=== PATIENT | male | born 1965 | race Hispanic/Latino ===

== ENCOUNTER 2017-09-22 03:47 | Inpatient (IN) | payer MEDICARE ==
--- NOTE | 2017-09-22 04:40 | ED PDOC ---
Arrival/HPI - General Chief Complaint: Lower Extremity Problem/Injury Time Seen by Provider: 09/22/17 03:52 Historian: Patient - History of Present Illness Narrative History of Present Illness (Text): 09/22/17 04:40 Patient is a 52 year old male who presents to the Emergency department complaining of redness and pain to his lower extremities and feet. 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 Patient states he has difficulty walking on his legs because of pain. Patient notes subjective fever. He denies any dyspnea , chest pain or other complaints at this time. Time/Duration: < week Context: Home Past Medical History - Provider Review Nursing Documentation Reviewed: Yes - Tetanus Immunization Tetanus Immunization: Unknown - Cardiac Hx Hypertension: Yes - Pulmonary Hx Chronic Obstructive Pulmonary Disease (COPD): Yes - Neurological Hx Neurological Disorder: No - HEENT Hx Deafness: Yes - Renal Hx Renal Disorder: No - Endocrine/Metabolic Hx Endocrine Disorders: No - Hematological/Oncological Hx Blood Disorders: No - Integumentary Hx Dermatological Disorder: No - Musculoskeletal/Rheumatological Hx Back Pain: Yes - Gastrointestinal Hx Gastrointestinal Disorders: No - Genitourinary/Gynecological Hx Genitourinary Disorders: No - Psychiatric Hx Psychophysiologic Disorder: No Hx Depression: No Hx Emotional Abuse: No Hx Physical Abuse: No Hx Substance Use: No - Surgical History Hx Appendectomy: Yes Hx Cholecystectomy: Yes Hx Tonsillectomy: Yes - Suicidal Assessment Feels Threatened In Home Enviroment: No Family/Social History - Physician Review Nursing Documentation Reviewed: Yes Family/Social History: No Known Family HX Smoking Status: Former Smoker Hx Alcohol Use: No Hx Substance Use: No Hx Substance Use Treatment: No Allergies/Home Meds Allergies/Adverse Reactions: Allergies No Known Allergies Allergy (Verified 09/22/17 11:34) Home Medications: Home Meds Medication Instructions Recorded Confirmed Albuterol Sulfate [Proair Hfa] 0.09 mg IH BID 04/24/13 09/22/17 Famotidine 20 mg PO DAILY 04/24/13 09/22/17 Fluticasone/Salmeterol [Advair 1 puff IH BID 04/24/13 09/22/17 Diskus 250/50] MetFORMIN ER [Glucophage XR] 500 mg PO BID 04/24/13 09/22/17 Montelukast Sodium 10 mg PO DAILY 04/24/13 09/22/17 Albuterol Sulfate [Proair Hfa] 0.09 mg IH DAILY 09/22/17 09/22/17 Furosemide [Lasix] 40 mg PO BID 09/22/17 09/22/17 Glimepiride [Amaryl] 4 mg PO BID 09/22/17 09/22/17 Ipratropium [Atrovent] 1 puff IH DAILY 09/22/17 09/22/17 Oxycodone HCl [Roxicodone] 30 mg PO 5XD 09/22/17 09/22/17 Theophylline Anhydrous 600 mg PO DAILY 09/22/17 09/22/17 [Theophylline] Valsartan/Hydrochlorothiazide 1 tab PO DAILY 09/22/17 09/22/17 [Valsartan-Hctz 320-12.5 mg Tab] Review of Systems - Physician Review All systems were reviewed & negative as marked: Yes - Review of Systems Constitutional: Fevers Respiratory: absent: SOB Cardiovascular: absent: Chest Pain Musculoskeletal: Other (Pain in bilateral lower extremities) Physical Exam Vital Signs Reviewed: Yes Vital Signs Temp Pulse Pulse Resp BP Pulse Ox 09/22/17 09:44 110 H 129/74 09/22/17 08:40 98.4 F 87 20 118/64 2 L 09/22/17 07:26 98.9 F 102 H 19 120/73 93 L 09/22/17 06:53 96 H 18 108/73 95 09/22/17 06:45 132 H 133/69 09/22/17 06:30 132 H 18 133/69 92 L 09/22/17 04:40 98.1 F 103 H 110 H 20 140/84 09/22/17 04:22 99.1 F 133 H 20 126/74 92 L Temperature: Afebrile Blood Pressure: Normal Pulse: Tachycardic Respiratory Rate: Normal Appearance: Positive for: Well-Appearing Pain Distress: None Mental Status: Positive for: Alert and Oriented X 3 - Systems Exam Head: Present: Atraumatic, Normocephalic Pupils: Present: PERRL Extroacular Muscles: Present: EOMI Conjunctiva: Present: Normal Mouth: Present: Moist Mucous Membranes Neck: Present: Normal Range of Motion Respiratory/Chest: Present: Clear to Auscultation, Good Air Exchange. No: Respiratory Distress, Accessory Muscle Use Cardiovascular: Present: Normal S1, S2, Irregular Rhythm. No: Murmurs Abdomen: Present: Other (Soft globus abdomen). No: Tenderness, Distention, Peritoneal Signs Back: Present: Normal Inspection Upper Extremity: Present: Normal Inspection. No: Cyanosis, Edema Lower Extremity: Present: Normal Inspection, Tenderness (some palpable tenderness of bilateral lower extremities), Erythema (confluent erythema of bilateral lower extremities with warmth left greater than right). No: Edema Neurological: Present: GCS=15, CN II-XII Intact, Speech Normal Skin: Present: Warm, Dry, Normal Color. No: Rashes Psychiatric: Present: Alert, Oriented x 3, Normal Insight, Normal Concentration Medical Decision Making ED Course and Treatment: 09/22/17 04:40 Impression: Patient is a 52 year old male with bilateral lower extremity pain. Differential Diagnosis included but are not limited to: cellulitis vs DVT Plan: --Labs --EKG --chest X-ray --lower extremity US --Urinalysis --IV fluids -- Reassess and disposition Prior Visits: Notes and results from previous visits were reviewed. Patient was last seen in the emergency department on 06/16/13 for shortness of breath and was evaluated and discharged. Progress Notes: 09/22/17 05:10 Chest X-ray shows chronic interstitial changes. Interpreted by me. 09/22/17 05:36 EKG shows ?sinus tachycardia? atrial flutter 2:1 conduction at [address]/T wave changes. Interpreted by me. 09/22/17 06:17 Lower extremity US result reviewed and was negative 09/22/17 06:40 EKG-Atrial flutter @96 Non specific T wave changes 09/22/17 07:05 Case was d/w PMD .Accepts to his service.Request on consult. - Lab Interpretations Lab Results: 09/22/17 04:55 09/22/17 04:55 Lab Results 09/22/17 05:10: Lactate Dehydrogenase 762 H, Total Creatine Kinase 92, Troponin I 0.02 09/22/17 04:55: Sodium 138, Chloride 101, Potassium 4.9, Carbon Dioxide 26, Anion Gap 16, BUN 28 H, Creatinine 1.1, Est GFR ( Amer) > 60, Est GFR ( Non-Af Amer) > 60, Random Glucose 149 H, Calcium 8.9, Phosphorus 3.4, Magnesium 1.8, Total Bilirubin 0.7, AST 39, ALT 34, Alkaline Phosphatase 203 H, Total Protein 7.4, Albumin 3.9, Globulin 3.5, Albumin/Globulin Ratio 1.1 09/22/17 04:55: PT 13.7 H, INR 1.19 H, APTT 33.1 09/22/17 04:55: WBC 7.6, RBC 5.47, Hgb 15.7, Hct 48.9, MCV 89.4, MCH 28.7, MCHC 32.1, RDW 14.6 H, Plt Count 207, MPV 11.2 H, Gran % 71.1 H, Lymph % (Auto) 19.6 L, Boundary % (Auto) 7.9 H, Eos % (Auto) 1.1 L, Baso % (Auto) 0.3, Gran # 5.39, Lymph # (Auto) 1.5, Boundary # (Auto) 0.6, Eos # (Auto) 0.1, Baso # (Auto) 0.02 09/22/17 04:54: pO2 42, VBG pH 7.31 L, VBG pCO2 63.0 H, VBG HCO3 31.7 H, VBG Total CO2 33.6 H, VBG O2 Sat (Calc) 81.3 H, VBG Base Excess 3.6 H, VBG Potassium 4.4, Sodium 133.0, Chloride 97.0 L, Glucose 153 H, Lactate 1.6, FiO2 21.0, Venous Blood Potassium 4.4 I have reviewed the lab results: Yes - RAD Interpretation Radiology Orders: 09/22/17 04:40 CHEST PORTABLE [RAD] Stat 09/22/17 04:44 DUPLEX LOWER EXTRM VEIN BILAT [US] Stat - EKG Interpretation Interpreted by ED Physician: Yes Type: 12 lead EKG - Medication Orders Current Medication Orders: Albuterol/Ipratropium (Duoneb 3 Mg/0.5 Mg (3 Ml) Ud) 3 ml IH Q2H PRN PRN Reason: Shortness of Breath Last Admin: 09/22/17 23:20 Dose: 3 ml Amiodarone HCl (Cordarone) 200 mg PO DAILY SHA Amiodarone HCl (Cordarone) 400 mg PO TID SHA Stop: 09/23/17 23:59 Last Admin: 09/22/17 19:03 Dose: 400 mg MAR Pulse and Blood Pressure Document 09/22/17 19:03 LM (Rec: 09/22/17 19:04 LM [id number]) Pulse Pulse Rate (60-90) 106 Apixaban (Eliquis) 5 mg PO BID [facility] PRN Reason: Protocol Last Admin: 09/22/17 19:04 Dose: 5 mg Vancomycin HCl (Vancomycin 1gm) 1 gm in 250 mls @ 167 mls/hr IVPB Q12H SHA PRN Reason: Protocol Last Admin: 09/22/17 17:23 Dose: 167 mls/hr eMAR Start Stop Document 09/22/17 17:23 LM (Rec: 09/22/17 17:23 LM [id number]) Intravenous Solution Start Date 09/22/17 Start Time 17:23 Oxycodone HCl (Oxycodone Immediate Release Tab) 30 mg PO Q6H PRN PRN Reason: Pain, severe (8-10) Last Admin: 09/22/17 19:04 Dose: 30 mg MAR Pain Assessment Document 09/22/17 19:04 LM (Rec: 09/22/17 19:04 LM [id number]) Pain Reassessment Is this a pain reassessment? No Presence of Pain Presence of Pain Yes Location Pain Location Body Site Leg Foot Description Description Chronic Verapamil HCl (Calan Tab) 40 mg PO TID [facility] Last Admin: 09/22/17 19:06 Dose: 40 mg MAR Pulse and Blood Pressure Document 09/22/17 19:06 LM (Rec: 09/22/17 19:06 LM [id number]) Pulse Pulse Rate (60-90) 106 Discontinued Medications Digoxin (Lanoxin) 0.25 mg IVP STAT STA Stop: 09/22/17 09:30 Last Admin: 09/22/17 09:35 Dose: 0.25 mg MAR Apical Pulse Rate Document 09/22/17 09:35 SRE (Rec: 09/22/17 09:35 SRE [id number]) Apical Pulse Rate Apical Pulse Rate (60-90 beats/min) 117 IVP Administration Document 09/22/17 09:35 SRE (Rec: 09/22/17 09:35 SRE [id number]) Charges for Administration # of IVP Administrations 1 Digoxin (Lanoxin) 0.25 mg IVP ONCE ONE Stop: 09/22/17 14:01 Last Admin: 09/22/17 15:39 Dose: 0.25 mg MAR Apical Pulse Rate Document 09/22/17 15:39 LM (Rec: 09/22/17 15:40 LM [id number]) Apical Pulse Rate Apical Pulse Rate (60-90 beats/min) 107 IVP Administration Document 09/22/17 15:39 LM (Rec: 09/22/17 15:40 LM [id number]) Charges for Administration # of IVP Administrations 1 Diltiazem HCl (Cardizem) 25 mg IVP STAT STA Stop: 09/22/17 06:20 Last Admin: 09/22/17 06:45 Dose: 20 mg Comments: as per Dr. Villalba IVP Administration Document 09/22/17 06:45 IT (Rec: 09/22/17 06:45 IT [id number]) Charges for Administration # of IVP Administrations 1 MAR Pulse and Blood Pressure Document 09/22/17 06:45 IT (Rec: 09/22/17 06:45 IT [id number]) Pulse Pulse Rate (60-90) 132 Blood Pressure Blood Pressure (100/60-150/90) 133/69 Enoxaparin Sodium (Lovenox) 100 mg SC STAT STA PRN Reason: Protocol Stop: 09/22/17 06:48 Last Admin: 09/22/17 06:57 Dose: 100 mg Subcutaneous Administrations Document 09/22/17 06:57 IT (Rec: 09/22/17 06:57 IT [id number]) Injection Site MAR Injection Site Right Abdomen Charges for Administration # of Subcutaneous Administrations 1 Sodium Chloride (Sodium Chloride 0.9%) 1,000 mls @ 150 mls/hr IV .Q6H40M SHA Last Admin: 09/22/17 12:24 Dose: Vancomycin HCl (Vancomycin 1gm) 1 gm in 250 mls @ 167 mls/hr IVPB STAT STA PRN Reason: Protocol Stop: 09/22/17 07:02 Last Admin: 09/22/17 08:38 Dose: 167 mls/hr eMAR Start Stop Document 09/22/17 08:38 SRE (Rec: 09/22/17 08:48 SRE [id number]) Intravenous Solution Start Date 09/22/17 Start Time 08:48 End Date 09/22/17 End time 10:25 Total Infusion Time 97 Piperacillin Sod/Tazobactam Sod (Zosyn 3.375 In Ns 100ml) 100 mls @ 200 mls/hr IV STAT STA PRN Reason: Protocol Stop: 09/22/17 05:59 Last Admin: 09/22/17 06:48 Dose: 200 mls/hr eMAR Start Stop Document 09/22/17 06:48 IT (Rec: 09/22/17 06:50 IT [id number]) Intravenous Solution Start Date 09/22/17 Start Time 06:50 End Date 09/22/17 Sodium Chloride (Sodium Chloride 0.9%) 1,000 mls @ 50 mls/hr IV .Q20H SHA Stop: 09/22/17 23:59 Last Admin: 09/22/17 13:03 Dose: Morphine Sulfate (Morphine) 4 mg IVP STAT STA Stop: 09/22/17 06:38 Last Admin: 09/22/17 06:44 Dose: 4 mg MAR Pain Assessment Document 09/22/17 06:44 IT (Rec: 09/22/17 06:44 IT [id number]) Pain Reassessment Is this a pain reassessment? No Presence of Pain Presence of Pain Yes Pain Scale Used Pain Scale Used Numeric Location Left, Right or Bilateral Bilateral Pain Location Body Site Leg IVP Administration Document 09/22/17 06:44 IT (Rec: 09/22/17 06:44 IT [id number]) Charges for Administration # of IVP Administrations 1 Oxycodone HCl (Oxycodone Immediate Release Tab) 30 mg PO Q8H PRN PRN Reason: Pain, severe (8-10) Last Admin: 09/22/17 12:56 Dose: 30 mg MAR Pain Assessment Document 09/22/17 12:56 LM (Rec: 09/22/17 12:56 LM [id number]) Pain Reassessment Is this a pain reassessment? No Presence of Pain Presence of Pain Yes Location Pain Location Body Site Leg Foot Description Pain Behavior Facial Grimacing Pneumococcal Polyvalent Vaccine (Pneumovax 23 Vaccine) 0.5 ml IM .ONCE ONE Stop: 09/22/17 14:22 Verapamil HCl (Verapamil Inj) 2.5 mg IVP STAT STA Stop: 09/22/17 09:30 Last Admin: 09/22/17 09:44 Dose: 2.5 mg IVP Administration Document 09/22/17 09:44 SRE (Rec: 09/22/17 09:44 SRE [id number]) Charges for Administration # of IVP Administrations 1 MAR Pulse and Blood Pressure Document 09/22/17 09:44 SRE (Rec: 09/22/17 09:44 SRE [id number]) Pulse Pulse Rate (60-90) 110 Blood Pressure Blood Pressure (100/60-150/90) 129/74 - Scribe Statement The provider has reviewed the documentation as recorded by the Scribe Bobby Vaughn Provider Scribe Attestation: All medical record entries made by the Scribe were at my direction and personally dictated by me. I have reviewed the chart and agree that the record accurately reflects my personal performance of the history, physical exam, medical decision making, and the department course for this patient. I have also personally directed, reviewed, and agree with the discharge instructions and disposition Disposition/Present on Arrival - Present on Arrival Any Indicators Present on Arrival: No History of DVT/PE: No History of Uncontrolled Diabetes: No Urinary Catheter: No History of Decub. Ulcer: No History Surgical Site Infection Following: None - Disposition Have Diagnosis and Disposition been Completed?: Yes Diagnosis: Atrial flutter with rapid ventricular response, Cellulitis Disposition: HOSPITALIZED Disposition Time: 07:06 Patient Plan: Admission Patient Problems: Current Active Problems Problem Status Onset Atrial flutter with rapid ventricular response Acute Cellulitis Acute Condition: STABLE
[2017-09-22 05:06] LABS: VENOUS BLOOD GAS BASE EXCESS 3.6 mmol/L (0.0-2.0); VENOUS BLOOD GAS PO2 42 mm/Hg (30-55); VENOUS BLOOD PH 7.31 (7.32-7.43)
[2017-09-22 05:22] LABS: BASO # 0.02 K/mm3 (0.0-2.0); BASO % 0.3 % (0.0-3.0); EOS # 0.1 (0.0-0.7); EOS % 1.1 % (1.5-5.0); GRAN # 5.39 (1.4-6.5); GRAN % 71.1 % (50.0-68.0); HEMOGLOBIN 15.7 g/dL (14.0-18.0); LYMPH # 1.5 (1.2-3.4); LYMPH % 19.6 % (22.0-35.0); MEAN CELL VOLUME 89.4 fl (80.0-105.0); MEAN CORPUSCULAR HEMOGLOBIN 28.7 pg (25.0-35.0); MEAN CORPUSCULAR HGB CONC 32.1 g/dl (31.0-37.0); MEAN PLATELET VOLUME 11.2 fl (7.0-11.0); MONO # 0.6 (0.1-0.6); MONO % 7.9 % (1.0-6.0); RBC 5.47 10^6/uL (3.5-6.1); RED CELL DISTRIBUTION WIDTH 14.6 % (11.5-14.5); WHITE BLOOD COUNT 7.6 10^3/ul (4.5-11.0)
[2017-09-22 05:27] LABS: ALB/GLOB RATIO 1.1 (1.1-1.8); ALBUMIN 3.9 g/dL (3.0-4.8); ALT/SGPT 34 U/L (7-56); AST/SGOT 39 U/L (17-59); BLOOD UREA NITROGEN 28 mg/dL (7-21); CALCIUM 8.9 mg/dL (8.4-10.5); GFR AFRICAN-AMERICAN > 60; GFR NON-AFRICAN AMERICAN > 60; INR 1.19 (0.93-1.08); PARTIAL THROMBOPLASTIN TIME 33.1 Seconds (25.1-36.5); PROTHROMBIN TIME 13.7 SECONDS (9.4-12.5)
[2017-09-22] MEDS ORDERED: Piperacillin/Tazobact 3.375 gm 100 ML IV STA (05:30)
[2017-09-22] MEDS ORDERED: Vancomycin 1gm in NS 250ml 1 GM/250 ML BAG IVPB STA (05:33)
[2017-09-22] MEDS: Sodium Chloride 0.9% 1,000 ML IV SCH ×2 (06:36→12:24)
[2017-09-22] MEDS ORDERED: Morphine 4 mg/ml ISec IVP STA (06:37)
[2017-09-22] MEDS ORDERED: diltiaZEM IVPB 100mg in NS 100 ML IV PRN (06:46)
[2017-09-22] MEDS ORDERED: Enoxaparin 100 mg Syringe SC STA (06:47)
[2017-09-22 07:34] LABS: TROPONIN I 0.02 ng/mL
--- NOTE | 2017-09-22 09:07 | US ---
HISTORY: Leg pain and swelling. Evaluate for DVT PHYSICIAN(S): Gilberto Gutierrez MD. TECHNIQUE: Duplex sonography and color-flow Doppler with graded compression were used to evaluate the deep venous systems of both lower extremities. The exam is very limited by body habitus and edema. The tibial veins are not adequately seen. FINDINGS: The visualized deep venous systems of both lower extremities are sonographically normal and compressible. Normal wave forms and augmentation are seen. There is no sonographic evidence for deep venous thrombosis in the visualized segments of both lower extremities. IMPRESSION: No sonographic evidence for deep venous thrombosis in the visualized segments of both lower extremities. Very limited study
--- NOTE | 2017-09-22 09:09 | RAD ---
HISTORY: Sepsis Patient COMPARISON: 06/16/2013 FINDINGS: LUNGS: No active pulmonary disease. PLEURA: No significant pleural effusion identified, no pneumothorax apparent. CARDIOVASCULAR: Mild cardiomegaly. Mild vascular congestion OSSEOUS STRUCTURES: No significant abnormalities. VISUALIZED UPPER ABDOMEN: Normal. OTHER FINDINGS: None. IMPRESSION: Mild cardiomegaly and mild vascular congestion
[2017-09-22] MEDS ORDERED: Digoxin 500 mcg/2ml (0.5 mg/2ml) Inj IVP STA (09:29)
[2017-09-22] MEDS ORDERED: Digoxin 500 mcg/2ml (0.5 mg/2ml) Inj ONE (09:31)
[2017-09-22 09:49] LABS: URINE BILIRUBIN NEGATIVE (NEGATIVE); URINE BLOOD NEGATIVE (NEGATIVE); URINE GLUCOSE (UA) NEGATIVE (NEGATIVE); URINE LEUKOCYTE ESTERASE NEGATIVE Leu/uL (NEGATIVE); URINE PROTEIN TRACE mg/dL (<30 mg/dL); URINE UROBILINOGEN 0.2 E.U./dL (<1 E.U./dL)
[2017-09-22 09:52] LABS: URINE APPEARANCE CLEAR (CLEAR); URINE COLOR LIGHT YELLOW (YELLOW)
[2017-09-22 10:14] LABS: URINE BACTERIA FEW (NEG); URINE RBC 0 - 2 /hpf (0-2); URINE WBC 0 - 2 /hpf (0-6)
--- NOTE | 2017-09-22 10:32 | CARD ---
APPROVED REPORT EKG Measurement Heart [id number] <Conclusion> Atrial flutter with variable AV block Nonspecific T wave abnormality No change except the rate is slower
[2017-09-22] MEDS ORDERED: oxyCODONE 30 mg Immediate Release Tab PO PRN (12:22)
[2017-09-22] MEDS ORDERED: Sodium Chloride 0.9% 1,000 ML IV SCH (12:58)
[2017-09-22] MEDS ORDERED: Digoxin 500 mcg/2ml (0.5 mg/2ml) Inj IVP ONE (14:00)
[2017-09-22 14:21] VITALS: BMI 49.3
[2017-09-22] MEDS ORDERED: Pneumococcal 23-Valent Vaccine IM ONE (14:21)
--- NOTE | 2017-09-22 14:34 | RAD ---
PROCEDURE: Left Foot Radiographs. HISTORY: R/O FB COMPARISON: None. FINDINGS: BONES: Normal. No fracture. JOINTS: Mild hallux valgus angulation SOFT TISSUES: Normal. OTHER FINDINGS: None. IMPRESSION: No acute findings. No evidence of foreign body
[2017-09-22 15:47] VITALS: PULSE 107
--- NOTE | 2017-09-22 16:19 | CP.PCM.CON ---
History of Present Illness - History of Present Illness History of Present Illness: 52 y/o deaf male seen at bedside this afternoon after consultation for evaluation of lower extremity ulcerations with foot pain. Pt states he has pain to the outside of his left foot by the 5th toe as well as the front of the right leg. Pt says he has had wounds there for months but denies seeking any treatment. 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 Admits to significant pain that limits his ability to walk on the left foot. States he is not sure if any pus has come from the foot. Says it is very tender to touch. Denies F/C/N/V/CP/SOB. Admits to occasional tingling and numbness in the lower extremities Review of Systems - Review of Systems All systems: reviewed and no additional remarkable complaints except (per HPI) Past Patient History - Tetanus Immunizations Tetanus Immunization: Unknown - Past Social History Smoking Status: Former Smoker - CARDIAC Hx Hypertension: Yes - PULMONARY Hx Chronic Obstructive Pulmonary Disease (COPD): Yes - NEUROLOGICAL Hx Neurological Disorder: No - HEENT Hx Deafness: Yes - RENAL Hx Chronic Kidney Disease: No - ENDOCRINE/METABOLIC Hx Endocrine Disorders: No - HEMATOLOGICAL/ONCOLOGICAL Hx Blood Disorders: No - INTEGUMENTARY Hx Dermatological Problems: No - MUSCULOSKELETAL/RHEUMATOLOGICAL Hx Back Pain: Yes - GASTROINTESTINAL Hx Gastrointestinal Disorders: No - GENITOURINARY/GYNECOLOGICAL Hx Genitourinary Disorders: No - PSYCHIATRIC Hx Psychophysiologic Disorder: No Hx Depression: No Hx Emotional Abuse: No Hx Physical Abuse: No Hx Substance Use: No - SURGICAL HISTORY Hx Appendectomy: Yes Hx Cholecystectomy: Yes Hx Tonsillectomy: Yes Meds Allergies/Adverse Reactions: Allergies Allergy/AdvReac Type Severity Reaction Status Date / Time No Known Allergies Allergy Verified 09/22/17 11:34 - Medications Medications: Current Medications Amiodarone HCl (Cordarone) 200 mg PO DAILY SHA Amiodarone HCl (Cordarone) 400 mg PO TID [facility] Stop: 09/23/17 23:59 Last Admin: 09/22/17 15:39 Dose: 400 mg Apixaban (Eliquis) 5 mg PO BID SHA PRN Reason: Protocol Sodium Chloride (Sodium Chloride 0.9%) 1,000 mls @ 50 mls/hr IV .Q20H [facility] Stop: 09/22/17 23:59 Last Admin: 09/22/17 13:03 Dose: Not Given Vancomycin HCl (Vancomycin 1gm) 1 gm in 250 mls @ 167 mls/hr IVPB Q12H SHA PRN Reason: Protocol Oxycodone HCl (Oxycodone Immediate Release Tab) 30 mg PO Q8H PRN PRN Reason: Pain, severe (8-10) Last Admin: 09/22/17 12:56 Dose: 30 mg Verapamil HCl (Calan Tab) 40 mg PO TID SHA Last Admin: 09/22/17 15:39 Dose: 40 mg Physical Exam - Constitutional Appears: Well, Non-toxic, No Acute Distress - Extremities Exam Additional comments: Lower extremity focused exam: Vasc: DP/PT pulses palpable 2/4. Temperature gradient warm to warm from proximal to distal. CFT < 3 sec to all digits. +2 pitting edema noted to B/L lower extremities Derm: Diffuse cellulitic skin changes noted to B/L lower extremities. Fluctuance noted to lateral aspect of left foot at level of 5th metatarsal head with skin maceration and blistering noted. No active drainage or purulence noted on exam. No evidence of opening or break in skin or soft tissue, however plantar aspect exhibits hyperkeratotic skin roof which may be covering underlying ulcerative lesion. Superficial ulceration noted to right anterior mid leg approx 1.5cm x 1cm x 0.1cm with beefy red granular wound base and hyperkeratotic wound borders. No drainage, no purulence, no malodor, no fluctuance. Nails thickened and elongated x 10 Neuro: Protective sensation slightly diminished Ortho: Mild-moderate tenderness to palpation of left lateral 5th met head; mild tenderness to palpation of right anterior leg wound - Neurological Exam Neurological exam: Alert, Oriented x3 - Psychiatric Exam Psychiatric exam: Normal Affect, Normal Mood Results - Vital Signs Recent Vital Signs: Last Vital Signs Temp 98.1 F 09/22/17 12:00 Pulse 107 H 09/22/17 15:39 Resp 14 09/22/17 12:00 BP 140/84 09/22/17 12:00 Pulse Ox 2 L 09/22/17 08:40 - Labs Result Diagrams: 09/23/17 06:00 09/24/17 06:30 Labs: Laboratory Results - last 24 hr 09/22/17 09:30 Urine Color Light yellow Urine Appearance Clear Urine pH 6.0 Ur Specific [place] 1.010 Urine Protein Trace H Urine Glucose (UA) Negative Urine Ketones Negative Urine Blood Negative Urine Nitrate Negative Urine Bilirubin Negative Urine Urobilinogen 0.2 Ur Leukocyte Esterase Negative Urine RBC 0 - 2 Urine WBC 0 - 2 Ur Epithelial Cells None Urine Bacteria Few Assessment & Plan - Assessment and Plan (Free Text) Assessment: 52 y/o obese deaf male with 1) left foot blister with possible underlying abscess formation and 2) right anterior leg ulceration Plan: Pt seen and evaluated at bedside Discussed with attending Dr. Hill Labs and vitals reviewed- afebrile, WBC 7.6 Wounds cleansed with saline and dressed with betadine and optifoam L foot x-ray reviewed - no signs of osseous erosive changes Will consider MRI to r/o abscess of left foot Continue IV Vancomycin Will continue to follow pt while in house
--- NOTE | 2017-09-22 16:30 | CARD ---
APPROVED REPORT EKG Measurement Heart [id number] <Conclusion> Atrial flutter with 2:1 AV conduction PRWP STTW changes Prolonged QTc
[2017-09-22] MEDS: Vancomycin 1gm in NS 250ml 1 GM/250 ML BAG IVPB SCH (17:23)
[2017-09-22] MEDS: oxyCODONE 30 mg Immediate Release Tab PO PRN (19:04)
[2017-09-22] MEDS: Albuterol-Ipratrop 3 mg / 0.5 (3 ml) UD IH PRN ×2 (20:55→23:20)
--- NOTE | 2017-09-23 00:25 | CON ---
DATE: 09/22/2017 REASON FOR CONSULTATION: Followup cardiac evaluation, admitted with AFib, flutter and cellulitis of lower extremity. BRIEF CLINICAL HISTORY: A 52-year-old male with past medical history of morbid obesity, deaf and dumb, communicate by writing, came in with complaint of lower extremity problem, found to be just cellulitis, but EKG hookup with monitor shows AFib with rapid ventricular response. Consult was called. Patient denies any chest pain, shortness of breath, any palpitation. PAST MEDICAL HISTORY: Significant for diabetes, hypertension, hyperlipidemia, morbid obesity, body mass index 50 kg/m2. Denies any history of definite coronary artery disease. ALLERGIES: NO KNOWN DRUG ALLERGY. CURRENT MEDICATIONS: Patient is taking oxycodone, glimepiride, Lasix 40 mg twice a day, albuterol inhaler, valsartan 320 mg adding by 12.5 mg of hydrochlorothiazide, theophylline, Atrovent, Singulair, metformin and albuterol inhaler. PHYSICAL EXAMINATION: VITAL SIGNS: Height of the patient 5 feet 7 inches, weight of the patient 315 pounds, body mass index 50 kg/m2. Rest of the vitals, temperature afebrile, heart rate 87, blood pressure 118/64. HEENT: PERRLA. Extraocular muscle intact. NECK: Supple. No carotid bruit or thyromegaly. CHEST: Clear to auscultation. HEART: S1, S2 regular. ABDOMEN: Soft. EXTREMITIES: Clubbing negative, but diffuse cellulitis and different area of encrustation noted. IMPRESSION: Atrial fibrillation, flutter with rapid ventricular rate, morbid obesity, diabetes, hypertension, hyperlipidemia, cellulitis of lower extremity. RECOMMENDATION: Patient is on Cardizem the blood pressure. We will change to verapamil p.o. Give the . Broad-spectrum antibiotics as per ID. Dr. Norman also start amiodarone. Lipid profile, TSH, hemoglobin A1c. We will get echo to assess LV function. Further recommendation as per hospital course. We will follow with you. Thank you, Dr. Norman for providing us the opportunity in taking care of the patient, Jonathan Rosas. Chantel Faulkner MD [facility] # [id number]
--- NOTE | 2017-09-23 01:07 | CP.PCM.PN ---
Subjective - Date & Time of Evaluation Date of Evaluation: 09/23/17 Time of Evaluation: 12:20 - Subjective Subjective: Pt seen at the request of his RN for his c/o SOB. He denies chest pain,nausea,vomiting,cough or abd pain but admits to c/o pain in his legs. He has history of COPD, is on nebulizer treatment. VS are stable. PMH :COPD Objective - Vital Signs/Intake and Output Vital Signs (last 24 hours): Temp Pulse Resp BP Pulse Ox 98.2 F 66 19 111/62 98 09/22/17 23:59 09/22/17 23:59 09/22/17 23:59 09/22/17 23:59 09/22/17 23:59 - Medications Medications: Current Medications Albuterol/Ipratropium (Duoneb 3 Mg/0.5 Mg (3 Ml) Ud) 3 ml IH Q2H PRN PRN Reason: Shortness of Breath Last Admin: 09/22/17 23:20 Dose: 3 ml Amiodarone HCl (Cordarone) 200 mg PO DAILY [facility] Amiodarone HCl (Cordarone) 400 mg PO TID [facility] Stop: 09/23/17 23:59 Last Admin: 09/22/17 19:03 Dose: 400 mg Apixaban (Eliquis) 5 mg PO BID [facility] PRN Reason: Protocol Last Admin: 09/22/17 19:04 Dose: 5 mg Vancomycin HCl (Vancomycin 1gm) 1 gm in 250 mls @ 167 mls/hr IVPB Q12H [facility] PRN Reason: Protocol Last Admin: 09/22/17 17:23 Dose: 167 mls/hr Oxycodone HCl (Oxycodone Immediate Release Tab) 30 mg PO Q6H PRN PRN Reason: Pain, severe (8-10) Last Admin: 09/22/17 19:04 Dose: 30 mg Verapamil HCl (Calan Tab) 40 mg PO TID [facility] Last Admin: 09/22/17 19:06 Dose: 40 mg - Labs Labs: PT 13.7 SECONDS (9.4-12.5) H 09/22/17 04:55 INR 1.19 (0.93-1.08) H 09/22/17 04:55 APTT 33.1 Seconds (25.1-36.5) 09/22/17 04:55 - Constitutional Appears: No Acute Distress, Other - Head Exam Head Exam: ATRAUMATIC, NORMAL INSPECTION, NORMOCEPHALIC - Eye Exam Eye Exam: PERRL - ENT Exam ENT Exam: Mucous Membranes Moist - Neck Exam Neck Exam: Normal Inspection (Patient is obese) - Respiratory Exam Respiratory Exam: Decreased Breath Sounds Additional comments: Bibasilar creptitations noted. - Cardiovascular Exam Cardiovascular Exam: Tachycardia, Irregular Rhythm - GI/Abdominal Exam GI & Abdominal Exam: Distended, Firm, Diminished Bowel Sounds. absent: Tenderness - Back Exam Additional comments: Cellulitis of both lower extremities. - Neurological Exam Neurological Exam: Alert, Awake Additional comments: pt is deaf,communicates by writing. - Psychiatric Exam Psychiatric exam: Normal Affect - Skin Skin Exam: Erythema (and edema noted on both lower legs.) Assessment and Plan - Assessment and Plan (Free Text) Assessment: CHF Plan: Cxray portable stat shows increase in congestion. Will order Lasix 40 mg po now.
[2017-09-23] MEDS: oxyCODONE 30 mg Immediate Release Tab PO PRN ×4 (01:16→22:34)
--- NOTE | 2017-09-23 01:24 | RAD ---
EXAM: XR Chest, 1 View CLINICAL HISTORY: 52 years old, male; Signs and symptoms; Shortness of breath; Additional info: Pt is short of breath TECHNIQUE: Frontal view of the chest. COMPARISON: DX - CHEST PORTABLE 2017-09-22 04:54 FINDINGS: Limitations: Radiographic technique - mild. Lungs: Mild patchy opacities lung bases. Pleural space: Probable small RIGHT pleural effusion. No pneumothorax. Heart: Mild cardiomegaly. Mediastinum: Prominence of central pulmonary vasculature. Bones/joints: No acute fracture. Tubes, lines and devices: Leads overlying chest. IMPRESSION: 1. Probable mild pulmonary vascular congestion. Clinical correlation is needed. 2. Bibasilar opacities. DDX: Atelectasis, pneumonia, dependent edema.
[2017-09-23 06:49] LABS: BASO # 0.02 K/mm3 (0.0-2.0); BASO % 0.3 % (0.0-3.0); EOS # 0.1 (0.0-0.7); EOS % 1.5 % (1.5-5.0); GRAN # 4.72 (1.4-6.5); HEMOGLOBIN 15.3 g/dL (14.0-18.0); LYMPH # 1.8 (1.2-3.4); LYMPH % 24.9 % (22.0-35.0); MEAN CELL VOLUME 90.5 fl (80.0-105.0); MEAN CORPUSCULAR HEMOGLOBIN 27.9 pg (25.0-35.0); MEAN CORPUSCULAR HGB CONC 30.8 g/dl (31.0-37.0); MEAN PLATELET VOLUME 11.1 fl (7.0-11.0); MONO # 0.6 (0.1-0.6); MONO % 8.3 % (1.0-6.0); RBC 5.49 10^6/uL (3.5-6.1); RED CELL DISTRIBUTION WIDTH 14.8 % (11.5-14.5); WHITE BLOOD COUNT 7.3 10^3/ul (4.5-11.0)
[2017-09-23 07:11] LABS: LDL CHOLESTEROL 74 mg/dL (0-129)
[2017-09-23 07:18] LABS: ALBUMIN 3.7 g/dL (3.0-4.8); ALT/SGPT 24 U/L (7-56); AST/SGOT 36 U/L (17-59); BLOOD UREA NITROGEN 26 mg/dL (7-21); CALCIUM 8.6 mg/dL (8.4-10.5); GFR AFRICAN-AMERICAN > 60; GFR NON-AFRICAN AMERICAN > 60; HDL CHOLESTEROL 27 mg/dL (29-60)
--- NOTE | 2017-09-23 10:05 | CT ---
PROCEDURE: CT Chest, Abdomen and Pelvis without intravenous contrast HISTORY: tense abd., r/o mass COMPARISON: 03/01/2013 TECHNIQUE: Radiation dose: Total exam DLP = 1822 mGy-cm. This CT exam was performed using one or more of the following dose reduction techniques: Automated exposure control, adjustment of the mA and/or kV according to patient size, and/or use of iterative reconstruction technique. FINDINGS: CT CHEST WITHOUT CONTRAST: LUNGS: There is consolidation at the right lung base adjacent to a moderate-sized pleural effusion MEDIASTINUM: Unremarkable. Normal caliber aorta and pulmonary arterial trunk. Normal size heart. LYMPH NODES: Unremarkable. PLEURA: Moderate size right pleural effusion BONES: Unremarkable. OTHER FINDINGS: None. CT ABDOMEN AND PELVIS: LIVER: Unremarkable. No gross lesion or ductal dilatation. GALLBLADDER AND BILE DUCTS: Gallbladder removed PANCREAS: Unremarkable. No gross lesion or ductal dilatation. SPLEEN: Unremarkable. ADRENALS: Unremarkable. No mass. KIDNEYS AND URETERS: Unremarkable. No hydronephrosis. No solid mass. VASCULATURE: Unremarkable. No aortic aneurysm. BOWEL: Unremarkable. No obstruction. No gross mural thickening. APPENDIX: Normal appendix. PERITONEUM: There is a moderate amount of ascites. There is also a mild amount of subcutaneous edema. No evidence of obstruction LYMPH NODES: Unremarkable. No enlarged lymph nodes. BLADDER: Unremarkable. REPRODUCTIVE: Unremarkable. BONES: No acute fracture. OTHER FINDINGS: None. IMPRESSION: Moderate ascites. Moderate size right pleural effusion
[2017-09-23] MEDS: Albuterol-Ipratrop 3 mg / 0.5 (3 ml) UD IH PRN ×4 (10:36→21:40)
[2017-09-23] MEDS: Vancomycin 1gm in NS 250ml 1 GM/250 ML BAG IVPB SCH ×3 (11:33→17:00)
--- NOTE | 2017-09-23 13:54 | CP.PCM.CON ---
History of Present Illness - History of Present Illness History of Present Illness: 52 year old male with PMH of deafness, HTN, morbid obesity with BMI 51, COPD, S/ P appendectomy, S/P cholecystectomy, S/P tonsillectomy came in to [facility] because of erythema and pain on the left foot and leg. He used to see his Audio/Visual Manager regularly but the patient stopped going 2 years ago. The patient does not recall how he developed the ulcer on the lateral part of his left foot, but states that there has been oozing from the foot. He denies animal contacts, no soaking of his feet and legs in water, no walking barefoot on soil. He also denies fever or chills, no nausea or vomiting, no chest pain, no abdominal pain , no cough or rhinorrhea, no chest pain, no SOB, no sore throat, no diarrhea, no dysuria. HPI and ROS were taken through the patient's family member who is able to communicate with the patient even though he is deaf. Infectious diseases consult is requested to further evaluate and manage. Review of Systems - Review of Systems All systems: reviewed and no additional remarkable complaints except (as per HPI ) Past Patient History - Tetanus Immunizations Tetanus Immunization: Unknown - Past Social History Smoking Status: Former Smoker - CARDIAC Hx Hypertension: Yes - PULMONARY Hx Chronic Obstructive Pulmonary Disease (COPD): Yes - NEUROLOGICAL Hx Neurological Disorder: No - HEENT Hx Deafness: Yes - RENAL Hx Chronic Kidney Disease: No - ENDOCRINE/METABOLIC Hx Endocrine Disorders: No - HEMATOLOGICAL/ONCOLOGICAL Hx Blood Disorders: No - INTEGUMENTARY Hx Dermatological Problems: No - MUSCULOSKELETAL/RHEUMATOLOGICAL Hx Back Pain: Yes - GASTROINTESTINAL Hx Gastrointestinal Disorders: No - GENITOURINARY/GYNECOLOGICAL Hx Genitourinary Disorders: No - PSYCHIATRIC Hx Psychophysiologic Disorder: No Hx Depression: No Hx Emotional Abuse: No Hx Physical Abuse: No Hx Substance Use: No - SURGICAL HISTORY Hx Appendectomy: Yes Hx Cholecystectomy: Yes Hx Tonsillectomy: Yes Meds Allergies/Adverse Reactions: Allergies Allergy/AdvReac Type Severity Reaction Status Date / Time No Known Allergies Allergy Verified 09/22/17 11:34 - Medications Medications: Current Medications Amiodarone HCl (Cordarone) 200 mg PO DAILY [facility] Amiodarone HCl (Cordarone) 400 mg PO TID [facility] Stop: 09/23/17 23:59 Apixaban (Eliquis) 5 mg PO BID [facility] PRN Reason: Protocol Digoxin (Lanoxin) 0.25 mg IVP ONCE ONE Stop: 09/22/17 14:01 Sodium Chloride (Sodium Chloride 0.9%) 1,000 mls @ 50 mls/hr IV .Q20H [facility] Stop: 09/22/17 23:59 Last Admin: 09/22/17 13:03 Dose: Not Given Oxycodone HCl (Oxycodone Immediate Release Tab) 30 mg PO Q8H PRN PRN Reason: Pain, severe (8-10) Last Admin: 09/22/17 12:56 Dose: 30 mg Verapamil HCl (Calan Tab) 40 mg PO TID [facility] Physical Exam - Constitutional Appears: Non-toxic, Chronically Ill - Head Exam Head Exam: NORMAL INSPECTION - Neck Exam Neck exam: Negative for: Meningismus - Respiratory Exam Respiratory Exam: Decreased Breath Sounds - Cardiovascular Exam Cardiovascular Exam: +S1, +S2 - GI/Abdominal Exam GI & Abdominal Exam: Soft. absent: Tenderness - Extremities Exam Additional comments: left lateral foot area with ulcer with purulent and malodorous discharge Results - Vital Signs Recent Vital Signs: Last Vital Signs Temp 98.1 F 09/22/17 12:00 Pulse 103 H 09/22/17 12:00 Resp 14 09/22/17 12:00 BP 140/84 09/22/17 12:00 Pulse Ox 2 L 09/22/17 08:40 - Labs Result Diagrams: 09/23/17 06:00 09/23/17 06:00 Labs: Laboratory Results - last 24 hr 09/22/17 09:30 Urine Color Light yellow Urine Appearance Clear Urine pH 6.0 Ur Specific [place] 1.010 Urine Protein Trace H Urine Glucose (UA) Negative Urine Ketones Negative Urine Blood Negative Urine Nitrate Negative Urine Bilirubin Negative Urine Urobilinogen 0.2 Ur Leukocyte Esterase Negative Urine RBC 0 - 2 Urine WBC 0 - 2 Ur Epithelial Cells None Urine Bacteria Few Assessment & Plan - Assessment and Plan (Free Text) Plan: Assessment Consider left lateral foot purulent skin and skin structure infection, may need to rule out osteomyelitis deafness HTN morbid obesity with BMI 51 COPD S/P appendectomy S/P cholecystectomy S/P tonsillectomy Plan Started the patient on Vancomycin and will add Cefepime pending blood and wound cx; left foot xray is negative for bony abnormalities but the patient may need further imaging - awaiting Podiatry evaluation and recommendations CXR shows pulmonary congestion will monitor clinically
[2017-09-23] MEDS: Insulin Reg-LOW-Coverage SC SCH ×3 (14:04→22:35)
--- NOTE | 2017-09-23 14:46 | CARD ---
APPROVED REPORT EKG Measurement Heart [id number] <Conclusion> Atrial flutter with variable AV block Nonspecific ST and T wave abnormality PRWP
--- NOTE | 2017-09-23 14:53 | PN ---
DATE: 09/23/2017 REASON FOR CONSULTATION AND FOLLOWUP: Cardiac evaluation, admitted with AFib, flutter and cellulitis of lower extremities, morbid obesity, deaf and possibly dumb. SUBJECTIVE: Patient denies any chest pain, shortness of breath or any palpitations. Though patient is deaf, understand the sign language and communicate with reading the lips and by writing. PHYSICAL EXAMINATION: GENERAL: Not in apparent distress, waiting to go for echo. VITAL SIGNS: Temperature afebrile, heart rate 80, blood pressure 115/77. HEENT: PERRLA, intact. NECK: Supple. No carotid bruits or thyromegaly. CHEST: Clear to auscultation. HEART: S1 and S2 regular. ABDOMEN: Soft. EXTREMITIES: Clubbing and cyanosis negative. LABORATORY DATA: Blood workup as follows: WBC 7.3, hemoglobin 15.7, hematocrit 49.7, platelet count 184. Chemistry shows sodium 138, potassium 4.8, chloride 101, carbon dioxide of 27, anion gap of 16, BUN 26, creatinine 1.1. TSH 5.1. Total cholesterol 119, LDL 74, HDL 27, triglycerides 104. IMPRESSION: Morbid obesity, deaf and dumb, new-onset atrial flutter/fibrillation, cellulitis of lower extremities, hypothyroidism, diabetes, history of chronic obstructive pulmonary disease. RECOMMENDATIONS: Started amiodarone. Continue verapamil to control the heart rate better. Though patient has still AFib/flutter with control, continue Eliquis. Broad-spectrum antibiotics as per ID recommendation for cellulitis of lower extremities. Two doses of digoxin was given. Patient remains in atrial flutter, but well controlled. We will start low-dose Synthroid for hypothyroidism. Awaiting for the echo to assess further plan for treat cardioversion versus medical treatment versus rate control. We will follow with you. ID followup with Dr. Pedroza. We will repeat the lab in the morning. We will start 25 mcg of Levoxyl for hypothyroidism. Thank you, Dr. Norman, for providing us the opportunity in taking care of the patient, Jonathan Rosas. Chantel Faulkner MD [facility] # [phone]
[2017-09-23] MEDS ORDERED: Insulin Reg-LOW-Coverage SC SCH (16:30)
[2017-09-23] MEDS ORDERED: Morphine 4 mg/ml ISec IVP STA (18:26)
--- NOTE | 2017-09-23 18:42 | CARD ---
APPROVED REPORT EXAM: Two-dimensional and M-mode echocardiogram with Doppler and color Doppler. INDICATION Atrial Fibrillation A-FLUTTER 2D DIMENSIONS IVSd1.3 (0.7-1.1cm)LVDd4.3 (3.9-5.9cm) PWd1.4 (0.7-1.1cm)LVDs3.0 (2.5-4.0cm) FS (%) 30.4 %LVEF (%)58.1 (>50%) M-Mode DIMENSIONS Aortic Root3.90 (2.2-3.7cm)Aortic Cusp Exc.1.80 (1.5-2.0cm) Aortic Valve AoV Peak Jfzojkuq140.0cm/Americo Peak GR.4mmHg Mitral Valve E/A ratio0.0 TDI E/Lateral E'0.0E/Medial E'0.0 Pulmonary Valve PV Peak Glrvzhnz84.3cm/sPV Peak Grad.1mmHg Tricuspid Valve TR Peak Jmmplubz071ow/sRAP [id number] Peak Gr.41mmHg [id number] LEFT VENTRICLE The left ventricle is normal size. There is mild concentric left ventricular hypertrophy. The left ventricular function is normal.EF-55-60% ( A fib) There is normal LV segmental wall motion. A fib could not be assessed No left ventricle thrombus noted on this study. There is no ventricular septal defect visualized. There is no left ventricular aneurysm. There is no mass noted in the left ventricle. RIGHT VENTRICLE The right ventricle is severely dilated. The right ventricle is mildly hypertrophied. Systolic function of RV is moderately to severely reduced. ATRIA The left atrium is mildly dilated. The right atrium is moderate to severely dilated. The interatrial septum is intact with no evidence for an atrial septal defect. AORTIC VALVE The aortic valve is thickened but opens well. The aortic valve is moderately sclerotic. There is trace aortic regurgitation. There is no aortic valvular stenosis. There is no aortic valvular vegetation. MITRAL VALVE The mitral valve is thickened but opens well. Mitral regurgitation is trace. There is no mitral valve stenosis. There is no evidence of mitral valve prolapse. TRICUSPID VALVE The tricuspid valve leaflets are thickened , but open well. There is moderate tricuspid regurgitation.RVSP-51 mmof hg. There is no tricuspid valve stenosis. There is no tricuspid valve prolapse or vegetation. PULMONIC VALVE The pulmonic valve is mildly thickened. There is trace to mild pulmonic valvular regurgitation. There is no pulmonic valvular stenosis. GREAT VESSELS The aortic root is normal in size. The ascending aorta is normal in size. The pulmonary artery is normal. The IVC was not visualized. PERICARDIAL EFFUSION There is no pleural effusion. There is no pericardial effusion. <Conclusion> The left ventricle is normal size. There is mild concentric left ventricular hypertrophy. The left ventricular function is normal.EF-55-60% ( A fib) The right ventricle is severely dilated. Systolic function of RV is moderately to severely reduced. There is trace aortic regurgitation. Mitral regurgitation is trace. There is moderate tricuspid regurgitation.RVSP-51 mmof hg. The IVC was not visualized. There is no pericardial effusion. TDS, poor sonic window b/c of Increase bodt habitus
--- NOTE | 2017-09-23 18:47 | HP ---
CHIEF COMPLAINT: Pain and swelling of the lower extremities with erythema and some weeping. HISTORY OF PRESENT ILLNESS: This is a 52-year-old morbidly obese diabetic male who is a deaf mute, presented to the emergency room with the above complaint. He was found to have a large cellulitis on the lower extremities and erythema of the upper legs and lower abdomen as well. He was admitted and started on IV antibiotics, Infectious Disease consultation was called. PAST MEDICAL HISTORY: Significant for diabetes as mentioned above, also chronic low back pain, hypertension, hearing loss, hypothyroidism, and COPD as noted on prior x-ray. MEDICATIONS AT HOME: Include Atrovent, Pro-Air, naproxen, metformin, Advair, clonidine, Amaryl, Diovan HCT, and OxyContin 30 mg. SOCIAL HISTORY: He is active smoker. Drinks alcohol, he drinks daily. He lives alone. The patient is on social security disability. The patient has been obviously noncompliant with diabetic diet. REVIEW OF SYSTEMS: Significant mostly for back pain and difficulty related to obesity. PHYSICAL EXAMINATION: GENERAL: The patient was seen this Thursday in room 276, bed 2 with his mother at the bedside to act as a medicine technologist. The patient used sign language, but also read lips and often he understands without a government relations analyst present. HEAD AND NECK: Full, obese, round. Conjunctivae are pink. Mucous membranes are moist. Teeth are in fair state of repair. Neck is bull thickened. No masses are palpable. LUNGS: Show good aeration of right and left. HEART: Regular, not tachycardic. There are no murmurs appreciable. ABDOMEN: Tense, markedly protuberant, distended, and massively obese. He has erythema on the lower abdomen up to above the umbilicus. EXTREMITIES: Lower extremities are large. There is +2 to +3 edema, also obesity present. Legs are erythematous with cracks and . On the foot, there is a lateral callus with a puncture wound and some drainage. LABORATORY DATA: Review of labs show white count to be elevated at 11.4, H and H of 9.9 and 30. Nonfasting glucose of 130. BUN and creatinine of 35 and 1.7. IMPRESSION: 1. Cellulitis of the lower extremities. 2. Puncture wound and callus, diabetic foot. 3. Diabetes. 4. Morbid obesity, rule out intraabdominal pathology due to the tense nature of the abdominal wall. 5. Chronic back pain. 6. Chronic opioid use. 7. Noncompliance with diet. 8. Deaf mute. 9. Atrial flutter. 10, Anasarca / volume overload PLAN: Infectious Disease and Cardiology consultation were called. The patient was placed on oral amiodarone, given IV vanco. Podiatry consult by Dr. Hill was also called. We will follow up sugars and cover with insulin, resume prior medicines. Consider pain management consultation while the patient is here in the hospital and taper off opioid use. Justyn Norman MD MTDD
[2017-09-24] MEDS: Albuterol-Ipratrop 3 mg / 0.5 (3 ml) UD IH PRN ×4 (02:12→19:50)
--- NOTE | 2017-09-24 04:26 | PN ---
DATE: 09/23/2017 SUBJECTIVE: The patient is a 52-year-old male who is deaf mute, who presented to the emergency room with pain in his lower extremities, who was found to have cellulitis with erythema of the lower legs. He was therefore admitted and started on intervenous antibiotics. He is noted to have a past medical history positive for noninsulin-dependent diabetes mellitus, COPD, chronic low back pain secondary to discopathy, hypertension, and hypothyroidism. When seen today, he is sitting up in a chair. He is feeling well. Analgesics namely Percocet seems to be working well on the pain in his legs. His mother was present at the time of my visit. PHYSICAL EXAMINATION LUNGS: Have bilateral rales and rhonchi. HEART: Regular. ABDOMEN: Round, soft. EXTREMITIES: Have +2 edema, and are erythematous. There is a dressing around the right lower pretibial area. LABORATORY DATA: To date, blood cultures x2 had been negative. This morning's laboratory shows the white blood cell count to be 7.3; hemoglobin and hematocrit are 15.3 and 49.7 respectively. Blood urea nitrogen is 26. Creatinine is 1.1. ASSESSMENT AND PLAN: The patient also was very tachycardic in the emergency room with a heart rate of 133. EKG showed atrial fibrillation flutter. He is currently being treated with verapamil for this as well as amiodarone, Eliquis. His fingerstick glucoses are being covered by regular Humulin. He is receiving vancomycin and his pain is being relieved with oxycodone. The patient needs to be reevaluated in the morning. Chester Norman MD
[2017-09-24] MEDS: oxyCODONE 30 mg Immediate Release Tab PO PRN ×4 (05:09→22:32)
[2017-09-24] MEDS: Levothyroxine 25 MCG TAB PO SCH (05:09)
[2017-09-24] MEDS: Vancomycin 1gm in NS 250ml 1 GM/250 ML BAG IVPB SCH ×2 (05:10→17:29)
[2017-09-24 07:26] LABS: BLOOD UREA NITROGEN 29 mg/dL (7-21); CALCIUM 8.7 mg/dL (8.4-10.5); GFR AFRICAN-AMERICAN > 60; GFR NON-AFRICAN AMERICAN 58
[2017-09-24] MEDS: Insulin Reg-LOW-Coverage SC SCH ×4 (08:00→22:30)
[2017-09-24] MEDS: Cefepime IV 2 gm in NS 2 GM/100 ML BAG IVPB SCH ×2 (10:11→22:27)
--- NOTE | 2017-09-24 11:30 | US ---
PROCEDURE: Left lower extremity venous US HISTORY: Leg pain and swelling. Evaluate for DVT. PHYSICIAN(S): Gilberto Gutierrez MD. TECHNIQUE: Duplex sonography and color-flow Doppler with graded compression were used to evaluate the deep venous system of the left lower extremity. The exam is very limited due to body habitus and edema. The tibial veins are not adequately seen FINDINGS: The visualized deep venous system of the left lower extremity is sonographically normal and compressible. Normal wave forms and augmentation are seen. There is no sonographic evidence for deep venous thrombosis in the visualized segments of the left lower extremity. IMPRESSION: 1. No sonographic evidence for deep venous thrombosis in the visualized segments of the left lower extremity. 2. Very limited study.
--- NOTE | 2017-09-24 12:13 | CP.PCM.PN ---
Subjective - Date & Time of Evaluation Date of Evaluation: 09/24/17 Time of Evaluation: 10:15 - Subjective Subjective: No fevers, still with pain in the left foot, no diarrhea, no nausea. Objective - Vital Signs/Intake and Output Vital Signs (last 24 hours): Temp Pulse Resp BP Pulse Ox 98.6 F 120 H 18 122/76 95 09/24/17 00:00 09/24/17 02:00 09/24/17 00:00 09/24/17 00:00 09/24/17 00:00 Intake and Output: 09/23/17 09/24/17 18:59 06:59 Intake Total 480 Balance 480 - Medications Medications: Current Medications Albuterol/Ipratropium (Duoneb 3 Mg/0.5 Mg (3 Ml) Ud) 3 ml IH Q2H PRN PRN Reason: Shortness of Breath Last Admin: 09/24/17 02:12 Dose: 3 ml Amiodarone HCl (Cordarone) 200 mg PO DAILY [facility] Apixaban (Eliquis) 5 mg PO BID [facility] PRN Reason: Protocol Last Admin: 09/23/17 17:05 Dose: 5 mg Vancomycin HCl (Vancomycin 1gm) 1 gm in 250 mls @ 167 mls/hr IVPB Q12H [facility] PRN Reason: Protocol Last Admin: 09/24/17 05:10 Dose: 167 mls/hr Insulin Human Regular (Humulin R Low) 0 units SC ACHS [facility] PRN Reason: Protocol Last Admin: 09/23/17 22:35 Dose: 1 units Levothyroxine Sodium (Synthroid) 25 mcg PO 0600 [facility] Last Admin: 09/24/17 05:09 Dose: 25 mcg Oxycodone HCl (Oxycodone Immediate Release Tab) 30 mg PO Q6H PRN PRN Reason: Pain, severe (8-10) Last Admin: 09/24/17 05:09 Dose: 30 mg Verapamil HCl (Calan Tab) 40 mg PO TID [facility] Last Admin: 09/23/17 17:07 Dose: 40 mg - Labs Labs: 09/23/17 06:00 09/23/17 06:00 PT 13.7 SECONDS (9.4-12.5) H 09/22/17 04:55 INR 1.19 (0.93-1.08) H 09/22/17 04:55 APTT 33.1 Seconds (25.1-36.5) 09/22/17 04:55 - Constitutional Appears: Non-toxic, Chronically Ill - Head Exam Head Exam: NORMAL INSPECTION - ENT Exam ENT Exam: Mucous Membranes Moist - Neck Exam Neck Exam: absent: Meningismus - Respiratory Exam Respiratory Exam: Decreased Breath Sounds - Cardiovascular Exam Cardiovascular Exam: +S1, +S2 - GI/Abdominal Exam GI & Abdominal Exam: Soft. absent: Tenderness - Extremities Exam Additional comments: left foot with dressings in place Assessment and Plan - Assessment and Plan (Free Text) Plan: Assessment Consider left lateral foot purulent skin and skin structure infection, may need to rule out osteomyelitis deafness HTN morbid obesity with BMI 51 COPD S/P appendectomy S/P cholecystectomy S/P tonsillectomy Plan Vancomycin and Cefepime day 2 pending blood and wound cx; left foot xray is negative for bony abnormalities but the patient may need further imaging - awaiting Podiatry evaluation and recommendations CXR shows pulmonary congestion will continue to monitor clinically
--- NOTE | 2017-09-24 12:31 | CP.PCM.PN ---
Subjective - Date & Time of Evaluation Date of Evaluation: 09/24/17 Time of Evaluation: 07:20 - Subjective Subjective: Lying in bed, awake, patient deaf , party plan demonstrator on line, denies any chest pain, some wheezing Reason for consultation and follow up: Cardiac evaluation, atrial fibrillation/ flutter, cellulitis Seen and examined by me and Dr. Vaca Objective - Vital Signs/Intake and Output Vital Signs (last 24 hours): Temp Pulse Resp BP Pulse Ox 98.1 F 120 H 18 131/82 96 09/24/17 11:56 09/24/17 12:03 09/24/17 11:56 09/24/17 12:03 09/24/17 06:00 Intake and Output: 09/24/17 09/24/17 06:59 18:59 Intake Total 480 Balance 480 - Medications Medications: Current Medications Albuterol/Ipratropium (Duoneb 3 Mg/0.5 Mg (3 Ml) Ud) 3 ml IH Q2H PRN PRN Reason: Shortness of Breath Last Admin: 09/24/17 08:15 Dose: 3 ml Amiodarone HCl (Cordarone) 200 mg PO DAILY [facility] Last Admin: 09/24/17 10:10 Dose: 200 mg Apixaban (Eliquis) 5 mg PO BID SHA PRN Reason: Protocol Last Admin: 09/24/17 10:11 Dose: 5 mg Atenolol (Tenormin) 12.5 mg PO DAILY [facility] Last Admin: 09/24/17 12:03 Dose: 12.5 mg Vancomycin HCl (Vancomycin 1gm) 1 gm in 250 mls @ 167 mls/hr IVPB Q12H SHA PRN Reason: Protocol Last Admin: 09/24/17 05:10 Dose: 167 mls/hr Cefepime HCl (Maxipime 2gm) 2 gm in 100 mls @ 100 mls/hr IVPB Q12 SHA PRN Reason: Protocol Stop: 09/29/17 10:01 Last Admin: 09/24/17 10:11 Dose: 100 mls/hr Insulin Human Regular (Humulin R Low) 0 units SC ACHS SHA PRN Reason: Protocol Last Admin: 09/24/17 12:12 Dose: 1 units Levothyroxine Sodium (Synthroid) 25 mcg PO 0600 [facility] Last Admin: 09/24/17 05:09 Dose: 25 mcg Oxycodone HCl (Oxycodone Immediate Release Tab) 30 mg PO Q6H PRN PRN Reason: Pain, severe (8-10) Last Admin: 09/24/17 11:21 Dose: 30 mg Verapamil HCl (Calan Tab) 40 mg PO TID SHA Last Admin: 09/24/17 10:05 Dose: 40 mg - Labs Labs: 09/23/17 06:00 09/24/17 06:30 PT 13.7 SECONDS (9.4-12.5) H 09/22/17 04:55 INR 1.19 (0.93-1.08) H 09/22/17 04:55 APTT 33.1 Seconds (25.1-36.5) 09/22/17 04:55 - Constitutional Appears: No Acute Distress - ENT Exam ENT Exam: Mucous Membranes Moist - Respiratory Exam Respiratory Exam: Wheezes Additional comments: nasal cannula 2-3 l/min - Cardiovascular Exam Cardiovascular Exam: +S1, +S2 Additional comments: Telemetry- Afib 120's - GI/Abdominal Exam GI & Abdominal Exam: Soft, Normal Bowel Sounds - Extremities Exam Additional comments: 4+ edema, cellulitis - Neurological Exam Neurological Exam: Alert, Awake, Oriented x3 - Psychiatric Exam Psychiatric exam: Normal Affect, Normal Mood - Skin Skin Exam: Normal Color, Warm Assessment and Plan - Assessment and Plan (Free Text) Assessment: A 52 year old male who came in to the Er due to leg swelling and unable to walk. He has cellulitis. History of atrial fibrillation, hypertension, COPD, obese, hypothyroidism, diabetes, deaf and mute. Plan: Wheezing, albuterol treatment to be administered Blood pressure stable Still on Afib, uncontrolled rate 120's Started on Atenolol 12.5 mg daily Will increase Verapamil to 80 mg TID On Eliquis 5 mg daily, Synthroid 25 mcg daily, Amiodarone 200 mg daily Echo done yesterday-LVEF 55-60%,right ventricle severlely dialted, moderate to severe RV function, moderate tricuspid regurgitation. Negative for DVT Podiatry in consult Continue current medications Continue current treatment Will follow up Plan and treatment discussed with Dr. Vaca
--- NOTE | 2017-09-24 12:41 | MRI ---
PROCEDURE: MRI of the left foot without contrast HISTORY: fluctuance at level of fifth met, R/o abscess/OM COMPARISON: TECHNIQUE: MRI of the left foot was performed in multiple planes using multiple pulse sequences. The fat-suppressed sagittal images were not performed. The patient could not tolerate any further scanning FINDINGS: There is a large amount of subcutaneous edema over the dorsum of the foot. This could be due to cellulitis or passive edema. There is a more discrete fluid collection between 1st and 2nd metatarsals. This measures 24 mm in length and 8 mm in diameter. This most likely represents a ganglion or synovial cyst. An abscess is less likely. There is no marrow edema to suggest osteomyelitis. IMPRESSION: No evidence of osteomyelitis. Severe subcutaneous edema over the dorsum of the foot. Discrete fluid collection between 1st and 2nd metatarsals most likely a synovial or ganglion cyst
--- NOTE | 2017-09-24 14:03 | CP.PCM.PN ---
Subjective - Date & Time of Evaluation Date of Evaluation: 09/24/17 Time of Evaluation: 14:03 - Subjective Subjective: 52 y/o deaf male seen at bedside this morning for right leg ulcer and left lateral 5th met head blister. Pt states he is still having some pain to the lower extremities, mostly the left foot. Pt says he finds it painful to walk if he puts pressure on the outside of the left foot. Denies F/C/N/V/CP/SOB. Admits to occasional continued tingling and numbness in the lower extremities Objective - Vital Signs/Intake and Output Vital Signs (last 24 hours): Temp Pulse Resp BP Pulse Ox 98.1 F 120 H 18 131/82 96 09/24/17 11:56 09/24/17 12:03 09/24/17 11:56 09/24/17 12:03 09/24/17 06:00 Intake and Output: 09/24/17 09/24/17 06:59 18:59 Intake Total 480 300 Output Total 300 Balance 480 0 - Medications Medications: Current Medications Albuterol/Ipratropium (Duoneb 3 Mg/0.5 Mg (3 Ml) Ud) 3 ml IH Q2H PRN PRN Reason: Shortness of Breath Last Admin: 09/24/17 13:15 Dose: 3 ml Amiodarone HCl (Cordarone) 200 mg PO DAILY [facility] Last Admin: 09/24/17 10:10 Dose: 200 mg Apixaban (Eliquis) 5 mg PO BID [facility] PRN Reason: Protocol Last Admin: 09/24/17 10:11 Dose: 5 mg Atenolol (Tenormin) 12.5 mg PO DAILY [facility] Last Admin: 09/24/17 12:03 Dose: 12.5 mg Vancomycin HCl (Vancomycin 1gm) 1 gm in 250 mls @ 167 mls/hr IVPB Q12H SHA PRN Reason: Protocol Last Admin: 09/24/17 05:10 Dose: 167 mls/hr Cefepime HCl (Maxipime 2gm) 2 gm in 100 mls @ 100 mls/hr IVPB Q12 SHA PRN Reason: Protocol Stop: 09/29/17 10:01 Last Admin: 09/24/17 10:11 Dose: 100 mls/hr Insulin Human Regular (Humulin R Low) 0 units SC ACHS SHA PRN Reason: Protocol Last Admin: 09/24/17 12:12 Dose: 1 units Levothyroxine Sodium (Synthroid) 25 mcg PO 0600 [facility] Last Admin: 09/24/17 05:09 Dose: 25 mcg Oxycodone HCl (Oxycodone Immediate Release Tab) 30 mg PO Q6H PRN PRN Reason: Pain, severe (8-10) Last Admin: 09/24/17 11:21 Dose: 30 mg Verapamil HCl (Calan Tab) 80 mg PO TID [facility] - Labs Labs: 09/23/17 06:00 09/24/17 06:30 PT 13.7 SECONDS (9.4-12.5) H 09/22/17 04:55 INR 1.19 (0.93-1.08) H 09/22/17 04:55 APTT 33.1 Seconds (25.1-36.5) 09/22/17 04:55 - Constitutional Appears: Well, Non-toxic, No Acute Distress - Extremities Exam Additional comments: Lower extremity focused exam: Vasc: DP/PT pulses palpable 2/4. Temperature gradient warm to warm from proximal to distal. CFT < 3 sec to all digits. +2 pitting edema noted to B/L lower extremities Derm: Diffuse cellulitic skin changes noted to B/L lower extremities. Mild fluctuance noted to lateral aspect of left foot at level of 5th metatarsal head with skin maceration and blistering noted. No active drainage or purulence noted on exam. No evidence of opening or break in skin or soft tissue, however plantar aspect exhibits hyperkeratotic skin roof which may be covering underlying ulcerative lesion. Superficial ulceration noted to right anterior mid leg approx 1.5cm x 1cm x 0.1cm with beefy red granular wound base and hyperkeratotic wound borders. No drainage, no purulence, no malodor, no fluctuance. Nails thickened and elongated x 10 Neuro: Protective sensation slightly diminished Ortho: Mild-moderate tenderness to palpation of left lateral 5th met head. Minimal tenderness to palpation of right anterior leg wound - Neurological Exam Neurological Exam: Alert, Awake, Oriented x3 - Psychiatric Exam Psychiatric exam: Normal Affect, Normal Mood Assessment and Plan - Assessment and Plan (Free Text) Assessment: 52 y/o obese deaf male with 1) left foot blister with possible underlying abscess formation and 2) right anterior leg ulceration Plan: Pt seen and evaluated at bedside Discussed with attending Dr. Hill Labs and vitals reviewed- afebrile, no leukocytosis Wounds cleansed with saline and dressed with betadine and optifoam bandages L foot x-ray reviewed - no signs of osseous erosive changes L foot MRI (-) for abscess formation at 5th met head, no signs of osteomyelitis Continue IV Vancomycin Will continue to follow pt while in house
[2017-09-25] MEDS: oxyCODONE 30 mg Immediate Release Tab PO PRN ×3 (05:12→17:08)
[2017-09-25] MEDS: Levothyroxine 25 MCG TAB PO SCH (05:48)
[2017-09-25] MEDS: Vancomycin 1gm in NS 250ml 1 GM/250 ML BAG IVPB SCH ×3 (05:56→19:43)
[2017-09-25] MEDS: Insulin Reg-LOW-Coverage SC SCH ×4 (07:30→22:45)
--- NOTE | 2017-09-25 08:25 | PN ---
DATE: 09/24/2017 SUBJECTIVE: The patient was seen this evening in room 276, bed 1. There are no visitors present, but he is able to understand me and repeat the information I had to share with him. He denied pain. PHYSICAL EXAMINATION: HEART: Regular but not tachycardiac. ABDOMEN: Little bit more soft. EXTREMITIES: Cellulitis on lower extremities were improving. DIAGNOSTIC DATA: CT scan of the abdomen is done. IMPRESSION: 1. Atrial flutter on admission. 2. Cellulitis of lower extremities. 3. Morbid obesity. 4. Diabetes. 5. Chronic bilateral cramp pain. PLAN: Continue antibiotics. We will discuss with Cardiology regarding atrial flutter. Justyn Norman MD
[2017-09-25] MEDS: Albuterol-Ipratrop 3 mg / 0.5 (3 ml) UD IH PRN ×2 (09:14→14:23)
[2017-09-25] MEDS: Cefepime IV 2 gm in NS 2 GM/100 ML BAG IVPB SCH ×2 (10:47→22:46)
--- NOTE | 2017-09-25 11:44 | CP.PCM.PN ---
Subjective - Date & Time of Evaluation Date of Evaluation: 09/25/17 Time of Evaluation: 10:15 - Subjective Subjective: Comfortable, no fevers, still with pain in the left foot but a little less. No nausea. Objective - Vital Signs/Intake and Output Vital Signs (last 24 hours): Temp Pulse Resp BP Pulse Ox 98.2 F 78 18 120/79 94 L 09/25/17 06:00 09/25/17 06:00 09/25/17 06:00 09/25/17 06:00 09/25/17 06:00 Intake and Output: 09/24/17 09/25/17 18:59 06:59 Intake Total 300 650 Output Total 300 400 Balance 0 250 - Medications Medications: Current Medications Albuterol/Ipratropium (Duoneb 3 Mg/0.5 Mg (3 Ml) Ud) 3 ml IH Q2H PRN PRN Reason: Shortness of Breath Last Admin: 09/24/17 19:50 Dose: 3 ml Amiodarone HCl (Cordarone) 200 mg PO DAILY [facility] Last Admin: 09/24/17 10:10 Dose: 200 mg Apixaban (Eliquis) 5 mg PO BID SHA PRN Reason: Protocol Last Admin: 09/24/17 17:29 Dose: 5 mg Atenolol (Tenormin) 12.5 mg PO DAILY [facility] Last Admin: 09/24/17 12:03 Dose: 12.5 mg Vancomycin HCl (Vancomycin 1gm) 1 gm in 250 mls @ 167 mls/hr IVPB Q12H SHA PRN Reason: Protocol Last Admin: 09/25/17 05:56 Dose: 167 mls/hr Cefepime HCl (Maxipime 2gm) 2 gm in 100 mls @ 100 mls/hr IVPB Q12 SHA PRN Reason: Protocol Stop: 09/29/17 10:01 Last Admin: 09/24/17 22:27 Dose: 100 mls/hr Insulin Human Regular (Humulin R Low) 0 units SC ACHS SHA PRN Reason: Protocol Last Admin: 09/24/17 22:30 Dose: Not Given Levothyroxine Sodium (Synthroid) 25 mcg PO 0600 [facility] Last Admin: 09/25/17 05:48 Dose: 25 mcg Oxycodone HCl (Oxycodone Immediate Release Tab) 30 mg PO Q6H PRN PRN Reason: Pain, severe (8-10) Last Admin: 09/25/17 05:12 Dose: 30 mg Verapamil HCl (Calan Tab) 80 mg PO TID SHA Last Admin: 09/24/17 17:28 Dose: 80 mg - Labs Labs: 09/23/17 06:00 09/24/17 06:30 PT 13.7 SECONDS (9.4-12.5) H 09/22/17 04:55 INR 1.19 (0.93-1.08) H 09/22/17 04:55 APTT 33.1 Seconds (25.1-36.5) 09/22/17 04:55 - Constitutional Appears: Non-toxic, Chronically Ill - Head Exam Head Exam: NORMAL INSPECTION - Respiratory Exam Respiratory Exam: Decreased Breath Sounds - Cardiovascular Exam Cardiovascular Exam: +S1, +S2 - GI/Abdominal Exam GI & Abdominal Exam: Soft. absent: Tenderness - Extremities Exam Additional comments: left foot with dressings in place Assessment and Plan - Assessment and Plan (Free Text) Plan: Assessment Consider left lateral foot purulent skin and skin structure infection, with no evidence of osteomyelitis on MRI deafness HTN morbid obesity with BMI 51 COPD S/P appendectomy S/P cholecystectomy S/P tonsillectomy Plan continue Vancomycin and Cefepime day 3 pending wound cx; blood cx are negative reviewed left foot xray and MRI of left foot CXR shows pulmonary congestion will continue to monitor clinically
[2017-09-25] MEDS ORDERED: Barium Sulfate Susp 2.1% w/v, 2.0% w/w 450 mL Bottle PO ONE (12:42)
--- NOTE | 2017-09-25 13:08 | PN ---
DATE: 09/25/2017 DAILY PROGRESS NOTE The patient is a 52-year-old male who was a deaf mute who presented to the Emergency Room with pain in his lower extremities secondary to cellulitis and erythema of both lower legs. During his hospital stay, he is being followed by Dr. Olsen, the ID specialist and being treated with vancomycin and cefepime. On admission, the patient was also tachycardic with atrial fibrillation/flutter. He was followed by Cardiology now, Dr. Faulkner and Dr. Vaca and he is receiving verapamil 80 mg three times a day. MRI of the lower extremities were negative for osteomyelitis. He underwent echocardiography, which showed right ventricular dysfunction with tricuspid regurgitation and an ejection fraction of 55%-60%. When seen today, the patient is awake, alert and oriented. His mother was at bedside. He voices no complaints other than some discomfort in his legs. He is afebrile. Blood pressure is 120/79, heart rate of 78. Lungs are clear. Heart is regular. At this point, I will be ordering arterial Dopplers of bilateral lower extremities to check his circulatory problems. I am also ordering CAT scan of the abdomen and pelvis with IV and p.o. contrast as the patient and mother have noticed some abdominal discomfort as well as increasing abdominal girth, possible ascites. We will continue to follow the patient closely. Chester Norman MD
--- NOTE | 2017-09-25 13:09 | CP.PCM.PN ---
Subjective - Date & Time of Evaluation Date of Evaluation: 09/25/17 Time of Evaluation: 13:06 - Subjective Subjective: 52 y/o deaf male seen at bedside this morning for right leg ulcer and left lateral 5th met head blister. Pt states he is still having some pain to the lower extremities, mostly the left foot. States the pain is decreased since admission. Pt states he has not been trying to walk much. Denies F/C/N/V/CP/ SOB. Admits to occasional continued tingling and numbness in the lower extremities. Denies any pain to the heels. Objective - Vital Signs/Intake and Output Vital Signs (last 24 hours): Temp Pulse Resp BP Pulse Ox 98.4 F 92 H 20 125/91 H 94 L 09/25/17 12:00 09/25/17 12:00 09/25/17 12:00 09/25/17 12:50 09/25/17 06:00 Intake and Output: 09/25/17 09/25/17 06:59 18:59 Intake Total 650 Output Total 400 Balance 250 - Medications Medications: Current Medications Albuterol/Ipratropium (Duoneb 3 Mg/0.5 Mg (3 Ml) Ud) 3 ml IH Q2H PRN PRN Reason: Shortness of Breath Last Admin: 09/25/17 09:14 Dose: 3 ml Amiodarone HCl (Cordarone) 200 mg PO DAILY [facility] Last Admin: 09/25/17 10:46 Dose: 200 mg Apixaban (Eliquis) 5 mg PO BID SHA PRN Reason: Protocol Last Admin: 09/25/17 10:44 Dose: 5 mg Atenolol (Tenormin) 25 mg PO DAILY [facility] Last Admin: 09/25/17 10:46 Dose: 25 mg Furosemide (Lasix) 40 mg IV DAILY [facility] Vancomycin HCl (Vancomycin 1gm) 1 gm in 250 mls @ 167 mls/hr IVPB Q12H SHA PRN Reason: Protocol Last Admin: 09/25/17 05:56 Dose: 167 mls/hr Cefepime HCl (Maxipime 2gm) 2 gm in 100 mls @ 100 mls/hr IVPB Q12 SHA PRN Reason: Protocol Stop: 09/29/17 10:01 Last Admin: 09/25/17 10:47 Dose: 100 mls/hr Insulin Human Regular (Humulin R Low) 0 units SC ACHS [facility] PRN Reason: Protocol Last Admin: 09/25/17 12:46 Dose: Not Given Levothyroxine Sodium (Synthroid) 25 mcg PO 0600 [facility] Last Admin: 09/25/17 05:48 Dose: 25 mcg Oxycodone HCl (Oxycodone Immediate Release Tab) 30 mg PO Q6H PRN PRN Reason: Pain, severe (8-10) Last Admin: 09/25/17 10:55 Dose: 30 mg Verapamil HCl (Calan Tab) 80 mg PO TID [facility] Last Admin: 09/25/17 10:45 Dose: 80 mg - Labs Labs: 09/23/17 06:00 09/24/17 06:30 PT 13.7 SECONDS (9.4-12.5) H 09/22/17 04:55 INR 1.19 (0.93-1.08) H 09/22/17 04:55 APTT 33.1 Seconds (25.1-36.5) 09/22/17 04:55 - Constitutional Appears: Well, Non-toxic, No Acute Distress - Extremities Exam Additional comments: Lower extremity focused exam: Vasc: DP/PT pulses palpable 2/4. Temperature gradient warm to warm from proximal to distal. CFT < 3 sec to all digits. +2 pitting edema noted to B/L lower extremities Derm: Diffuse cellulitic skin changes noted to B/L lower extremities. Lateral aspect of left 5th metatarsal head with skin maceration and blistering noted. Proximal aspect of blister site exhibits circular 0.6cm diameter superficial ulceration with fully granular wound base. No active drainage or purulence noted on exam. Superficial ulceration noted to right anterior mid leg approx 1.5cm x 1cm x 0.1cm with beefy red granular wound base and hyperkeratotic wound borders. No drainage, no purulence, no malodor, no fluctuance. Nails thickened and elongated x 10 Neuro: Protective sensation slightly diminished Ortho: Mild-moderate tenderness to palpation of left lateral 5th met head. Minimal tenderness to palpation of right anterior leg wound - Neurological Exam Neurological Exam: Alert, Awake, Oriented x3 - Psychiatric Exam Psychiatric exam: Normal Affect, Normal Mood Assessment and Plan - Assessment and Plan (Free Text) Assessment: 52 y/o obese deaf male with 1) left foot blister with possible underlying abscess formation and 2) right anterior leg ulceration Plan: Pt seen and evaluated at bedside Discussed with attending Dr. Hill Labs and vitals reviewed- afebrile, no leukocytosis Wounds cleansed with saline and dressed with betadine and optifoam bandages L foot x-ray reviewed - no signs of osseous erosive changes L foot MRI (-) for abscess formation at 5th met head, no signs of osteomyelitis Continue IV Vancomycin Wound cx of R leg pending, prelim shows growth of gram pos cocci Arterial duplex studies ordered Will continue to follow pt while in house
[2017-09-25] MEDS ORDERED: Sod Polystyrene Sulf 15 gm/60 ml Susp PO ONE ×2 (13:23→17:15)
--- NOTE | 2017-09-25 13:48 | PN ---
DATE: 09/25/2017 LOCATION: The patient in room 276, bed 2. REASON FOR CONSULTATION: Atrial flutter, rapid rate, COPD, obesity, cellulitis, shortness of breath due to COPD. SUBJECTIVE: The patient states the shortness of breath is getting better. The patient on monitor, still atrial flutter and during the night, heart rate was stable, but in the morning, the heart rate is again around 110 to 120. The patient denies any palpitation or dizziness. PHYSICAL EXAMINATION: VITAL SIGNS: Blood pressure 120/79, respirations 18, pulse 78, temperature 98.2. HEENT: Head is normocephalic. Eyes, pupils normal. Conjunctivae normal. Nose and throat normal. NECK: JVP low. Carotids equal. THORAX: AP diameter normal. LUNGS: No rales. A few wheezing. CARDIOVASCULAR: S1 and S2. ABDOMEN: Protuberant. No organomegaly. EXTREMITIES: No clubbing. No cyanosis. The patient has edema. LABORATORY DATA: WBC is 7.3, hemoglobin 15.3, hematocrit 49.7, platelets 184. Sodium 141, potassium 5.4, BUN 29, creatinine 1.3. These labs were done on 09/24/2017. Today's blood sugar is 131. DIAGNOSES: Exacerbation of chronic obstructive pulmonary disease, atrial flutter, rapid rate, morbid obesity, cellulitis, hypothyroidism, diabetes mellitus, deaf and mute. PLAN: Since the heart rate is rapid, we will increase atenolol to 25 mg today and daily, verapamil was also increased to 80 mg t.i.d. yesterday. Echo showed LVEF 55% to 60%, right ventricle severely dilated, [id number] reduced RV systolic function and right ventricle is severely dilated, right atrium is also [id number] dilated, RVSP 51 mmHg, left ventricle function normal, left ventricle size normal, trace mitral regurgitation, trace aortic regurgitation, moderate tricuspid regurgitation. Since heart rate is fast, we will increase atenolol to 25 mg today and daily. The patient is on amiodarone 200 daily, verapamil 80 mg t.i.d., was increased yesterday. The patient is on Eliquis 5 b.i.d., cefepime 2 g IV every 12 hours, levothyroxine 25 mcg daily, atenolol 25 daily, vancomycin 1 g IV every 12 hour. We will repeat SMA-7 today because potassium was high yesterday, so we will repeat that today to evaluate potassium level. We will follow with you. Chantel Vaca MD
--- NOTE | 2017-09-25 19:38 | CT ---
EXAM: CT Abdomen and Pelvis With Intravenous Contrast CLINICAL HISTORY: 52 years old, male; Signs and symptoms; Bloating; Additional info: Ascites, pain TECHNIQUE: Axial computed tomography images of the abdomen and pelvis with intravenous contrast. All CT scans at this facility use one or more dose reduction techniques, viz.: automated exposure control; ma/kV adjustment per patient size (including targeted exams where dose is matched to indication; i.e. head); or iterative reconstruction technique. Coronal and sagittal reformatted images were created and reviewed. CONTRAST: 100 mL of omni 350 administered intravenously. COMPARISON: CT - CHEST,ABDOMEN,PELVIS W/O CONT 2017-09-23 08:12 FINDINGS: Lung bases: Moderate right effusion. Small left effusion. Adjacent consolidation, right greater than left. ABDOMEN: Liver: Hepatomegaly. Evidence of fatty infiltration. Gallbladder and bile ducts: Status post cholecystectomy. Pancreas: No acute abnormality as visualized. Spleen: Splenomegaly. Adrenals: No acute abnormality as visualized. Kidneys and ureters: Evidence of renal atrophy. Symmetric emhancement. No hydronephrosis. Stomach and bowel: Paucity of enteric contrast limits evaluation. No obstruction. Retained fecal material in the colon. Diverticulosis. PELVIS: Appendix: No findings to suggest acute appendicitis. Bladder: No acute abnormality as visualized. Reproductive: No acute abnormality as visualized. ABDOMEN and PELVIS: Intraperitoneal space: Moderate ascites. No free air. Bones/joints: Degenerative changes. Soft tissues: Subcutaneous edema. Vasculature: Atherosclerosis. No abdominal aortic aneurysm. Lymph nodes: Enlarged inguinal nodes. IMPRESSION: Similar appearance to available prior study. Moderate right effusion. Small left effusion. Adjacent consolidation, right greater than left. Moderate ascites. Subcutaneous edema. Hepatomegaly. Splenomegaly. Correlate clinically with hepatic function. Evidence of renal atrophy. Correlate clinically with renal function. Paucity of enteric contrast limits evaluation of bowel. No obstruction. Retained fecal material in the colon. Diverticulosis. Enlarged inguinal nodes. No evidence of varicosities in the partially visualized lower extremities.
--- NOTE | 2017-09-25 22:24 | US ---
PROCEDURE: Lower extremity ROCKY exam HISTORY: Peripheral vascular disease with pain and ulceration. Smoker. Diabetes PHYSICIAN(S): Gilberto Gutierrez MD. FINDINGS: The PVR waveforms are limited by artifact The resting ROCKY's are normal: right, 1.15and left, 1.03 The brachial systolic pressures are symmetric. The low thigh pressures and waveforms are relatively normal. The calf PVR waveforms augment normally. No significant gradients are noted across the thighs. The ankle and metatarsal waveforms are relatively normal and symmetric. No significant pressure gradients are noted across the lower legs. IMPRESSION: 1. Relatively normal ROCKY and PVR examination at rest.
[2017-09-26] MEDS: oxyCODONE 30 mg Immediate Release Tab PO PRN ×3 (00:12→19:04)
[2017-09-26] MEDS: Vancomycin 1gm in NS 250ml 1 GM/250 ML BAG IVPB SCH ×2 (05:24→16:54)
[2017-09-26] MEDS: Levothyroxine 25 MCG TAB PO SCH (05:24)
[2017-09-26] MEDS: Insulin Reg-LOW-Coverage SC SCH ×4 (08:11→22:02)
[2017-09-26] MEDS: Cefepime IV 2 gm in NS 2 GM/100 ML BAG IVPB SCH ×2 (09:28→21:09)
--- NOTE | 2017-09-26 09:43 | CP.PCM.PN ---
Subjective - Date & Time of Evaluation Date of Evaluation: 09/26/17 Time of Evaluation: 09:39 - Subjective Subjective: Podiatry Progress Note- Dr. Hill 52 y/o deaf male seen at bedside this morning for right leg ulcer and left lateral 5th met head blister. Patient is seen resting comfortably in bed, in NAD. Patient reports pain to the LE has improved. Still present L>R. Denies F/C/ N/V/CP/SOB. Admits to occasional continued tingling and numbness in the lower extremities. Denies any pain to the heels. Complains of elongated bothersome nails. Objective - Vital Signs/Intake and Output Vital Signs (last 24 hours): Temp Pulse Resp BP Pulse Ox 97.5 F L 110 H 20 137/80 92 L 09/26/17 05:56 09/26/17 05:56 09/26/17 05:56 09/26/17 05:56 09/26/17 05:56 Intake and Output: 09/26/17 09/26/17 06:59 18:59 Intake Total 470 Balance 470 - Medications Medications: Current Medications Albuterol/Ipratropium (Duoneb 3 Mg/0.5 Mg (3 Ml) Ud) 3 ml IH Q2H PRN PRN Reason: Shortness of Breath Last Admin: 09/25/17 14:23 Dose: 3 ml Amiodarone HCl (Cordarone) 200 mg PO DAILY [facility] Last Admin: 09/25/17 10:46 Dose: 200 mg Apixaban (Eliquis) 5 mg PO BID SHA PRN Reason: Protocol Last Admin: 09/25/17 17:08 Dose: 5 mg Atenolol (Tenormin) 25 mg PO DAILY [facility] Last Admin: 09/25/17 10:46 Dose: 25 mg Furosemide (Lasix) 40 mg IV DAILY [facility] Vancomycin HCl (Vancomycin 1gm) 1 gm in 250 mls @ 167 mls/hr IVPB Q12H SHA PRN Reason: Protocol Last Admin: 09/26/17 05:24 Dose: 167 mls/hr Cefepime HCl (Maxipime 2gm) 2 gm in 100 mls @ 100 mls/hr IVPB Q12 SHA PRN Reason: Protocol Stop: 09/29/17 10:01 Last Admin: 09/25/17 22:46 Dose: 100 mls/hr Insulin Human Regular (Humulin R Low) 0 units SC ACHS [facility] PRN Reason: Protocol Last Admin: 09/26/17 08:11 Dose: Not Given Levothyroxine Sodium (Synthroid) 25 mcg PO 0600 [facility] Last Admin: 09/26/17 05:24 Dose: 25 mcg Oxycodone HCl (Oxycodone Immediate Release Tab) 30 mg PO Q6H PRN PRN Reason: Pain, severe (8-10) Last Admin: 09/26/17 00:12 Dose: 30 mg Verapamil HCl (Calan Tab) 80 mg PO TID [facility] Last Admin: 09/25/17 18:00 Dose: 80 mg - Labs Labs: 09/23/17 06:00 09/25/17 12:30 PT 13.7 SECONDS (9.4-12.5) H 09/22/17 04:55 INR 1.19 (0.93-1.08) H 09/22/17 04:55 APTT 33.1 Seconds (25.1-36.5) 09/22/17 04:55 - Constitutional Appears: Well, Non-toxic, No Acute Distress - Extremities Exam Extremities Exam: absent: Calf Tenderness Additional comments: Lower extremity focused exam: Vasc: DP/PT pulses palpable 2/4. Temperature gradient warm to warm from proximal to distal. CFT < 3 sec to all digits. +2 pitting edema noted to B/L lower extremities Derm: Diffuse cellulitic skin changes noted to B/L lower extremities. Lateral aspect of left 5th metatarsal head with skin maceration and blistering noted. Proximal aspect of blister site exhibits circular 0.6cm diameter superficial ulceration with fully granular wound base. No active drainage or purulence noted on exam. Superficial ulceration noted to right anterior mid leg approx 1.5cm x 1cm x 0.1cm with beefy red granular wound base and hyperkeratotic wound borders. No drainage, no purulence, no malodor, no fluctuance. Nails thickened and elongated x 10 Neuro: Protective sensation slightly diminished Ortho: Mild-moderate tenderness to palpation of left lateral 5th met head. Minimal tenderness to palpation of right anterior leg wound - Neurological Exam Neurological Exam: Alert, Awake, Oriented x3 - Psychiatric Exam Psychiatric exam: Normal Affect, Normal Mood Assessment and Plan - Assessment and Plan (Free Text) Assessment: 52 y/o obese deaf male with 1) left foot blister with possible underlying abscess formation and 2) right anterior leg ulceration Plan: Pt seen and evaluated at bedside Discussed with attending Dr. Hill Labs and vitals reviewed- afebrile, no leukocytosis Wounds cleansed with saline and dressed with betadine and optifoam bandages Elongated nails debrided to normal thickness and length x10 without incident. patient tolerated the procedure well. L foot x-ray reviewed - no signs of osseous erosive changes L foot MRI (-) for abscess formation at 5th met head, no signs of osteomyelitis Continue IV Vancomycin Wound cx of R leg- coagulase neg staphylococcus Arterial duplex studies- normal ROCKY and PVRs at rest Will continue to follow pt while in house
--- NOTE | 2017-09-26 14:27 | CP.PCM.PN ---
Subjective - Date & Time of Evaluation Date of Evaluation: 09/26/17 Time of Evaluation: 12:05 - Subjective Subjective: Less pain in the left foot, no fever, no nausea, no diarrhea. Objective - Vital Signs/Intake and Output Vital Signs (last 24 hours): Temp Pulse Resp BP Pulse Ox 97.5 F L 110 H 20 137/80 92 L 09/26/17 05:56 09/26/17 05:56 09/26/17 05:56 09/26/17 05:56 09/26/17 05:56 Intake and Output: 09/25/17 09/26/17 18:59 06:59 Intake Total 960 470 Output Total 2 Balance 958 470 - Medications Medications: Current Medications Albuterol/Ipratropium (Duoneb 3 Mg/0.5 Mg (3 Ml) Ud) 3 ml IH Q2H PRN PRN Reason: Shortness of Breath Last Admin: 09/25/17 14:23 Dose: 3 ml Amiodarone HCl (Cordarone) 200 mg PO DAILY [facility] Last Admin: 09/25/17 10:46 Dose: 200 mg Apixaban (Eliquis) 5 mg PO BID SHA PRN Reason: Protocol Last Admin: 09/25/17 17:08 Dose: 5 mg Atenolol (Tenormin) 25 mg PO DAILY [facility] Last Admin: 09/25/17 10:46 Dose: 25 mg Furosemide (Lasix) 40 mg IV DAILY [facility] Vancomycin HCl (Vancomycin 1gm) 1 gm in 250 mls @ 167 mls/hr IVPB Q12H SHA PRN Reason: Protocol Last Admin: 09/26/17 05:24 Dose: 167 mls/hr Cefepime HCl (Maxipime 2gm) 2 gm in 100 mls @ 100 mls/hr IVPB Q12 SHA PRN Reason: Protocol Stop: 09/29/17 10:01 Last Admin: 09/25/17 22:46 Dose: 100 mls/hr Insulin Human Regular (Humulin R Low) 0 units SC ACHS SHA PRN Reason: Protocol Last Admin: 09/25/17 22:45 Dose: Not Given Levothyroxine Sodium (Synthroid) 25 mcg PO 0600 [facility] Last Admin: 09/26/17 05:24 Dose: 25 mcg Oxycodone HCl (Oxycodone Immediate Release Tab) 30 mg PO Q6H PRN PRN Reason: Pain, severe (8-10) Last Admin: 09/26/17 00:12 Dose: 30 mg Verapamil HCl (Calan Tab) 80 mg PO TID SHA Last Admin: 09/25/17 18:00 Dose: 80 mg - Labs Labs: 09/23/17 06:00 09/25/17 12:30 PT 13.7 SECONDS (9.4-12.5) H 09/22/17 04:55 INR 1.19 (0.93-1.08) H 09/22/17 04:55 APTT 33.1 Seconds (25.1-36.5) 09/22/17 04:55 - Constitutional Appears: Chronically Ill - Head Exam Head Exam: NORMAL INSPECTION - ENT Exam ENT Exam: Mucous Membranes Moist - Neck Exam Neck Exam: absent: Lymphadenopathy, Meningismus - Respiratory Exam Respiratory Exam: Decreased Breath Sounds - Cardiovascular Exam Cardiovascular Exam: +S1, +S2 - GI/Abdominal Exam GI & Abdominal Exam: Soft. absent: Tenderness - Extremities Exam Additional comments: left foot with dressings in place Assessment and Plan - Assessment and Plan (Free Text) Plan: Assessment Consider left lateral foot purulent skin and skin structure infection, with no evidence of osteomyelitis on MRI deafness HTN morbid obesity with BMI 51 COPD S/P appendectomy S/P cholecystectomy S/P tonsillectomy Plan continue Vancomycin and Cefepime day 4; wound cx only showing coag negative staph which is most likely a skin contaminant; blood cx are negative - complete 7-10 days of antibiotics reviewed left foot xray and MRI of left foot CXR shows pulmonary congestion will continue to monitor clinically
[2017-09-27] MEDS: oxyCODONE 30 mg Immediate Release Tab PO PRN ×4 (01:08→22:58)
[2017-09-27] MEDS: Levothyroxine 25 MCG TAB PO SCH (05:58)
[2017-09-27] MEDS: Vancomycin 1gm in NS 250ml 1 GM/250 ML BAG IVPB SCH (05:59)
[2017-09-27 07:19] LABS: BASO # 0.02 K/mm3 (0.0-2.0); BASO % 0.3 % (0.0-3.0); EOS # 0.2 (0.0-0.7); EOS % 2.2 % (1.5-5.0); GRAN # 5.02 (1.4-6.5); GRAN % 69.9 % (50.0-68.0); HEMOGLOBIN 15.4 g/dL (14.0-18.0); LYMPH # 1.5 (1.2-3.4); LYMPH % 20.5 % (22.0-35.0); MEAN CELL VOLUME 90.9 fl (80.0-105.0); MEAN CORPUSCULAR HEMOGLOBIN 28.5 pg (25.0-35.0); MEAN CORPUSCULAR HGB CONC 31.3 g/dl (31.0-37.0); MEAN PLATELET VOLUME 10.9 fl (7.0-11.0); MONO # 0.5 (0.1-0.6); MONO % 7.1 % (1.0-6.0); RBC 5.41 10^6/uL (3.5-6.1); RED CELL DISTRIBUTION WIDTH 14.6 % (11.5-14.5); WHITE BLOOD COUNT 7.2 10^3/ul (4.5-11.0)
[2017-09-27 07:36] LABS: ALBUMIN 3.7 g/dL (3.0-4.8); ALT/SGPT 26 U/L (7-56); AST/SGOT 43 U/L (17-59); BLOOD UREA NITROGEN 36 mg/dL (7-21); CALCIUM 8.8 mg/dL (8.4-10.5); GFR AFRICAN-AMERICAN > 60; GFR NON-AFRICAN AMERICAN > 60
[2017-09-27] MEDS: Insulin Reg-LOW-Coverage SC SCH ×4 (07:51→21:40)
[2017-09-27 09:04] LABS: HEPATITIS B SURFACE AG Negative (NEGATIVE)
[2017-09-27 09:10] LABS: HEPATITIS A IGM NEGATIVE (NEGATIVE); HEPATITIS B CORE AB NEGATIVE (NEGATIVE)
[2017-09-27 09:21] LABS: HEPATITIS C ANTIBODY NEGATIVE (NEGATIVE)
[2017-09-27] MEDS: Cefepime IV 2 gm in NS 2 GM/100 ML BAG IVPB SCH ×2 (10:11→21:45)
--- NOTE | 2017-09-27 11:53 | CP.PCM.PN ---
Subjective - Date & Time of Evaluation Date of Evaluation: 09/27/17 Time of Evaluation: 11:50 - Subjective Subjective: Podiatry Progress Note- Dr. Hill 52 y/o deaf male seen at bedside this morning for right leg ulcer and left lateral 5th met head blister. Patient is seen resting comfortably in bed, in NAD. Patient reports the same pain to the lower extremity that comes and goes. Denies acute overnight events. Denies F/C/N/V/CP/SOB. No new pedal complaints. Objective - Vital Signs/Intake and Output Vital Signs (last 24 hours): Temp Pulse Resp BP Pulse Ox 98.1 F 111 H 20 145/91 H 96 09/27/17 06:00 09/27/17 10:10 09/27/17 06:00 09/27/17 10:11 09/27/17 06:00 Intake and Output: 09/27/17 09/27/17 06:59 18:59 Intake Total 350 560 Balance 350 560 - Medications Medications: Current Medications Albuterol/Ipratropium (Duoneb 3 Mg/0.5 Mg (3 Ml) Ud) 3 ml IH Q2H PRN PRN Reason: Shortness of Breath Last Admin: 09/25/17 14:23 Dose: 3 ml Amiodarone HCl (Cordarone) 200 mg PO DAILY [facility] Last Admin: 09/27/17 10:10 Dose: 200 mg Apixaban (Eliquis) 5 mg PO BID SHA PRN Reason: Protocol Last Admin: 09/27/17 10:10 Dose: 5 mg Atenolol (Tenormin) 25 mg PO DAILY [facility] Last Admin: 09/27/17 10:10 Dose: 25 mg Furosemide (Lasix) 40 mg IV DAILY [facility] Last Admin: 09/27/17 10:11 Dose: 40 mg Cefepime HCl (Maxipime 2gm) 2 gm in 100 mls @ 100 mls/hr IVPB Q12 SHA PRN Reason: Protocol Stop: 09/29/17 10:01 Last Admin: 09/27/17 10:11 Dose: 100 mls/hr Vancomycin HCl 1.5 gm/ Sodium (Chloride) 500 mls @ 167 mls/hr IVPB Q12H SHA PRN Reason: Protocol Insulin Human Regular (Humulin R Low) 0 units SC ACHS SHA PRN Reason: Protocol Last Admin: 09/27/17 07:51 Dose: Not Given Levothyroxine Sodium (Synthroid) 25 mcg PO 0600 [facility] Last Admin: 09/27/17 05:58 Dose: 25 mcg Oxycodone HCl (Oxycodone Immediate Release Tab) 30 mg PO Q6H PRN PRN Reason: Pain, severe (8-10) Last Admin: 09/27/17 10:21 Dose: 30 mg Verapamil HCl (Calan Tab) 80 mg PO TID [facility] Last Admin: 09/27/17 10:08 Dose: 80 mg - Labs Labs: 09/27/17 06:00 09/27/17 06:00 PT 13.7 SECONDS (9.4-12.5) H 09/22/17 04:55 INR 1.19 (0.93-1.08) H 09/22/17 04:55 APTT 33.1 Seconds (25.1-36.5) 09/22/17 04:55 - Constitutional Appears: Well, Non-toxic, No Acute Distress - Extremities Exam Extremities Exam: absent: Calf Tenderness Additional comments: Lower extremity focused exam: Vasc: DP/PT pulses palpable 2/4. Temperature gradient warm to warm from proximal to distal. CFT < 3 sec to all digits. +2 pitting edema noted to B/L lower extremities Derm: Diffuse cellulitic skin changes noted to B/L lower extremities. Lateral aspect of left 5th metatarsal head with skin maceration and blistering noted. Proximal aspect of blister site exhibits circular 0.6cm diameter superficial ulceration with fully granular wound base. No active drainage or purulence noted on exam. Superficial ulceration noted to right anterior mid leg approx 1.5cm x 1cm x 0.1cm with beefy red granular wound base and hyperkeratotic wound borders. No drainage, no purulence, no malodor, no fluctuance. Nails thickened and elongated x 10 Neuro: Protective sensation slightly diminished Ortho: Mild-moderate tenderness to palpation of left lateral 5th met head. Minimal tenderness to palpation of right anterior leg wound - Neurological Exam Neurological Exam: Alert, Awake, Oriented x3 - Psychiatric Exam Psychiatric exam: Normal Affect, Normal Mood Assessment and Plan - Assessment and Plan (Free Text) Assessment: 52 y/o obese deaf male with 1) left foot blister with possible underlying abscess formation and 2) right anterior leg ulceration Plan: Pt seen and evaluated at bedside Discussed with attending Dr. Hill Labs and vitals reviewed- afebrile, no leukocytosis Wounds cleansed with saline and dressed with betadine and optifoam bandages L foot x-ray reviewed - no signs of osseous erosive changes L foot MRI (-) for abscess formation at 5th met head, no signs of osteomyelitis Continue IV Vancomycin and Cefepime per ID Wound cx of R leg- coagulase neg staphylococcus Arterial duplex studies- normal ROCKY and PVRs at rest Will continue to follow pt while in house
--- NOTE | 2017-09-27 13:49 | CP.PCM.PN ---
Subjective - Date & Time of Evaluation Date of Evaluation: 09/27/17 Time of Evaluation: 09:55 - Subjective Subjective: A little less pain in the left foot, no fevers, no diarrhea. Objective - Vital Signs/Intake and Output Vital Signs (last 24 hours): Temp Pulse Resp BP Pulse Ox 98.1 F 70 20 156/68 H 96 09/27/17 06:00 09/27/17 06:00 09/27/17 06:00 09/27/17 06:00 09/27/17 06:00 Intake and Output: 09/26/17 09/27/17 18:59 06:59 Intake Total 350 Balance 350 - Medications Medications: Current Medications Albuterol/Ipratropium (Duoneb 3 Mg/0.5 Mg (3 Ml) Ud) 3 ml IH Q2H PRN PRN Reason: Shortness of Breath Last Admin: 09/25/17 14:23 Dose: 3 ml Amiodarone HCl (Cordarone) 200 mg PO DAILY [facility] Last Admin: 09/26/17 09:28 Dose: 200 mg Apixaban (Eliquis) 5 mg PO BID [facility] PRN Reason: Protocol Last Admin: 09/26/17 17:03 Dose: 5 mg Atenolol (Tenormin) 25 mg PO DAILY [facility] Last Admin: 09/26/17 09:27 Dose: 25 mg Furosemide (Lasix) 40 mg IV DAILY [facility] Last Admin: 09/26/17 09:26 Dose: 40 mg Cefepime HCl (Maxipime 2gm) 2 gm in 100 mls @ 100 mls/hr IVPB Q12 SHA PRN Reason: Protocol Stop: 09/29/17 10:01 Last Admin: 09/26/17 21:09 Dose: 100 mls/hr Vancomycin HCl 1.5 gm/ Sodium (Chloride) 500 mls @ 167 mls/hr IVPB Q12H SHA PRN Reason: Protocol Insulin Human Regular (Humulin R Low) 0 units SC ACHS SHA PRN Reason: Protocol Last Admin: 09/26/17 22:02 Dose: Not Given Levothyroxine Sodium (Synthroid) 25 mcg PO 0600 [facility] Last Admin: 09/27/17 05:58 Dose: 25 mcg Oxycodone HCl (Oxycodone Immediate Release Tab) 30 mg PO Q6H PRN PRN Reason: Pain, severe (8-10) Last Admin: 09/27/17 01:08 Dose: 30 mg Verapamil HCl (Calan Tab) 80 mg PO TID [facility] Last Admin: 09/26/17 17:03 Dose: 80 mg - Labs Labs: 09/23/17 06:00 09/25/17 12:30 PT 13.7 SECONDS (9.4-12.5) H 09/22/17 04:55 INR 1.19 (0.93-1.08) H 09/22/17 04:55 APTT 33.1 Seconds (25.1-36.5) 09/22/17 04:55 - Constitutional Appears: Chronically Ill - Head Exam Head Exam: NORMAL INSPECTION - ENT Exam ENT Exam: Mucous Membranes Moist - Neck Exam Neck Exam: absent: Meningismus - Respiratory Exam Respiratory Exam: Decreased Breath Sounds - Cardiovascular Exam Cardiovascular Exam: +S1, +S2 - GI/Abdominal Exam GI & Abdominal Exam: Soft. absent: Tenderness - Extremities Exam Additional comments: left foot with dressings in place Assessment and Plan - Assessment and Plan (Free Text) Plan: Assessment Consider left lateral foot purulent skin and skin structure infection, with no evidence of osteomyelitis on MRI deafness HTN morbid obesity with BMI 51 COPD S/P appendectomy S/P cholecystectomy S/P tonsillectomy Plan continue Vancomycin and Cefepime day 5; wound cx only showing coag negative staph which is most likely a skin contaminant; blood cx are negative - complete 7-10 days of antibiotics reviewed left foot xray and MRI of left foot will continue to follow clinically
[2017-09-27] MEDS: Vancomycin 1.5 GM in Sodium Chloride 0.9% 500 ML IVPB SCH (16:26)
[2017-09-27] MEDS: Albuterol-Ipratrop 3 mg / 0.5 (3 ml) UD IH PRN (22:15)
--- NOTE | 2017-09-28 03:34 | PN ---
DATE: 09/26/2017 DAILY PROGRESS NOTE I would like yesterday's progress note to be read as follows, if you would be so kind. 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 The patient was started on Cardizem and amiodarone. He is being followed by Dr. Vaca, the inside sales consultant. He is also being followed by Dr. Olsen, the Infectious Disease specialist. During his hospital stay, the leg pain has subsided on opioid analgesics, he usually takes opioids for chronic low back pain. X-rays and MRI of the lower extremities were negative for osteomyelitis. Arterial Doppler's of the lower extremities were normal. Because of his abdominal girth and suspected ascites, he had a CAT scan of the abdomen, which showed hepatosplenomegaly, renal atrophy and moderate ascites. When seen today, the patient is awake, alert and oriented. He is feeling better, the pain in his legs are subsiding. He was informed and in agreement with Dr. Banks, the change lead to consult concerning his ascites and hepatosplenomegaly. Wounds cultures are growing gram positive cocci in clusters. We are continuing with his intravenous antibiotics of Maxipime 2 g IV every 12 hours, he is also receiving vancomycin 1.5 g IV every 12 hours. He is on Calan 80 mg 3 times a day, amiodarone 200 mg once a day, DuoNeb nebulizers, Eliquis 5 mg twice a day, Lasix 40 mg IV daily, and oxycodone as well as levothyroxine 25 mcg daily and Tenormin 25 mg daily. We are continuing to follow the patient closely. Case to be discussed with Dr. Olsen as well as Dr. Banks and Dr. Vaca. Chester Norman MD
[2017-09-28] MEDS: Vancomycin 1.5 GM in Sodium Chloride 0.9% 500 ML IVPB SCH ×2 (04:02→18:58)
--- NOTE | 2017-09-28 05:01 | PN ---
DATE: 09/27/2017 DAILY PROGRESS NOTE SUBJECTIVE: The patient is a 52-year-old deaf, mute, who presented to the emergency room complaining of leg pain. He was found to have not only cellulitis of both lower extremities, but also to be in atrial fibrillation, flutter with a rapid ventricular response. He was seen by Dr. Faulkner, the coordinator of genetic services. He was seen by Dr. Olsen, Infectious Disease specialist. Echocardiography showed ventricular dysfunction with tricuspid regurgitation and ejection fraction of 55% to 60%. The wounds of his legs are growing coagulase-negative Staphylococcus, which are sensitive to quinolones; however, Dr. Olsen feels this is more of a contaminant. MRI of the lower extremities were negative for osteomyelitis. Arterial Doppler showed good blood flow to the lower extremities. CAT scan of the abdomen showed moderate amount of ascites with hepatosplenomegaly and Dr. Banks, the supervisor looping was called to consult concerning this finding. When seen, he is awake, alert, and oriented, it was explained to the patient that he would be continuing on antibiotics for few more days, today is 4 out of [address] Olsen. His lungs reveal chronic rhonchi bilaterally. The patient indicated that he will be quitting smoking, and never to return to it again. Abdomen is soft and nontender. Extremities are positive for the cellulitis of both lower extremities with dry flaking skin and erythema. This morning laboratory studies show white blood cell count to be 7.2, hemoglobin and hematocrit of 15.4 and 49.2. Sodium is 139, potassium 5, BUN 36, creatinine 1. So, we are continuing with the Maxipime for his cellulitis. We are continuing with the Calan, amiodarone, Eliquis for his AFib, flutter. Continuing with Synthroid for his hypothyroidism, vancomycin for the cellulitis, Tenormin with Lasix and DuoNeb nebulizers as well. Chester Norman MD
[2017-09-28] MEDS: Levothyroxine 25 MCG TAB PO SCH (05:44)
[2017-09-28] MEDS: oxyCODONE 30 mg Immediate Release Tab PO PRN ×3 (05:57→20:03)
[2017-09-28] MEDS: Insulin Reg-LOW-Coverage SC SCH ×4 (07:30→22:27)
[2017-09-28] MEDS: Cefepime IV 2 gm in NS 2 GM/100 ML BAG IVPB SCH ×2 (10:39→22:17)
[2017-09-28] MEDS: Albuterol-Ipratrop 3 mg / 0.5 (3 ml) UD IH PRN ×3 (10:56→20:17)
--- NOTE | 2017-09-28 11:14 | CP.PCM.PN ---
Subjective - Date & Time of Evaluation Date of Evaluation: 09/28/17 Time of Evaluation: 09:45 - Subjective Subjective: Still with some pain on the left foot, decreased drainage, no fevers, no nausea , no diarrhea. Objective - Vital Signs/Intake and Output Vital Signs (last 24 hours): Temp Pulse Resp BP Pulse Ox 97.5 F L 90 19 116/54 L 93 L 09/28/17 06:00 09/28/17 06:00 09/28/17 06:00 09/28/17 06:00 09/28/17 06:00 Intake and Output: 09/27/17 09/28/17 18:59 06:59 Intake Total 560 1040 Output Total 200 Balance 560 840 - Medications Medications: Current Medications Albuterol/Ipratropium (Duoneb 3 Mg/0.5 Mg (3 Ml) Ud) 3 ml IH Q2H PRN PRN Reason: Shortness of Breath Last Admin: 09/27/17 22:15 Dose: 3 ml Amiodarone HCl (Cordarone) 200 mg PO DAILY [facility] Last Admin: 09/27/17 10:10 Dose: 200 mg Apixaban (Eliquis) 5 mg PO BID SHA PRN Reason: Protocol Last Admin: 09/27/17 17:20 Dose: 5 mg Atenolol (Tenormin) 25 mg PO DAILY [facility] Last Admin: 09/27/17 10:10 Dose: 25 mg Furosemide (Lasix) 40 mg IV DAILY [facility] Last Admin: 09/27/17 10:11 Dose: 40 mg Cefepime HCl (Maxipime 2gm) 2 gm in 100 mls @ 100 mls/hr IVPB Q12 SHA PRN Reason: Protocol Stop: 09/29/17 10:01 Last Admin: 09/27/17 21:45 Dose: 100 mls/hr Vancomycin HCl 1.5 gm/ Sodium (Chloride) 500 mls @ 167 mls/hr IVPB Q12H SHA PRN Reason: Protocol Last Admin: 09/28/17 04:02 Dose: 167 mls/hr Insulin Human Regular (Humulin R Low) 0 units SC ACHS SHA PRN Reason: Protocol Last Admin: 09/27/17 21:40 Dose: Not Given Levothyroxine Sodium (Synthroid) 25 mcg PO 0600 [facility] Last Admin: 09/28/17 05:44 Dose: 25 mcg Oxycodone HCl (Oxycodone Immediate Release Tab) 30 mg PO Q6H PRN PRN Reason: Pain, severe (8-10) Last Admin: 09/28/17 05:57 Dose: 30 mg Verapamil HCl (Calan Tab) 80 mg PO TID [facility] Last Admin: 09/27/17 17:20 Dose: 80 mg - Labs Labs: 09/27/17 06:00 09/27/17 06:00 PT 13.7 SECONDS (9.4-12.5) H 09/22/17 04:55 INR 1.19 (0.93-1.08) H 09/22/17 04:55 APTT 33.1 Seconds (25.1-36.5) 09/22/17 04:55 - Constitutional Appears: Chronically Ill - Head Exam Head Exam: NORMAL INSPECTION - ENT Exam ENT Exam: Mucous Membranes Moist - Neck Exam Neck Exam: absent: Lymphadenopathy, Meningismus - Respiratory Exam Respiratory Exam: Decreased Breath Sounds - Cardiovascular Exam Cardiovascular Exam: +S1, +S2 - GI/Abdominal Exam GI & Abdominal Exam: Soft. absent: Tenderness - Extremities Exam Additional comments: left foot with dressings in place, still with some swelling on the dorsal side with some tenderness Assessment and Plan - Assessment and Plan (Free Text) Plan: Assessment Consider left lateral foot purulent skin and skin structure infection, with no evidence of osteomyelitis on MRI deafness HTN morbid obesity with BMI 51 COPD S/P appendectomy S/P cholecystectomy S/P tonsillectomy Plan continue Vancomycin and Cefepime day 6; wound cx only showing coag negative staph which is most likely a skin contaminant; blood cx are negative - complete 7-10 days of antibiotics reviewed left foot xray and MRI of left foot will continue to follow clinically
--- NOTE | 2017-09-28 14:46 | CP.PCM.PN ---
Subjective - Date & Time of Evaluation Date of Evaluation: 09/28/17 Time of Evaluation: 14:00 - Subjective Subjective: PGY-2 GI progress note for Dr. Banks's service Patient seen and examined at bedside. 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 Patient denies any pain, he states that he was seen for possible paracentesis evaluation. He states that he feels bloated but denies abd pain, n/ v, diarrhea. Objective - Vital Signs/Intake and Output Vital Signs (last 24 hours): Temp Pulse Resp BP Pulse Ox 98.7 F 61 19 137/87 93 L 09/28/17 12:00 09/28/17 12:00 09/28/17 12:00 09/28/17 12:00 09/28/17 06:00 Intake and Output: 09/28/17 09/28/17 06:59 18:59 Intake Total 1040 Output Total 200 Balance 840 - Medications Medications: Current Medications Albuterol/Ipratropium (Duoneb 3 Mg/0.5 Mg (3 Ml) Ud) 3 ml IH Q2H PRN PRN Reason: Shortness of Breath Last Admin: 09/28/17 10:56 Dose: 3 ml Amiodarone HCl (Cordarone) 200 mg PO DAILY [facility] Last Admin: 09/28/17 10:38 Dose: 200 mg Apixaban (Eliquis) 5 mg PO BID SHA PRN Reason: Protocol Last Admin: 09/28/17 10:38 Dose: 5 mg Atenolol (Tenormin) 25 mg PO DAILY SHA Last Admin: 09/28/17 10:38 Dose: 25 mg Furosemide (Lasix) 40 mg IV DAILY SHA Last Admin: 09/28/17 10:38 Dose: 40 mg Cefepime HCl (Maxipime 2gm) 2 gm in 100 mls @ 100 mls/hr IVPB Q12 SHA PRN Reason: Protocol Stop: 09/29/17 10:01 Last Admin: 09/28/17 10:39 Dose: 100 mls/hr Vancomycin HCl 1.5 gm/ Sodium (Chloride) 500 mls @ 167 mls/hr IVPB Q12H SHA PRN Reason: Protocol Last Admin: 09/28/17 04:02 Dose: 167 mls/hr Insulin Human Regular (Humulin R Low) 0 units SC ACHS SHA PRN Reason: Protocol Last Admin: 09/28/17 12:40 Dose: Not Given Levothyroxine Sodium (Synthroid) 25 mcg PO 0600 [facility] Last Admin: 09/28/17 05:44 Dose: 25 mcg Oxycodone HCl (Oxycodone Immediate Release Tab) 30 mg PO Q6H PRN PRN Reason: Pain, severe (8-10) Last Admin: 09/28/17 13:07 Dose: 30 mg Verapamil HCl (Calan Tab) 80 mg PO TID [facility] Stop: 09/28/17 23:59 Last Admin: 09/28/17 13:08 Dose: 80 mg Verapamil HCl (Calan Sr Tab) 240 mg PO DAILY [facility] - Labs Labs: 09/27/17 06:00 09/27/17 06:00 PT 13.7 SECONDS (9.4-12.5) H 09/22/17 04:55 INR 1.19 (0.93-1.08) H 09/22/17 04:55 APTT 33.1 Seconds (25.1-36.5) 09/22/17 04:55 - Constitutional Appears: Well, No Acute Distress - Head Exam Head Exam: ATRAUMATIC, NORMOCEPHALIC - Eye Exam Eye Exam: EOMI, Normal appearance - ENT Exam ENT Exam: Mucous Membranes Moist - Respiratory Exam Respiratory Exam: Clear to Ausculation Bilateral, NORMAL BREATHING PATTERN. absent: Rhonchi, Wheezes, Respiratory Distress - Cardiovascular Exam Cardiovascular Exam: REGULAR RHYTHM. absent: Bradycardia, Tachycardia - GI/Abdominal Exam GI & Abdominal Exam: Distended, Soft, Normal Bowel Sounds. 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 flutter. Plan: - CT abd/pel showed moderate ascites, sepatomegaly, splenomegaly, retained fecal material and diverticulosis - ascites possibly due to pulmonary HTN, right sided heart failure - consulted IR for possible paracentesis - continue antibiotics - patient is high risk for endoscopy case reviewed and discussed with Dr. Banks
--- NOTE | 2017-09-28 15:50 | PN ---
DATE: 09/28/2017 TIME OF PROGRESS NOTE: 0700 hours. LOCATION: [facility] Room 276, bed 2. SUBJECTIVE: This is a 52-year-old white male known to me, who have been seen twice in our office is in 2016 for ulcerations of the left foot. He failed to return for followup at that time. He was admitted through the ED. This admission with cellulitis, ulcerations and infections of both legs and he was found to be in poor cardiac condition with AFib and currently under workup of GI for ascites with distended abdomen. PAST MEDICAL HISTORY: Positive for hearing and speech difficulties, also diabetes melitis, chronic low back syndrome, hypertension, hypothyroidism and COPD. SOCIAL HISTORY: He admits to smoking and alcohol use, lives alone on disability and is irregularly noncompliant diabetic. OBJECTIVE: GENERAL: The patient is sitting in bed, watching television, appears alert and oriented x3, responds to questioning, although there is difficulty with his hearing and understanding his speech. He reports significant swelling in the abdomen and having terrible swelling in the legs that brought him into the hospital as per the history. He appears alert and oriented x3. VITAL SIGNS: This morning is stable. EXTREMITIES: Lower extremities have nonpalpable pulses, but that may be due to the significant edema still present from the knee to the toes. There is an ulceration almost stasis dermatitis type, superficial ulceration over the area of the fifth MTP on the left margin and so without any sign of sinus or penetration. There was no lymphangitis or streaking noted; however, there is still significant cellulitis in both lower extremities. There was no Devante sign of significant calf tenderness over the calf with palpitation on other side. There is a small full thickness ulceration that measures approximately a 0.5 x 1.5 cm x 0.2 cm depth with clean bed on the anterior right mcgee, also currently under bordered gauze dressings. There is no other ulcerations noted. His toenails are mycotic, but they have been recently debrided. There is no interspace wounds and there is no other plantar wounds or ulcerations. No decubitus noted on either the heals or the ankles. LABORATORY DATA: Reviewed. His white count is currently normal. On previous wound cultures show some Staphylococcus aureus; however, ID considers these to be contaminants. We essentially do not have a depth or an abscess formation to culture. MRIs were negative for osteomyelitis and negative for deep space abscess or gas as were x-rays. Arterial Doppler studies were found to provide reasonably good blood flow to both lower extremities in spite of the nonpalpable pulses and the CT of the abdomen was positive for the ascites. ASSESSMENT AND PLAN: The plan is discussed with the patient. No significant pedal procedures are going to be employed, a pair of surgical shoes for protected gait and we will be provided, orders will be written, wound care will consist of cleansing of the left foot and the right mcgee and applying a bordered gauze with topical antibiotics. We anticipate resolution of the wound ulcers, when more of the leg cellulitis improves. We anticipate this may require some intervention on the part of GI as we consider the leg cellulitis, probably secondary to his current GI and hepatosplenomegaly of the abdomen. We will follow the patient with our residence and myself for wound care changes and we will anticipate the GI intervention upcoming. Gilberto Hill DPM
--- NOTE | 2017-09-28 18:04 | PN ---
DATE: 09/28/2017 REASON FOR CONSULTATION: Followup atrial flutter, admitted with rapid rate, COPD, obesity, shortness of breath, chronic leg cellulitis. SUBJECTIVE: The patient denies any chest pain, shortness of breath or any palpitation. OBJECTIVE: GENERAL: Not in any apparent distress, lying flat in the bed. VITAL SIGNS: Heart rate 61, temperature 98.7, blood pressure 137/87. HEENT: PERRLA. Extraocular muscles intact. NECK: Supple. No carotid bruit. No thyromegaly. CHEST: Clear to auscultation. HEART: S1 and S2 regular. ABDOMEN: Soft. EXTREMITIES: Clubbing and cyanosis negative. IMPRESSION: Morbid obesity, body mass index 51.3 kg/m2; diabetes; hypertension; hyperlipidemia; hypothyroidism; atrial flutter, chronicity unknown. Echo showed ejection fraction 55-60%. Right ventricle moderately dilated. Trace mitral regurgitation. Moderate tricuspid regurgitation. Right ventricular systolic pressure 51. Mildly dilated left atrium. Right atrium is moderately dilated. RECOMMENDATIONS: Continue Eliquis. Continue amiodarone to control the heart rate and continue verapamil 80 mg to adjust to CD dose 240 from tomorrow morning. Continue gentle diuretics. I will discontinue telemetry. We will start verapamil 240 from the morning and we will finish 80 mg tonight and discontinue telemetry. We will repeat the blood workup in the morning and repeat TSH level as well. Thank you, Dr. Norman, for providing us the opportunity in taking care of the patient, Jonathan Rosas. Chantel Faulkner MD
[2017-09-28 18:22] LABS: BODY FLUID TYPE PERITONEAL/ASCITES
--- NOTE | 2017-09-28 19:13 | US ---
PROCEDURE: Ultrasound guided paracentesis. HISTORY: New onset ascites. Morbid obesity with diabetes. Abdominal pain and distension. PHYSICIAN(S): Gilberto Gutierrez MD. TECHNIQUE: The relative risks and indications for the procedure were explained to the patient through an deaf interpreter and informed written consent obtained. Sonography of the abdomen was performed in a supine position. This revealed a small amount of non-loculated ascites, greatest in the right lower abdomen. A puncture site was selected and the area was prepped and draped in the usual sterile fashion. 1% Xylocaine was used to anesthetize the skin and soft tissues. A 7 Gambian paracentesis catheter was trocared into the right lower abdomenand 2700 cc of alexandra fluid aspirated. The appropriate labs were sent. IMPRESSION: Ultrasound-guided paracentesis in the right lower abdomen. 2700 cc of fluid were aspirated. Labs were sent
[2017-09-28 19:15] LABS: BF GROSS APPEARANCE SL CLOUDY (CLEAR); BODY FLUID TOTAL COUNT 100 (0-0)
--- NOTE | 2017-09-28 19:45 | PN ---
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 He was diagnosed as cellulitis of both lower extremities, but also found to be in atrial fibrillation/flutter with a rapid ventricular response. He is being followed by Dr. Faulkner, the specialty cook, Dr. Olsen, the Infectious Disease specialist. He also has podiatry, Dr. Hill coming to see him for the wound and foot care. During his hospital stay, he underwent echocardiography which showed ventricular dysfunction with tricuspid regurgitation and ejection fraction of 55-60%. His wounds were growing coagulase-negative Staphylococcus; however, it is felt that these are skin contaminants. MRI of the lower extremities showed to be negative for osteomyelitis, arterial Dopplers showed good blood flow to the lower extremities. CAT scan of the abdomen and pelvis showed moderate amount of ascites with hepatosplenomegaly. Dr. Banks was asked to consult. I spoke with Dr. Banks earlier today. We both agreed on asking Dr. Gilberto Gutierrez perform a paracentesis to drain some fluid and then to be followed up with endoscopy and colonoscopy. It is felt by Dr. Banks that the patient probably has pulmonary hypertension and that is resulting in his hepatosplenomegaly. When seen, the patient is awake, alert and oriented. He understands what is happening. He is in agreement with the paracentesis. His lungs are clear anteriorly. Heart is regular. Abdomen is round and tense. This is day #5 of a 7 to 10 day course of antibiotics for his cellulitis. We are continuing to follow the patient closely. Chester Norman MD
[2017-09-29] MEDS: oxyCODONE 30 mg Immediate Release Tab PO PRN ×4 (03:34→22:51)
[2017-09-29] MEDS: Vancomycin 1.5 GM in Sodium Chloride 0.9% 500 ML IVPB SCH (05:33)
[2017-09-29] MEDS: Levothyroxine 25 MCG TAB PO SCH (05:40)
[2017-09-29 06:56] LABS: BASO # 0.04 K/mm3 (0.0-2.0); BASO % 0.6 % (0.0-3.0); EOS # 0.2 (0.0-0.7); GRAN # 4.4 (1.4-6.5); GRAN % 67.1 % (50.0-68.0); HEMOGLOBIN 15.3 g/dL (14.0-18.0); LYMPH # 1.4 (1.2-3.4); LYMPH % 21.5 % (22.0-35.0); MEAN CELL VOLUME 92.4 fl (80.0-105.0); MEAN CORPUSCULAR HEMOGLOBIN 28.4 pg (25.0-35.0); MEAN CORPUSCULAR HGB CONC 30.8 g/dl (31.0-37.0); MEAN PLATELET VOLUME 11.1 fl (7.0-11.0); MONO # 0.5 (0.1-0.6); MONO % 7.8 % (1.0-6.0); RBC 5.38 10^6/uL (3.5-6.1); RED CELL DISTRIBUTION WIDTH 14.9 % (11.5-14.5); WHITE BLOOD COUNT 6.6 10^3/ul (4.5-11.0)
[2017-09-29 07:33] LABS: ALBUMIN 3.7 g/dL (3.0-4.8); ALT/SGPT 33 U/L (7-56); AST/SGOT 39 U/L (17-59); BLOOD UREA NITROGEN 44 mg/dL (7-21); CALCIUM 8.9 mg/dL (8.4-10.5); GFR AFRICAN-AMERICAN > 60; GFR NON-AFRICAN AMERICAN 53
[2017-09-29] MEDS: Insulin Reg-LOW-Coverage SC SCH ×4 (07:35→22:46)
[2017-09-29] MEDS: Cefepime IV 2 gm in NS 2 GM/100 ML BAG IVPB SCH ×4 (10:05→22:23)
[2017-09-29] MEDS: Linezolid 600 mg in D5W 300 ml 600 MG/300 ML BAG IVPB SCH ×2 (10:19→22:23)
[2017-09-29] MEDS: Verapamil 240 mg ER Tab PO SCH (10:24)
--- NOTE | 2017-09-29 10:37 | CP.PCM.PN ---
Subjective - Date & Time of Evaluation Date of Evaluation: 09/29/17 Time of Evaluation: 10:34 - Subjective Subjective: PGY-2 GI progress note for Dr. Banks's service Patient seen and examined at bedside. [employer] was used. Patient states that he had paracentesis yesterday. Per nurse there is leakage from the site. He states that he feels better after the paracentesis, less bloated. He denies abd pain, n/v, diarrhea. Objective - Vital Signs/Intake and Output Vital Signs (last 24 hours): Temp Pulse Resp BP Pulse Ox 98.5 F 60 18 126/69 93 L 09/29/17 06:00 09/29/17 10:26 09/29/17 06:00 09/29/17 10:26 09/29/17 06:00 Intake and Output: 09/29/17 09/29/17 06:59 18:59 Intake Total 1248 Balance 1248 - Medications Medications: Current Medications Albuterol/Ipratropium (Duoneb 3 Mg/0.5 Mg (3 Ml) Ud) 3 ml IH Q2H PRN PRN Reason: Shortness of Breath Last Admin: 09/28/17 20:17 Dose: 3 ml Apixaban (Eliquis) 5 mg PO BID SHA PRN Reason: Protocol Last Admin: 09/29/17 10:26 Dose: 5 mg Atenolol (Tenormin) 25 mg PO DAILY [facility] Last Admin: 09/29/17 10:26 Dose: 25 mg Furosemide (Lasix) 40 mg IV DAILY [facility] Last Admin: 09/29/17 10:25 Dose: 40 mg Linezolid (Zyvox 600mg/300ml D5w) 600 mg in 300 mls @ 200 mls/hr IVPB Q12 SHA PRN Reason: Protocol Stop: 10/06/17 10:01 Last Admin: 09/29/17 10:19 Dose: 200 mls/hr Insulin Human Regular (Humulin R Low) 0 units SC ACHS SHA PRN Reason: Protocol Last Admin: 09/29/17 07:35 Dose: Not Given Levothyroxine Sodium (Synthroid) 50 mcg PO 0600 [facility] Oxycodone HCl (Oxycodone Immediate Release Tab) 30 mg PO Q6H PRN PRN Reason: Pain, severe (8-10) Last Admin: 09/29/17 03:34 Dose: 30 mg Verapamil HCl (Calan Sr Tab) 240 mg PO DAILY [facility] Last Admin: 09/29/17 10:24 Dose: 240 mg - Labs Labs: 09/29/17 06:30 09/29/17 06:30 PT 13.7 SECONDS (9.4-12.5) H 09/22/17 04:55 INR 1.19 (0.93-1.08) H 09/22/17 04:55 APTT 33.1 Seconds (25.1-36.5) 09/22/17 04:55 - Constitutional Appears: No Acute Distress - Head Exam Head Exam: ATRAUMATIC, NORMOCEPHALIC - Eye Exam Eye Exam: EOMI, Normal appearance - ENT Exam ENT Exam: Mucous Membranes Moist - Respiratory Exam Respiratory Exam: Clear to Ausculation Bilateral, NORMAL BREATHING PATTERN. absent: Decreased Breath Sounds, Rales, Rhonchi, Wheezes, Respiratory Distress, Stridor - Cardiovascular Exam Cardiovascular Exam: REGULAR RHYTHM, +S1, +S2. absent: Bradycardia, Tachycardia , Murmur - GI/Abdominal Exam GI & Abdominal Exam: Distended, Soft, Normal Bowel Sounds. 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 flutter. Plan: - CT abd/pel showed moderate ascites, sepatomegaly, splenomegaly, retained fecal material and diverticulosis - ascites possibly due to pulmonary HTN, right sided heart failure - s/p paracentesis, removed 2700cc, pending albumin and cytology - hepatitis panel neg - continue antibiotics - echo showed normal size left ventricular, EF55-60, right ventricular severely reduced - cardiology following - patient will most likely need endoscopy case reviewed and discussed with Dr. Banks
--- NOTE | 2017-09-29 11:16 | CP.PCM.PN ---
Subjective - Date & Time of Evaluation Date of Evaluation: 09/29/17 Time of Evaluation: 09:25 - Subjective Subjective: Still with pain in the left foot but less, no fevers, no diarrhea. Had paracentesis done yesterday. Objective - Vital Signs/Intake and Output Vital Signs (last 24 hours): Temp Pulse Resp BP Pulse Ox 98.5 F 96 H 18 120/56 L 93 L 09/29/17 06:00 09/29/17 06:00 09/29/17 06:00 09/29/17 06:00 09/29/17 06:00 Intake and Output: 09/28/17 09/29/17 18:59 06:59 Intake Total 480 Balance 480 - Medications Medications: Current Medications Albuterol/Ipratropium (Duoneb 3 Mg/0.5 Mg (3 Ml) Ud) 3 ml IH Q2H PRN PRN Reason: Shortness of Breath Last Admin: 09/28/17 20:17 Dose: 3 ml Amiodarone HCl (Cordarone) 200 mg PO DAILY [facility] Last Admin: 09/28/17 10:38 Dose: 200 mg Apixaban (Eliquis) 5 mg PO BID SHA PRN Reason: Protocol Last Admin: 09/28/17 18:57 Dose: 5 mg Atenolol (Tenormin) 25 mg PO DAILY [facility] Last Admin: 09/28/17 10:38 Dose: 25 mg Furosemide (Lasix) 40 mg IV DAILY [facility] Last Admin: 09/28/17 10:38 Dose: 40 mg Cefepime HCl (Maxipime 2gm) 2 gm in 100 mls @ 100 mls/hr IVPB Q12 SHA PRN Reason: Protocol Stop: 09/29/17 10:01 Last Admin: 09/28/17 22:17 Dose: 100 mls/hr Vancomycin HCl 1.5 gm/ Sodium (Chloride) 500 mls @ 167 mls/hr IVPB Q12H SHA PRN Reason: Protocol Last Admin: 09/29/17 05:33 Dose: 167 mls/hr Insulin Human Regular (Humulin R Low) 0 units SC ACHS SHA PRN Reason: Protocol Last Admin: 09/28/17 22:27 Dose: Not Given Levothyroxine Sodium (Synthroid) 25 mcg PO 0600 [facility] Last Admin: 09/29/17 05:40 Dose: 25 mcg Oxycodone HCl (Oxycodone Immediate Release Tab) 30 mg PO Q6H PRN PRN Reason: Pain, severe (8-10) Last Admin: 09/29/17 03:34 Dose: 30 mg Verapamil HCl (Calan Sr Tab) 240 mg PO DAILY [facility] - Labs Labs: 09/27/17 06:00 09/27/17 06:00 PT 13.7 SECONDS (9.4-12.5) H 09/22/17 04:55 INR 1.19 (0.93-1.08) H 09/22/17 04:55 APTT 33.1 Seconds (25.1-36.5) 09/22/17 04:55 - Constitutional Appears: Chronically Ill - Head Exam Head Exam: NORMAL INSPECTION - ENT Exam ENT Exam: Mucous Membranes Moist - Neck Exam Neck Exam: absent: Lymphadenopathy, Meningismus - Respiratory Exam Respiratory Exam: Decreased Breath Sounds - Cardiovascular Exam Cardiovascular Exam: +S1, +S2 - GI/Abdominal Exam GI & Abdominal Exam: Distended, Soft. absent: Guarding, Rigid, Tenderness, Rebound - Extremities Exam Additional comments: left foot with dressings in place Assessment and Plan - Assessment and Plan (Free Text) Plan: Assessment Consider left lateral foot purulent skin and skin structure infection, with no evidence of osteomyelitis on MRI deafness HTN morbid obesity with BMI 51 COPD S/P appendectomy S/P cholecystectomy S/P tonsillectomy Plan continue Cefepime day 7 and will change Vancomycin to Zyvox since creatinine is slowly creeping up; wound cx only showing coag negative staph which is most likely a skin contaminant; blood cx are negative - complete 7-10 days of antibiotics reviewed left foot xray and MRI of left foot will continue to follow clinically
--- NOTE | 2017-09-29 14:30 | PN ---
DATE: 09/29/2017 REASON FOR CONSULTATION AND FOLLOWUP: Atrial fibrillation, admitted with rapid rate, COPD, obesity, shortness of breath, chronic leg cellulitis. SUBJECTIVE: The patient denies any chest pain, shortness of breath or any palpitations. PHYSICAL EXAMINATION: GENERAL: The patient not in apparent distress. VITAL SIGNS: Temperature afebrile, heart rate 96, blood pressure 120/56. HEENT: PERRLA. Extraocular muscles intact. NECK: Supple. No carotid bruit or thyromegaly. CHEST: Clear to auscultation. HEART: S1 and S2 regular. ABDOMEN: Soft. EXTREMITIES: Clubbing and cyanosis negative. LABORATORY DATA: Blood workup as follows: WBC 6.6, hemoglobin 15.3, hematocrit 49.7. platelet count 176. Chemistry shows sodium 140, potassium 4.8, chloride 90, carbon dioxide 33, anion gap of 16, BUN 44, creatinine 1.4. IMPRESSION: Morbid obesity, increased body mass index with diabetes, hypertension, hyperlipidemia, hypothyroidism, atrial fibrillation, chronicity unknown. Echo shows ejection fraction of about 60%, right ventricle moderately dilated, trace mitral regurgitation, moderate tricuspid regurgitation, right ventricular systolic pressure of 51, mildly dilated left atrium, right atrium is moderately dilated. Status post abdominal paracentesis of 2.7 liters fluid was drained ultrasound guided by Dr. Gutierrez yesterday. RECOMMENDATION: Continue Eliquis. Continue verapamil. Continue amiodarone. Continue levothyroxine for hypothyroidism. Repeat TSH 9.4, so we will increase Levoxyl from starting dose of 25 to 50 from tomorrow. We will follow with you. Needs periodic TSH in view of worsening of thyroid function and baseline is hypothyroidism. We will discontinue amiodarone and control the heart rate with verapamil and continue Eliquis and verapamil and discontinue amiodarone and monitor TSH. Consider stress test as outpatient for risk stratification. The patient's total cholesterol is low at 119, LDL 74, triglyceride 104 and HDL low. As mentioned, we will discontinue amiodarone in view of worsening thyroid dysfunction. Thank you, Dr. Norman, for providing us the opportunity in taking care of Jonathan Rosas. Chantel Faulkner MD
[2017-09-29] MEDS: Albuterol-Ipratrop 3 mg / 0.5 (3 ml) UD IH PRN (23:34)
[2017-09-30] MEDS: Levothyroxine 50 MCG TAB PO SCH (06:35)
[2017-09-30] MEDS: oxyCODONE 30 mg Immediate Release Tab PO PRN ×3 (06:50→17:04)
--- NOTE | 2017-09-30 07:36 | CP.PCM.PN ---
Subjective - Date & Time of Evaluation Date of Evaluation: 09/30/17 Time of Evaluation: 06:50 - Subjective Subjective: Awake,Lying in bed, pointing leg to be in pain, patient deaf, denies any chest pain, making sign to be okay, Reason for consultation and follow up: Cardiac evaluation, atrial fibrillation/ flutter, cellulitis Seen and examined by me and Dr. Faulkner Objective - Vital Signs/Intake and Output Vital Signs (last 24 hours): Temp Pulse Resp BP Pulse Ox 98.3 F 89 18 116/65 97 09/29/17 12:00 09/29/17 13:54 09/29/17 13:54 09/29/17 13:54 09/29/17 09:00 - Medications Medications: Current Medications Albuterol/Ipratropium (Duoneb 3 Mg/0.5 Mg (3 Ml) Ud) 3 ml IH Q2H PRN PRN Reason: Shortness of Breath Last Admin: 09/29/17 23:34 Dose: 3 ml Apixaban (Eliquis) 5 mg PO BID SHA PRN Reason: Protocol Last Admin: 09/29/17 17:13 Dose: 5 mg Atenolol (Tenormin) 25 mg PO DAILY [facility] Last Admin: 09/29/17 10:26 Dose: 25 mg Furosemide (Lasix) 40 mg IV DAILY [facility] Last Admin: 09/29/17 10:25 Dose: 40 mg Linezolid (Zyvox 600mg/300ml D5w) 600 mg in 300 mls @ 200 mls/hr IVPB Q12 SHA PRN Reason: Protocol Stop: 10/06/17 10:01 Last Admin: 09/29/17 22:23 Dose: 200 mls/hr Cefepime HCl (Maxipime 2gm) 2 gm in 100 mls @ 100 mls/hr IVPB Q12 SHA PRN Reason: Protocol Stop: 10/04/17 22:01 Last Admin: 09/29/17 22:23 Dose: 100 mls/hr Insulin Human Regular (Humulin R Low) 0 units SC ACHS SHA PRN Reason: Protocol Last Admin: 09/29/17 22:46 Dose: Not Given Levothyroxine Sodium (Synthroid) 50 mcg PO 0600 [facility] Last Admin: 09/30/17 06:35 Dose: 50 mcg Oxycodone HCl (Oxycodone Immediate Release Tab) 30 mg PO Q6H PRN PRN Reason: Pain, severe (8-10) Last Admin: 09/30/17 06:50 Dose: 30 mg Verapamil HCl (Calan Sr Tab) 240 mg PO DAILY [facility] Last Admin: 09/29/17 10:24 Dose: 240 mg - Labs Labs: 09/29/17 06:30 09/29/17 06:30 PT 13.7 SECONDS (9.4-12.5) H 09/22/17 04:55 INR 1.19 (0.93-1.08) H 09/22/17 04:55 APTT 33.1 Seconds (25.1-36.5) 09/22/17 04:55 - Constitutional Appears: No Acute Distress - ENT Exam ENT Exam: Mucous Membranes Moist - Respiratory Exam Respiratory Exam: Decreased Breath Sounds, NORMAL BREATHING PATTERN Additional comments: nasal cannula 2-3 l/min expiratory wheezing - GI/Abdominal Exam GI & Abdominal Exam: Distended, Normal Bowel Sounds - Extremities Exam Additional comments: cellulitis, 4+ edema,redness foot ulcers - Neurological Exam Neurological Exam: Alert, Awake, Oriented x3 - Psychiatric Exam Psychiatric exam: Normal Affect, Normal Mood - Skin Skin Exam: Intact, Normal Color, Warm Assessment and Plan - Assessment and Plan (Free Text) Assessment: A 52 year old male who came in to the ER due to leg swelling and unable to walk. He has cellulitis. History of atrial fibrillation, hypertension, COPD, obese, hypothyroidism, diabetes, deaf and mute.pulmonary hypertension (mildly dilated RV, right ventricular systolic function pressure 51mmhg.ascitis post paracentesis 2.5 liters of fluid. Plan: CT of abdomen with moderate amount of fluid/ascitis Post paracentesis yesterday, 2.5 liters of fluid taken out,ultrasound guided. Blood pressure stable/controlled Heart rate controlled 80's On Eliquis 5 mg daily, Atenolol 25 mg daily,Synthroid 50 mcg daily, Calan SR 240 mg daily Discontinued amiodarone due to increasing TSH level Continue current medications Continue current treatment Will follow up Plan and treatment discussed with Dr. Faulkner
[2017-09-30] MEDS: Insulin Reg-LOW-Coverage SC SCH ×3 (08:18→23:00)
--- NOTE | 2017-09-30 08:35 | PN ---
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 He was found to have cellulitis of both lower extremities, but he was also found to be in atrial fib/flutter with a rapid ventricular response. Dr. Faulkner, the research instrumentation technician, was called to consult. His heart rate is now controlled with Calan. Dr. Olsen, the infectious disease specialist, was asked to consult on the patient. His cellulitis is currently being treated with cefepime and vancomycin is to be changed to Zyvox. As per research instrumentation technician, the amiodarone is to be discontinued and the patient will be followed just on the verapamil. Increasing abdominal girth and possible ascites was noted. CAT scan was performed and that showed hepatosplenomegaly with ascites. Dr. Gilberto Gutierrez was called for consultation and today, the patient with Dr. Gilberto Gutierrez underwent paracentesis, 2700 mL of paracentesis fluid was removed. When seen today, the patient is lying in bed. He is feeling much more comfortable. His lungs are clear anteriorly. Heart is regular. Abdomen is round and tense. At this point, we are continuing with the cefepime and Zyvox. The patient's heart rate is controlled on Calan 240 mg daily. He is also receiving Eliquis 5 mg twice a day and Lasix 40 mg IV once a day. He was found to have an elevated thyroid stimulating hormone; therefore, was started on levothyroxine 50 mcg once a day, this will probably be increased to 100 mcg once a day before the patient is discharged to home. The patient will be reevaluated in the morning. Chester Norman MD
[2017-09-30] MEDS: Verapamil 240 mg ER Tab PO SCH (10:31)
[2017-09-30] MEDS: Cefepime IV 2 gm in NS 2 GM/100 ML BAG IVPB SCH ×2 (10:33→22:18)
[2017-09-30] MEDS: Linezolid 600 mg in D5W 300 ml 600 MG/300 ML BAG IVPB SCH ×2 (10:35→23:26)
--- NOTE | 2017-09-30 11:02 | CP.PCM.PN ---
Subjective - Date & Time of Evaluation Date of Evaluation: 09/30/17 Time of Evaluation: 11:01 - Subjective Subjective: 52 y/o deaf male seen at bedside this morning for right leg ulcer and left lateral 5th met head blister. Pt admits to continued mild pain to the lower extremities, mostly the left foot. Agrees that pain has decreased since he came in. Pt states he has not been trying to walk much. Denies F/C/N/V/CP/SOB. Admits to occasional continued tingling and numbness in the lower extremities. Objective - Vital Signs/Intake and Output Vital Signs (last 24 hours): Temp Pulse Resp BP Pulse Ox 96.8 F L 111 H 18 159/91 H 92 L 09/30/17 08:01 09/30/17 10:33 09/30/17 08:01 09/30/17 10:33 09/30/17 08:01 - Medications Medications: Current Medications Albuterol/Ipratropium (Duoneb 3 Mg/0.5 Mg (3 Ml) Ud) 3 ml IH Q2H PRN PRN Reason: Shortness of Breath Last Admin: 09/29/17 23:34 Dose: 3 ml Apixaban (Eliquis) 5 mg PO BID SHA PRN Reason: Protocol Last Admin: 09/30/17 10:27 Dose: 5 mg Atenolol (Tenormin) 25 mg PO DAILY [facility] Last Admin: 09/30/17 10:33 Dose: 25 mg Furosemide (Lasix) 40 mg IV DAILY [facility] Last Admin: 09/30/17 10:32 Dose: 40 mg Linezolid (Zyvox 600mg/300ml D5w) 600 mg in 300 mls @ 200 mls/hr IVPB Q12 SHA PRN Reason: Protocol Stop: 10/06/17 10:01 Last Admin: 09/30/17 10:35 Dose: 200 mls/hr Cefepime HCl (Maxipime 2gm) 2 gm in 100 mls @ 100 mls/hr IVPB Q12 SHA PRN Reason: Protocol Stop: 10/04/17 22:01 Last Admin: 09/30/17 10:33 Dose: 100 mls/hr Insulin Human Regular (Humulin R Low) 0 units SC ACHS SHA PRN Reason: Protocol Last Admin: 09/30/17 08:18 Dose: Not Given Levothyroxine Sodium (Synthroid) 50 mcg PO 0600 [facility] Last Admin: 09/30/17 06:35 Dose: 50 mcg Oxycodone HCl (Oxycodone Immediate Release Tab) 30 mg PO Q6H PRN PRN Reason: Pain, severe (8-10) Last Admin: 09/30/17 06:50 Dose: 30 mg Verapamil HCl (Calan Sr Tab) 240 mg PO DAILY [facility] Last Admin: 09/30/17 10:31 Dose: 240 mg - Labs Labs: 09/29/17 06:30 09/29/17 06:30 PT 13.7 SECONDS (9.4-12.5) H 09/22/17 04:55 INR 1.19 (0.93-1.08) H 09/22/17 04:55 APTT 33.1 Seconds (25.1-36.5) 09/22/17 04:55 - Constitutional Appears: Well, Non-toxic, No Acute Distress - Extremities Exam Additional comments: Lower extremity focused exam: Vasc: DP/PT pulses palpable 2/4. Temperature gradient warm to warm from proximal to distal. CFT < 3 sec to all digits. +2 pitting edema noted to B/L lower extremities Derm: Diffuse erythematous skin changes noted to B/L lower extremities. Lateral aspect of left 5th metatarsal head with skin maceration and blistering noted. Proximal aspect of blister site exhibits circular 0.6cm diameter superficial ulceration with fully granular wound base. No active drainage or purulence noted on exam. Superficial ulceration noted to right anterior mid leg approx 1.5cm x 1cm x 0.1cm with beefy red granular wound base and hyperkeratotic wound borders. No drainage, no purulence, no malodor, no fluctuance. Nails thickened and elongated x 10 Neuro: Protective sensation slightly diminished Ortho: Mild-moderate tenderness to palpation of left lateral 5th met head. Minimal tenderness to palpation of right anterior leg wound - Neurological Exam Neurological Exam: Alert, Awake, Oriented x3 - Psychiatric Exam Psychiatric exam: Normal Affect, Normal Mood Assessment and Plan - Assessment and Plan (Free Text) Assessment: 52 y/o obese deaf male with 1) left foot blister with possible underlying abscess formation and 2) right anterior leg ulceration Plan: Pt seen and evaluated at bedside Discussed with attending Dr. Hill Wounds cleansed with saline and dressed with betadine and optifoam bandages L foot x-ray reviewed - no signs of osseous erosive changes L foot MRI (-) for abscess formation at 5th met head, no signs of osteomyelitis Continue IV Vancomycin Wound cx of R leg - coag neg Staph No surgical intervention at this time To continue with local wound care Arterial duplex studies ordered Will continue to follow pt while in house
--- NOTE | 2017-09-30 11:21 | CP.PCM.PN ---
<Leslie Jc - Last Filed: 09/30/17 18:25> Subjective - Date & Time of Evaluation Date of Evaluation: 09/30/17 Time of Evaluation: 10:00 - Subjective Subjective: PGY-2 GI progress note for Dr. Banks's service Patient seen and examined at bedside. Patient was transferred off of telemetry. [employer] was used. Patient continues to have some drainage from paracentesis site. He denies abd pain, n/v, diarrhea, or bloating. He reports mild discomfort in his legs. He denies chest pain, sob, fever, chills. He is tolerating diet Objective - Vital Signs/Intake and Output Vital Signs (last 24 hours): Temp Pulse Resp BP Pulse Ox 96.8 F L 111 H 18 159/91 H 92 L 09/30/17 08:01 09/30/17 10:33 09/30/17 08:01 09/30/17 10:33 09/30/17 08:01 - Medications Medications: Current Medications Albuterol/Ipratropium (Duoneb 3 Mg/0.5 Mg (3 Ml) Ud) 3 ml IH Q2H PRN PRN Reason: Shortness of Breath Last Admin: 09/29/17 23:34 Dose: 3 ml Apixaban (Eliquis) 5 mg PO BID SHA PRN Reason: Protocol Last Admin: 09/30/17 10:27 Dose: 5 mg Atenolol (Tenormin) 25 mg PO DAILY [facility] Last Admin: 09/30/17 10:33 Dose: 25 mg Furosemide (Lasix) 40 mg IV DAILY [facility] Last Admin: 09/30/17 10:32 Dose: 40 mg Linezolid (Zyvox 600mg/300ml D5w) 600 mg in 300 mls @ 200 mls/hr IVPB Q12 SHA PRN Reason: Protocol Stop: 10/06/17 10:01 Last Admin: 09/30/17 10:35 Dose: 200 mls/hr Cefepime HCl (Maxipime 2gm) 2 gm in 100 mls @ 100 mls/hr IVPB Q12 SHA PRN Reason: Protocol Stop: 10/04/17 22:01 Last Admin: 09/30/17 10:33 Dose: 100 mls/hr Insulin Human Regular (Humulin R Low) 0 units SC ACHS SHA PRN Reason: Protocol Last Admin: 09/30/17 08:18 Dose: Not Given Levothyroxine Sodium (Synthroid) 50 mcg PO 0600 [facility] Last Admin: 09/30/17 06:35 Dose: 50 mcg Oxycodone HCl (Oxycodone Immediate Release Tab) 30 mg PO Q6H PRN PRN Reason: Pain, severe (8-10) Last Admin: 09/30/17 06:50 Dose: 30 mg Verapamil HCl (Calan Sr Tab) 240 mg PO DAILY [facility] Last Admin: 09/30/17 10:31 Dose: 240 mg - Labs Labs: 09/29/17 06:30 09/29/17 06:30 PT 13.7 SECONDS (9.4-12.5) H 09/22/17 04:55 INR 1.19 (0.93-1.08) H 09/22/17 04:55 APTT 33.1 Seconds (25.1-36.5) 09/22/17 04:55 - Constitutional Appears: Well, No Acute Distress - Head Exam Head Exam: ATRAUMATIC, NORMOCEPHALIC - Eye Exam Eye Exam: EOMI, Normal appearance - ENT Exam ENT Exam: Mucous Membranes Moist - Respiratory Exam Respiratory Exam: Clear to Ausculation Bilateral, NORMAL BREATHING PATTERN. absent: Rhonchi, Wheezes, Respiratory Distress - Cardiovascular Exam Cardiovascular Exam: REGULAR RHYTHM. absent: Bradycardia, Tachycardia, Murmur - GI/Abdominal Exam GI & Abdominal Exam: Distended, Soft, Normal Bowel Sounds. absent: Firm, Guarding, Rigid, Tenderness, Hernia, Mass - Extremities Exam Extremities Exam: Normal Inspection. absent: Pedal Edema, Tenderness - Neurological Exam Neurological Exam: Alert, Awake, Oriented x3 - Skin Skin Exam: Dry, Intact, Normal Color, Warm Assessment and Plan - Assessment and Plan (Free Text) Assessment: 52 yo male with deafness, HTN, COPD, presented with new onset ascites, hepatosplenomegaly, cellulitis, a. flutter. Plan: - CT abd/pel showed moderate ascites, sepatomegaly, splenomegaly, retained fecal material and diverticulosis - ascites possibly due to pulmonary HTN, right sided heart failure - s/p paracentesis, removed 2700cc, pending albumin and cytology - WBC and neutrophil count do not indicate SBP - hepatitis panel neg - continue antibiotics - echo showed normal size left ventricular, EF 55-60, right ventricular severely reduced - cardiology following - patient will most likely need endoscopy, once cardiology work up completed case reviewed and discussed with Dr. Banks <Yann Banks V - Last Filed: 10/01/17 00:13> Objective - Vital Signs/Intake and Output Vital Signs (last 24 hours): Temp Pulse Resp BP Pulse Ox 97.0 F L 58 L 20 114/65 90 L 09/30/17 18:33 09/30/17 18:33 09/30/17 18:33 09/30/17 18:33 09/30/17 18:33 - Medications Medications: Current Medications Albuterol/Ipratropium (Duoneb 3 Mg/0.5 Mg (3 Ml) Ud) 3 ml IH Q2H PRN PRN Reason: Shortness of Breath Last Admin: 09/30/17 11:28 Dose: 3 ml Apixaban (Eliquis) 5 mg PO BID SHA PRN Reason: Protocol Last Admin: 09/30/17 17:04 Dose: 5 mg Atenolol (Tenormin) 25 mg PO DAILY [facility] Last Admin: 09/30/17 10:33 Dose: 25 mg Furosemide (Lasix) 40 mg IV DAILY [facility] Last Admin: 09/30/17 10:32 Dose: 40 mg Linezolid (Zyvox 600mg/300ml D5w) 600 mg in 300 mls @ 200 mls/hr IVPB Q12 SHA PRN Reason: Protocol Stop: 10/06/17 10:01 Last Admin: 09/30/17 23:26 Dose: 200 mls/hr Cefepime HCl (Maxipime 2gm) 2 gm in 100 mls @ 100 mls/hr IVPB Q12 SHA PRN Reason: Protocol Stop: 10/04/17 22:01 Last Admin: 09/30/17 22:18 Dose: 100 mls/hr Insulin Human Regular (Humulin R Low) 0 units SC ACHS SHA PRN Reason: Protocol Last Admin: 09/30/17 23:00 Dose: Not Given Levothyroxine Sodium (Synthroid) 50 mcg PO 0600 [facility] Last Admin: 09/30/17 06:35 Dose: 50 mcg Oxycodone HCl (Oxycodone Immediate Release Tab) 30 mg PO Q6H PRN PRN Reason: Pain, severe (8-10) Last Admin: 09/30/17 17:04 Dose: 30 mg Verapamil HCl (Calan Sr Tab) 240 mg PO DAILY [facility] Last Admin: 09/30/17 10:31 Dose: 240 mg - Labs Labs: 09/29/17 06:30 09/29/17 06:30 PT 13.7 SECONDS (9.4-12.5) H 09/22/17 04:55 INR 1.19 (0.93-1.08) H 09/22/17 04:55 APTT 33.1 Seconds (25.1-36.5) 09/22/17 04:55 Attending/Attestation - Attestation I have personally seen and examined this patient.: Yes I have fully participated in the care of the patient.: Yes I have reviewed all pertinent clinical information, including history, physical exam and plan: Yes Notes (Text): This is an addendum to GI progress report dictated by the Stator Plate Washer.The patient was seen and examined earlier. Medical records, lab studies, imagings were reviewed. Last 24 hours events reviewed. Agreed with the above treatment plan as outlined in Stator Plate [employer]her 's notes the with the addition of the following 10/01/17 00:12
[2017-09-30] MEDS: Albuterol-Ipratrop 3 mg / 0.5 (3 ml) UD IH PRN (11:28)
--- NOTE | 2017-10-01 00:40 | PN ---
DATE: 09/30/2017 SUBJECTIVE: The patient seen in bed, who was seen earlier today in room 376, bed 2. No fevers and no chills. PHYSICAL EXAMINATION VITAL SIGNS: Patient's temperature is 97, blood pressure is 114/60, respiratory rate of 18, heart rate of 111, O2 saturation is 90. HEENT: Examination of HEENT is unremarkable. NECK: Supple. LUNGS: Have decreased breath sounds. HEART: Normal S1 and S2. ABDOMEN: Soft, tender. EXTREMITIES: Examination of legs, still mild erythema. LABORATORY DATA: White count of 6.6, hemoglobin of 15, platelets of 176. BUN of 44, creatinine of 1.4. Urinalysis is noted, peritoneal fluid 437, wbc's with 83% lymphocytes. Serology is negative. Microbiology on the right leg is coag negative staph, ascitic fluid, no anaerobes, and culture . No growth after 2 days. Blood cultures are negative. Urine cultures are negative. MEDICATIONS: The patient is on cefepime. ASSESSMENT AND PLAN: This is a 52-year-old male with super morbid obesity, BMI of over 50 with left lateral foot purulent skin and skin structure infection. No evidence of osteomyelitis on MRI. The patient has deafness, hypertension, super morbid obesity, BMI of 51, chronic obstructive lung disease, appendectomy, cholecystectomy on cefepime, Zyvox, Coag-negative staphylococci on Zyvox and cefepime. Charan Pedroza MD
[2017-10-01] MEDS: oxyCODONE 30 mg Immediate Release Tab PO PRN ×4 (01:46→22:02)
[2017-10-01] MEDS: Levothyroxine 50 MCG TAB PO SCH (05:55)
[2017-10-01] MEDS: Insulin Reg-LOW-Coverage SC SCH ×4 (08:38→22:04)
--- NOTE | 2017-10-01 08:42 | CP.PCM.PN ---
Subjective - Date & Time of Evaluation Date of Evaluation: 10/01/17 Time of Evaluation: 06:40 - Subjective Subjective: Sleeping but easily awaken ,lying in bed, comfortable, patient deaf and mute denies any chest pain, making sign to be okay, Reason for consultation and follow up: Cardiac evaluation, atrial fibrillation/ flutter, cellulitis Seen and examined by me and Dr. Faulkner Objective - Vital Signs/Intake and Output Vital Signs (last 24 hours): Temp Pulse Resp BP Pulse Ox 97.0 F L 58 L 20 114/65 90 L 09/30/17 18:33 09/30/17 18:33 09/30/17 18:33 09/30/17 18:33 09/30/17 18:33 Intake and Output: 10/01/17 10/01/17 06:59 18:59 Intake Total 540 Balance 540 - Medications Medications: Current Medications Albuterol/Ipratropium (Duoneb 3 Mg/0.5 Mg (3 Ml) Ud) 3 ml IH Q2H PRN PRN Reason: Shortness of Breath Last Admin: 09/30/17 11:28 Dose: 3 ml Apixaban (Eliquis) 5 mg PO BID SHA PRN Reason: Protocol Last Admin: 09/30/17 17:04 Dose: 5 mg Atenolol (Tenormin) 25 mg PO DAILY [facility] Last Admin: 09/30/17 10:33 Dose: 25 mg Furosemide (Lasix) 40 mg IV DAILY [facility] Last Admin: 09/30/17 10:32 Dose: 40 mg Linezolid (Zyvox 600mg/300ml D5w) 600 mg in 300 mls @ 200 mls/hr IVPB Q12 SHA PRN Reason: Protocol Stop: 10/06/17 10:01 Last Admin: 09/30/17 23:26 Dose: 200 mls/hr Cefepime HCl (Maxipime 2gm) 2 gm in 100 mls @ 100 mls/hr IVPB Q12 SHA PRN Reason: Protocol Stop: 10/04/17 22:01 Last Admin: 09/30/17 22:18 Dose: 100 mls/hr Insulin Human Regular (Humulin R Low) 0 units SC ACHS SHA PRN Reason: Protocol Last Admin: 10/01/17 08:38 Dose: Not Given Levothyroxine Sodium (Synthroid) 50 mcg PO 0600 [facility] Last Admin: 10/01/17 05:55 Dose: 50 mcg Oxycodone HCl (Oxycodone Immediate Release Tab) 30 mg PO Q6H PRN PRN Reason: Pain, severe (8-10) Last Admin: 10/01/17 01:46 Dose: 30 mg Verapamil HCl (Calan Sr Tab) 240 mg PO DAILY [facility] Last Admin: 09/30/17 10:31 Dose: 240 mg - Labs Labs: 09/29/17 06:30 09/29/17 06:30 PT 13.7 SECONDS (9.4-12.5) H 09/22/17 04:55 INR 1.19 (0.93-1.08) H 09/22/17 04:55 APTT 33.1 Seconds (25.1-36.5) 09/22/17 04:55 - Constitutional Appears: No Acute Distress - Head Exam Head Exam: NORMOCEPHALIC - Eye Exam Eye Exam: Normal appearance - ENT Exam ENT Exam: Mucous Membranes Moist - Respiratory Exam Respiratory Exam: Decreased Breath Sounds, NORMAL BREATHING PATTERN Additional comments: NC 2-3 l/min - Cardiovascular Exam Cardiovascular Exam: +S1, +S2 - GI/Abdominal Exam GI & Abdominal Exam: Soft, Normal Bowel Sounds - Extremities Exam Additional comments: 4+ edema foot ulcers - Neurological Exam Neurological Exam: Alert, Awake, Oriented x3 - Psychiatric Exam Psychiatric exam: Normal Affect, Normal Mood - Skin Skin Exam: Intact, Normal Color, Warm Assessment and Plan - Assessment and Plan (Free Text) Assessment: A 52 year old male who came in to the ER due to leg swelling and unable to walk. He has cellulitis. History of atrial fibrillation, hypertension, COPD, obese, hypothyroidism, diabetes, deaf and mute.pulmonary hypertension (mildly dilated RV, right ventricular systolic function pressure 51mmhg.ascitis post paracentesis 2.5 liters of fluid. amiodarone discontinued due to elevated TSH level. Plan: Cardiac status stable Blood pressure stable/controlled Heart rate controlled 80's Post paracentesis 2.5 liters of fluid taken out,ultrasound guided. On Eliquis 5 mg daily, Atenolol 25 mg daily,Synthroid 50 mcg daily, Calan SR 240 mg daily Discontinued amiodarone due to increasing TSH level Continue current medications Continue current treatment Will follow up Plan and treatment discussed with Dr. Faulkner
[2017-10-01] MEDS: Cefepime IV 2 gm in NS 2 GM/100 ML BAG IVPB SCH ×2 (09:49→22:03)
[2017-10-01] MEDS: Verapamil 240 mg ER Tab PO SCH (09:49)
--- NOTE | 2017-10-01 11:05 | CP.PCM.PN ---
Subjective - Date & Time of Evaluation Date of Evaluation: 10/01/17 Time of Evaluation: 11:01 - Subjective Subjective: Podiatry Progress Note- Dr. Hill 52 y/o deaf male seen at bedside this morning for right leg ulcer and left lateral 5th met head blister. Patient reports mild pain to the sites of ulceration. Patient reports that the pain is better. Denies F/C/N/V/CP/SOB. Admits to occasional continued tingling and numbness in the lower extremities. Objective - Vital Signs/Intake and Output Vital Signs (last 24 hours): Temp Pulse Resp BP Pulse Ox 98 F 83 20 144/91 H 93 L 10/01/17 08:42 10/01/17 09:49 10/01/17 08:42 10/01/17 09:49 10/01/17 08:42 Intake and Output: 10/01/17 10/01/17 06:59 18:59 Intake Total 540 Balance 540 - Medications Medications: Current Medications Albuterol/Ipratropium (Duoneb 3 Mg/0.5 Mg (3 Ml) Ud) 3 ml IH Q2H PRN PRN Reason: Shortness of Breath Last Admin: 09/30/17 11:28 Dose: 3 ml Apixaban (Eliquis) 5 mg PO BID SHA PRN Reason: Protocol Last Admin: 10/01/17 09:47 Dose: 5 mg Atenolol (Tenormin) 25 mg PO DAILY [facility] Last Admin: 10/01/17 09:47 Dose: 25 mg Furosemide (Lasix) 40 mg IV DAILY [facility] Last Admin: 10/01/17 09:49 Dose: 40 mg Linezolid (Zyvox 600mg/300ml D5w) 600 mg in 300 mls @ 200 mls/hr IVPB Q12 SHA PRN Reason: Protocol Stop: 10/06/17 10:01 Last Admin: 09/30/17 23:26 Dose: 200 mls/hr Cefepime HCl (Maxipime 2gm) 2 gm in 100 mls @ 100 mls/hr IVPB Q12 SHA PRN Reason: Protocol Stop: 10/04/17 22:01 Last Admin: 10/01/17 09:49 Dose: 100 mls/hr Insulin Human Regular (Humulin R Low) 0 units SC ACHS SHA PRN Reason: Protocol Last Admin: 10/01/17 08:38 Dose: Not Given Levothyroxine Sodium (Synthroid) 50 mcg PO 0600 [facility] Last Admin: 10/01/17 05:55 Dose: 50 mcg Oxycodone HCl (Oxycodone Immediate Release Tab) 30 mg PO Q6H PRN PRN Reason: Pain, severe (8-10) Last Admin: 10/01/17 09:48 Dose: 30 mg Verapamil HCl (Calan Sr Tab) 240 mg PO DAILY [facility] Last Admin: 10/01/17 09:49 Dose: 240 mg - Labs Labs: 09/29/17 06:30 09/29/17 06:30 PT 13.7 SECONDS (9.4-12.5) H 09/22/17 04:55 INR 1.19 (0.93-1.08) H 09/22/17 04:55 APTT 33.1 Seconds (25.1-36.5) 09/22/17 04:55 - Constitutional Appears: Well, Non-toxic, No Acute Distress - Extremities Exam Extremities Exam: absent: Calf Tenderness Additional comments: Lower extremity focused exam: Vasc: DP/PT pulses palpable 2/4. Temperature gradient warm to warm from proximal to distal. CFT < 3 sec to all digits. +2 pitting edema noted to B/L lower extremities Derm: Diffuse erythematous skin changes noted to B/L lower extremities. Lateral aspect of left 5th metatarsal head with skin maceration and blistering noted. Proximal aspect of blister site exhibits circular 0.6cm diameter superficial ulceration with fully granular wound base. No active drainage or purulence noted on exam. Superficial ulceration noted to right anterior mid leg approx 1.5cm x 1cm x 0.1cm with beefy red granular wound base and hyperkeratotic wound borders. No drainage, no purulence, no malodor, no fluctuance. Neuro: Protective sensation slightly diminished Ortho: Mild-moderate tenderness to palpation of left lateral 5th met head. Minimal tenderness to palpation of right anterior leg wound - Psychiatric Exam Psychiatric exam: Normal Affect, Normal Mood Assessment and Plan - Assessment and Plan (Free Text) Assessment: 52 y/o obese deaf male with 1) left foot blister with possible underlying abscess formation and 2) right anterior leg ulceration Plan: Pt seen and evaluated at bedside Discussed with attending Dr. Hill Labs and vitals reviewed- afebrile, no leukocytosis Wounds cleansed with saline and dressed with betadine and optifoam bandages L foot x-ray reviewed - no signs of osseous erosive changes L foot MRI (-) for abscess formation at 5th met head, no signs of osteomyelitis Continue IV Vancomycin and Cefepime per ID Wound cx of R leg- coagulase neg staphylococcus Arterial duplex studies- normal ROCKY and PVRs at rest Will continue to follow pt while in house
[2017-10-01] MEDS: Linezolid 600 mg in D5W 300 ml 600 MG/300 ML BAG IVPB SCH ×2 (11:15→23:17)
--- NOTE | 2017-10-01 13:06 | PN ---
DATE: 09/30/2017 DAILY PROGRESS NOTE SUBJECTIVE: The patient is a 52-year-old male who presented to the emergency room complaining of leg pain, found to have cellulitis in both lower extremities who was also found to have atrial fibrillation and flutter with a rapid ventricular response. He was treated with Calan by Dr. Faulkner, the office services assistant. He was also treated with vancomycin and cefepime by Dr. Olsen, he is the Infectious Disease career consultant. Since then, the vancomycin has been changed to Zyvox and the patient is doing well. He had an abnormally increasing abdominal girth. He underwent CAT scan of the abdomen, which shows hepatosplenomegaly and ascites. He underwent paracentesis by Dr. Gilberto Gutierrez and 2700 mL of fluid was removed. PHYSICAL EXAMINATION: GENERAL: When seen today, the patient is awake, alert and oriented. He is feeling well. VITAL SIGNS: His blood pressure is 159/91, heart rate is 111 and he is afebrile. LUNGS: Clear. HEART: Regular. ABDOMEN: Soft and nontender. It is still round. There is still some ascites fluid present. So at this point, we were continuing with cefepime and Zyvox for the cellulitis of his legs. X-rays have been negative for osteomyelitis and arterial Doppler studies have been negative for stenoses. Case has to be discussed with Dr. Banks, the woodyard operator, concerning further workup of his hepatosplenomegaly. He is still receiving Calan 240 mg for his atrial fibrillation and flutter and Eliquis 5 mg twice a day as well as Lasix 40 mg once a day. Chester Norman MD
--- NOTE | 2017-10-01 15:34 | PN ---
DATE: 10/01/2017 SUBJECTIVE: The patient is seen earlier today in 376, bed 2. No fevers and no chills. He is doing better. His legs are improved. PHYSICAL EXAMINATION: VITAL SIGNS: Temperature is 98, blood pressure is 140/90, respiratory rate of 18. HEENT: Examination of HEENT is unremarkable. NECK: Supple. LUNGS: Have decreased breath sounds. HEART: Normal S1, S2. ABDOMEN: Soft, nontender. LABORATORY DATA: Laboratory examination reveals a white count of 6.6, hemoglobin of 15, platelets of 176. Creatinine is noted. Urinalysis is noted. The blood cultures are negative. Leg cultures, coag-negative staph. The ascitic fluid has no growth after 24 hours. Review of orders revealed the patient to be on cefepime, Zyvox. ASSESSMENT AND PLAN: This is a 52-year-old male, seen earlier today in 376, bed 2 with super morbid obesity, body mass index of over 50 with a left lateral foot purulent skin and skin structure infection. No evidence of osteomyelitis on the MRI. The patient has deafness, hypertension, super morbid obesity, body mass index of 51, chronic obstructive lung disease, history of appendectomy, cholecystectomy, on Zyvox and cefepime. Day #3. The patient's leg is improving. We will follow with you. Charan Pedroza MD
--- NOTE | 2017-10-01 20:34 | PN ---
DATE: 10/01/2017 DAILY PROGRESS NOTE SUBJECTIVE: The patient is a 52-year-old male, who was admitted to the [facility] 9 days ago on 09/22/2017 with pain in the legs. He has cellulitis of both lower extremities. To date, he is being followed by Dr. Pedroza and Dr. Olsen, the Infectious Disease specialists, and Dr. Hill, the cotton broker. He is currently being treated with cefepime and Zyvox and seems to be improving. When seen today, he said he was up and walking around the nurses' station; however, he does still have some pain and discomfort in the legs. X-rays and MRI have been negative for osteomyelitis. Arterial Dopplers have shown good blood flow, negative for arterial stenoses. So at this point, we are continuing the antibiotics. When the patient was in the emergency room on admission, he was also found to have atrial fibrillation/flutter with a rapid ventricular response. He was treated with Calan and is being followed by Dr. Faulkner, the stripper preliminary. He currently is on Calan three times a day. His heart rate and vital signs have been stable. Also of note during the hospital stay, the patient underwent CAT scan of the abdomen and pelvis and we found the patient to have hepatosplenomegaly with ascites. He underwent paracentesis with Dr. Gutierrez and 2700 mL of fluid was drained. Pathology report so far shows no malignant cells in the fluid. Echocardiography showed a severely dilated and dysfunctioning right ventricle with a dilated right atrium. In the discussion with Dr. Banks earlier today and earlier planned endoscopy to evaluate his hepatosplenomegaly, rule out esophageal varices was felt to be safer to put it on hold as the patient may be severe risk to anesthesia with his pulmonary hypertension. We will discuss the case with Cardiology and consider further treatment for this pulmonary hypertension. Chester Norman MD MTDPhilipp
[2017-10-01] MEDS: Albuterol-Ipratrop 3 mg / 0.5 (3 ml) UD IH PRN (20:41)
[2017-10-02] MEDS: Levothyroxine 50 MCG TAB PO SCH (05:31)
--- NOTE | 2017-10-02 05:47 | CP.PCM.PN ---
Subjective - Date & Time of Evaluation Date of Evaluation: 10/02/17 Time of Evaluation: 06:50 - Subjective Subjective: Standing side of bed , mild pain on legs, patient deaf and mute denies any chest pain, making sign to be okay, Reason for consultation and follow up: Cardiac evaluation, atrial fibrillation/ flutter, cellulitis Seen and examined by me and Dr. Faulkner Objective - Vital Signs/Intake and Output Vital Signs (last 24 hours): Temp Pulse Resp BP Pulse Ox 99.2 F 60 20 110/57 L 92 L 10/01/17 18:16 10/01/17 18:16 10/01/17 18:16 10/01/17 18:16 10/01/17 18:16 Intake and Output: 10/01/17 10/02/17 18:59 06:59 Intake Total 660 Balance 660 - Medications Medications: Current Medications Albuterol/Ipratropium (Duoneb 3 Mg/0.5 Mg (3 Ml) Ud) 3 ml IH Q2H PRN PRN Reason: Shortness of Breath Last Admin: 10/01/17 20:41 Dose: 3 ml Apixaban (Eliquis) 5 mg PO BID SHA PRN Reason: Protocol Last Admin: 10/01/17 17:04 Dose: 5 mg Atenolol (Tenormin) 25 mg PO DAILY [facility] Last Admin: 10/01/17 09:47 Dose: 25 mg Furosemide (Lasix) 40 mg IV DAILY [facility] Last Admin: 10/01/17 09:49 Dose: 40 mg Linezolid (Zyvox 600mg/300ml D5w) 600 mg in 300 mls @ 200 mls/hr IVPB Q12 SHA PRN Reason: Protocol Stop: 10/06/17 10:01 Last Admin: 10/01/17 23:17 Dose: 200 mls/hr Cefepime HCl (Maxipime 2gm) 2 gm in 100 mls @ 100 mls/hr IVPB Q12 SHA PRN Reason: Protocol Stop: 10/04/17 22:01 Last Admin: 10/01/17 22:03 Dose: 100 mls/hr Insulin Human Regular (Humulin R Low) 0 units SC ACHS SHA PRN Reason: Protocol Last Admin: 10/01/17 22:04 Dose: Not Given Levothyroxine Sodium (Synthroid) 50 mcg PO 0600 [facility] Last Admin: 10/02/17 05:31 Dose: 50 mcg Oxycodone HCl (Oxycodone Immediate Release Tab) 30 mg PO Q6H PRN PRN Reason: Pain, severe (8-10) Last Admin: 10/01/17 22:02 Dose: 30 mg Verapamil HCl (Calan Sr Tab) 240 mg PO DAILY [facility] Last Admin: 10/01/17 09:49 Dose: 240 mg - Labs Labs: 09/29/17 06:30 09/29/17 06:30 PT 13.7 SECONDS (9.4-12.5) H 09/22/17 04:55 INR 1.19 (0.93-1.08) H 09/22/17 04:55 APTT 33.1 Seconds (25.1-36.5) 09/22/17 04:55 - Constitutional Appears: No Acute Distress - Eye Exam Eye Exam: Normal appearance - ENT Exam ENT Exam: Mucous Membranes Moist - Respiratory Exam Respiratory Exam: Decreased Breath Sounds, NORMAL BREATHING PATTERN Additional comments: NC 2 l/min - Cardiovascular Exam Cardiovascular Exam: +S1, +S2 - Exam Additional comments: continent - Extremities Exam Extremities Exam: Normal Capillary Refill Additional comments: 2-3+ edema, cellulitis - Neurological Exam Neurological Exam: Alert, Awake, Oriented x3 - Psychiatric Exam Psychiatric exam: Normal Affect, Normal Mood - Skin Skin Exam: Intact, Normal Color Assessment and Plan - Assessment and Plan (Free Text) Assessment: A 52 year old male who came in to the ER due to leg swelling and unable to walk. He has cellulitis. History of atrial fibrillation, hypertension, COPD, obese, hypothyroidism, diabetes, deaf and mute.pulmonary hypertension (mildly dilated RV, right ventricular systolic function pressure 51mmhg.ascitis post paracentesis 2.5 liters of fluid. amiodarone discontinued due to elevated TSH level. Plan: Complaining of leg pain, PRN pain medicine given by RN Cellulitis much better, edema much better, now able to stand Cardiac status stable Blood pressure stable/controlled On Eliquis 5 mg daily, Atenolol 25 mg daily,Synthroid 50 mcg daily, Calan SR 240 mg daily Continue current medications Continue current treatment Physical therapy Will follow up Plan and treatment discussed with Dr. Faulkner
[2017-10-02] MEDS: Albuterol-Ipratrop 3 mg / 0.5 (3 ml) UD IH PRN ×3 (06:01→20:56)
[2017-10-02] MEDS: oxyCODONE 30 mg Immediate Release Tab PO PRN ×3 (06:47→22:25)
[2017-10-02] MEDS: Insulin Reg-LOW-Coverage SC SCH ×4 (08:08→21:43)
[2017-10-02] MEDS: Verapamil 240 mg ER Tab PO SCH (09:26)
[2017-10-02] MEDS: Linezolid 600 mg in D5W 300 ml 600 MG/300 ML BAG IVPB SCH ×2 (09:28→21:43)
--- NOTE | 2017-10-02 10:46 | CP.PCM.PN ---
<Leslie Jc - Last Filed: 10/02/17 14:43> Subjective - Date & Time of Evaluation Date of Evaluation: 10/02/17 Time of Evaluation: 10:00 - Subjective Subjective: PGY-2 GI progress note for Dr. Banks's service Patient seen and examined at bedside. Patient was transferred off of telemetry. Geropsychologist was used. He denies abd pain, n/v, diarrhea, or bloating. He reports mild discomfort in his legs, improved since admission. He denies chest pain, sob, fever, chills. He is tolerating diet Objective - Vital Signs/Intake and Output Vital Signs (last 24 hours): Temp Pulse Resp BP Pulse Ox 99.2 F 77 20 114/78 92 L 10/01/17 18:16 10/02/17 09:26 10/01/17 18:16 10/02/17 09:26 10/01/17 18:16 Intake and Output: 10/02/17 10/02/17 06:59 18:59 Intake Total 660 Balance 660 - Medications Medications: Current Medications Albuterol/Ipratropium (Duoneb 3 Mg/0.5 Mg (3 Ml) Ud) 3 ml IH Q2H PRN PRN Reason: Shortness of Breath Last Admin: 10/02/17 07:34 Dose: 3 ml Apixaban (Eliquis) 5 mg PO BID SHA PRN Reason: Protocol Last Admin: 10/02/17 09:26 Dose: 5 mg Atenolol (Tenormin) 25 mg PO DAILY [facility] Last Admin: 10/02/17 09:27 Dose: 25 mg Furosemide (Lasix) 40 mg IVP BID SHA Linezolid (Zyvox 600mg/300ml D5w) 600 mg in 300 mls @ 200 mls/hr IVPB Q12 SHA PRN Reason: Protocol Stop: 10/06/17 10:01 Last Admin: 10/02/17 09:28 Dose: 200 mls/hr Cefepime HCl (Maxipime 2gm) 2 gm in 100 mls @ 100 mls/hr IVPB Q12 SHA PRN Reason: Protocol Stop: 10/04/17 22:01 Last Admin: 10/01/17 22:03 Dose: 100 mls/hr Insulin Human Regular (Humulin R Low) 0 units SC ACHS SHA PRN Reason: Protocol Last Admin: 10/02/17 08:08 Dose: Not Given Levothyroxine Sodium (Synthroid) 50 mcg PO 0600 [facility] Last Admin: 10/02/17 05:31 Dose: 50 mcg Oxycodone HCl (Oxycodone Immediate Release Tab) 30 mg PO Q6H PRN PRN Reason: Pain, severe (8-10) Last Admin: 10/02/17 06:47 Dose: 30 mg Verapamil HCl (Calan Sr Tab) 240 mg PO DAILY [facility] Last Admin: 10/02/17 09:26 Dose: 240 mg - Labs Labs: 09/29/17 06:30 09/29/17 06:30 PT 13.7 SECONDS (9.4-12.5) H 09/22/17 04:55 INR 1.19 (0.93-1.08) H 09/22/17 04:55 APTT 33.1 Seconds (25.1-36.5) 09/22/17 04:55 - Constitutional Appears: Well, No Acute Distress - Head Exam Head Exam: ATRAUMATIC, NORMOCEPHALIC - Eye Exam Eye Exam: EOMI, Normal appearance - ENT Exam ENT Exam: Mucous Membranes Moist - Respiratory Exam Respiratory Exam: Clear to Ausculation Bilateral, NORMAL BREATHING PATTERN. absent: Decreased Breath Sounds, Rales, Rhonchi, Wheezes, Respiratory Distress - Cardiovascular Exam Cardiovascular Exam: REGULAR RHYTHM, +S1, +S2. absent: Bradycardia, Tachycardia - GI/Abdominal Exam GI & Abdominal Exam: Distended, Soft, Normal Bowel Sounds. absent: Firm, Tenderness - Extremities Exam Additional comments: erythema bilateral LE - Neurological Exam Neurological Exam: Alert, Awake, Oriented x3 - Skin Skin Exam: Normal Color, Warm Assessment and Plan - Assessment and Plan (Free Text) Assessment: 52 yo male with deafness, HTN, COPD, presented with new onset ascites, hepatosplenomegaly, cellulitis, a. flutter on eliquis. Plan: - CT abd/pel showed moderate ascites, sepatomegaly, splenomegaly, retained fecal material and diverticulosis - ascites possibly due to pulmonary HTN, right sided heart failure - s/p paracentesis, removed 2700cc - albumin 2.2, SAAG 1.5 - pending cytology - WBC and neutrophil count do not indicate SBP - hepatitis panel neg - continue antibiotics - echo showed normal size left ventricular, EF 55-60, right ventricular severely reduced - cardiology following - patient will most likely need endoscopy to r/o esophageal varices, discussed with primary will hold off due to pulmonary HTN, high risk, optimize patient before endoscopy case reviewed and discussed with Dr. Banks <Yann Banks V - Last Filed: 10/03/17 03:12> Objective - Vital Signs/Intake and Output Vital Signs (last 24 hours): Temp Pulse Resp BP Pulse Ox 97.6 F 52 L 20 140/83 94 L 10/02/17 23:00 10/02/17 23:00 10/02/17 23:00 10/02/17 23:00 10/02/17 23:00 Intake and Output: 10/02/17 10/03/17 18:59 06:59 Intake Total 540 Balance 540 - Medications Medications: Current Medications Albuterol/Ipratropium (Duoneb 3 Mg/0.5 Mg (3 Ml) Ud) 3 ml IH Q2H PRN PRN Reason: Shortness of Breath Last Admin: 10/02/17 20:56 Dose: 3 ml Apixaban (Eliquis) 5 mg PO BID SHA PRN Reason: Protocol Last Admin: 10/02/17 17:26 Dose: 5 mg Atenolol (Tenormin) 25 mg PO DAILY [facility] Last Admin: 10/02/17 09:27 Dose: 25 mg Furosemide (Lasix) 40 mg IVP BID [facility] Last Admin: 10/02/17 17:27 Dose: 40 mg Linezolid (Zyvox 600mg/300ml D5w) 600 mg in 300 mls @ 200 mls/hr IVPB Q12 SHA PRN Reason: Protocol Stop: 10/06/17 10:01 Last Admin: 10/02/17 21:43 Dose: 200 mls/hr Cefepime HCl (Maxipime 2gm) 2 gm in 100 mls @ 100 mls/hr IVPB Q12 SHA PRN Reason: Protocol Stop: 10/04/17 22:01 Last Admin: 10/02/17 22:24 Dose: 100 mls/hr Insulin Human Regular (Humulin R Low) 0 units SC ACHS SHA PRN Reason: Protocol Last Admin: 10/02/17 21:43 Dose: Not Given Levothyroxine Sodium (Synthroid) 50 mcg PO 0600 [facility] Last Admin: 10/02/17 05:31 Dose: 50 mcg Oxycodone HCl (Oxycodone Immediate Release Tab) 30 mg PO Q6H PRN PRN Reason: Pain, severe (8-10) Last Admin: 10/02/17 22:25 Dose: 30 mg Verapamil HCl (Calan Sr Tab) 240 mg PO DAILY [facility] Last Admin: 10/02/17 09:26 Dose: 240 mg - Labs Labs: 09/29/17 06:30 09/29/17 06:30 PT 13.7 SECONDS (9.4-12.5) H 09/22/17 04:55 INR 1.19 (0.93-1.08) H 09/22/17 04:55 APTT 33.1 Seconds (25.1-36.5) 09/22/17 04:55 Attending/Attestation - Attestation I have personally seen and examined this patient.: Yes I have fully participated in the care of the patient.: Yes I have reviewed all pertinent clinical information, including history, physical exam and plan: Yes Notes (Text): 10/03/17 03:08 p
[2017-10-02] MEDS: Cefepime IV 2 gm in NS 2 GM/100 ML BAG IVPB SCH ×2 (12:45→22:24)
--- NOTE | 2017-10-02 13:57 | CP.PCM.PN ---
Subjective - Date & Time of Evaluation Date of Evaluation: 10/02/17 Time of Evaluation: 11:00 - Subjective Subjective: Podiatry Progress Note- Dr. Hill 52 y/o deaf male seen at bedside this afternoon for right leg ulcer and left lateral 5th met head ulcer-improving. Patient resting comfortably in bed, in NAD. Mother was at bedside during visitation. Patient reports same mild pain to the sites of ulceration. Patient reports that the pain is better. Has been doing better in physical therapy. Denies F/C/N/V/CP/SOB. Admits to occasional continued tingling and numbness in the lower extremities. Objective - Vital Signs/Intake and Output Vital Signs (last 24 hours): Temp Pulse Resp BP Pulse Ox 99.2 F 77 20 114/78 92 L 10/01/17 18:16 10/02/17 09:26 10/01/17 18:16 10/02/17 09:26 10/01/17 18:16 Intake and Output: 10/02/17 10/02/17 06:59 18:59 Intake Total 660 Balance 660 - Medications Medications: Current Medications Albuterol/Ipratropium (Duoneb 3 Mg/0.5 Mg (3 Ml) Ud) 3 ml IH Q2H PRN PRN Reason: Shortness of Breath Last Admin: 10/02/17 07:34 Dose: 3 ml Apixaban (Eliquis) 5 mg PO BID SHA PRN Reason: Protocol Last Admin: 10/02/17 09:26 Dose: 5 mg Atenolol (Tenormin) 25 mg PO DAILY [facility] Last Admin: 10/02/17 09:27 Dose: 25 mg Furosemide (Lasix) 40 mg IVP BID [facility] Linezolid (Zyvox 600mg/300ml D5w) 600 mg in 300 mls @ 200 mls/hr IVPB Q12 SHA PRN Reason: Protocol Stop: 10/06/17 10:01 Last Admin: 10/02/17 09:28 Dose: 200 mls/hr Cefepime HCl (Maxipime 2gm) 2 gm in 100 mls @ 100 mls/hr IVPB Q12 SHA PRN Reason: Protocol Stop: 10/04/17 22:01 Last Admin: 10/02/17 12:45 Dose: 100 mls/hr Insulin Human Regular (Humulin R Low) 0 units SC ACHS SHA PRN Reason: Protocol Last Admin: 10/02/17 12:49 Dose: Not Given Levothyroxine Sodium (Synthroid) 50 mcg PO 0600 [facility] Last Admin: 10/02/17 05:31 Dose: 50 mcg Oxycodone HCl (Oxycodone Immediate Release Tab) 30 mg PO Q6H PRN PRN Reason: Pain, severe (8-10) Last Admin: 10/02/17 06:47 Dose: 30 mg Verapamil HCl (Calan Sr Tab) 240 mg PO DAILY [facility] Last Admin: 10/02/17 09:26 Dose: 240 mg - Labs Labs: 09/29/17 06:30 09/29/17 06:30 PT 13.7 SECONDS (9.4-12.5) H 09/22/17 04:55 INR 1.19 (0.93-1.08) H 09/22/17 04:55 APTT 33.1 Seconds (25.1-36.5) 09/22/17 04:55 - Constitutional Appears: Well, Non-toxic, No Acute Distress - Extremities Exam Extremities Exam: absent: Calf Tenderness Additional comments: Lower extremity focused exam: Vasc: DP/PT pulses palpable 2/4. Temperature gradient warm to warm from proximal to distal. CFT < 3 sec to all digits. +2 pitting edema noted to B/L lower extremities Derm: Darken diffuse erythematous skin changes noted to B/L lower extremities- appears chronic in nature. Lateral aspect of left 5th metatarsal head blister resolved with healing ulcer with scab overlying. No active drainage or purulence noted on exam. Superficial ulceration noted to right anterior mid leg approximately 1.5cm x 1cm x 0.1cm with beefy red granular wound base and hyperkeratotic wound borders. No drainage, no purulence, no malodor, no fluctuance. Neuro: Protective sensation slightly diminished Ortho: Mild-moderate tenderness to palpation of left lateral 5th met head. Minimal tenderness to palpation of right anterior leg wound - Neurological Exam Neurological Exam: Alert, Awake, Oriented x3 - Psychiatric Exam Psychiatric exam: Normal Affect, Normal Mood Assessment and Plan - Assessment and Plan (Free Text) Assessment: 52 y/o obese deaf male with 1) left foot healing ulcer and 2) right anterior leg ulceration Plan: Pt seen and evaluated at bedside Discussed with attending Dr. Hill Labs and vitals reviewed- afebrile, no leukocytosis Wounds cleansed with saline and dressed with betadine and optifoam bandages L foot x-ray reviewed - no signs of osseous erosive changes L foot MRI (-) for abscess formation at 5th met head, no signs of osteomyelitis Continue IV Vancomycin and Cefepime per ID Wound cx of R leg- coagulase neg staphylococcus Arterial duplex studies- normal ROCKY and PVRs at rest c/w work with physical therapy please dispense surgical shoe bilaterally to be worn while ambulating. Will continue to follow pt while in house
--- NOTE | 2017-10-02 14:00 | CP.PCM.PN ---
Subjective - Date & Time of Evaluation Date of Evaluation: 10/02/17 Time of Evaluation: 11:15 - Subjective Subjective: Still with some discomfort in the left leg, no fevers, not in distress. Objective - Vital Signs/Intake and Output Vital Signs (last 24 hours): Temp Pulse Resp BP Pulse Ox 99.2 F 77 20 114/78 92 L 10/01/17 18:16 10/02/17 09:26 10/01/17 18:16 10/02/17 09:26 10/01/17 18:16 Intake and Output: 10/02/17 10/02/17 06:59 18:59 Intake Total 660 Balance 660 - Medications Medications: Current Medications Albuterol/Ipratropium (Duoneb 3 Mg/0.5 Mg (3 Ml) Ud) 3 ml IH Q2H PRN PRN Reason: Shortness of Breath Last Admin: 10/02/17 07:34 Dose: 3 ml Apixaban (Eliquis) 5 mg PO BID SHA PRN Reason: Protocol Last Admin: 10/02/17 09:26 Dose: 5 mg Atenolol (Tenormin) 25 mg PO DAILY [facility] Last Admin: 10/02/17 09:27 Dose: 25 mg Linezolid (Zyvox 600mg/300ml D5w) 600 mg in 300 mls @ 200 mls/hr IVPB Q12 SHA PRN Reason: Protocol Stop: 10/06/17 10:01 Last Admin: 10/02/17 09:28 Dose: 200 mls/hr Cefepime HCl (Maxipime 2gm) 2 gm in 100 mls @ 100 mls/hr IVPB Q12 SHA PRN Reason: Protocol Stop: 10/04/17 22:01 Last Admin: 10/01/17 22:03 Dose: 100 mls/hr Insulin Human Regular (Humulin R Low) 0 units SC ACHS SHA PRN Reason: Protocol Last Admin: 10/02/17 08:08 Dose: Not Given Levothyroxine Sodium (Synthroid) 50 mcg PO 0600 [facility] Last Admin: 10/02/17 05:31 Dose: 50 mcg Oxycodone HCl (Oxycodone Immediate Release Tab) 30 mg PO Q6H PRN PRN Reason: Pain, severe (8-10) Last Admin: 10/02/17 06:47 Dose: 30 mg Verapamil HCl (Calan Sr Tab) 240 mg PO DAILY [facility] Last Admin: 10/02/17 09:26 Dose: 240 mg - Labs Labs: 09/29/17 06:30 09/29/17 06:30 PT 13.7 SECONDS (9.4-12.5) H 09/22/17 04:55 INR 1.19 (0.93-1.08) H 09/22/17 04:55 APTT 33.1 Seconds (25.1-36.5) 09/22/17 04:55 - Constitutional Appears: Chronically Ill - Head Exam Head Exam: NORMAL INSPECTION - ENT Exam ENT Exam: Mucous Membranes Moist - Neck Exam Neck Exam: absent: Lymphadenopathy, Meningismus - Respiratory Exam Respiratory Exam: Decreased Breath Sounds - Cardiovascular Exam Cardiovascular Exam: +S1, +S2 - GI/Abdominal Exam GI & Abdominal Exam: Soft. absent: Tenderness - Extremities Exam Additional comments: left foot with dressings in place Assessment and Plan - Assessment and Plan (Free Text) Plan: Assessment Consider left lateral foot purulent skin and skin structure infection, with no evidence of osteomyelitis on MRI deafness HTN morbid obesity with BMI 51 COPD S/P appendectomy S/P cholecystectomy S/P tonsillectomy Plan continue Cefepime day 10 and Zyvox day 4 (plus 5 days of Vancomycin IV); wound cx only showing coag negative staph which is most likely a skin contaminant; blood cx are negative - complete 7-10 days of antibiotics - should be able to discontinue antibiotics in the next 24-48 hours reviewed left foot xray and MRI of left foot will continue to follow clinically
[2017-10-03] MEDS: Levothyroxine 50 MCG TAB PO SCH (05:36)
[2017-10-03] MEDS: oxyCODONE 30 mg Immediate Release Tab PO PRN ×2 (05:38→11:42)
[2017-10-03] MEDS: Insulin Reg-LOW-Coverage SC SCH ×3 (07:43→17:19)
[2017-10-03] MEDS: Albuterol-Ipratrop 3 mg / 0.5 (3 ml) UD IH PRN ×2 (08:36→13:51)
[2017-10-03] MEDS: Cefepime IV 2 gm in NS 2 GM/100 ML BAG IVPB SCH (09:00)
[2017-10-03] MEDS: Linezolid 600 mg in D5W 300 ml 600 MG/300 ML BAG IVPB SCH (10:19)
[2017-10-03] MEDS: Verapamil 240 mg ER Tab PO SCH (10:26)
--- NOTE | 2017-10-03 11:04 | CP.PCM.PN ---
Subjective - Date & Time of Evaluation Date of Evaluation: 10/03/17 Time of Evaluation: 11:01 - Subjective Subjective: Podiatry Progress Note- Dr. Hill 52 year old deaf male seen at bedside this afternoon for right leg ulcer and left lateral 5th met head ulcer-improving. Patient resting comfortably in bed, in NAD. Mother was at bedside during visitation. Patient reports same mild pain to the sites of ulceration. Denies F/C/N/V/CP/SOB. Objective - Vital Signs/Intake and Output Vital Signs (last 24 hours): Temp Pulse Resp BP Pulse Ox 97.6 F 81 18 148/84 94 L 10/03/17 08:53 10/03/17 10:26 10/03/17 08:53 10/03/17 10:29 10/03/17 08:53 Intake and Output: 10/03/17 10/03/17 06:59 18:59 Intake Total 1340 Balance 1340 - Medications Medications: Current Medications Albuterol/Ipratropium (Duoneb 3 Mg/0.5 Mg (3 Ml) Ud) 3 ml IH Q2H PRN PRN Reason: Shortness of Breath Last Admin: 10/03/17 08:36 Dose: 3 ml Apixaban (Eliquis) 5 mg PO BID [facility] PRN Reason: Protocol Last Admin: 10/03/17 10:20 Dose: 5 mg Atenolol (Tenormin) 25 mg PO DAILY [facility] Last Admin: 10/03/17 10:26 Dose: 25 mg Furosemide (Lasix) 40 mg IVP BID [facility] Last Admin: 10/03/17 10:29 Dose: 40 mg Linezolid (Zyvox 600mg/300ml D5w) 600 mg in 300 mls @ 200 mls/hr IVPB Q12 [facility] PRN Reason: Protocol Stop: 10/06/17 10:01 Last Admin: 10/03/17 10:19 Dose: 200 mls/hr Cefepime HCl (Maxipime 2gm) 2 gm in 100 mls @ 100 mls/hr IVPB Q12 SHA PRN Reason: Protocol Stop: 10/04/17 22:01 Last Admin: 10/03/17 09:00 Dose: 100 mls/hr Insulin Human Regular (Humulin R Low) 0 units SC ACHS [facility] PRN Reason: Protocol Last Admin: 10/03/17 07:43 Dose: Not Given Levothyroxine Sodium (Synthroid) 50 mcg PO 0600 [facility] Last Admin: 10/03/17 05:36 Dose: 50 mcg Oxycodone HCl (Oxycodone Immediate Release Tab) 30 mg PO Q6H PRN PRN Reason: Pain, severe (8-10) Last Admin: 10/03/17 05:38 Dose: 30 mg Verapamil HCl (Calan Sr Tab) 240 mg PO DAILY [facility] Last Admin: 10/03/17 10:26 Dose: 240 mg - Labs Labs: 09/29/17 06:30 09/29/17 06:30 PT 13.7 SECONDS (9.4-12.5) H 09/22/17 04:55 INR 1.19 (0.93-1.08) H 09/22/17 04:55 APTT 33.1 Seconds (25.1-36.5) 09/22/17 04:55 - Constitutional Appears: Well, Non-toxic, No Acute Distress - Extremities Exam Additional comments: Lower extremity focused exam: Vasc: DP and PT pulses palpable 2/4. Temperature gradient warm to warm from proximal to distal. CFT < 3 sec to all digits. +1 pitting edema noted to B/L lower extremities Derm: Darken diffuse erythematous skin changes noted to B/L lower extremities- appears chronic in nature. Lateral aspect of left 5th metatarsal head blister resolved with healing ulcer with scab overlying. No active drainage or purulence noted on exam. Superficial ulceration noted to right anterior mid leg approximately 1 cm x 1 cm x superficial with beefy red granular wound base. No drainage, no purulence, no malodor, no fluctuance. Neuro: Protective sensation slightly diminished Ortho: Mild-moderate tenderness to palpation of left lateral 5th met head. Minimal tenderness to palpation of right anterior leg wound - Neurological Exam Neurological Exam: Alert, Awake, Oriented x3 - Psychiatric Exam Psychiatric exam: Normal Affect, Normal Mood Assessment and Plan - Assessment and Plan (Free Text) Assessment: 52 year old obese deaf male with 1) left foot healing ulcer and 2) right anterior leg ulceration Plan: Pt seen and evaluated at bedside Discussed with attending Dr. Hill Labs and vitals reviewed- afebrile Wounds cleansed with saline and dressed with betadine and optifoam bandages L foot x-ray reviewed - no signs of osseous erosive changes L foot MRI (-) for abscess formation at 5th met head, no signs of osteomyelitis Continue IV abx per ID Wound cx of R leg- coagulase neg staphylococcus Arterial duplex studies- normal ROCKY and PVRs at rest c/w work with physical therapy surgical shoe to be worn b/l while patient is ambulating Will continue to follow pt while in house
[2017-10-03] MEDS ORDERED: oxyCODONE 20 mg Immediate Release Tab PO PRN (11:49)
--- NOTE | 2017-10-03 14:22 | PN ---
DATE: 10/02/2017 DAILY PROGRESS NOTE SUBJECTIVE: The patient was seen this Thursday morning in room 376, bed 2 with his mother at the bedside and to sign language to sign with him with Charity as our locomotive inspector. The patient feels much improved since the admission. The entire hospital stay was recapped to the patient including the cellulitis and swollen legs, which in fact was caused by the atrial flutter since as well as the atrial fibrillation issues. I explained that the patient's cellulitis is improving dramatically with the antibiotics and he is doing well. The atrial flutter and atrial fibrillation is controlled, but he is still volume overloaded. Paracentesis was performed because of the ascites. Pathology and results pending. PLAN: Case was discussed with the Cardiology. We will increase his diuretics. Encourage out of bed, physical therapy. He has been ready and walking around the room today. I will increase activity and hopefully, work on discharge planning soon as we are winding down to the end of his course of antibiotics. He just needs some additional diuresis, then we will follow up with discharge plan whether that be to home or to subacute rehab. Justyn Norman MD
--- NOTE | 2017-10-03 16:50 | PN ---
DATE: 10/03/2017 DAILY PROGRESS NOTE SUBJECTIVE: The patient was seen this Thursday morning in room 376, bed 2 with his mother at the bedside. The translation telephone system was used with sign language translating for me. The patient feels better, more comfortable with increased dose of diuretics. Has been voiding frequently and can feel the difference in his abdomen and the lower extremities. PHYSICAL EXAMINATION: VITAL SIGNS: Heart rate is irregular at times. EXTREMITIES: Lower extremities show more softness, has edema. ABDOMEN: Not tense. LABORATORY DATA: Reviewed. Paracentesis fluid shows no malignancy and no significant abnormal findings. Compatible with his volume overload status. MEDICATIONS: Reviewed including his verapamil, Eliquis, Lasix 40 IV b.i.d., cefepime, Synthroid, atenolol, and Zyvox. Infectious Disease notes were appreciated regarding his antibiotic course nearing completion. I spoke with the patient that reducing his opiate use now and in the future. We also discussed diet at great length and this will be fitzgerald to his long-term survival. He understands the importance of the diuretics in blood pressure and our concern about right-sided heart failure. We will continue current medication doses and his antibiotics per Infectious Disease and make arrangements for discharge planning. I spoke with the patient about discharge to home versus transitional care. His mother feels more strongly that he would benefit from TCU. This has been offered to him by the welfare case worker yesterday. The patient is in agreement, so we will make arrangements for a TCU evaluation. I will continue physical therapy as we work on discharge home. Justyn Norman MD
[2017-10-03] MEDS: oxyCODONE 10 mg Immediate Release Tab PO PRN ×2 (17:19→23:48)
[2017-10-04] MEDS: Levothyroxine 50 MCG TAB PO SCH (05:17)
[2017-10-04] MEDS: oxyCODONE 10 mg Immediate Release Tab PO PRN ×3 (05:50→18:22)
[2017-10-04 06:52] LABS: BASO # 0.04 K/mm3 (0.0-2.0); BASO % 0.7 % (0.0-3.0); EOS # 0.2 (0.0-0.7); EOS % 2.6 % (1.5-5.0); GRAN # 3.85 (1.4-6.5); GRAN % 65.4 % (50.0-68.0); HEMOGLOBIN 15.4 g/dL (14.0-18.0); LYMPH # 1.3 (1.2-3.4); LYMPH % 21.3 % (22.0-35.0); MEAN CELL VOLUME 92.7 fl (80.0-105.0); MEAN CORPUSCULAR HEMOGLOBIN 28.2 pg (25.0-35.0); MEAN CORPUSCULAR HGB CONC 30.4 g/dl (31.0-37.0); MEAN PLATELET VOLUME 11.3 fl (7.0-11.0); MONO # 0.6 (0.1-0.6); RBC 5.46 10^6/uL (3.5-6.1); RED CELL DISTRIBUTION WIDTH 14.8 % (11.5-14.5); WHITE BLOOD COUNT 5.9 10^3/ul (4.5-11.0)
[2017-10-04 06:54] LABS: ALB/GLOB RATIO 1.1 (1.1-1.8); ALBUMIN 3.8 g/dL (3.0-4.8); CALCIUM 8.7 mg/dL (8.4-10.5)
[2017-10-04] MEDS: Albuterol-Ipratrop 3 mg / 0.5 (3 ml) UD IH PRN ×3 (07:54→20:23)
[2017-10-04] MEDS: Insulin Reg-LOW-Coverage SC SCH ×4 (08:11→22:20)
[2017-10-04] MEDS: Verapamil 240 mg ER Tab PO SCH (10:01)
--- NOTE | 2017-10-04 12:01 | CP.PCM.PN ---
Subjective - Date & Time of Evaluation Date of Evaluation: 10/04/17 Time of Evaluation: 12:00 - Subjective Subjective: Podiatry Progress Note- Dr. iHll 52 year old deaf male seen at bedside this afternoon for right leg ulcer and left lateral 5th met head ulcer-improving. Patient resting comfortably in bed, in NAD. Mother was at bedside during visitation. Patient reports same mild pain to the site of ulceration on the left foot, denies any pain to right leg. Denies F/C/N/V/CP/SOB. Objective - Vital Signs/Intake and Output Vital Signs (last 24 hours): Temp Pulse Resp BP Pulse Ox 97.5 F L 95 H 18 131/76 93 L 10/04/17 08:36 10/04/17 10:01 10/04/17 08:36 10/04/17 10:01 10/04/17 08:36 Intake and Output: 10/04/17 10/04/17 06:59 18:59 Intake Total 780 Balance 780 - Medications Medications: Current Medications Albuterol/Ipratropium (Duoneb 3 Mg/0.5 Mg (3 Ml) Ud) 3 ml IH Q2H PRN PRN Reason: Shortness of Breath Last Admin: 10/04/17 07:54 Dose: 3 ml Apixaban (Eliquis) 5 mg PO BID [facility] PRN Reason: Protocol Last Admin: 10/04/17 10:01 Dose: 5 mg Atenolol (Tenormin) 25 mg PO DAILY [facility] Last Admin: 10/04/17 10:01 Dose: 25 mg Furosemide (Lasix) 40 mg IVP BID [facility] Last Admin: 10/04/17 10:01 Dose: 40 mg Insulin Human Regular (Humulin R Low) 0 units SC ACHS [facility] PRN Reason: Protocol Last Admin: 10/04/17 11:39 Dose: Not Given Levothyroxine Sodium (Synthroid) 50 mcg PO 0600 [facility] Last Admin: 10/04/17 05:17 Dose: 50 mcg Oxycodone HCl (Oxycodone Immediate Release Tab) 20 mg PO Q6H PRN PRN Reason: Pain, severe (8-10) Last Admin: 10/04/17 05:50 Dose: 20 mg Verapamil HCl (Calan Sr Tab) 240 mg PO DAILY [facility] Last Admin: 05/20/18 10:01 Dose: 240 mg - Labs Labs: 10/04/17 05:30 10/04/17 05:30 PT 13.7 SECONDS (9.4-12.5) H 09/22/17 04:55 INR 1.19 (0.93-1.08) H 09/22/17 04:55 APTT 33.1 Seconds (25.1-36.5) 09/22/17 04:55 - Constitutional Appears: Well, Non-toxic, No Acute Distress - Extremities Exam Additional comments: Lower extremity focused exam: Vasc: DP and PT pulses palpable 2/4. Temperature gradient warm to warm from proximal to distal. CFT < 3 sec to all digits. +1 pitting edema noted to B/L lower extremities Derm: Darken diffuse erythematous skin changes noted to B/L lower extremities- appears chronic in nature. Lateral aspect of left 5th metatarsal head blister resolved with healing ulcer with scab overlying. No active drainage or purulence noted on exam. Superficial ulceration noted to right anterior mid leg approximately 1 cm x 1 cm x superficial with beefy red granular wound base. No drainage, no purulence, no malodor, no fluctuance. Neuro: Protective sensation slightly diminished Ortho: Mild-moderate tenderness to palpation of left lateral 5th met head. No tenderness to palpation of right anterior leg wound - Neurological Exam Neurological Exam: Alert, Awake, Oriented x3 - Psychiatric Exam Psychiatric exam: Normal Affect, Normal Mood Assessment and Plan - Assessment and Plan (Free Text) Assessment: 52 year old obese deaf male with 1) left foot healing ulcer and 2) right anterior leg ulceration Plan: Pt seen and evaluated at bedside Discussed with attending Dr. Hill Labs and vitals reviewed- afebrile, WBC 5.9 Wounds cleansed with saline and dressed with betadine and optifoam bandages L foot x-ray reviewed - no signs of osseous erosive changes L foot MRI (-) for abscess formation at 5th met head, no signs of osteomyelitis Continue IV abx per ID Wound cx of R leg- coagulase neg staphylococcus Arterial duplex studies- normal ROCKY and PVRs at rest c/w work with physical therapy surgical shoe to be worn b/l while patient is ambulating Will continue to follow pt while in house
--- NOTE | 2017-10-04 13:55 | PN ---
DATE: 10/04/2017 SUBJECTIVE: The patient is in bed, in no acute distress, nontoxic. PHYSICAL EXAMINATION: VITAL SIGNS: On exam, temperature is 97, blood pressure is 130/80, respiratory of 18, heart rate of 73. HEENT: Examination of HEENT is unremarkable. NECK: Supple. LUNGS: Have decreased breath sounds. HEART: Normal S1, S2. ABDOMEN: Examination is soft, nontender. LABORATORY DATA: Laboratory examination reveals a white count of 5.9, hemoglobin of 15, platelets of 151. Chemistries reveals BUN of 46, creatinine of 1.6, alkaline phosphatase is 228. Urinalysis is noted and peritoneal fluid has 437 WBCs, 83% lymphocytes. Hepatitis profile is negative. Review of orders reveals the patient to be off of antibiotics. Dr. Justyn Norman's note is reviewed. ASSESSMENT AND PLAN: This is a 52-year-old, who had left lateral foot skin and skin structure infection with no evidence of osteomyelitis on MRI in a patient with deafness, hypertension, super morbid obesity, BMI of 51, chronic obstructive lung disease has completed his antibiotic therapy and coag-negative staph and wound most likely a contamination. Currently now off of antibiotics, afebrile and the leg is much improved. The patient needs physical therapy. Charan Pedroza MD
[2017-10-05] MEDS: oxyCODONE 10 mg Immediate Release Tab PO PRN ×4 (00:01→20:23)
--- NOTE | 2017-10-05 00:41 | PN ---
DATE: 10/04/2017 DAILY PROGRESS NOTE SUBJECTIVE: The patient was seen this Thursday morning in room 376, bed 2. He is actually doing quite well and I spoke with him using a telephone phone ortho/prosthetic aide. He feels much improved, clinically better. Leg edema and abdominal distention had improved. He understands the importance of the diet, put himself on diet to reduce weight from his morbid obesity. PHYSICAL EXAMINATION: VITAL SIGNS: Heart rate is regular with occasional irregularities, in AFib, flutter. ABDOMEN: Morbid obese, but soft, no distention as it was on other occasions. EXTREMITIES: Shows +1 physiologic edema of obesity, much improved from few days ago, now he is receiving IV Lasix twice a day. IMPRESSION: 1. Cellulitis, resolving. 2. Atrial fibrillation, flutter. 3. Morbid obesity. 4. Diabetes. 5. Chronic pain. 6. Chronic opiate use. PLAN: I spoke to the patient at length regarding opiates. We will decrease his dose by 30% and he is tolerating it well. In another day or so, I will try reducing his dose further. I explained to him not a opinion on residential opiates for chronic pain. I also reviewed again the importance of physical therapy, exercise and weight reduction. He understands. We are looking for transfer to transitional care unit tomorrow, Thursday. I will need to talk with case management and 7th grade social studies teacher at that point. Justyn Norman MD
[2017-10-05] MEDS: Levothyroxine 50 MCG TAB PO SCH (05:41)
--- NOTE | 2017-10-05 05:43 | CP.PCM.PN ---
Subjective - Date & Time of Evaluation Date of Evaluation: 10/05/17 Time of Evaluation: 06:30 - Subjective Subjective: Sleeping but easily awaken ,Lying in bed, denies any chest pain, making sign to be okay, Reason for consultation and follow up: Cardiac evaluation, atrial fibrillation/ flutter, cellulitis Seen and examined by me and Dr. Faulkner Objective - Vital Signs/Intake and Output Vital Signs (last 24 hours): Temp Pulse Resp BP Pulse Ox 98.6 F 66 18 126/75 98 10/04/17 16:00 10/04/17 16:00 10/04/17 16:00 10/04/17 18:21 10/04/17 16:00 Intake and Output: 10/04/17 10/05/17 18:59 06:59 Intake Total 1200 920 Balance 1200 920 - Medications Medications: Current Medications Albuterol/Ipratropium (Duoneb 3 Mg/0.5 Mg (3 Ml) Ud) 3 ml IH Q2H PRN PRN Reason: Shortness of Breath Last Admin: 10/04/17 20:23 Dose: 3 ml Apixaban (Eliquis) 5 mg PO BID [facility] PRN Reason: Protocol Last Admin: 10/04/17 18:22 Dose: 5 mg Atenolol (Tenormin) 25 mg PO DAILY [facility] Last Admin: 10/04/17 10:01 Dose: 25 mg Furosemide (Lasix) 40 mg IVP BID [facility] Last Admin: 10/04/17 18:21 Dose: 40 mg Insulin Human Regular (Humulin R Low) 0 units SC ACHS [facility] PRN Reason: Protocol Last Admin: 10/04/17 22:20 Dose: Not Given Levothyroxine Sodium (Synthroid) 50 mcg PO 0600 [facility] Last Admin: 10/05/17 05:41 Dose: 50 mcg Oxycodone HCl (Oxycodone Immediate Release Tab) 20 mg PO Q6H PRN PRN Reason: Pain, severe (8-10) Last Admin: 10/05/17 00:01 Dose: 20 mg Verapamil HCl (Calan Sr Tab) 240 mg PO DAILY [facility] Last Admin: 10/04/17 10:01 Dose: 240 mg - Labs Labs: 10/04/17 05:30 10/04/17 05:30 PT 13.7 SECONDS (9.4-12.5) H 0508/18 04:55 INR 1.19 (0.93-1.08) H 09/22/17 04:55 APTT 33.1 Seconds (25.1-36.5) 09/22/17 04:55 - Constitutional Appears: No Acute Distress - ENT Exam ENT Exam: Mucous Membranes Moist - Neck Exam Neck Exam: Normal Inspection - Respiratory Exam Respiratory Exam: Decreased Breath Sounds, NORMAL BREATHING PATTERN Additional comments: NC 2l/min - Cardiovascular Exam Cardiovascular Exam: +S1, +S2 - GI/Abdominal Exam GI & Abdominal Exam: Soft, Normal Bowel Sounds - Extremities Exam Additional comments: 2-3+ edema - Neurological Exam Neurological Exam: Alert, Awake, Oriented x3 - Psychiatric Exam Psychiatric exam: Normal Affect, Normal Mood - Skin Skin Exam: Normal Color, Warm Assessment and Plan - Assessment and Plan (Free Text) Assessment: A 52 year old male who came in to the ER due to leg swelling and unable to walk. He has cellulitis. History of atrial fibrillation, hypertension, COPD, obese, hypothyroidism, diabetes, deaf and mute.pulmonary hypertension (mildly dilated RV, right ventricular systolic function pressure 51mmhg.ascitis post paracentesis 2.7 liters of fluid. amiodarone discontinued due to elevated TSH level. Folowed up by podiatry due to foot ulcers. on antibiotics. Plan: Still on antibiotics for foot ulcer, ID on consult Improved clinically from baseline Feeling much better Cellulitis and edema improved Cardiac status stable Blood pressure stable/controlled On Eliquis 5 mg BID, Atenolol 25 mg daily,Synthroid 50 mcg daily, Calan SR 240 mg daily Potassium 5.5 yesterday, will repeat today Continue current medications Continue current treatment Physical therapy Will follow up Plan and treatment discussed with Dr. Faulkner
[2017-10-05 08:14] LABS: BLOOD UREA NITROGEN 42 mg/dL (7-21); GFR AFRICAN-AMERICAN > 60; GFR NON-AFRICAN AMERICAN > 60
[2017-10-05 08:30] VITALS: RESP 20
[2017-10-05] MEDS: Verapamil 240 mg ER Tab PO SCH (10:39)
[2017-10-05] MEDS: Insulin Reg-LOW-Coverage SC SCH ×3 (10:40→22:26)
--- NOTE | 2017-10-05 13:19 | CP.PCM.PN ---
Subjective - Date & Time of Evaluation Date of Evaluation: 10/05/17 Time of Evaluation: 13:16 - Subjective Subjective: Podiatry Progress Note- Dr. Hill 52 year old deaf male seen and evaluated for right leg ulcer and left lateral 5th met head ulcer-improving. Patient resting comfortably in bed, in NAD. Mother is seen at bedside during visitation. Patient reports same mild pain to the site of ulceration on the left foot, denies any pain to right leg. Patient denies acute overnight events. Denies F/C/N/V/CP/SOB. No new pedal complaints today Objective - Vital Signs/Intake and Output Vital Signs (last 24 hours): Temp Pulse Resp BP Pulse Ox 97.7 F 79 20 133/88 98 10/05/17 08:29 10/05/17 08:29 10/05/17 08:29 10/05/17 10:40 10/04/17 16:00 Intake and Output: 10/05/17 10/05/17 06:59 18:59 Intake Total 1520 Balance 1520 - Medications Medications: Current Medications Albuterol/Ipratropium (Duoneb 3 Mg/0.5 Mg (3 Ml) Ud) 3 ml IH Q2H PRN PRN Reason: Shortness of Breath Last Admin: 10/04/17 20:23 Dose: 3 ml Apixaban (Eliquis) 5 mg PO BID [facility] PRN Reason: Protocol Last Admin: 10/05/17 10:40 Dose: 5 mg Atenolol (Tenormin) 25 mg PO DAILY [facility] Last Admin: 10/05/17 10:41 Dose: 25 mg Furosemide (Lasix) 40 mg IVP BID [facility] Last Admin: 10/05/17 10:40 Dose: 40 mg Insulin Human Regular (Humulin R Low) 0 units SC ACHS [facility] PRN Reason: Protocol Last Admin: 10/05/17 10:40 Dose: Not Given Levothyroxine Sodium (Synthroid) 50 mcg PO 0600 [facility] Last Admin: 10/05/17 05:41 Dose: 50 mcg Oxycodone HCl (Oxycodone Immediate Release Tab) 20 mg PO Q6H PRN PRN Reason: Pain, severe (8-10) Last Admin: 10/05/17 08:27 Dose: 20 mg Verapamil HCl (Calan Sr Tab) 240 mg PO DAILY [facility] Last Admin: 10/05/17 10:39 Dose: 240 mg - Labs Labs: 10/04/17 05:30 10/05/17 07:30 PT 13.7 SECONDS (9.4-12.5) H 09/22/17 04:55 INR 1.19 (0.93-1.08) H 09/22/17 04:55 APTT 33.1 Seconds (25.1-36.5) 09/22/17 04:55 - Constitutional Appears: Well, Non-toxic, No Acute Distress - Extremities Exam Extremities Exam: absent: Calf Tenderness Additional comments: Lower extremity focused exam: Vasc: DP and PT pulses palpable 2/4. Temperature gradient warm to warm from proximal to distal. CFT < 3 sec to all digits. +1 pitting edema noted to B/L lower extremities Derm: Darken diffuse erythematous skin changes noted to B/L lower extremities- appears chronic in nature. Lateral aspect of left 5th metatarsal head blister- resolve with scab overlying. No active drainage or purulence noted on exam. Superficial ulceration noted to right anterior mid leg approximately 1 cm x .5 cm x superficial with beefy red granular wound base. No drainage, no purulence, no malodor, no fluctuance. Xerosis noted to the entire LE. Neuro: Protective sensation slightly diminished Ortho: Mild tenderness to palpation of left lateral 5th met head. No tenderness to palpation of right anterior leg wound - Neurological Exam Neurological Exam: Alert, Awake - Psychiatric Exam Psychiatric exam: Normal Affect, Normal Mood Assessment and Plan - Assessment and Plan (Free Text) Assessment: 52 year old obese deaf male with 1) left foot healing ulcer and 2) right anterior leg ulceration- stable, improving Plan: Pt seen and evaluated at bedside Discussed plan in detail with attending Dr. Hill Labs and vitals reviewed- afebrile, WBC 5.9 on 10/04/17 Wounds cleansed with saline and dressed with betadine and optifoam bandages LacHydrin ordered, to be applied BID to LE, avoid interspaces L foot x-ray reviewed - no signs of osseous erosive changes L foot MRI (-) for abscess formation at 5th met head, no signs of osteomyelitis Wound cx of R leg- coagulase neg staphylococcus Arterial duplex studies- normal ROCKY and PVRs at rest c/w work with physical therapy surgical shoe to be worn b/l while patient is ambulating Will continue to follow pt while in house
[2017-10-05] MEDS: Albuterol-Ipratrop 3 mg / 0.5 (3 ml) UD IH PRN (15:03)
--- NOTE | 2017-10-05 15:09 | CP.PCM.PN ---
<Leslie Jc - Last Filed: 10/05/17 16:56> Subjective - Date & Time of Evaluation Date of Evaluation: 10/05/17 Time of Evaluation: 12:00 - Subjective Subjective: PGY-2 GI progress note for Dr. Banks's service Patient seen and examined at bedside. Reading Recovery Teacher was used, [id number]. He denies abd pain, n/v, diarrhea, or bloating. He states that his abd has decreased in size and has been taking lasix. He denies chest pain, sob, fever, chills. He is tolerating diet Objective - Vital Signs/Intake and Output Vital Signs (last 24 hours): Temp Pulse Resp BP Pulse Ox 97.7 F 79 20 133/88 98 10/05/17 08:29 10/05/17 08:29 10/05/17 08:29 10/05/17 10:40 10/04/17 16:00 Intake and Output: 10/05/17 10/05/17 06:59 18:59 Intake Total 1520 Balance 1520 - Medications Medications: Current Medications Albuterol/Ipratropium (Duoneb 3 Mg/0.5 Mg (3 Ml) Ud) 3 ml IH Q2H PRN PRN Reason: Shortness of Breath Last Admin: 10/04/17 20:23 Dose: 3 ml Apixaban (Eliquis) 5 mg PO BID [facility] PRN Reason: Protocol Last Admin: 10/05/17 10:40 Dose: 5 mg Atenolol (Tenormin) 25 mg PO DAILY [facility] Last Admin: 10/05/17 10:41 Dose: 25 mg Furosemide (Lasix) 40 mg IVP BID [facility] Last Admin: 10/05/17 10:40 Dose: 40 mg Insulin Human Regular (Humulin R Low) 0 units SC ACHS [facility] PRN Reason: Protocol Last Admin: 10/05/17 10:40 Dose: Not Given Lactic Acid (Lac-Hydrin 12% Cream (140 G)) 1 ea TOP BID [facility] Levothyroxine Sodium (Synthroid) 50 mcg PO 0600 [facility] Last Admin: 10/05/17 05:41 Dose: 50 mcg Oxycodone HCl (Oxycodone Immediate Release Tab) 20 mg PO Q6H PRN PRN Reason: Pain, severe (8-10) Last Admin: 10/05/17 14:27 Dose: 20 mg Verapamil HCl (Calan Sr Tab) 240 mg PO DAILY [facility] Last Admin: 10/05/17 10:39 Dose: 240 mg - Labs Labs: 10/04/17 05:30 10/05/17 07:30 PT 13.7 SECONDS (9.4-12.5) H 09/22/17 04:55 INR 1.19 (0.93-1.08) H 09/22/17 04:55 APTT 33.1 Seconds (25.1-36.5) 09/22/17 04:55 - Constitutional Appears: Well, No Acute Distress - Head Exam Head Exam: ATRAUMATIC, NORMOCEPHALIC - Eye Exam Eye Exam: EOMI, Normal appearance - ENT Exam ENT Exam: Mucous Membranes Moist - Respiratory Exam Respiratory Exam: Clear to Ausculation Bilateral, NORMAL BREATHING PATTERN. absent: Decreased Breath Sounds, Rales, Rhonchi, Wheezes, Respiratory Distress, Stridor - Cardiovascular Exam Cardiovascular Exam: REGULAR RHYTHM, +S1, +S2. absent: Bradycardia, Tachycardia , Murmur - GI/Abdominal Exam GI & Abdominal Exam: Distended (improved), Soft, Normal Bowel Sounds. absent: Firm, Guarding, Tenderness - Neurological Exam Neurological Exam: Alert, Awake, Oriented x3 - Skin Skin Exam: Intact, Warm Assessment and Plan - Assessment and Plan (Free Text) Assessment: 52 yo male with deafness, HTN, COPD, presented with new onset ascites, hepatosplenomegaly, cellulitis, a. flutter on eliquis. ascites with hepatosplenomegaly cellulitis, a. flutter pulmonary htn elevtaed TSH Plan: - CT abd/pel showed moderate ascites, sepatomegaly, splenomegaly, retained fecal material and diverticulosis - ascites possibly due to pulmonary HTN, right sided heart failure - s/p paracentesis, removed 2700cc - albumin 2.2, SAAG 1.5, most likely due to right heart failure - WBC and neutrophil count do not indicate SBP - hepatitis panel neg - pending cytology - echo showed normal size left ventricular, EF 55-60, right ventricular severely reduced - cardiology following - patient will most likely need endoscopy to r/o esophageal varices, discussed with primary will hold off due to pulmonary HTN, high risk, optimize patient before endoscopy case reviewed and discussed with Dr. Darren <Darren,Kovil V - Last Filed: 10/05/17 23:52> Objective - Vital Signs/Intake and Output Vital Signs (last 24 hours): Temp Pulse Resp BP Pulse Ox 97.9 F 56 L 20 103/72 93 L 10/05/17 17:59 10/05/17 17:59 10/05/17 17:59 10/05/17 18:55 10/05/17 17:59 Intake and Output: 10/05/17 10/06/17 18:59 06:59 Intake Total 540 Output Total 4 Balance 536 - Medications Medications: Current Medications Albuterol/Ipratropium (Duoneb 3 Mg/0.5 Mg (3 Ml) Ud) 3 ml IH Q2H PRN PRN Reason: Shortness of Breath Last Admin: 10/05/17 15:03 Dose: 3 ml Apixaban (Eliquis) 5 mg PO BID [facility] PRN Reason: Protocol Last Admin: 10/05/17 18:55 Dose: 5 mg Atenolol (Tenormin) 25 mg PO DAILY [facility] Last Admin: 10/05/17 10:41 Dose: 25 mg Furosemide (Lasix) 40 mg IVP BID [facility] Last Admin: 10/05/17 18:55 Dose: 40 mg Insulin Human Regular (Humulin R Low) 0 units SC ACHS [facility] PRN Reason: Protocol Last Admin: 10/05/17 22:26 Dose: Not Given Lactic Acid (Lac-Hydrin 12% Cream (140 G)) 1 ea TOP BID [facility] Last Admin: 10/05/17 18:54 Dose: 1 applic Levothyroxine Sodium (Synthroid) 50 mcg PO 0600 [facility] Last Admin: 10/05/17 05:41 Dose: 50 mcg Oxycodone HCl (Oxycodone Immediate Release Tab) 20 mg PO Q6H PRN PRN Reason: Pain, severe (8-10) Last Admin: 10/05/17 20:23 Dose: 20 mg Verapamil HCl (Calan Sr Tab) 240 mg PO DAILY [facility] Last Admin: 10/05/17 10:39 Dose: 240 mg - Labs Labs: 10/04/17 05:30 10/05/17 07:30 PT 13.7 SECONDS (9.4-12.5) H 09/22/17 04:55 INR 1.19 (0.93-1.08) H 09/22/17 04:55 APTT 33.1 Seconds (25.1-36.5) 09/22/17 04:55 Attending/Attestation - Attestation I have personally seen and examined this patient.: Yes I have fully participated in the care of the patient.: Yes I have reviewed all pertinent clinical information, including history, physical exam and plan: Yes Notes (Text): p 10/05/17 23:52
--- NOTE | 2017-10-05 15:54 | PN ---
DATE: 10/05/2017 DAILY PROGRESS NOTE SUBJECTIVE: The patient is a 52-year-old male who is admitted to [facility] 13 days ago on 09/22/2017 with cellulitis of both lower extremities and with atrial fibrillation/flutter and acute ventricular response. X-rays and MRI were negative for osteomyelitis. Arterial Doppler showed good blood flow to the lower extremities. He had received a course of antibiotics as per Dr. Olsen and Dr. Pedroza and his cellulitis is doing well. He was treated with Calan and followed by Dr. Faulkner, his calculating machine operator and this too has kept his heart rate steady through the hospital stay. He had CAT scan of the abdomen and pelvis, which shows hepatosplenomegaly and ascites, underwent paracentesis and 2700 mL of fluid were drained. Echocardiography shows severely dilated and dysfunctional right ventricle with the right atrial enlargement. The patient continued to do well through the hospital stay. He is followed by Dr. Hill, the adoption agent. Podiatric boots had been ordered for him and the patient is scheduled for transfer to the transitional care unit for ambulatory physical therapy. We are continuing with pulmonary medications for his COPD and nasal cannula oxygen as needed. The patient will be reevaluated in the morning. We will continue following the patient closely. Chester Norman MD
[2017-10-05 18:00] VITALS: O2SAT 93
[2017-10-05] MEDS ORDERED: Ammonium Lactate 12% Cream (140 g) TOP SCH (18:00)
--- NOTE | 2017-10-05 18:11 | CP.PCM.PN ---
Subjective - Date & Time of Evaluation Date of Evaluation: 10/05/17 Time of Evaluation: 10:50 - Subjective Subjective: No fevers, not in distress, improved pain in the left foot. No diarrhea. Objective - Vital Signs/Intake and Output Vital Signs (last 24 hours): Temp Pulse Resp BP Pulse Ox 97.7 F 79 20 133/88 98 10/05/17 08:29 10/05/17 08:29 10/05/17 08:29 10/05/17 08:29 10/04/17 16:00 Intake and Output: 10/05/17 10/05/17 06:59 18:59 Intake Total 1520 Balance 1520 - Medications Medications: Current Medications Albuterol/Ipratropium (Duoneb 3 Mg/0.5 Mg (3 Ml) Ud) 3 ml IH Q2H PRN PRN Reason: Shortness of Breath Last Admin: 10/04/17 20:23 Dose: 3 ml Apixaban (Eliquis) 5 mg PO BID [facility] PRN Reason: Protocol Last Admin: 10/04/17 18:22 Dose: 5 mg Atenolol (Tenormin) 25 mg PO DAILY [facility] Last Admin: 10/04/17 10:01 Dose: 25 mg Furosemide (Lasix) 40 mg IVP BID [facility] Last Admin: 10/04/17 18:21 Dose: 40 mg Insulin Human Regular (Humulin R Low) 0 units SC ACHS [facility] PRN Reason: Protocol Last Admin: 10/04/17 22:20 Dose: Not Given Levothyroxine Sodium (Synthroid) 50 mcg PO 0600 [facility] Last Admin: 10/05/17 05:41 Dose: 50 mcg Oxycodone HCl (Oxycodone Immediate Release Tab) 20 mg PO Q6H PRN PRN Reason: Pain, severe (8-10) Last Admin: 10/05/17 08:27 Dose: 20 mg Verapamil HCl (Calan Sr Tab) 240 mg PO DAILY [facility] Last Admin: 10/04/17 10:01 Dose: 240 mg - Labs Labs: 10/04/17 05:30 10/05/17 07:30 PT 13.7 SECONDS (9.4-12.5) H 09/22/17 04:55 INR 1.19 (0.93-1.08) H 09/22/17 04:55 APTT 33.1 Seconds (25.1-36.5) 09/22/17 04:55 - Constitutional Appears: Chronically Ill - Head Exam Head Exam: NORMAL INSPECTION - ENT Exam ENT Exam: Mucous Membranes Moist - Neck Exam Neck Exam: absent: Meningismus - Respiratory Exam Respiratory Exam: Decreased Breath Sounds - Cardiovascular Exam Cardiovascular Exam: +S1, +S2 - GI/Abdominal Exam GI & Abdominal Exam: Soft. absent: Tenderness Assessment and Plan - Assessment and Plan (Free Text) Plan: Assessment S/P left lateral foot purulent skin and skin structure infection, with no evidence of osteomyelitis on MRI deafness HTN morbid obesity with BMI 51 COPD S/P appendectomy S/P cholecystectomy S/P tonsillectomy Plan completed 10 days of antibiotics - will continue to monitor the patient off antibiotics since he is at risk for nosocomial infections
[2017-10-06] MEDS: oxyCODONE 10 mg Immediate Release Tab PO PRN ×3 (02:49→16:00)
[2017-10-06] MEDS: Albuterol-Ipratrop 3 mg / 0.5 (3 ml) UD IH PRN (05:20)
[2017-10-06] MEDS: Levothyroxine 50 MCG TAB PO SCH (05:47)
[2017-10-06] MEDS: Insulin Reg-LOW-Coverage SC SCH ×3 (08:44→18:52)
[2017-10-06] MEDS: Verapamil 240 mg ER Tab PO SCH (10:46)
--- NOTE | 2017-10-06 13:11 | CP.PCM.PN ---
Subjective - Date & Time of Evaluation Date of Evaluation: 10/06/17 Time of Evaluation: 11:05 - Subjective Subjective: Seen and examined at bedside chart reviewed earlier today. Pateint no specific complaints today, tolerating oral intake, no N/N or abdominal pain, distention some improvement. Had formed BM yesterday. No reports of bleeding. Objective - Vital Signs/Intake and Output Vital Signs (last 24 hours): Temp Pulse Resp BP Pulse Ox 98.1 F 85 20 136/86 93 L 10/06/17 08:27 10/06/17 10:46 10/06/17 08:27 10/06/17 10:47 10/06/17 08:27 Intake and Output: 10/06/17 10/06/17 06:59 18:59 Intake Total 540 Output Total 4 Balance 536 - Medications Medications: Current Medications Albuterol/Ipratropium (Duoneb 3 Mg/0.5 Mg (3 Ml) Ud) 3 ml IH Q2H PRN PRN Reason: Shortness of Breath Last Admin: 10/06/17 05:20 Dose: 3 ml Apixaban (Eliquis) 5 mg PO BID [facility] PRN Reason: Protocol Last Admin: 10/06/17 10:46 Dose: 5 mg Atenolol (Tenormin) 25 mg PO DAILY [facility] Last Admin: 10/06/17 10:48 Dose: 25 mg Furosemide (Lasix) 40 mg IVP BID [facility] Last Admin: 10/06/17 10:47 Dose: 40 mg Insulin Human Regular (Humulin R Low) 0 units SC ACHS [facility] PRN Reason: Protocol Last Admin: 10/06/17 08:44 Dose: Not Given Lactic Acid (Lac-Hydrin 12% Cream (140 G)) 1 ea TOP BID [facility] Last Admin: 10/05/17 18:54 Dose: 1 applic Levothyroxine Sodium (Synthroid) 50 mcg PO 0600 [facility] Last Admin: 10/06/17 05:47 Dose: 50 mcg Oxycodone HCl (Oxycodone Immediate Release Tab) 20 mg PO Q6H PRN PRN Reason: Pain, severe (8-10) Last Admin: 10/06/17 10:47 Dose: 20 mg Verapamil HCl (Calan Sr Tab) 240 mg PO DAILY [facility] Last Admin: 10/06/17 10:46 Dose: 240 mg - Labs Labs: 10/04/17 05:30 10/05/17 07:30 PT 13.7 SECONDS (9.4-12.5) H 09/22/17 04:55 INR 1.19 (0.93-1.08) H 09/22/17 04:55 APTT 33.1 Seconds (25.1-36.5) 09/22/17 04:55 - Constitutional Appears: No Acute Distress - Head Exam Head Exam: NORMOCEPHALIC - Eye Exam Eye Exam: Normal appearance. absent: Scleral icterus - ENT Exam ENT Exam: Mucous Membranes Moist - Neck Exam Neck Exam: Normal Inspection - Respiratory Exam Respiratory Exam: NORMAL BREATHING PATTERN. absent: Respiratory Distress - Cardiovascular Exam Cardiovascular Exam: +S1, +S2 - GI/Abdominal Exam GI & Abdominal Exam: Soft, Normal Bowel Sounds. absent: Guarding, Tenderness, Rebound - Extremities Exam Extremities Exam: absent: Calf Tenderness Additional comments: bilateral eyrthema scaling, some edema but dry and intact, on tender - Neurological Exam Neurological Exam: Alert, Awake, Oriented x3 Assessment and Plan - Assessment and Plan (Free Text) Assessment: ASSESSMENT: Ascites with hepatosplenomegaly, status post paracentesis 2700 cc removed.s/p CT abd/pel showed moderate ascites, sepatomegaly, splenomegaly, retained fecal material and diverticulosis, ascites possibly due to pulmonary HTN, right sided heart failure, albumin 2.2, SAAG 1.5, most likely due to right heart failure Cellulitis Atrial flutter on Eliquis Hypertension COPD Pulmonary hypertension Elevated TSH History of deafness Plan: diet as tolerated on Eliquis monitor H/H for overt GI bleeding as per cardiology Patient would benefit from endoscopy to r/o esophageal varices, discussed with primary will hold off due to pulmonary HTN, high risk, optimize patient before endoscopy Seen and discussed w/ Dr. Banks.
--- NOTE | 2017-10-06 13:42 | CP.PCM.PN ---
Subjective - Date & Time of Evaluation Date of Evaluation: 10/06/17 Time of Evaluation: 13:40 - Subjective Subjective: Podiatry Progress Note- Dr. Hill 52 year old deaf male seen and evaluated for right leg ulcer and left lateral 5th met head ulcer-improving. Patient resting comfortably in bed, in NAD. Patient reports same mild pain to the site of ulceration on the left foot, denies any pain to right leg. Patient denies acute overnight events. Denies F/C/ N/V/CP/SOB. No new pedal complaints today Objective - Vital Signs/Intake and Output Vital Signs (last 24 hours): Temp Pulse Resp BP Pulse Ox 98.1 F 85 20 136/86 93 L 10/06/17 08:27 10/06/17 10:46 10/06/17 08:27 10/06/17 10:47 10/06/17 08:27 Intake and Output: 10/06/17 10/06/17 06:59 18:59 Intake Total 540 Output Total 4 Balance 536 - Medications Medications: Current Medications Albuterol/Ipratropium (Duoneb 3 Mg/0.5 Mg (3 Ml) Ud) 3 ml IH Q2H PRN PRN Reason: Shortness of Breath Last Admin: 10/06/17 05:20 Dose: 3 ml Apixaban (Eliquis) 5 mg PO BID [facility] PRN Reason: Protocol Last Admin: 10/06/17 10:46 Dose: 5 mg Atenolol (Tenormin) 25 mg PO DAILY [facility] Last Admin: 10/06/17 10:48 Dose: 25 mg Furosemide (Lasix) 40 mg IVP BID [facility] Last Admin: 10/06/17 10:47 Dose: 40 mg Insulin Human Regular (Humulin R Low) 0 units SC ACHS [facility] PRN Reason: Protocol Last Admin: 10/06/17 08:44 Dose: Not Given Lactic Acid (Lac-Hydrin 12% Cream (140 G)) 1 ea TOP BID [facility] Last Admin: 10/05/17 18:54 Dose: 1 applic Levothyroxine Sodium (Synthroid) 50 mcg PO 0600 [facility] Last Admin: 10/06/17 05:47 Dose: 50 mcg Oxycodone HCl (Oxycodone Immediate Release Tab) 20 mg PO Q6H PRN PRN Reason: Pain, severe (8-10) Last Admin: 10/06/17 10:47 Dose: 20 mg Verapamil HCl (Calan Sr Tab) 240 mg PO DAILY [facility] Last Admin: 10/06/17 10:46 Dose: 240 mg - Labs Labs: 10/04/17 05:30 10/05/17 07:30 PT 13.7 SECONDS (9.4-12.5) H 09/22/17 04:55 INR 1.19 (0.93-1.08) H 09/22/17 04:55 APTT 33.1 Seconds (25.1-36.5) 09/22/17 04:55 - Constitutional Appears: Well, Non-toxic, No Acute Distress - Extremities Exam Extremities Exam: absent: Calf Tenderness Additional comments: Lower extremity focused exam: Vasc: DP and PT pulses palpable 2/4. Temperature gradient warm to warm from proximal to distal. CFT < 3 sec to all digits. +1 pitting edema noted to B/L lower extremities Derm: Darken diffuse erythematous skin changes noted to B/L lower extremities- appears chronic in nature. Lateral aspect of left 5th metatarsal head blister- resolve with scab overlying. No active drainage or purulence noted on exam. Superficial ulceration noted to right anterior mid leg approximately 1 cm x .5 cm x superficial with beefy red granular wound base. No drainage, no purulence, no malodor, no fluctuance. Xerosis noted to the entire LE. Neuro: Protective sensation slightly diminished Ortho: Mild tenderness to palpation of left lateral 5th met head. No tenderness to palpation of right anterior leg wound - Neurological Exam Neurological Exam: Alert, Awake, Oriented x3 - Psychiatric Exam Psychiatric exam: Normal Affect, Normal Mood Assessment and Plan - Assessment and Plan (Free Text) Assessment: 52 year old obese deaf male with 1) left foot healing ulcer and 2) right anterior leg ulceration- stable, improving Plan: Pt seen and evaluated at bedside Discussed plan in detail with attending Dr. Hill Labs and vitals reviewed- afebrile, WBC 5.9 on 10/04/17 Wounds cleansed with saline and dressed with betadine and optifoam bandages Applied LacHYdrin to the LE LacHydrin to be applied BID to LE, avoid interspaces L foot x-ray reviewed - no signs of osseous erosive changes L foot MRI (-) for abscess formation at 5th met head, no signs of osteomyelitis Wound cx of R leg- coagulase neg staphylococcus Arterial duplex studies- normal ROCKY and PVRs at rest c/w work with physical therapy surgical shoe to be worn b/l while patient is ambulating Will continue to follow pt while in house
--- NOTE | 2017-10-06 16:28 | PN ---
DATE: 10/06/2017 SUBJECTIVE: The patient is in bed, in no acute distress, nontoxic. PHYSICAL EXAMINATION: VITAL SIGNS: Temperature is 98, blood pressure is 130/80, respiratory rate 20, heart rate of 85. HEENT: Examination of HEENT is unremarkable. NECK: Supple. LUNGS: Have decreased breath sounds. HEART: Normal S1, S2. ABDOMEN: Soft, nontender. LABORATORY DATA: Laboratory examination reveals the patient's white count is 5.9, hemoglobin of 15, platelets of 151. Coagulation is noted. Chemistries reveals a BUN of 42, creatinine of 1.2. Urinalysis is noted. Serology is negative and microbiology reveals a coag-negative Staph. ASSESSMENT AND PLAN: A 52-year-old male seen earlier today in room 376 bed 2 with a left lateral foot purulent skin and skin structure infection, status post treatment and no evidence of osteomyelitis on the MRI in a patient with deafness, hypertension, morbid obesity with body mass index of 51 with chronic obstructive lung disease and status post appendectomy, cholecystectomy, tonsillectomy. He has completed antibiotic therapy and currently now off of antibiotics. Afebrile. The patient is at risk for developing nosocomial infections. Review of the orders confirms the patient to be off of antibiotics. We will follow with you. Charan Pedroza MD
[2017-10-06 17:34] VITALS: BP 128/79; PULSE 59; TEMP 97.7
--- NOTE | 2017-10-06 17:42 | PN ---
DATE: 10/06/2017 REASON FOR CONSULTATION AND FOLLOWUP: Atrial fibrillation, possible chronic; admitted with cellulitis, morbid obesity. SUBJECTIVE: The patient denies any chest pain, shortness of breath, OR any palpitation. PHYSICAL EXAMINATION: GENERAL: Not in any apparent distress. VITAL SIGNS: Temperature afebrile, heart rate 85, blood pressure 135/ . HEENT: PERRLA. Extraocular muscles intact. NECK: Supple. No carotid bruit or thyromegaly. CHEST: Clear to auscultation. HEART: S1 and S2 regular. ABDOMEN: Soft. EXTREMITIES: Clubbing and cyanosis negative. LABORATORY DATA: Blood workup as follows: WBC 5.9, hemoglobin 15.4, hematocrit 50.6, platelet count 151. Chemistry shows sodium 139, potassium 5, chloride 96, carbon dioxide 40, anion gap of 12, BUN 42, creatinine 1.2. IMPRESSION: Morbid obesity with body mass index of 50 kg/m2; history of chronic atrial fibrillation, possible, started on Eliquis; cellulitis of lower extremity; hypothyroidism; chronic obstructive pulmonary disease; hypertension; mild pulmonary hypertension. Right ventricular systolic pressure 51. Status post abdominal paracentesis, 2.7 liter fluid has been aspirated. The patient was started on amiodarone, but since the patient persistently in atrial fibrillation and the TSH was elevated, it was discontinued. Right foot ulcer. RECOMMENDATION: Continue atenolol. Continue Eliquis. Continue Synthroid 40. Continue Calan SR 240. Rate is well controlled. A stress test as an outpatient. We will follow with you. Repeat the lab in the morning. Yesterday, potassium was 5. Continue low dose of atenolol as the rate is well controlled. We will repeat lab in the morning. Thank you, Dr. Norman, for providing us the opportunity in taking care of Jonathan Ralph. Chantel Faulkner MD
--- NOTE | 2017-10-06 21:47 | PN ---
DATE: 10/06/2017 DAILY PROGRESS NOTE SUBJECTIVE: The patient is a 52-year-old male who was admitted to the [facility] 14 days ago with a diagnosis of cellulitis of both lower extremities and atrial fib/flutter with acute ventricular response. These cellulitis in both legs was followed by Dr. Olsen and Dr. Pedroza, treated with antibiotics and he did very well. At this point, patient is completed his antibiotic therapy. His rapid AFib and flutter was followed by Dr. Faulkner, the Dental Hygiene Administrative Assistant, treated with Calan and that too has been stable. The patient was found to have hepatosplenomegaly and ascites on CAT scan, underwent paracentesis and more than 2-1/2 liters of fluid was withdrawn. Echocardiography showed the patient to have a dilated and dysfunctional right ventricle with right atrial enlargement is suspicious of pulmonary hypertension. There is pulmonary hypertension and that has been delaying endoscopy and colonoscopy by the Burring Wheel Operator for the possibility of complications during anesthesia, so at this point, the patient is to be transferred to the Transitional Care Unit for ambulatory physical therapy. We will watch his respirations at that time. He is receiving diuretics for the ascites and pulmonary hypertension. We are continuing with the Calan and Eliquis for his atrial fibrillation. Synthroid for hypothyroidism. He is also receiving Tenormin 25 mg once a day. The patient to be transferred later today to the Transitional Care Unit. FINAL DIAGNOSES: 1. Atrial fibrillation and flutter with a rapid ventricular response. 2. Pulmonary hypertension. 3. Hepatosplenomegaly. 4. Ascites. 5. Cellulitis, bilateral lower extremities. 6. Hypothyroidism. Chester Norman MD
== END 2017-10-06 19:52 | DRG 603 ==
LOC: ED 03:47 → ERH 07:08 → 2RSO 10:17 → 3RSO 09-29 13:38
PROVIDERS: ADMIT Internal Medicine; ATTEND Internal Medicine
PROC: BW40ZZZ Ultrasonography of Abdomen (ICD-10-PCS; 2017-09-28)
PROC: 0W9G3ZZ Drainage of Peritoneal Cavity, Percutaneous Approach (ICD-10-PCS; principal; 2017-09-28 15:00)
DX: L03.116 Cellulitis of left lower limb (principal); I48.92 Unspecified atrial flutter; Z68.43 Body mass index [BMI] 50.0-59.9, adult; J44.1 Chronic obstructive pulmonary disease with (acute) exacerbation; R18.8 Other ascites; L03.115 Cellulitis of right lower limb; E03.9 Hypothyroidism, unspecified; E11.621 Type 2 diabetes mellitus with foot ulcer; E66.01 Morbid (severe) obesity due to excess calories; E78.5 Hyperlipidemia, unspecified; F17.200 Nicotine dependence, unspecified, uncomplicated; G89.29 Other chronic pain; H91.3 Deaf nonspeaking, not elsewhere classified; I07.1 Rheumatic tricuspid insufficiency; I11.0 Hypertensive heart disease with heart failure; I27.20 Pulmonary hypertension, unspecified; I48.2 Chronic atrial fibrillation; I50.9 Heart failure, unspecified; K57.90 Diverticulosis of intestine, part unspecified, without perforation or abscess without bleeding; L97.519 Non-pressure chronic ulcer of other part of right foot with unspecified severity; L97.529 Non-pressure chronic ulcer of other part of left foot with unspecified severity; S90.822A Blister (nonthermal), left foot, initial encounter; Z79.01 Long term (current) use of anticoagulants; Z79.899 Other long term (current) drug therapy; Z79.891 Long term (current) use of opiate analgesic; Z90.49 Acquired absence of other specified parts of digestive tract; Z91.11 Patient's noncompliance with dietary regimen; Z91.19 Patient's noncompliance with other medical treatment and regimen; R16.2 Hepatomegaly with splenomegaly, not elsewhere classified; B95.7 Other staphylococcus as the cause of diseases classified elsewhere

== ENCOUNTER 2017-10-06 19:54 | Inpatient (IN) | payer MEDICARE ==
[2017-10-06 20:08] VITALS: BMI 48.6
[2017-10-06] MEDS: oxyCODONE 10 mg Immediate Release Tab PO PRN (21:50)
[2017-10-06] MEDS: Insulin Reg-LOW-Coverage SC SCH (22:23)
[2017-10-07] MEDS ORDERED: Pneumococcal 23-Valent Vaccine IM ONE (00:52)
[2017-10-07] MEDS: Albuterol-Ipratrop 3 mg / 0.5 (3 ml) UD IH PRN ×2 (01:23→19:58)
[2017-10-07] MEDS: oxyCODONE 10 mg Immediate Release Tab PO PRN ×3 (04:42→18:05)
[2017-10-07] MEDS: Levothyroxine 50 MCG TAB PO SCH (05:20)
[2017-10-07] MEDS: Insulin Reg-LOW-Coverage SC SCH ×4 (06:30→22:34)
--- NOTE | 2017-10-07 07:40 | CP.PCM.CON ---
History of Present Illness - History of Present Illness History of Present Illness: Upright sitting in bed, no distress, denies shortness of breath Reason for consultation: Continuity of care in TCU, Atrial fib/ flutter with rapid ventricular rate,morbid obesity,diabetes, cellulitis, hypertension, hypothyroidism. Brief history of present illness: A 52 year old male, deaf and mute who came in to the ER due to leg swelling/cellulitis and pain on left foot. In ER he was also in atrial fib/flutter with rapid ventricular rate. History of hypertension , morbid obesity,diabetes, COPD. During his hospital course, he was given antibiotics for the cellulitis which improved. He was treated with Calan for rapid afib/aflutter and rate has been controlled. CT scan of abdomen showed ascites and paracentesis done under US guided with 2.7 liters of fluid drained. ECHO showed dilated and and dysfunctional right ventricle with right atrial enlargement suggesting pulmonary hypertension. Improved tremendously, Transferred ot TCU for reconditioning. Seen and examined by me and Dr. Faulkner Review of Systems - EENT Eyes: As Per HPI - Cardiovascular Cardiovascular: As Per HPI Additional comments: denies chest pain - Respiratory Respiratory: As Per HPI Additional comments: denies shortness of breath Past Patient History - Tetanus Immunizations Tetanus Immunization: Unknown - Past Social History Smoking Status: Former Smoker - CARDIAC Hx Hypertension: Yes - PULMONARY Hx Chronic Obstructive Pulmonary Disease (COPD): Yes - NEUROLOGICAL Hx Neurological Disorder: No - HEENT Hx Deafness: Yes - RENAL Hx Chronic Kidney Disease: No - ENDOCRINE/METABOLIC Hx Diabetes Mellitus Type 2: Yes Hx Hypothyroidism: Yes - HEMATOLOGICAL/ONCOLOGICAL Hx Blood Disorders: No - INTEGUMENTARY Hx Dermatological Problems: No - MUSCULOSKELETAL/RHEUMATOLOGICAL Hx Falls: No - GASTROINTESTINAL Hx Gastrointestinal Disorders: Yes - GENITOURINARY/GYNECOLOGICAL Hx Genitourinary Disorders: No Hx Reproductive Disorders: No - PSYCHIATRIC Hx Psychophysiologic Disorder: No Hx Depression: No Hx Emotional Abuse: No Hx Physical Abuse: No Hx Substance Use: No - SURGICAL HISTORY Hx Appendectomy: Yes Hx Cholecystectomy: Yes Hx Tonsillectomy: Yes Meds Allergies/Adverse Reactions: Allergies Allergy/AdvReac Type Severity Reaction Status Date / Time No Known Allergies Allergy Verified 10/06/17 20:08 - Medications Medications: Current Medications Albuterol/Ipratropium (Duoneb 3 Mg/0.5 Mg (3 Ml) Ud) 3 ml IH Q2H PRN; Protocol PRN Reason: Shortness of Breath Last Admin: 10/07/17 01:23 Dose: 3 ml Apixaban (Eliquis) 5 mg PO BID SHA PRN Reason: Protocol Atenolol (Tenormin) 25 mg PO DAILY SHA PRN Reason: Protocol Furosemide (Lasix) 40 mg IVP BID SHA PRN Reason: Protocol Insulin Human Regular (Humulin R Low) 0 units SC ACHS SHA PRN Reason: Protocol Last Admin: 10/07/17 06:30 Dose: Not Given Lactic Acid (Lac-Hydrin 12% Cream (140 G)) 1 ea TOP BID SHA PRN Reason: Protocol Levothyroxine Sodium (Synthroid) 50 mcg PO 0600 [facility] PRN Reason: Protocol Last Admin: 10/07/17 05:20 Dose: 50 mcg Oxycodone HCl (Oxycodone Immediate Release Tab) 20 mg PO Q6H PRN; Protocol PRN Reason: Pain, severe (8-10) Last Admin: 10/07/17 04:42 Dose: 20 mg Verapamil HCl (Calan Sr Tab) 240 mg PO DAILY [facility] PRN Reason: Protocol Physical Exam - Constitutional Appears: No Acute Distress - Eye Exam Eye Exam: Normal appearance Additional comments: deaf and mute - ENT Exam ENT Exam: Mucous Membranes Moist - Respiratory Exam Respiratory Exam: Decreased Breath Sounds, Clear to Auscultation Bilateral, NORMAL BREATHING PATTERN - Cardiovascular Exam Cardiovascular Exam: +S1, +S2 - GI/Abdominal Exam GI & Abdominal Exam: Normal Bowel Sounds, Soft - Extremities Exam Extremities exam: Positive for: normal capillary refill - Neurological Exam Neurological exam: Alert, Oriented x3 - Skin Skin Exam: Intact, Normal Color, Warm Results - Vital Signs Recent Vital Signs: Last Vital Signs Temp 98.9 F 10/07/17 00:37 Pulse 60 10/07/17 00:37 Resp 18 10/07/17 00:37 BP 113/70 10/07/17 00:37 Pulse Ox - Labs Labs: Laboratory Results - last 24 hr 10/06/17 10/07/17 22:00 04:36 POC Glucose (mg/dL) 176 H 107 Assessment & Plan - Assessment and Plan (Free Text) Assessment: A 52 year old male, deaf and mute who came in to the ER due to leg swelling/ cellulitis and pain on left foot. In ER he was also in atrial fib/flutter with rapid ventricular rate. History of hypertension, morbid obesity,diabetes, hypothyroidism,COPD. During his hospital course, he was given antibiotics for the cellulitis which improved. He was treated with Calan for rapid afib/ aflutter and rate has been controlled. CT scan of abdomen showed ascites and paracentesis done under US guided with 2.7 liters of fluid drained. ECHO showed dilated and and dysfunctional right ventricle with right atrial enlargement suggesting pulmonary hypertension. Improved tremendously, Transferred ot TCU for reconditioning. Plan: Transferred to TCU for reconditionig Physical therapy Stable cardiac status Continue current medications Continue current treatment Will follow up Plan and treatment discussed with Dr. Faulkner Thank you for giving us the opportunity to take care of Mr. Jonathan Rosas Sr. - Date & Time Date: 10/07/17 Time: 06:40
[2017-10-07] MEDS: Verapamil 240 mg ER Tab PO SCH (09:26)
[2017-10-07] MEDS: Ammonium Lactate 12% Cream (140 g) TOP SCH ×2 (09:28→17:42)
--- NOTE | 2017-10-07 13:20 | PN ---
DATE: 10/07/2017 DAILY PROGRESS NOTE SUBJECTIVE: The patient is a 52-year-old male, who was admitted to the [facility] with cellulitis of both lower extremities and found to be in atrial fib/flutter with a rapid ventricular response. He received a full course of antibiotics for cellulitis. He was treated with Calan for his AFib/flutter and had been doing well. CAT scan revealed hepatosplenomegaly with ascites. He underwent paracentesis and 2700 mL of paracentesis fluid was drawn off. The patient had been doing well since his admission on 09/22/2017 and yesterday on 10/06/2017, he was transferred to the Transitional Care Unit. When seen today, the patient was ambulating well from the bathroom back to his bed. He is in good spirits. He is clean-shaven. He is looking forward to physical therapy, appears to be well motivated. His vital signs are stable. Lungs are clear. Heart is regular. Abdomen is round. We are ordering daily weights to follow increasing ascites fluid for adjustment of his medications. Because of his pulmonary hypertension, hepatosplenomegaly, right ventricular dysfunction which was found on echocardiography during his hospital stay, we are holding off on anesthesia required for endoscopy and colonoscopy as the patient would be a poor risk. We are continuing to follow the patient closely and he will be reevaluated in the morning. Chester Norman MD
--- NOTE | 2017-10-07 17:25 | CON ---
DATE: 10/07/2017 LOCATION: The patient is in room 305. CHIEF COMPLAINT: Lower extremity edema and erythema. HISTORY OF PRESENT ILLNESS This is a 52-year-old male with past medical history significant for morbid obesity with BMI of over 50 with chronic obstructive lung disease, history of appendectomy and cholecystectomy and was given antibiotics for his lower extremity left lateral foot purulent infection. No evidence on MRI. The patient also has deafness and now in Transitional Care. REVIEW OF SYSTEMS: Reveal no fevers, no chills. No nausea, no vomiting. No chest pain, no abdominal pain or diarrhea. PAST MEDICAL HISTORY: Significant for deafness, chronic obstructive lung disease, morbid obesity, diabetes mellitus, hypothyroidism and coronary artery disease. PAST SURGICAL HISTORY: Significant for appendectomy and cholecystectomy and a inguinal hernia repair. ALLERGIES: THE PATIENT HAS NO KNOWN ALLERGIES. MEDICATIONS: Reviewed. PHYSICAL EXAMINATION: VITAL SIGNS: On exam, the patient's temperature is 98, blood pressure 113/70, respiratory rate 20, heart rate of 60. HEENT: Examination is unremarkable. NECK: Supple. LUNGS: Have decreased breath sounds. HEART: Normal S1, S2. ABDOMEN: Soft, nontender. EXTREMITIES: Examination of lower extremities reveals chronic changes, no evidence of an active infection at this point. DATA: Laboratory examination reveals a white count of 5.9, hemoglobin of 15, platelets of 151. Chemistries reveal the BUN of 12, creatinine of 1.2. Urinalysis is noted and peritoneal ascitic fluid reveals 437 WBCs and serology is noted and Microbiology reveals the right leg culture from the 10th is Coag-negative staph. The ascitic fluid cultures are negative. The blood cultures are negative. ASSESSMENT AND PLAN: This is a 52-year-old male seen in the Transitional Care this morning in room 304 with left lateral foot purulent skin and skin structure infection, status post treatment, now currently off of antibiotics. The patient has had an MRI which did not show osteomyelitis in a patient who also has deafness, hypertension, diabetes, morbid obesity with body mass index of 51, chronic obstructive lung disease and currently off of antibiotics. He is at risk for developing nosocomial infections and will follow closely with you. The patient is a risk for developing nosocomial infections. Charan Pedroza MD [facility] # [id number]
[2017-10-08] MEDS: oxyCODONE 10 mg Immediate Release Tab PO PRN ×4 (00:18→18:44)
[2017-10-08] MEDS: Levothyroxine 50 MCG TAB PO SCH (05:51)
[2017-10-08] MEDS: Albuterol-Ipratrop 3 mg / 0.5 (3 ml) UD IH PRN ×3 (08:04→20:36)
[2017-10-08] MEDS: Insulin Reg-LOW-Coverage SC SCH ×4 (08:12→21:55)
[2017-10-08] MEDS: Verapamil 240 mg ER Tab PO SCH (09:50)
[2017-10-08] MEDS: Ammonium Lactate 12% Cream (140 g) TOP SCH ×2 (09:51→17:20)
--- NOTE | 2017-10-08 11:38 | CP.PCM.PN ---
<Leslie Jc - Last Filed: 10/08/17 11:36> Subjective - Date & Time of Evaluation Date of Evaluation: 10/08/17 Time of Evaluation: 10:00 - Subjective Subjective: PGY-2 GI progress note for Dr. Banks's service Patient seen and examined at bedside in TCU. Patient states that he is doing well. He denies abd pain, n/v, diarrhea, or bloating. He states that his abd bloating has significantly improved and distension decreased in size. He is currently on lasix. He denies other complaints. He is tolerating diet Objective - Vital Signs/Intake and Output Vital Signs (last 24 hours): Temp Pulse Resp BP Pulse Ox 97.4 F L 93 H 20 155/82 H 94 L 10/08/17 10:36 10/08/17 10:36 10/08/17 10:36 10/08/17 10:36 10/08/17 10:00 - Medications Medications: Current Medications Albuterol/Ipratropium (Duoneb 3 Mg/0.5 Mg (3 Ml) Ud) 3 ml IH Q2H PRN; Protocol PRN Reason: Shortness of Breath Last Admin: 10/08/17 08:04 Dose: 3 ml Apixaban (Eliquis) 5 mg PO BID SHA PRN Reason: Protocol Last Admin: 10/08/17 09:50 Dose: 5 mg Atenolol (Tenormin) 25 mg PO DAILY SHA PRN Reason: Protocol Last Admin: 10/08/17 09:52 Dose: 25 mg Furosemide (Lasix) 40 mg IVP BID SHA PRN Reason: Protocol Last Admin: 10/07/17 17:43 Dose: 40 mg Insulin Human Regular (Humulin R Low) 0 units SC ACHS SHA PRN Reason: Protocol Last Admin: 10/08/17 08:12 Dose: Not Given Lactic Acid (Lac-Hydrin 12% Cream (140 G)) 0 ea TOP BID SHA PRN Reason: Protocol Last Admin: 10/08/17 09:51 Dose: 1 applic Levothyroxine Sodium (Synthroid) 50 mcg PO 0600 [facility] PRN Reason: Protocol Last Admin: 10/08/17 05:51 Dose: 50 mcg Oxycodone HCl (Oxycodone Immediate Release Tab) 20 mg PO Q6H PRN; Protocol PRN Reason: Pain, severe (8-10) Last Admin: 10/08/17 06:44 Dose: 20 mg Verapamil HCl (Calan Sr Tab) 240 mg PO DAILY [facility] PRN Reason: Protocol Last Admin: 10/08/17 09:50 Dose: 240 mg - Constitutional Appears: Well, No Acute Distress - Head Exam Head Exam: ATRAUMATIC, NORMOCEPHALIC - Eye Exam Eye Exam: EOMI, Normal appearance - ENT Exam ENT Exam: Mucous Membranes Moist - Respiratory Exam Respiratory Exam: Clear to Ausculation Bilateral, NORMAL BREATHING PATTERN. absent: Decreased Breath Sounds, Rales, Rhonchi, Wheezes, Respiratory Distress, Stridor - Cardiovascular Exam Cardiovascular Exam: REGULAR RHYTHM, +S1, +S2. absent: Bradycardia, Tachycardia , Murmur - GI/Abdominal Exam GI & Abdominal Exam: Distended (improved), Soft, Normal Bowel Sounds. absent: Tenderness - Extremities Exam Extremities Exam: absent: Pedal Edema - Neurological Exam Neurological Exam: Alert, Awake, Oriented x3 - Skin Skin Exam: Dry, Intact, Normal Color, Warm Assessment and Plan - Assessment and Plan (Free Text) Assessment: 52 yo male with deafness, HTN, COPD, presented with new onset ascites, hepatosplenomegaly, cellulitis, a. flutter on eliquis. ascites with hepatosplenomegaly cellulitis, a. flutter pulmonary htn elevtaed TSH hypertension COPD history of deafness Plan: - previous CT abd/pel showed moderate ascites, sepatomegaly, splenomegaly, retained fecal material and diverticulosis - ascites possibly due to pulmonary HTN, right sided heart failure - s/p paracentesis, removed 2700cc - albumin 2.2, SAAG 1.5, most likely due to right heart failure - hepatitis panel neg - echo showed normal size left ventricular, EF 55-60, right ventricular severely reduced - cardiology following - patient will most likely need endoscopy to r/o esophageal varices, discussed with primary will hold off due to pulmonary HTN, high risk, optimize patient before endoscopy case reviewed and discussed with Dr. Banks <Yann Banks V - Last Filed: 10/08/17 22:52> Objective - Vital Signs/Intake and Output Vital Signs (last 24 hours): Temp Pulse Resp BP Pulse Ox 98 F 60 18 115/74 94 L 10/08/17 17:33 10/08/17 17:33 10/08/17 17:33 10/08/17 17:33 10/08/17 10:00 Intake and Output: 10/08/17 10/09/17 18:59 06:59 Intake Total 420 Balance 420 - Medications Medications: Current Medications Albuterol/Ipratropium (Duoneb 3 Mg/0.5 Mg (3 Ml) Ud) 3 ml IH Q2H PRN; Protocol PRN Reason: Shortness of Breath Last Admin: 10/08/17 20:36 Dose: 3 ml Apixaban (Eliquis) 5 mg PO BID SHA PRN Reason: Protocol Last Admin: 10/08/17 17:18 Dose: 5 mg Atenolol (Tenormin) 25 mg PO DAILY SHA PRN Reason: Protocol Last Admin: 10/08/17 09:52 Dose: 25 mg Furosemide (Lasix) 40 mg IVP BID SHA PRN Reason: Protocol Last Admin: 10/08/17 17:24 Dose: 40 mg Insulin Human Regular (Humulin R Low) 0 units SC ACHS SHA PRN Reason: Protocol Last Admin: 10/08/17 21:55 Dose: Not Given Lactic Acid (Lac-Hydrin 12% Cream (140 G)) 0 ea TOP BID SHA PRN Reason: Protocol Last Admin: 10/08/17 17:20 Dose: 1 applic Levothyroxine Sodium (Synthroid) 50 mcg PO 0600 SHA PRN Reason: Protocol Oxycodone HCl (Oxycodone Immediate Release Tab) 20 mg PO Q6H PRN; Protocol PRN Reason: Pain, severe (8-10) Last Admin: 10/08/17 18:44 Dose: 20 mg Verapamil HCl (Calan Sr Tab) 240 mg PO DAILY SHA PRN Reason: Protocol Last Admin: 10/08/17 09:50 Dose: 240 mg Attending/Attestation - Attestation I have personally seen and examined this patient.: Yes I have fully participated in the care of the patient.: Yes I have reviewed all pertinent clinical information, including history, physical exam and plan: Yes Notes (Text): This is an addendum to GI consult report dictated by the [employer].The patient was seen and examined earlier. Medical records, lab studies, imagings were reviewed. Last 24 hours events reviewed. Agreed with the above treatment plan as outlined in [employer] 's notes the with the addition of the following 10/08/17 22:52
--- NOTE | 2017-10-08 13:00 | CP.PCM.PN ---
Subjective - Date & Time of Evaluation Date of Evaluation: 10/08/17 Time of Evaluation: 07:30 - Subjective Subjective: Podiatry Progress Note- Dr. Hill 52 year old deaf male seen and evaluated for superficial right leg ulcer and left lateral 5th met head ulcer-healed. Patient is known to Dr. Hill and was followed on floors. Patient resting comfortably in bed, in NAD. Patient reports same mild pain to the site of ulceration on the left foot, denies any pain to right leg. Patient denies acute overnight events. Denies F/C/N/V/CP/ SOB. No new pedal complaints today Objective - Vital Signs/Intake and Output Vital Signs (last 24 hours): Temp Pulse Resp BP Pulse Ox 97.4 F L 93 H 20 155/82 H 94 L 10/08/17 10:36 10/08/17 10:36 10/08/17 10:36 10/08/17 10:36 10/08/17 10:00 - Medications Medications: Current Medications Albuterol/Ipratropium (Duoneb 3 Mg/0.5 Mg (3 Ml) Ud) 3 ml IH Q2H PRN; Protocol PRN Reason: Shortness of Breath Last Admin: 10/08/17 08:04 Dose: 3 ml Apixaban (Eliquis) 5 mg PO BID SHA PRN Reason: Protocol Last Admin: 10/08/17 09:50 Dose: 5 mg Atenolol (Tenormin) 25 mg PO DAILY SHA PRN Reason: Protocol Last Admin: 10/08/17 09:52 Dose: 25 mg Furosemide (Lasix) 40 mg IVP BID SHA PRN Reason: Protocol Last Admin: 10/08/17 10:00 Dose: Not Given Insulin Human Regular (Humulin R Low) 0 units SC ACHS SHA PRN Reason: Protocol Last Admin: 10/08/17 12:01 Dose: Not Given Lactic Acid (Lac-Hydrin 12% Cream (140 G)) 0 ea TOP BID SHA PRN Reason: Protocol Last Admin: 10/08/17 09:51 Dose: 1 applic Levothyroxine Sodium (Synthroid) 50 mcg PO 0600 SHA PRN Reason: Protocol Oxycodone HCl (Oxycodone Immediate Release Tab) 20 mg PO Q6H PRN; Protocol PRN Reason: Pain, severe (8-10) Last Admin: 10/08/17 06:44 Dose: 20 mg Verapamil HCl (Calan Sr Tab) 240 mg PO DAILY SHA PRN Reason: Protocol Last Admin: 10/08/17 09:50 Dose: 240 mg - Constitutional Appears: Well, Non-toxic, No Acute Distress - Extremities Exam Extremities Exam: absent: Calf Tenderness Additional comments: Lower extremity focused exam: Vasc: DP and PT pulses palpable 2/4. Temperature gradient warm to warm from proximal to distal. CFT < 3 sec to all digits. +1 pitting edema noted to B/L lower extremities Derm: Darken diffuse erythematous skin changes noted to B/L lower extremities- appears chronic in nature. Lateral aspect of left 5th metatarsal head blister- resolve with callus overlying. No active drainage or purulence noted on exam. Superficial ulceration noted to right anterior mid leg approximately 1 cm x .4 cm superficial with beefy red granular wound base. No drainage, no purulence, no malodor, no fluctuance. Xerosis noted to the entire LE. Neuro: Protective sensation slightly diminished Ortho: Mild tenderness to palpation of left lateral 5th met head. No tenderness to palpation of right anterior leg wound - Neurological Exam Neurological Exam: Alert, Awake, Oriented x3 - Psychiatric Exam Psychiatric exam: Normal Affect, Normal Mood Assessment and Plan - Assessment and Plan (Free Text) Assessment: 52 year old obese deaf male with 1) left foot ulcer- completely healed and 2) right superfical anterior leg ulceration- stable, improving Plan: Pt seen and evaluated at bedside Discussed plan in detail with attending Dr. Hill Labs and vitals reviewed- afebrile, WBC 5.9 on 10/04/17 Wounds cleansed with saline, right superficial ulceration leave out to air dry Left completely healed ulceration cleansed with saline and optifoam applied; to apply for cushion LacHydrin to be applied BID to LE, avoid interspaces L foot x-ray reviewed - no signs of osseous erosive changes L foot MRI (-) for abscess formation at 5th met head, no signs of osteomyelitis Wound cx of R leg- coagulase neg staphylococcus Arterial duplex studies- normal ROCKY and PVRs at rest c/w work with physical therapy Educated patient on his foot type and proper shoe gear a Patient is stable per podiatry standpoint for discharge Upon discharge patient to follow Dr. Hill within 1 week
--- NOTE | 2017-10-09 01:07 | PN ---
DATE: 10/08/2017 SUBJECTIVE: The patient is seen earlier today in 304. No fevers. No chills. Comfortable. PHYSICAL EXAMINATION VITAL SIGNS: Temperature is 98, blood pressure is 115/70, respiratory rate of 16. HEENT: Unremarkable. NECK: Supple. LUNGS: Have decreased breath sounds. HEART: Normal S1 and S2. ABDOMEN: Soft, nontender. LABORATORY DATA: Reveals the patient's chemistries are noted. Microbiology is reviewed. ASSESSMENT AND PLAN: A 52-year-old male with morbid obesity with a body mass index of 48 and chronic obstructive lung disease, history of appendectomy, cholecystectomy, and was treated for lower extremity cellulitis with no evidence of osteomyelitis on MRI. Currently now, patient is off of antibiotics and is at risk for developing nosocomial infection. He is receiving physical therapy transitional care. We encouraged to keep the hip on lockout as possible to minimize development of new infections. Charan Pedroza MD
[2017-10-09] MEDS: oxyCODONE 10 mg Immediate Release Tab PO PRN ×4 (01:09→20:52)
[2017-10-09] MEDS: Levothyroxine 50 MCG TAB PO SCH (05:13)
[2017-10-09] MEDS: Insulin Reg-LOW-Coverage SC SCH ×4 (06:38→21:58)
[2017-10-09] MEDS: Verapamil 240 mg ER Tab PO SCH (09:28)
[2017-10-09] MEDS: Ammonium Lactate 12% Cream (140 g) TOP SCH ×2 (09:28→17:22)
[2017-10-09] MEDS: Albuterol-Ipratrop 3 mg / 0.5 (3 ml) UD IH PRN (14:29)
--- NOTE | 2017-10-09 14:44 | CP.PCM.PN ---
Subjective - Date & Time of Evaluation Date of Evaluation: 10/09/17 Time of Evaluation: 10:25 - Subjective Subjective: Resting comfortably in bed, no fevers, not in distress. Objective - Vital Signs/Intake and Output Vital Signs (last 24 hours): Temp Pulse Resp BP Pulse Ox 98 F 60 18 115/74 94 L 10/08/17 17:33 10/08/17 17:33 10/08/17 17:33 10/08/17 17:33 10/08/17 10:00 Intake and Output: 10/09/17 10/09/17 06:59 18:59 Intake Total 420 Balance 420 - Medications Medications: Current Medications Albuterol/Ipratropium (Duoneb 3 Mg/0.5 Mg (3 Ml) Ud) 3 ml IH Q2H PRN; Protocol PRN Reason: Shortness of Breath Last Admin: 10/08/17 20:36 Dose: 3 ml Apixaban (Eliquis) 5 mg PO BID SHA PRN Reason: Protocol Last Admin: 10/09/17 09:28 Dose: 5 mg Atenolol (Tenormin) 25 mg PO DAILY SHA PRN Reason: Protocol Last Admin: 10/09/17 09:28 Dose: 25 mg Furosemide (Lasix) 40 mg IVP BID SHA PRN Reason: Protocol Last Admin: 10/08/17 17:24 Dose: 40 mg Insulin Human Regular (Humulin R Low) 0 units SC ACHS SHA PRN Reason: Protocol Last Admin: 10/09/17 06:38 Dose: Not Given Lactic Acid (Lac-Hydrin 12% Cream (140 G)) 0 ea TOP BID SHA PRN Reason: Protocol Last Admin: 10/09/17 09:28 Dose: 1 applic Levothyroxine Sodium (Synthroid) 50 mcg PO 0600 SHA PRN Reason: Protocol Last Admin: 10/09/17 05:13 Dose: 50 mcg Oxycodone HCl (Oxycodone Immediate Release Tab) 20 mg PO Q6H PRN; Protocol PRN Reason: Pain, severe (8-10) Last Admin: 10/09/17 07:52 Dose: 20 mg Verapamil HCl (Calan Sr Tab) 240 mg PO DAILY SHA PRN Reason: Protocol Last Admin: 10/09/17 09:28 Dose: 240 mg - Constitutional Appears: Non-toxic, Chronically Ill - Head Exam Head Exam: NORMAL INSPECTION - Neck Exam Neck Exam: absent: Meningismus - Respiratory Exam Respiratory Exam: Decreased Breath Sounds - Cardiovascular Exam Cardiovascular Exam: +S1, +S2 - GI/Abdominal Exam GI & Abdominal Exam: Soft. absent: Tenderness Assessment and Plan - Assessment and Plan (Free Text) Plan: Assessment S/P left lateral foot purulent skin and skin structure infection, with no evidence of osteomyelitis on MRI deafness HTN morbid obesity with BMI 51 COPD S/P appendectomy S/P cholecystectomy S/P tonsillectomy Plan completed 10 days of antibiotics - will continue to monitor the patient off antibiotics since he is at risk for hospital-acquired infections
[2017-10-09] MEDS: Nystatin 100,000 Units/ml Oral Susp 5 ml UD PO SCH ×4 (16:18→23:50)
--- NOTE | 2017-10-09 21:19 | PN ---
DATE: 10/09/2017 LOCATION: The patient in room 304, bed 1. REASON FOR CONSULTATION AND FOLLOWUP: Atrial fibrillation and flutter with a rapid ventricular rate, obesity, diabetes, cellulitis, hypertension, and hypothyroidism. 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 He was also found to be in rapid rate atrial fibrillation and flutter. The patient has history of hypertension, morbid obesity, diabetes, and COPD. CT scan of the abdomen showed ascites and paracentesis was done under ultrasound guidance and 2.7 liters of fluid was removed. Echo showed dilated and systolic dysfunction of right ventricle with right atrial enlargement suggestive of pulmonary hypertension. The patient was on medical floor improved with his therapy, now is in Transitional Care Unit for deconditioning and above conditions. The patient is breathing better. Denies any chest pain or palpitations. PHYSICAL EXAMINATION: VITAL SIGNS: Blood pressure 136/87, respirations 18, pulse 106, temperature 98.4. Yesterday, pulse was 60. HEENT: Head is normocephalic. Eyes: Pupils normal. Conjunctivae normal. NECK: JVP low. Carotids equal. THORAX: AP diameter normal. LUNGS: No significant rales. CARDIOVASCULAR: S1 and S2, irregular rhythm due to atrial flutter/fibrillation. No rub. ABDOMEN: Protuberant. EXTREMITIES: No clubbing. No cyanosis. The patient's cellulitis is showing changes of improvement. LABORATORY DATA: Random glucose 104. DIAGNOSES: Cellulitis, atrial flutter/fibrillation with rapid rate, hypertension, morbid obesity, diabetes, hypothyroidism, chronic obstructive pulmonary disease, cellulitis of legs, and ascites, status post paracentesis. Echo showed large right ventricle, enlarged right atrium, and right ventricular systolic function was decreased. Obesity. PLAN: Continue present therapy with Calan SR 240 p.o. daily, DuoNeb hand nebulizer therapy, Eliquis 5 mg b.i.d., furosemide 40 IV b.i.d., levothyroxine 50 mcg p.o. daily, and atenolol 25 mg p.o. daily. We will continue physical therapy. We will follow with you. Chantel Vaca MD
[2017-10-10] MEDS: Nystatin 100,000 Units/ml Oral Susp 5 ml UD PO SCH ×8 (02:47→23:11)
[2017-10-10] MEDS: oxyCODONE 10 mg Immediate Release Tab PO PRN ×4 (04:39→23:05)
[2017-10-10] MEDS: Levothyroxine 50 MCG TAB PO SCH (05:22)
[2017-10-10] MEDS: Insulin Reg-LOW-Coverage SC SCH ×4 (06:46→21:56)
--- NOTE | 2017-10-10 07:30 | CP.PCM.PN ---
Subjective - Date & Time of Evaluation Date of Evaluation: 10/10/17 Time of Evaluation: 06:30 - Subjective Subjective: Awake, lying in bed,no distress, denies shortness of breath Reason for consultation and follow up:Continuity of care in TCU, Atrial fib/ flutter with rapid ventricular rate,morbid obesity,diabetes, cellulitis, hypertension,hypothyroidism,COPD,ascitis. Seen and examined by me and Dr. Vaca Objective - Vital Signs/Intake and Output Vital Signs (last 24 hours): Temp Pulse Resp BP Pulse Ox 98 F 62 18 103/69 90 L 10/09/17 17:40 10/09/17 17:40 10/09/17 17:40 10/09/17 17:40 10/09/17 10:00 Intake and Output: 10/10/17 10/10/17 06:59 18:59 Intake Total 420 Balance 420 - Medications Medications: Current Medications Albuterol/Ipratropium (Duoneb 3 Mg/0.5 Mg (3 Ml) Ud) 3 ml IH Q2H PRN; Protocol PRN Reason: Shortness of Breath Last Admin: 10/09/17 14:29 Dose: 3 ml Apixaban (Eliquis) 5 mg PO BID SHA PRN Reason: Protocol Last Admin: 10/09/17 17:21 Dose: 5 mg Atenolol (Tenormin) 25 mg PO DAILY SHA PRN Reason: Protocol Last Admin: 10/09/17 09:28 Dose: 25 mg Furosemide (Lasix) 40 mg IVP BID SHA PRN Reason: Protocol Last Admin: 10/09/17 17:22 Dose: 40 mg Insulin Human Regular (Humulin R Low) 0 units SC ACHS SHA PRN Reason: Protocol Last Admin: 10/10/17 06:46 Dose: Not Given Lactic Acid (Lac-Hydrin 12% Cream (140 G)) 0 ea TOP BID SHA PRN Reason: Protocol Last Admin: 10/09/17 17:22 Dose: 1 applic Levothyroxine Sodium (Synthroid) 50 mcg PO 0600 SHA PRN Reason: Protocol Last Admin: 10/10/17 05:22 Dose: 50 mcg Nystatin (Nystatin Oral Susp) 10 ml PO Q3H SHA PRN Reason: Protocol Last Admin: 10/10/17 04:40 Dose: 10 ml Oxycodone HCl (Oxycodone Immediate Release Tab) 20 mg PO Q6H PRN; Protocol PRN Reason: Pain, severe (8-10) Last Admin: 10/10/17 04:39 Dose: 20 mg Verapamil HCl (Calan Sr Tab) 240 mg PO DAILY SHA PRN Reason: Protocol Last Admin: 10/09/17 09:28 Dose: 240 mg - Constitutional Appears: No Acute Distress - Eye Exam Eye Exam: Normal appearance - ENT Exam ENT Exam: Mucous Membranes Moist Additional comments: deaf and mute,lip reading - Respiratory Exam Respiratory Exam: Decreased Breath Sounds, NORMAL BREATHING PATTERN - Cardiovascular Exam Cardiovascular Exam: +S1, +S2 - GI/Abdominal Exam GI & Abdominal Exam: Distended, Soft, Normal Bowel Sounds - Extremities Exam Additional comments: 2-3+ edema, cellulitis - Neurological Exam Neurological Exam: Alert, Awake, Oriented x3 - Psychiatric Exam Psychiatric exam: Normal Affect, Normal Mood - Skin Skin Exam: Intact, Normal Color, Warm Assessment and Plan - Assessment and Plan (Free Text) Assessment: A 52 year old male, deaf and mute who came in to the ER due to leg swelling/ cellulitis and pain on left foot. In ER he was also in atrial fib/flutter with rapid ventricular rate. History of hypertension, morbid obesity,diabetes, COPD. During his hospital course, he was given antibiotics for the cellulitis which improved. He was treated with Calan for rapid afib/aflutter and rate has been controlled. CT scan of abdomen showed ascites and paracentesis done under US guided with 2.7 liters of fluid drained. ECHO showed dilated and and dysfunctional right ventricle with right atrial enlargement suggesting pulmonary hypertension. Improved tremendously, Transferred ot TCU for reconditioning.Completed IV antibiotics. Plan: Cardiac status stable Heart rate and blood pressure stable Physical therapy in progress ID on consult for cellulitis, completed antibiotic therapy Continue current medications Continue current treatment Will follow up Plan and treatment discussed with Dr. Vaca
--- NOTE | 2017-10-10 09:19 | PN ---
DATE: 10/10/2017 SUBJECTIVE: The patient is in bed, in no acute distress, nontoxic. PHYSICAL EXAMINATION: VITAL SIGNS: Temperature is 98, blood pressure is 103/60, respiratory rate of 18, heart rate of 106. HEENT: Examination of HEENT is unremarkable. NECK: Supple. LUNGS: Have decreased breath sounds. HEART: Normal S1, S2. ABDOMEN: Soft. LABORATORY DATA: Laboratory examinations are noted. ASSESSMENT AND PLAN: A 52-year-old with a left lateral foot purulent skin and skin structure infection. No evidence of osteomyelitis on MRI. Deafness, hypertension, morbid obesity with a body mass index of 51 and chronic obstructive pulmonary disease. Has completed the antibiotic therapy. Currently off of antibiotics. He is at risk for developing nosocomial infections. The patient was seen earlier this morning in room 304. Charan Pedroza MD
[2017-10-10] MEDS: Verapamil 240 mg ER Tab PO SCH (10:11)
[2017-10-10] MEDS: Ammonium Lactate 12% Cream (140 g) TOP SCH ×2 (10:11→17:04)
--- NOTE | 2017-10-10 12:13 | CP.PCM.PN ---
Subjective - Date & Time of Evaluation Date of Evaluation: 10/10/17 Time of Evaluation: 12:09 - Subjective Subjective: Podiatry Progress Note for Dr. Hill 52M seen for superficial right leg ulceration and left fifth metatarsal head ulceration. Patient is AAO x 3 and NAD at time of visit. Per nursing, no acute overnight events, no new pedal complaints Objective - Vital Signs/Intake and Output Vital Signs (last 24 hours): Temp Pulse Resp BP Pulse Ox 98 F 107 H 18 165/89 H 90 L 10/09/17 17:40 10/10/17 10:12 10/09/17 17:40 10/10/17 10:12 10/09/17 10:00 Intake and Output: 10/10/17 10/10/17 06:59 18:59 Intake Total 420 Balance 420 - Medications Medications: Current Medications Albuterol/Ipratropium (Duoneb 3 Mg/0.5 Mg (3 Ml) Ud) 3 ml IH Q2H PRN; Protocol PRN Reason: Shortness of Breath Last Admin: 10/09/17 14:29 Dose: 3 ml Apixaban (Eliquis) 5 mg PO BID SHA PRN Reason: Protocol Last Admin: 10/10/17 10:11 Dose: 5 mg Atenolol (Tenormin) 25 mg PO DAILY SHA PRN Reason: Protocol Last Admin: 10/10/17 10:12 Dose: 25 mg Furosemide (Lasix) 40 mg IVP BID SHA PRN Reason: Protocol Last Admin: 10/10/17 10:12 Dose: 40 mg Insulin Human Regular (Humulin R Low) 0 units SC ACHS SHA PRN Reason: Protocol Last Admin: 10/10/17 11:56 Dose: Not Given Lactic Acid (Lac-Hydrin 12% Cream (140 G)) 0 ea TOP BID SHA PRN Reason: Protocol Last Admin: 10/10/17 10:11 Dose: 1 applic Levothyroxine Sodium (Synthroid) 50 mcg PO 0600 SHA PRN Reason: Protocol Last Admin: 10/10/17 05:22 Dose: 50 mcg Nystatin (Nystatin Oral Susp) 10 ml PO Q3H SHA PRN Reason: Protocol Last Admin: 10/10/17 10:49 Dose: 10 ml Oxycodone HCl (Oxycodone Immediate Release Tab) 20 mg PO Q6H PRN; Protocol PRN Reason: Pain, severe (8-10) Last Admin: 10/10/17 10:49 Dose: 20 mg Verapamil HCl (Calan Sr Tab) 240 mg PO DAILY SHA PRN Reason: Protocol Last Admin: 10/10/17 10:11 Dose: 240 mg - Constitutional Appears: Well, Non-toxic, No Acute Distress - Head Exam Head Exam: ATRAUMATIC, NORMOCEPHALIC - Extremities Exam Additional comments: Lower extremity focused exam: Vasc: DP and PT pulses palpable 2/4. Temperature gradient warm to warm from proximal to distal. CFT < 3 sec to all digits. +1 pitting edema noted to B/L lower extremities Derm: Darkened diffuse skin changes that appear consistent with venous stasis noted to B/L lower extremities-appears chronic in nature. Lateral aspect of left 5th metatarsal head blister- resolve with callus overlying. No active drainage or purulence noted on exam. Superficial ulceration noted to right anterior mid leg approximately 1 cm x .4 cm superficial with beefy red granular wound base. No drainage, no purulence, no malodor, no fluctuance. Xerosis noted to the entire LE. Neuro: Epicritic and protective sensation slightly diminished b/l Ortho: Mild tenderness to palpation of left lateral 5th met head. No tenderness to palpation of right anterior leg wound. No other gross deformities noted - Neurological Exam Neurological Exam: Alert, Awake, Oriented x3 - Psychiatric Exam Psychiatric exam: Normal Affect, Normal Mood Assessment and Plan - Assessment and Plan (Free Text) Assessment: 52M seen for superficial right leg ulceration and left fifth metatarsal head ulceration Plan: Patient seen and evaluated Plan discussed with attending Dr. Hill R leg wound left open to air Left foot wound dressed with optifoam pad Patient encouraged to use surgical shoes when ambulating No plan for surgical intervention at this time Podiatry will follow QOD Patient to follow up with Dr. Hill in his private clinic after discharge
--- NOTE | 2017-10-10 12:26 | PN ---
DATE: 10/09/2017 DAILY PROGRESS NOTE SUBJECTIVE: The patient is a 52-year-old male who was admitted to the [facility] on 09/22/2017 with cellulitis of bilateral lower extremities, atrial fibrillation with a rapid ventricular response and ascites. The cellulitis was treated with intravenous antibiotics and followed by Infectious Disease consults, Dr. Pedroza and Dr. Olsen. His atrial fibrillation was treated with Isoptin and is followed by his letter of credit document examiner, Dr. Faulkner and Dr. Vaca. 2700 mL of paracentesis fluid was drawn off by Dr. Gilberto Gutirerez. He is being treated with diuretics for his ascites and hepatosplenomegaly, which was found on CAT scan. Echocardiography revealed right ventricular dysfunction and pulmonary hypertension. The patient on 10/06/2017 was transferred to the Transitional Care Unit where he does well. He is motivated. Spirits are good. When seen today, it seems the patient had developed thrush, especially noticeable on the left side of his tongue. The patient is off his antibiotics. He is not on any steroids at this point, but we will treat him with nystatin oral suspension 10 mL swish and swallow every 3 hours while awake. We are continuing to encourage physical therapy and will be following the patient closely. Chester Norman MD
[2017-10-10] MEDS: Albuterol-Ipratrop 3 mg / 0.5 (3 ml) UD IH PRN (13:20)
--- NOTE | 2017-10-10 14:43 | PN ---
DATE: 10/08/2017 SUBJECTIVE: The patient is a 52-year-old male who was admitted to the [facility] (formerly [facility]) with cellulitis of bilateral lower extremities. He was also found to be in atrial fibrillation with a rapid ventricular response. Echocardiography showed him to have right ventricular dysfunction, probable pulmonary hypertension. CAT scan of the abdomen showed hepatosplenomegaly with ascites. The patient's cellulitis was treated with intravenous antibiotics and this is was followed by Dr. Pedroza and Dr. Olsen. His atrial fibrillation/flutter has been treated with Isoptin and he is being followed by Dr. Faulkner and Dr. Vaca, the human resource manager. His ascites was tapped by Dr. Gilberto Gutierrez and 2700 mL of ascites fluid was withdrawn on paracentesis. The patient was admitted on 09/22/2017 and on 10/06/2017, he was transferred to the Transitional Care Unit where he continues to do well. He is in good spirits. PHYSICAL EXAMINATION: LUNGS: Clear to auscultation and percussion. HEART: Regular. ABDOMEN: Round. ASSESSMENT AND PLAN: We are treating with diuretics for the ascites. Further GI examination such as endoscopy and colonoscopy was put on hold because of the high risk of anesthesia in such patients with pulmonary hypertension. We are continuing to follow the patient closely and encourage physical therapy. Chester Norman MD MTDPhilipp
--- NOTE | 2017-10-11 01:41 | PN ---
DATE: 10/10/2017 DAILY PROGRESS NOTE SUBJECTIVE: The patient is a 52-year-old male who was admitted to [facility] on 09/19/2017 with multiple diagnoses. 1. Cellulitis of bilateral lower extremities. This was treated with intravenous antibiotics and followed by Dr. Pedroza and Dr. Olsen. 2. He had atrial fibrillation with a rapid ventricular response. This was treated by Isoptin and is followed by his charter boat captain, Dr. Faulkner and Dr. Vaca. He was found to have moderately right ventricular dysfunction and pulmonary hypertension on echocardiography. Hepatosplenomegaly and ascites was seen on a CAT scan. He underwent paracentesis and 2700 mL of paracentesis fluid was drawn off by Dr. Gilberto Gutierrez during the hospital stay. On 10/06/2017, he was transferred to the Transitional Care Unit where he is doing very well with physical therapy, he is in good spirits and he is well motivated. Yesterday, he came down with thrush of the tongue, he has no longer been taking any antibiotics or steroids. This was treated with nystatin oral suspension swish and swallow. When seen today, the patient commented that it was markedly improved. The patient is a deaf mute, but through writing and sign language, he can communicate rather remarkably and the Mycostatin swish and swallow seems to work wonders for him. We are continuing to encourage physical therapy. The patient will be reevaluated in the morning. Chester Norman MD
[2017-10-11] MEDS: Nystatin 100,000 Units/ml Oral Susp 5 ml UD PO SCH ×8 (03:11→22:44)
[2017-10-11] MEDS: Levothyroxine 50 MCG TAB PO SCH (05:31)
[2017-10-11] MEDS: oxyCODONE 10 mg Immediate Release Tab PO PRN ×3 (05:38→20:05)
[2017-10-11] MEDS: Insulin Reg-LOW-Coverage SC SCH ×5 (06:42→22:34)
--- NOTE | 2017-10-11 08:16 | CP.PCM.PN ---
Subjective - Date & Time of Evaluation Date of Evaluation: 10/11/17 Time of Evaluation: 07:15 - Subjective Subjective: Awake, lying in bed,no distress, denies shortness of breath Reason for consultation and follow up:Continuity of care in TCU, Atrial fib/ flutter with rapid ventricular rate,morbid obesity,diabetes, cellulitis, hypertension,hypothyroidism,COPD,ascitis. Seen and examined by me and Dr. Vaca Objective - Vital Signs/Intake and Output Vital Signs (last 24 hours): Temp Pulse Resp BP Pulse Ox 98 F 107 H 18 108/69 90 L 10/09/17 17:40 10/10/17 10:12 10/09/17 17:40 10/10/17 17:06 10/09/17 10:00 Intake and Output: 10/11/17 10/11/17 06:59 18:59 Intake Total 420 Balance 420 - Medications Medications: Current Medications Albuterol/Ipratropium (Duoneb 3 Mg/0.5 Mg (3 Ml) Ud) 3 ml IH Q2H PRN; Protocol PRN Reason: Shortness of Breath Last Admin: 10/10/17 13:20 Dose: 3 ml Apixaban (Eliquis) 5 mg PO BID SHA PRN Reason: Protocol Last Admin: 10/10/17 17:04 Dose: 5 mg Atenolol (Tenormin) 25 mg PO DAILY SHA PRN Reason: Protocol Last Admin: 10/10/17 10:12 Dose: 25 mg Furosemide (Lasix) 40 mg IVP BID SHA PRN Reason: Protocol Last Admin: 10/10/17 17:06 Dose: 40 mg Insulin Human Regular (Humulin R Low) 0 units SC ACHS SHA PRN Reason: Protocol Last Admin: 10/11/17 06:42 Dose: Not Given Lactic Acid (Lac-Hydrin 12% Cream (140 G)) 0 ea TOP BID SHA PRN Reason: Protocol Last Admin: 10/10/17 17:04 Dose: 1 applic Levothyroxine Sodium (Synthroid) 50 mcg PO 0600 SHA PRN Reason: Protocol Last Admin: 10/11/17 05:31 Dose: 50 mcg Nystatin (Nystatin Oral Susp) 10 ml PO Q3H SHA PRN Reason: Protocol Last Admin: 10/11/17 05:31 Dose: 10 ml Oxycodone HCl (Oxycodone Immediate Release Tab) 20 mg PO Q6H PRN; Protocol PRN Reason: Pain, severe (8-10) Last Admin: 10/11/17 05:38 Dose: 20 mg Verapamil HCl (Calan Sr Tab) 240 mg PO DAILY SHA PRN Reason: Protocol Last Admin: 10/10/17 10:11 Dose: 240 mg - Constitutional Appears: No Acute Distress - Head Exam Head Exam: NORMOCEPHALIC - Eye Exam Eye Exam: Normal appearance - ENT Exam ENT Exam: Mucous Membranes Moist Additional comments: deaf and mute,lip reading - Respiratory Exam Respiratory Exam: Decreased Breath Sounds, Rhonchi, NORMAL BREATHING PATTERN - GI/Abdominal Exam GI & Abdominal Exam: Distended, Soft, Normal Bowel Sounds - Exam Additional comments: continent - Extremities Exam Additional comments: 2-3+ edema,cellullitis - Neurological Exam Neurological Exam: Alert, Awake, Oriented x3 - Psychiatric Exam Psychiatric exam: Normal Affect, Normal Mood - Skin Skin Exam: Intact, Normal Color, Warm Assessment and Plan - Assessment and Plan (Free Text) Assessment: A 52 year old male, deaf and mute who came in to the ER due to leg swelling/ cellulitis and pain on left foot. In ER he was also in atrial fib/flutter with rapid ventricular rate. History of hypertension, morbid obesity,diabetes, COPD. During his hospital course, he was given antibiotics for the cellulitis which improved. He was treated with Calan for rapid afib/aflutter and rate has been controlled. CT scan of abdomen showed ascites and paracentesis done under US guided with 2.7 liters of fluid drained. ECHO showed dilated and and dysfunctional right ventricle with right atrial enlargement suggesting pulmonary hypertension. Improved tremendously, Transferred ot TCU for reconditioning.Completed IV antibiotics. oral thrush, nystatin swish and swallow started. Plan: Physical therapy in progress Cardiac status stable Heart rate and blood pressure stable ID on consult for cellulitis, completed antibiotic therapy Continue current medications Continue current treatment Will follow up Plan and treatment discussed with Dr. Vaca
[2017-10-11 08:18] LABS: BLOOD UREA NITROGEN 43 mg/dL (7-21); CALCIUM 9.2 mg/dL (8.4-10.5); GFR AFRICAN-AMERICAN > 60; GFR NON-AFRICAN AMERICAN 53
[2017-10-11] MEDS: Ammonium Lactate 12% Cream (140 g) TOP SCH ×2 (10:17→17:49)
[2017-10-11] MEDS: Verapamil 240 mg ER Tab PO SCH (10:17)
[2017-10-11] MEDS: Albuterol-Ipratrop 3 mg / 0.5 (3 ml) UD IH PRN ×2 (13:54→22:30)
--- NOTE | 2017-10-11 16:07 | PN ---
DATE: 10/11/2017 SUBJECTIVE: The patient is in bed in no acute distress, nontoxic. The patient was seen earlier today in room 304. PHYSICAL EXAMINATION: VITAL SIGNS: Temperature is 98, blood pressure is 120/70, respiratory rate of 16. HEENT: Unremarkable. NECK: Supple. LUNGS: Have decreased breath sounds. HEART: Normal S1, S2. ABDOMEN: Noted. LABORATORY DATA: Chemistries are reviewed. Review of orders confirms the patient to be off of antibiotics. ASSESSMENT AND PLAN: A 52-year-old male was seen earlier in 304 with morbid obesity, BMI of 51, chronic obstructive lung disease and hypertension. The patient is suffering from deafness. Completed antibiotic therapy and currently off of antibiotics. The patient is at risk for developing nosocomial infections. Recommend no to minimize development of infection. Charan Pedroza MD
[2017-10-12] MEDS: Nystatin 100,000 Units/ml Oral Susp 5 ml UD PO SCH ×8 (03:40→23:48)
[2017-10-12] MEDS: oxyCODONE 10 mg Immediate Release Tab PO PRN ×4 (03:41→22:16)
[2017-10-12] MEDS: Levothyroxine 50 MCG TAB PO SCH (05:23)
[2017-10-12] MEDS: Insulin Reg-LOW-Coverage SC SCH ×4 (06:58→22:16)
[2017-10-12] MEDS: Albuterol-Ipratrop 3 mg / 0.5 (3 ml) UD IH PRN ×2 (07:10→13:03)
--- NOTE | 2017-10-12 07:16 | CP.PCM.PN ---
Subjective - Date & Time of Evaluation Date of Evaluation: 10/12/17 Time of Evaluation: 06:50 - Subjective Subjective: Sleeping but easily awaken, lying in bed,no distress, denies shortness of breath Reason for consultation and follow up:Continuity of care in TCU, Atrial fib/ flutter with rapid ventricular rate,morbid obesity,diabetes, cellulitis, hypertension,hypothyroidism,COPD,ascitis. Seen and examined by me and Dr. Vaca Objective - Vital Signs/Intake and Output Vital Signs (last 24 hours): Temp Pulse Resp BP Pulse Ox 98.4 F 95 H 18 121/74 93 L 10/12/17 06:00 10/12/17 06:00 10/12/17 06:00 10/12/17 06:00 10/12/17 06:00 Intake and Output: 10/12/17 10/12/17 06:59 18:59 Intake Total 420 Balance 420 - Medications Medications: Current Medications Albuterol/Ipratropium (Duoneb 3 Mg/0.5 Mg (3 Ml) Ud) 3 ml IH Q2H PRN; Protocol PRN Reason: Shortness of Breath Last Admin: 10/12/17 07:10 Dose: 3 ml Apixaban (Eliquis) 5 mg PO BID SHA PRN Reason: Protocol Last Admin: 10/11/17 17:48 Dose: 5 mg Atenolol (Tenormin) 25 mg PO DAILY SHA PRN Reason: Protocol Last Admin: 10/11/17 10:17 Dose: 25 mg Furosemide (Lasix) 40 mg IVP BID SHA PRN Reason: Protocol Last Admin: 10/11/17 17:59 Dose: 40 mg Insulin Human Regular (Humulin R Low) 0 units SC ACHS SHA PRN Reason: Protocol Last Admin: 10/11/17 22:34 Dose: Not Given Lactic Acid (Lac-Hydrin 12% Cream (140 G)) 0 ea TOP BID SHA PRN Reason: Protocol Last Admin: 10/11/17 17:49 Dose: 1 applic Levothyroxine Sodium (Synthroid) 50 mcg PO 0600 SHA PRN Reason: Protocol Last Admin: 10/12/17 05:23 Dose: 50 mcg Nystatin (Nystatin Oral Susp) 10 ml PO Q3H SHA PRN Reason: Protocol Last Admin: 10/12/17 05:25 Dose: 10 ml Oxycodone HCl (Oxycodone Immediate Release Tab) 20 mg PO Q6H PRN; Protocol PRN Reason: Pain, severe (8-10) Last Admin: 10/12/17 03:41 Dose: 20 mg Verapamil HCl (Calan Sr Tab) 240 mg PO DAILY SHA PRN Reason: Protocol Last Admin: 10/11/17 10:17 Dose: 240 mg - Labs Labs: 10/11/17 07:30 - Constitutional Appears: No Acute Distress - Eye Exam Eye Exam: Normal appearance - ENT Exam ENT Exam: Mucous Membranes Moist Additional comments: deaf/mute lip reading oral thrush - Respiratory Exam Respiratory Exam: Decreased Breath Sounds, NORMAL BREATHING PATTERN Additional comments: NC 2l/min - Cardiovascular Exam Cardiovascular Exam: +S1, +S2 - GI/Abdominal Exam GI & Abdominal Exam: Distended, Soft, Normal Bowel Sounds - Exam Additional comments: continent/bathroom - Extremities Exam Additional comments: 2+edema/cellulitis - Neurological Exam Neurological Exam: Alert, Awake, Oriented x3 - Psychiatric Exam Psychiatric exam: Normal Affect, Normal Mood - Skin Skin Exam: Intact, Normal Color, Warm Assessment and Plan - Assessment and Plan (Free Text) Assessment: A 52 year old male, deaf and mute who came in to the ER due to leg swelling/ cellulitis and pain on left foot. In ER he was also in atrial fib/flutter with rapid ventricular rate. History of hypertension, morbid obesity,diabetes, COPD. During his hospital course, he was given antibiotics for the cellulitis which improved. He was treated with Calan for rapid afib/aflutter and rate has been controlled. CT scan of abdomen showed ascites and paracentesis done under US guided with 2.7 liters of fluid drained. ECHO showed dilated and and dysfunctional right ventricle with right atrial enlargement suggesting pulmonary hypertension. Improved tremendously, Transferred ot TCU for reconditioning.Completed IV antibiotics. oral thrush, nystatin swish and swallow started. Plan: Cardiac status stable Heart rate and blood pressure stable Completed IV antibiotics for cellulitis Had oral thrush, on oral Nystatin Physical therapy in progress Continue current medications Continue current treatment discharge planning Will follow up Plan and treatment discussed with Dr. Vaca
--- NOTE | 2017-10-12 09:55 | PN ---
DATE: 10/12/2017 SUBJECTIVE: The patient is in bed, in no acute distress, nontoxic. PHYSICAL EXAMINATION: VITAL SIGNS: Temperature is 98, blood pressure is 120/70, respiratory rate of 18, heart rate of 95. HEENT: Unremarkable. NECK: Supple. LUNGS: Decreased breath sounds. HEART: Normal S1, S2. ABDOMEN: Soft, nontender. LABORATORY EXAMINATION: Reveals the patient's chemistries are noted. ASSESSMENT AND PLAN: A 52-year-old male with morbid obesity, BMI of 51, chronic obstructive lung disease, hypertension, patient with deafness, has completed antibiotics. Currently off of antibiotics, afebrile. The patient is at risk for developing nosocomial infections. Charan Pedroza MD
[2017-10-12] MEDS: Ammonium Lactate 12% Cream (140 g) TOP SCH ×2 (10:03→17:38)
[2017-10-12] MEDS: Verapamil 240 mg ER Tab PO SCH (10:03)
[2017-10-13] MEDS: Nystatin 100,000 Units/ml Oral Susp 5 ml UD PO SCH ×7 (02:36→23:30)
[2017-10-13] MEDS: oxyCODONE 10 mg Immediate Release Tab PO PRN ×2 (05:57→12:26)
[2017-10-13] MEDS: Levothyroxine 50 MCG TAB PO SCH (05:57)
[2017-10-13] MEDS: Insulin Reg-LOW-Coverage SC SCH ×4 (06:52→22:17)
--- NOTE | 2017-10-13 07:46 | CP.PCM.PN ---
Subjective - Date & Time of Evaluation Date of Evaluation: 10/13/17 Time of Evaluation: 06:40 - Subjective Subjective: Lying in bed, Sleeping but easily awaken, no distress, denies shortness of breath Reason for consultation and follow up:Continuity of care in TCU, Atrial fib/ flutter with rapid ventricular rate,morbid obesity,diabetes, cellulitis, hypertension,hypothyroidism,COPD,ascitis. Seen and examined by me and Dr. Faulkner Objective - Vital Signs/Intake and Output Vital Signs (last 24 hours): Temp Pulse Resp BP Pulse Ox 97.9 F 61 18 113/74 91 L 10/12/17 16:00 10/12/17 16:00 10/12/17 16:00 10/12/17 17:40 10/12/17 12:18 - Medications Medications: Current Medications Albuterol/Ipratropium (Duoneb 3 Mg/0.5 Mg (3 Ml) Ud) 3 ml IH Q2H PRN; Protocol PRN Reason: Shortness of Breath Last Admin: 10/12/17 13:03 Dose: 3 ml Apixaban (Eliquis) 5 mg PO BID SHA PRN Reason: Protocol Last Admin: 10/12/17 17:38 Dose: 5 mg Atenolol (Tenormin) 25 mg PO DAILY SHA PRN Reason: Protocol Last Admin: 10/12/17 10:04 Dose: 25 mg Furosemide (Lasix) 40 mg IVP BID SHA PRN Reason: Protocol Last Admin: 10/12/17 17:40 Dose: 40 mg Insulin Human Regular (Humulin R Low) 0 units SC ACHS SHA PRN Reason: Protocol Last Admin: 10/13/17 06:52 Dose: Not Given Lactic Acid (Lac-Hydrin 12% Cream (140 G)) 0 ea TOP BID SHA PRN Reason: Protocol Last Admin: 10/12/17 17:38 Dose: 2 applic Levothyroxine Sodium (Synthroid) 50 mcg PO 0600 SHA PRN Reason: Protocol Last Admin: 10/13/17 05:57 Dose: 50 mcg Nystatin (Nystatin Oral Susp) 10 ml PO Q3H SHA PRN Reason: Protocol Last Admin: 10/13/17 05:57 Dose: 10 ml Nystatin (Nystop Topical Powder) 0 gm TOP BID SHA Oxycodone HCl (Oxycodone Immediate Release Tab) 20 mg PO Q6H PRN; Protocol PRN Reason: Pain, severe (8-10) Last Admin: 10/13/17 05:57 Dose: 20 mg Verapamil HCl (Calan Sr Tab) 240 mg PO DAILY SHA PRN Reason: Protocol Last Admin: 10/12/17 10:03 Dose: 240 mg - Labs Labs: 10/11/17 07:30 - Constitutional Appears: No Acute Distress - Head Exam Head Exam: NORMOCEPHALIC - Eye Exam Eye Exam: Normal appearance - ENT Exam ENT Exam: Mucous Membranes Moist Additional comments: deaf and mute, lip reading - Respiratory Exam Respiratory Exam: Decreased Breath Sounds Additional comments: NC 2 l/min - Cardiovascular Exam Cardiovascular Exam: +S1, +S2 - GI/Abdominal Exam GI & Abdominal Exam: Distended, Soft, Normal Bowel Sounds - Exam Additional comments: continent - Extremities Exam Additional comments: cellulitis 2-3+edema - Neurological Exam Neurological Exam: Alert, Awake, Oriented x3 - Psychiatric Exam Psychiatric exam: Normal Affect, Normal Mood - Skin Skin Exam: Intact, Normal Color, Warm Assessment and Plan - Assessment and Plan (Free Text) Assessment: A 52 year old male, deaf and mute who came in to the ER due to leg swelling/ cellulitis and pain on left foot. In ER he was also in atrial fib/flutter with rapid ventricular rate. History of hypertension, morbid obesity,diabetes, COPD. During his hospital course, he was given antibiotics for the cellulitis which improved. He was treated with Calan for rapid afib/aflutter and rate has been controlled. CT scan of abdomen showed ascites and paracentesis done under US guided with 2.7 liters of fluid drained. ECHO showed dilated and and dysfunctional right ventricle with right atrial enlargement suggesting pulmonary hypertension. Improved tremendously, Transferred ot TCU for reconditioning.Completed IV antibiotics. oral thrush, nystatin swish and swallow started. Plan: Physical therapy in progress Stable cardiac status Heart rate and blood pressure stable Completed IV antibiotics for cellulitis Had oral thrush, on oral Nystatin Continue current medications Continue current treatment Discharge planning Will follow up Plan and treatment discussed with Dr. Faulkner
[2017-10-13] MEDS: Verapamil 240 mg ER Tab PO SCH (09:59)
[2017-10-13] MEDS: Ammonium Lactate 12% Cream (140 g) TOP SCH ×2 (10:00→17:53)
[2017-10-13] MEDS: Nystatin 100,000 Units/gm Topical Pow(15 gm) TOP SCH ×2 (10:02→17:55)
[2017-10-13] MEDS: Albuterol-Ipratrop 3 mg / 0.5 (3 ml) UD IH PRN (10:30)
--- NOTE | 2017-10-13 13:37 | PN ---
DATE: 10/12/2017 DAILY PROGRESS NOTE The patient is a 52-year-old male who was admitted to [facility] on 09/19 with cellulitis of bilateral lower extremities, atrial fibrillation with rapid ventricular response and he was also found to have hepatosplenomegaly with ascites on CAT scan. The cellulitis was treated with antibiotics and followed by Dr. Pedroza and Dr. Olsen. Atrial fibrillation was treated with Isoptin and was followed by Dr. Fauklner and Dr. Vaca, the quality review trainer. The patient underwent paracentesis by Dr. Gilberto Gutierrez and total of 2700 mL of fluid was drawn off. Echocardiogram showed the patient to have a weakened right ventricle and suggested pulmonary hypertension. The patient did well. He is being treated with diuretics. He was transferred to the Transitional Care Unit on the 10/06 where he continues to do well. He feels so much better, was seen today. A bout of thrush was successfully treated with Mycostatin swish and swallow. Today, the patient developed a groin rash. We will treat that with Mycostatin powder. The patient is scheduled to be discharged in two days. He is a deaf mute, but with texting and sign language, we can adequately communicate with the patient. He is feeling much improved and we will continue to follow the patient. Also of note, in the nurses' notes, the patient has lost 8 pounds, which seemed to be water weight, during his stay on the Transitional Care Unit. Chester Norman MD MTDPhilipp
--- NOTE | 2017-10-13 14:21 | CP.PCM.PN ---
Subjective - Date & Time of Evaluation Date of Evaluation: 10/13/17 Time of Evaluation: 07:50 - Subjective Subjective: Podiatry Progress Note for Dr. Hill 52M seen for superficial right leg ulceration and left fifth metatarsal head ulceration -resolved. Patient is AAO x 3 and NAD at time of visit. Appears to be resting comfortably in bed. Per nursing, no acute overnight events, no new pedal complaints. Objective - Vital Signs/Intake and Output Vital Signs (last 24 hours): Temp Pulse Resp BP Pulse Ox 97.9 F 87 18 138/79 91 L 10/12/17 16:00 10/13/17 10:03 10/12/17 16:00 10/13/17 10:09 10/12/17 12:18 - Medications Medications: Current Medications Albuterol/Ipratropium (Duoneb 3 Mg/0.5 Mg (3 Ml) Ud) 3 ml IH Q2H PRN; Protocol PRN Reason: Shortness of Breath Last Admin: 10/13/17 10:30 Dose: 3 ml Apixaban (Eliquis) 5 mg PO BID SHA PRN Reason: Protocol Last Admin: 10/13/17 10:00 Dose: 5 mg Atenolol (Tenormin) 25 mg PO DAILY SHA PRN Reason: Protocol Last Admin: 10/13/17 10:03 Dose: 25 mg Furosemide (Lasix) 40 mg IVP BID SHA PRN Reason: Protocol Last Admin: 10/13/17 10:09 Dose: 40 mg Insulin Human Regular (Humulin R Low) 0 units SC ACHS SHA PRN Reason: Protocol Last Admin: 10/13/17 12:21 Dose: Not Given Lactic Acid (Lac-Hydrin 12% Cream (140 G)) 0 ea TOP BID SHA PRN Reason: Protocol Last Admin: 10/13/17 10:00 Dose: 2 applic Levothyroxine Sodium (Synthroid) 50 mcg PO 0600 SHA PRN Reason: Protocol Last Admin: 10/13/17 05:57 Dose: 50 mcg Nystatin (Nystatin Oral Susp) 10 ml PO Q3H SHA PRN Reason: Protocol Last Admin: 10/13/17 12:22 Dose: 10 ml Nystatin (Nystop Topical Powder) 0 gm TOP BID SHA Last Admin: 10/13/17 10:02 Dose: 1 pow Oxycodone HCl (Oxycodone Immediate Release Tab) 20 mg PO Q6H PRN; Protocol PRN Reason: Pain, severe (8-10) Verapamil HCl (Calan Sr Tab) 240 mg PO DAILY SHA PRN Reason: Protocol Last Admin: 10/13/17 09:59 Dose: 240 mg - Labs Labs: 10/11/17 07:30 - Constitutional Appears: Well, Non-toxic, No Acute Distress - Extremities Exam Extremities Exam: absent: Calf Tenderness Additional comments: Lower extremity focused exam: Vasc: DP and PT pulses palpable 2/4. Temperature gradient warm to warm from proximal to distal. CFT < 3 sec to all digits. +1 pitting edema noted to B/L lower extremities Derm: Darkened diffuse skin changes that appear consistent with venous stasis noted to B/L lower extremities-appears chronic in nature. Lateral aspect of left 5th metatarsal head blister- resolve with callus overlying. No active drainage or purulence noted on exam. Superficial ulceration noted to right anterior has now resolved. No drainage, no purulence, no malodor, no fluctuance. Xerosis noted to the entire LE. Neuro: Epicritic and protective sensation slightly diminished b/l Ortho: Mild tenderness to palpation of left lateral 5th met head. No tenderness to palpation of right anterior leg wound. No other gross deformities noted - Neurological Exam Neurological Exam: Alert, Awake, Oriented x3 - Psychiatric Exam Psychiatric exam: Normal Affect, Normal Mood Assessment and Plan - Assessment and Plan (Free Text) Assessment: 52M seen for superficial right leg ulceration and left fifth metatarsal head ulceration- resolved Plan: Patient seen and evaluated Plan discussed with attending Dr. Hill No dressing needed to right leg Left foot newly healed ulceration dressed with optifoam pad Patient encouraged to use surgical shoes when ambulating No plan for surgical intervention at this time Podiatry will follow QOD Patient to follow up with Dr. Hill in his private clinic after discharge
[2017-10-13] MEDS: oxyCODONE 20 mg Immediate Release Tab PO PRN (18:02)
--- NOTE | 2017-10-13 22:36 | PN ---
DATE: 10/13/2017 SUBJECTIVE: Patient is in bed. No acute distress. Nontoxic. PHYSICAL EXAMINATION: VITAL SIGNS: On exam, temperature is 98, blood pressure is 120/70, respiratory rate of 16. HEENT: Unremarkable. NECK: Supple. LUNGS: Decreased breath sounds. HEART: Normal S1 and S2. ABDOMEN: Soft. LABORATORY EXAMINATION: Reviewed. ASSESSMENT AND PLAN: A 52-year-old male with morbid obesity with a body mass index of 52 and chronic obstructive lung disease, hypertension, patient with deafness, has completed antibiotics, currently off of antibiotic, is afebrile. He is at risk for developing nosocomial infections. Charan Pedroza MD
[2017-10-14] MEDS: oxyCODONE 20 mg Immediate Release Tab PO PRN ×2 (02:19→09:45)
[2017-10-14] MEDS: Nystatin 100,000 Units/ml Oral Susp 5 ml UD PO SCH ×4 (02:30→12:18)
[2017-10-14] MEDS: Levothyroxine 50 MCG TAB PO SCH (06:07)
[2017-10-14] MEDS: Insulin Reg-LOW-Coverage SC SCH ×2 (06:55→12:17)
--- NOTE | 2017-10-14 07:17 | CP.PCM.PN ---
Subjective - Date & Time of Evaluation Date of Evaluation: 10/14/17 Time of Evaluation: 06:20 - Subjective Subjective: Awake no distress, denies shortness of breath Reason for consultation and follow up:Continuity of care in TCU, Atrial fib/ flutter with rapid ventricular rate,morbid obesity,diabetes, cellulitis, hypertension,hypothyroidism,COPD,ascitis. Seen and examined by me and Dr. Faulkner Objective - Vital Signs/Intake and Output Vital Signs (last 24 hours): Temp Pulse Resp BP Pulse Ox 98.1 F 93 H 18 116/70 93 L 10/14/17 07:00 10/14/17 07:00 10/14/17 07:00 10/14/17 07:00 10/14/17 07:00 - Medications Medications: Current Medications Albuterol/Ipratropium (Duoneb 3 Mg/0.5 Mg (3 Ml) Ud) 3 ml IH Q2H PRN; Protocol PRN Reason: Shortness of Breath Last Admin: 10/13/17 10:30 Dose: 3 ml Apixaban (Eliquis) 5 mg PO BID SHA PRN Reason: Protocol Last Admin: 10/13/17 17:52 Dose: 5 mg Atenolol (Tenormin) 25 mg PO DAILY SHA PRN Reason: Protocol Last Admin: 10/13/17 10:03 Dose: 25 mg Furosemide (Lasix) 40 mg IVP BID SHA PRN Reason: Protocol Last Admin: 10/13/17 18:20 Dose: 40 mg Insulin Human Regular (Humulin R Low) 0 units SC ACHS SHA PRN Reason: Protocol Last Admin: 10/14/17 06:55 Dose: Not Given Lactic Acid (Lac-Hydrin 12% Cream (140 G)) 0 ea TOP BID SHA PRN Reason: Protocol Last Admin: 10/13/17 17:53 Dose: 2 applic Levothyroxine Sodium (Synthroid) 50 mcg PO 0600 SHA PRN Reason: Protocol Last Admin: 10/14/17 06:07 Dose: 50 mcg Nystatin (Nystatin Oral Susp) 10 ml PO Q3H SHA PRN Reason: Protocol Last Admin: 10/14/17 06:29 Dose: 10 ml Nystatin (Nystop Topical Powder) 0 gm TOP BID SHA Last Admin: 10/13/17 17:55 Dose: 1 pow Oxycodone HCl (Oxycodone Immediate Release Tab) 20 mg PO Q6H PRN; Protocol PRN Reason: Pain, severe (8-10) Last Admin: 10/14/17 02:19 Dose: 20 mg Verapamil HCl (Calan Sr Tab) 240 mg PO DAILY SHA PRN Reason: Protocol Last Admin: 10/13/17 09:59 Dose: 240 mg - Labs Labs: 10/11/17 07:30 - Constitutional Appears: No Acute Distress - Head Exam Head Exam: NORMOCEPHALIC - ENT Exam ENT Exam: Mucous Membranes Moist Additional comments: oral thrush deaf and mute, lip reading - Respiratory Exam Respiratory Exam: Clear to Ausculation Bilateral, NORMAL BREATHING PATTERN - Cardiovascular Exam Cardiovascular Exam: +S1, +S2 - GI/Abdominal Exam GI & Abdominal Exam: Distended, Soft, Normal Bowel Sounds - Extremities Exam Extremities Exam: Full ROM Additional comments: cellulitis, 2=3+edema - Neurological Exam Neurological Exam: Alert, Awake, Oriented x3 - Psychiatric Exam Psychiatric exam: Normal Affect, Normal Mood - Skin Skin Exam: Intact, Normal Color, Warm Assessment and Plan - Assessment and Plan (Free Text) Assessment: A 52 year old male, deaf and mute who came in to the ER due to leg swelling/ cellulitis and pain on left foot. In ER he was also in atrial fib/flutter with rapid ventricular rate. History of hypertension, morbid obesity,diabetes, COPD. During his hospital course, he was given antibiotics for the cellulitis which improved. He was treated with Calan for rapid afib/aflutter and rate has been controlled. CT scan of abdomen showed ascites and paracentesis done under US guided with 2.7 liters of fluid drained. ECHO showed dilated and and dysfunctional right ventricle with right atrial enlargement suggesting pulmonary hypertension. Improved tremendously, Transferred ot TCU for reconditioning.Completed IV antibiotics. oral thrush, nystatin swish and swallow started. Plan: Possible discharge today Oral thrush better, on Nystatin Physical therapy in progress Stable cardiac status Heart rate and blood pressure stable Completed IV antibiotics for cellulitis Continue current medications Continue current treatment Discharge planning Follow up in office 2-3 weeks Will follow up Plan and treatment discussed with Dr. Faulkner
[2017-10-14] MEDS: Ammonium Lactate 12% Cream (140 g) TOP SCH (09:30)
[2017-10-14] MEDS: Nystatin 100,000 Units/gm Topical Pow(15 gm) TOP SCH (09:30)
[2017-10-14] MEDS: Verapamil 240 mg ER Tab PO SCH (09:36)
[2017-10-14 09:41] VITALS: BP 128/83; PULSE 78
--- NOTE | 2017-10-14 10:49 | CP.PCM.PN ---
Subjective - Date & Time of Evaluation Date of Evaluation: 10/14/17 Time of Evaluation: 10:47 - Subjective Subjective: Podiatry Progress Note for Dr. Hill 52M seen for superficial right leg ulceration and left fifth metatarsal head ulceration -resolved. Patient is AAO x 3 and NAD at time of visit. Appears to be resting comfortably in bed. Per nursing, no acute overnight events, no new pedal complaints. Objective - Vital Signs/Intake and Output Vital Signs (last 24 hours): Temp Pulse Resp BP Pulse Ox 98.1 F 78 18 128/83 93 L 10/14/17 07:00 10/14/17 09:36 10/14/17 07:00 10/14/17 09:36 10/14/17 07:00 - Medications Medications: Current Medications Albuterol/Ipratropium (Duoneb 3 Mg/0.5 Mg (3 Ml) Ud) 3 ml IH Q2H PRN; Protocol PRN Reason: Shortness of Breath Last Admin: 10/13/17 10:30 Dose: 3 ml Apixaban (Eliquis) 5 mg PO BID SHA PRN Reason: Protocol Last Admin: 10/14/17 09:30 Dose: 5 mg Atenolol (Tenormin) 25 mg PO DAILY SHA PRN Reason: Protocol Last Admin: 10/14/17 09:36 Dose: 25 mg Furosemide (Lasix) 40 mg IVP BID SHA PRN Reason: Protocol Last Admin: 10/14/17 09:36 Dose: 40 mg Insulin Human Regular (Humulin R Low) 0 units SC ACHS SHA PRN Reason: Protocol Last Admin: 10/14/17 06:55 Dose: Not Given Lactic Acid (Lac-Hydrin 12% Cream (140 G)) 0 ea TOP BID SHA PRN Reason: Protocol Last Admin: 10/14/17 09:30 Dose: 1 applic Levothyroxine Sodium (Synthroid) 50 mcg PO 0600 SHA PRN Reason: Protocol Last Admin: 10/14/17 06:07 Dose: 50 mcg Nystatin (Nystatin Oral Susp) 10 ml PO Q3H SHA PRN Reason: Protocol Last Admin: 10/14/17 09:28 Dose: 10 ml Nystatin (Nystop Topical Powder) 0 gm TOP BID SHA Last Admin: 10/14/17 09:30 Dose: 1 pow Oxycodone HCl (Oxycodone Immediate Release Tab) 20 mg PO Q6H PRN; Protocol PRN Reason: Pain, severe (8-10) Last Admin: 10/14/17 09:45 Dose: 20 mg Verapamil HCl (Calan Sr Tab) 240 mg PO DAILY SHA PRN Reason: Protocol Last Admin: 10/14/17 09:36 Dose: 240 mg - Labs Labs: 10/11/17 07:30 - Constitutional Appears: Well, Non-toxic, No Acute Distress - Extremities Exam Extremities Exam: absent: Calf Tenderness Additional comments: Lower extremity focused exam: Vasc: DP and PT pulses palpable 2/4. Temperature gradient warm to warm from proximal to distal. CFT < 3 sec to all digits. +1 pitting edema noted to B/L lower extremities Derm: Darkened diffuse skin changes that appear consistent with venous stasis noted to B/L lower extremities-appears chronic in nature. Lateral aspect of left 5th metatarsal head blister- resolve with callus overlying. No active drainage or purulence noted on exam. Superficial ulceration noted to right anterior has now resolved. No drainage, no purulence, no malodor, no fluctuance. LE more hydrated. Xerosis resolved Neuro: Epicritic and protective sensation slightly diminished b/l Ortho: Mild tenderness to palpation of left lateral 5th met head. No tenderness to palpation of right anterior leg wound. No other gross deformities noted - Neurological Exam Neurological Exam: Alert, Awake, Oriented x3 - Psychiatric Exam Psychiatric exam: Normal Affect, Normal Mood Assessment and Plan - Assessment and Plan (Free Text) Assessment: 52M seen for superficial right leg ulceration and left fifth metatarsal head ulceration- resolved Plan: Patient seen and evaluated Plan discussed with attending Dr. Hill No dressing needed to right leg Left foot newly healed ulceration dressed with optifoam pad Patient encouraged to use surgical shoes when ambulating No plan for surgical intervention at this time Podiatry will follow QOD Patient to follow up with Dr. Hill in his private clinic after discharge
[2017-10-14 12:01] VITALS: RESP 17; TEMP 97.6; O2SAT 96
--- NOTE | 2017-10-14 12:29 | CP.PCM.PN ---
Subjective - Date & Time of Evaluation Date of Evaluation: 10/14/17 Time of Evaluation: 10:45 - Subjective Subjective: Seen and examined at the bedside earlier today, chart review. Patient denies nausea, vomiting, or abdominal pain. Does report improvement of abdominal distention, no [employer] AND [employer]SP[employer]CH[employer]IC or chest pain. Tolerating oral intake. Last bowel movement was 2 days ago no reports of bleeding. Denies any acute overnight events. Objective - Vital Signs/Intake and Output Vital Signs (last 24 hours): Temp Pulse Resp BP Pulse Ox 97.6 F 78 17 128/83 96 10/14/17 10:00 10/14/17 10:00 10/14/17 10:00 10/14/17 10:00 10/14/17 10:00 - Medications Medications: Current Medications Albuterol/Ipratropium (Duoneb 3 Mg/0.5 Mg (3 Ml) Ud) 3 ml IH Q2H PRN; Protocol PRN Reason: Shortness of Breath Last Admin: 10/13/17 10:30 Dose: 3 ml Apixaban (Eliquis) 5 mg PO BID SHA PRN Reason: Protocol Last Admin: 10/14/17 09:30 Dose: 5 mg Atenolol (Tenormin) 25 mg PO DAILY SHA PRN Reason: Protocol Last Admin: 10/14/17 09:36 Dose: 25 mg Furosemide (Lasix) 40 mg IVP BID SHA PRN Reason: Protocol Last Admin: 10/14/17 09:36 Dose: 40 mg Insulin Human Regular (Humulin R Low) 0 units SC ACHS SHA PRN Reason: Protocol Last Admin: 10/14/17 12:17 Dose: Not Given Lactic Acid (Lac-Hydrin 12% Cream (140 G)) 0 ea TOP BID SHA PRN Reason: Protocol Last Admin: 10/14/17 09:30 Dose: 1 applic Levothyroxine Sodium (Synthroid) 50 mcg PO 0600 SHA PRN Reason: Protocol Last Admin: 10/14/17 06:07 Dose: 50 mcg Nystatin (Nystatin Oral Susp) 10 ml PO Q3H SHA PRN Reason: Protocol Last Admin: 10/14/17 12:18 Dose: 10 ml Nystatin (Nystop Topical Powder) 0 gm TOP BID SHA Last Admin: 10/14/17 09:30 Dose: 1 pow Oxycodone HCl (Oxycodone Immediate Release Tab) 20 mg PO Q6H PRN; Protocol PRN Reason: Pain, severe (8-10) Last Admin: 10/14/17 09:45 Dose: 20 mg Verapamil HCl (Calan Sr Tab) 240 mg PO DAILY SHA PRN Reason: Protocol Last Admin: 10/14/17 09:36 Dose: 240 mg - Labs Labs: 10/11/17 07:30 - Constitutional Appears: No Acute Distress - Head Exam Head Exam: NORMOCEPHALIC - Eye Exam Eye Exam: Normal appearance. absent: Scleral icterus - ENT Exam ENT Exam: Mucous Membranes Moist - Neck Exam Neck Exam: Normal Inspection - Respiratory Exam Respiratory Exam: NORMAL BREATHING PATTERN. absent: Respiratory Distress - Cardiovascular Exam Cardiovascular Exam: +S1, +S2 - GI/Abdominal Exam GI & Abdominal Exam: Distended, Soft, Normal Bowel Sounds. absent: Guarding, Tenderness, Rebound - Extremities Exam Extremities Exam: Pedal Edema. absent: Calf Tenderness - Neurological Exam Neurological Exam: Alert, Awake, Oriented x3 - Skin Skin Exam: Dry, Warm Assessment and Plan - Assessment and Plan (Free Text) Assessment: ASSESSMENT: Ascites with hepatosplenomegaly, status post paracentesis 2700 cc removed.s/p CT abd/pel showed moderate ascites, sepatomegaly, splenomegaly, retained fecal material and diverticulosis, ascites possibly due to pulmonary HTN, right sided heart failure, albumin 2.2, SAAG 1.5, most likely due to right heart failure Cellulitis Atrial flutter on Eliquis Hypertension COPD Pulmonary hypertension Elevated TSH History of deafness Oral thrush Plan: diet as tolerated On nystatin liquid on Eliquis monitor H/H for overt GI bleeding as per cardiology Patient would benefit from endoscopy to r/o esophageal varices, discussed with primary will hold off due to pulmonary HTN, high risk, optimize patient before endoscopy Seen and discussed w/ Dr. Banks.
--- NOTE | 2017-10-14 16:21 | CP.PCM.PN ---
Subjective - Date & Time of Evaluation Date of Evaluation: 10/14/17 Time of Evaluation: 11:15 - Subjective Subjective: Improved left foot pain, no fevers, not in distress. Objective - Vital Signs/Intake and Output Vital Signs (last 24 hours): Temp Pulse Resp BP Pulse Ox 98.1 F 93 H 18 116/70 93 L 10/14/17 07:00 10/14/17 07:00 10/14/17 07:00 10/14/17 07:00 10/14/17 07:00 - Medications Medications: Current Medications Albuterol/Ipratropium (Duoneb 3 Mg/0.5 Mg (3 Ml) Ud) 3 ml IH Q2H PRN; Protocol PRN Reason: Shortness of Breath Last Admin: 10/13/17 10:30 Dose: 3 ml Apixaban (Eliquis) 5 mg PO BID SHA PRN Reason: Protocol Last Admin: 10/13/17 17:52 Dose: 5 mg Atenolol (Tenormin) 25 mg PO DAILY SHA PRN Reason: Protocol Last Admin: 10/13/17 10:03 Dose: 25 mg Furosemide (Lasix) 40 mg IVP BID SHA PRN Reason: Protocol Last Admin: 10/13/17 18:20 Dose: 40 mg Insulin Human Regular (Humulin R Low) 0 units SC ACHS SHA PRN Reason: Protocol Last Admin: 10/14/17 06:55 Dose: Not Given Lactic Acid (Lac-Hydrin 12% Cream (140 G)) 0 ea TOP BID SHA PRN Reason: Protocol Last Admin: 10/13/17 17:53 Dose: 2 applic Levothyroxine Sodium (Synthroid) 50 mcg PO 0600 SHA PRN Reason: Protocol Last Admin: 10/14/17 06:07 Dose: 50 mcg Nystatin (Nystatin Oral Susp) 10 ml PO Q3H SHA PRN Reason: Protocol Last Admin: 10/14/17 06:29 Dose: 10 ml Nystatin (Nystop Topical Powder) 0 gm TOP BID SHA Last Admin: 10/13/17 17:55 Dose: 1 pow Oxycodone HCl (Oxycodone Immediate Release Tab) 20 mg PO Q6H PRN; Protocol PRN Reason: Pain, severe (8-10) Last Admin: 10/14/17 02:19 Dose: 20 mg Verapamil HCl (Calan Sr Tab) 240 mg PO DAILY SHA PRN Reason: Protocol Last Admin: 10/13/17 09:59 Dose: 240 mg - Labs Labs: 10/11/17 07:30 - Constitutional Appears: Non-toxic, Chronically Ill - Head Exam Head Exam: NORMAL INSPECTION - Respiratory Exam Respiratory Exam: Decreased Breath Sounds - Cardiovascular Exam Cardiovascular Exam: +S1, +S2 - GI/Abdominal Exam GI & Abdominal Exam: Soft. absent: Tenderness Assessment and Plan - Assessment and Plan (Free Text) Plan: Assessment S/P left lateral foot purulent skin and skin structure infection, with no evidence of osteomyelitis on MRI deafness HTN morbid obesity with BMI 51 COPD S/P appendectomy S/P cholecystectomy S/P tonsillectomy Plan completed 10 days of antibiotics - will continue to monitor the patient off antibiotics since he is at risk for healthcare-associated infections
--- NOTE | 2017-10-15 02:11 | DS ---
I would like the discharge summary to be read as follows, if you would be so kind. 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 He was also found to have hepatosplenomegaly with ascites on CAT scan. The cellulitis was treated with antibiotics and he was followed by Dr. Pedroza and Dr. Olsen. Atrial fibrillation was treated with Isoptin and Tenormin and he was followed by the oracle reports developer, Dr. Faulkner and Dr. Vaca. He underwent paracentesis with Dr. Gilberto Gutierrez and total of 2700 ml of fluid was drawn off. He underwent echocardiography which showed a weakened right ventricle and suggestions of pulmonary hypertension. The patient did well. He was transferred to the Transitional Care Unit on October 06 and he continued to do well. Thrush developed in his mouth and he received the Mycostatin swish and swallows for that. He developed a rash in his groin and that was treated with Mycostatin powder. The patient has much improved. He is feeling well and he is ambulating well. When seen today, his mother was at bedside and he is ready for discharge to home. I reviewed his medications with him. His pulmonary and diabetes medications are to stay the same, changes to be made in that his Diovan and clonidine are to be discontinued, they are replaced with verapamil 240 mg once a day, atenolol 25 mg once a day. In addition, he is increasing his dosage of furosemide to 40 mg p.o. once a day and Eliquis 5 mg p.o. b.i.d. is a new prescription for him since his onset of atrial fibrillation. The patient will be seen in office visit 1 week from now. It was suggested he by a bathroom scale to check daily weights and if the weight is serially increasing we will increase his diuretic dosage. So, the patient is discharged in improved condition. FINAL DIAGNOSES: 1. Cellulitis of bilateral lower extremities. 2. Atrial fibrillation with rapid ventricular response. 3. Right ventricular dysfunction. 4. Pulmonary hypertension. 5. Diabetes mellitus. 6. Chronic obstructive pulmonary disease. Edward Suczewski, MD
== END 2017-10-14 15:12 | disposition home or self-care (01) | DRG 309 ==
LOC: TRCU 19:54
PROVIDERS: ADMIT Internal Medicine; ATTEND Internal Medicine
PROC: F07Z9FZ Gait Training/Functional Ambulation Treatment using Assistive, Adaptive, Supportive or Protective Equipment (ICD-10-PCS; principal; 2017-10-07)
PROC: F08Z4FZ Home Management Treatment using Assistive, Adaptive, Supportive or Protective Equipment (ICD-10-PCS; 2017-10-07)
PROC: 3E0F7GC Introduction of Other Therapeutic Substance into Respiratory Tract, Via Natural or Artificial Opening (ICD-10-PCS; 2017-10-07)
DX: I48.91 Unspecified atrial fibrillation (principal); I48.92 Unspecified atrial flutter; Z79.01 Long term (current) use of anticoagulants; L03.115 Cellulitis of right lower limb; R18.8 Other ascites; B37.0 Candidal stomatitis; Z68.43 Body mass index [BMI] 50.0-59.9, adult; L97.919 Non-pressure chronic ulcer of unspecified part of right lower leg with unspecified severity; L03.116 Cellulitis of left lower limb; I27.20 Pulmonary hypertension, unspecified; J44.9 Chronic obstructive pulmonary disease, unspecified; I10 Essential (primary) hypertension; E66.01 Morbid (severe) obesity due to excess calories; E03.9 Hypothyroidism, unspecified; I25.10 Atherosclerotic heart disease of native coronary artery without angina pectoris; L97.529 Non-pressure chronic ulcer of other part of left foot with unspecified severity; E11.621 Type 2 diabetes mellitus with foot ulcer; E11.622 Type 2 diabetes mellitus with other skin ulcer; R16.2 Hepatomegaly with splenomegaly, not elsewhere classified; H91.3 Deaf nonspeaking, not elsewhere classified; R21 Rash and other nonspecific skin eruption; Z87.891 Personal history of nicotine dependence; Z90.49 Acquired absence of other specified parts of digestive tract

== ENCOUNTER 2017-11-26 16:02 | Inpatient (IN) | payer MEDICARE ==
[2017-11-26 16:02] VITALS: PULSE 107
--- NOTE | 2017-11-26 16:51 | ED PDOC ---
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 Sister states patient was seen in the Emergency department for similar symptoms 3 weeks ago for similar symptoms. As per sister , patient works as a supervisor delivery department at [employer] and over past week experiences dyspnea on exertion. However, patient states worsening symptoms today and requests medical evaluation. They note increased swelling to the legs bilaterally and to his abdomen. He denies abdominal pain. He denies bloody urine or stool . Denies fevers or chills. PMD: Dr. Young 11/26/17 22:42 Time/Duration: 1 week Symptom Onset: Gradual Symptom Course: Worsening Activities at Onset: Light Context: Home Past Medical History - Provider Review Nursing Documentation Reviewed: Yes - Tetanus Immunization Tetanus Immunization: Unknown - Cardiac Hx Hypertension: Yes - Pulmonary Hx Chronic Obstructive Pulmonary Disease (COPD): Yes - Neurological Hx Neurological Disorder: No - HEENT Hx Deafness: Yes - Renal Hx Renal Disorder: No - Endocrine/Metabolic Hx Diabetes Mellitus Type 2: Yes - Hematological/Oncological Hx Blood Disorders: No - Integumentary Hx Dermatological Disorder: No - Musculoskeletal/Rheumatological Hx Falls: No - Gastrointestinal Hx Gastrointestinal Disorders: Yes - Genitourinary/Gynecological Hx Genitourinary Disorders: No Hx Reproductive Disorders: No - Psychiatric Hx Psychophysiologic Disorder: No Hx Depression: No Hx Emotional Abuse: No Hx Physical Abuse: No Hx Substance Use: No - Surgical History Hx Appendectomy: Yes Hx Cholecystectomy: Yes Hx Tonsillectomy: Yes - Suicidal Assessment Feels Threatened In Home Enviroment: No Family/Social History - Physician Review Nursing Documentation Reviewed: Yes Family/Social History: No Known Family HX Smoking Status: Former Smoker Hx Alcohol Use: No Hx Substance Use: No Hx Substance Use Treatment: No Allergies/Home Meds Allergies/Adverse Reactions: Allergies No Known Allergies Allergy (Verified 10/06/17 20:08) Home Medications: Home Meds Medication Instructions Recorded Confirmed Fluticasone/Salmeterol [Advair 1 puff IH BID 04/24/13 10/06/17 250-50 Diskus] MetFORMIN ER [Glucophage XR] 500 mg PO BID 04/24/13 10/06/17 Montelukast Sodium 10 mg PO DAILY 04/24/13 10/06/17 Glimepiride [Amaryl] 4 mg PO BID 09/22/17 10/06/17 Ipratropium [Atrovent HFA] 1 puff IH DAILY 09/22/17 10/06/17 Oxycodone HCl [Roxicodone] 30 mg PO 5XD 09/22/17 10/06/17 Review of Systems - Review of Systems Constitutional: Fatigue, Weight Change. absent: Night Sweats Eyes: absent: Vision Changes, Eye Pain ENT: absent: Hearing Changes, Sore Throat, Rhinorrhea, Sinus Congestion Respiratory: SOB. absent: Cough, Sputum, Wheezing Cardiovascular: Edema, PARHAM. absent: Chest Pain, Calf Pain, Orthopnea Gastrointestinal: absent: Abdominal Pain, Constipation, Diarrhea, Vomiting, Appetite Changes Genitourinary Male: absent: Urinary Output Changes Musculoskeletal: Joint Swelling. absent: Arthralgias Skin: Rash. absent: Ulcer Neurological: absent: Headache, Dizziness, Focal Weakness Endocrine: absent: Polyuria Hemo/Lymphatic: absent: Easy Bleeding Psychiatric: absent: Depression Physical Exam - Physical Exam Narrative Physical Exam (Text): 11/26/17 16:45 Head: Atraumatic. Normocephalic. Eyes: PERRL. EOMI. Conjunctivae are not pale. ENT: Mucous membranes are moist and intact. Oropharynx is clear and symmetric. No stridor. Patient is hard of hearing. Neck: Supple. Full ROM. No meningeal signs. Positive JVD. Cardiovascular: Irregular rate and rhythm, systolic murmur. Pulmonary/Chest: Tachypneic. Bilateral expiartory wheezing with rales. Abdominal: Obese. Distended with tense abdominal skin wall. Anasarca. Nontender. Genitourinary: no testicular pain Back: No CVA tenderness. Extremities: Bilateral lower extremity edema with erythematous changes to lower extremity, no ulcerations or purulence noted. Skin: Erythema to bilateral lower extremities with no pus or abscess noted. Neurological: Alert, awake, communicated by reading lips. No facial droop. No focal weakness. Psychiatric: Good eye contact. Normal interaction, affect, and behavior, although sister reports that he has been more sleepy than usual. 11/26/17 22:45 Vital Signs Reviewed: Yes Vital Signs Temp Pulse Resp BP Pulse Ox 11/26/17 22:20 79 89 L 11/26/17 22:10 69 88 L 11/26/17 22:03 73 11/26/17 22:00 85 96/54 L 87 L 11/26/17 21:50 93 H 87 L 11/26/17 21:40 69 88 L 11/26/17 21:33 97.4 F L 11/26/17 21:30 79 90 L 11/26/17 21:20 95 H 88 L 11/26/17 21:19 77 11/26/17 21:17 61 118/68 89 L 11/26/17 21:12 70 29 H 86 L 11/26/17 21:10 84 L 11/26/17 20:00 100/59 L 11/26/17 19:49 65 16 97/52 L 93 L 11/26/17 16:15 17 84 L 11/26/17 16:14 97.4 F L 69 17 11/26/17 16:12 97.4 F L 68 19 136/87 88 L Temperature: Afebrile Pulse: Irregular Respiratory Rate: Tachypneic Appearance: Positive for: Ill-Appearing Pain Distress: Moderate Mental Status: Positive for: Alert and Oriented X 3 Medical Decision Making ED Course and Treatment: 11/26/17 16:45 Impression: 52 year old male presents to the Emergency department for dyspnea on exertion, abdominal and bilateral leg swelling. Differential Diagnosis included but are not limited to: CHF vs. COPD vs. Sepsis vs. Cellulitis Plan: -- ABG -- VBG -- Labs -- EKG -- Labs -- Chest X-ray -- Albuterol -- Blood Culture -- Urine Culture -- Urinalysis -- Reassess and disposition Prior Visits: Notes and results from previous visits were reviewed. Progress Notes: Patient is examined with sister present. On exam, he is communicative by gestures and reading lips. Oxygen saturations 88% on nasal cannula. Wheezes and rales noted. There is bilateral leg edema and abdominal wall edema. He is initially afebrile and denies any chest pain or abdominal pain. He is eating and moving bowels with no nausea. Abdomen is distended but nontender. ABG reveals mild acidosis with elevated CO2. I feel this is secondary to component of CHF and COPD. Patient initiated on Bipap and ordered duonebs, solumedrol, and lasix. He is tolerating BIpap, although will admit to ICU for monitoring of neuro and respiratory status. Internet Technology Manager consulted. Case reviewed with family and patient. Will admit to ICU for chf, copd, edema. Currently no fever, lactate unremrakable. K elevated will reassess in ICU as patient has received multiple nebulizers and currently no arrhtyhmias or hyperacute t waves noted. On re-evaluation in ED, there is improvement in respiratory status, hypoxia improved, alert, but remains with symptoms. Case discussed with PMD Dr. Josef Norman who accepts patient to his service to ICU. 11/26/17 22:56 - Critical Care Critical Care Minutes: 45 minutes - Lab Interpretations Lab Results: 11/26/17 17:00 11/26/17 17:00 Lab Results 11/26/17 17:00: TSH 3rd Generation 8.71 H 11/26/17 17:00: PT 17.9 H, INR 1.56 H, APTT 32.7 11/26/17 17:00: WBC 10.4 D, RBC 5.00, Hgb 14.8, Hct 47.0, MCV 94.0, MCH 29.6, MCHC 31.5, RDW 17.1 H, Plt Count 286, MPV 10.5, Gran % 75.5 H, Lymph % (Auto) 14.6 L, Pickett % (Auto) 8.6 H, Eos % (Auto) 1.0 L, Baso % (Auto) 0.3, Gran # 7.87 H, Lymph # (Auto) 1.5, Pickett # (Auto) 0.9 H, Eos # (Auto) 0.1, Baso # (Auto) 0.03 11/26/17 17:00: Sodium 135, Chloride 95 L, Potassium 5.7 H*, Carbon Dioxide 28, Anion Gap 18, BUN 44 H, Creatinine 2.7 H, Est GFR ( Amer) 30, Est GFR ( Non-Af Amer) 25, Random Glucose 114 H, Calcium 8.6, Magnesium 1.9, Total Bilirubin 0.9, AST 36, ALT 36, Alkaline Phosphatase 231 H, Lactate Dehydrogenase 434, Total Creatine Kinase 35, Troponin I < 0.01 D, NT-Pro-B Natriuret Pep 3280 H, Total Protein 7.6, Albumin 3.6, Globulin 4.0, Albumin/ Globulin Ratio 0.9 L 11/26/17 17:00: pO2 118 H, VBG pH 7.26 L, VBG pCO2 64.0 H, VBG HCO3 29.6 H, VBG Total CO2 31.6 H, VBG O2 Sat (Calc) 99.3 H, VBG Base Excess 0.8, VBG Potassium 6.3 H*, Sodium 130.0 L, Chloride 96.0 L, Glucose 116 H, Lactate 1.7, FiO2 21.0, Venous Blood Potassium 6.3 H* 11/26/17 17:00: pCO2 60 H, pO2 49.0 L, HCO3 28.2 H, ABG pH 7.28 L, ABG Total CO2 30.0 H, ABG O2 Saturation 85.9 L, ABG Base Excess 0.1, ABG Potassium 5.3 H, Sodium 132.0, Chloride 97.0 L, Glucose 115 H, Lactate 1.2, FiO2 21.0, Arterial Blood Potassium 5.3 H - RAD Interpretation Radiology Orders: 11/26/17 16:41 CHEST PORTABLE [RAD] Stat 11/26/17 19:06 DUPLEX LOWER EXTRM VEIN BILAT [US] Stat Hydraulic Riveter: ED Physician - EKG Interpretation EKG Interpretation (Text): 11/26/17 22:39 EKG at 1632 atiral flutter rate of [address] t wave abnormality Interpreted by ED Physician: Yes Type: 12 lead EKG - Medication Orders Current Medication Orders: Albuterol/Ipratropium (Duoneb 3 Mg/0.5 Mg (3 Ml) Ud) 3 ml IH [id number] PRN PRN Reason: Shortness of Breath Apixaban (Eliquis) 2.5 mg PO BID SHA PRN Reason: Protocol Atenolol (Tenormin) 25 mg PO DAILY SHA Furosemide (Lasix) 60 mg IVP Q12 SHA Levothyroxine Sodium (Synthroid) 50 mcg PO 0600 SHA Methylprednisolone (Solu-Medrol) 60 mg IVP Q8 SHA Verapamil HCl (Calan Sr Tab) 240 mg PO DAILY SHA Discontinued Medications Albuterol/Ipratropium (Duoneb 3 Mg/0.5 Mg (3 Ml) Ud) 3 ml IH Q15M SHA Stop: 11/26/17 17:16 Last Admin: 11/26/17 21:27 Dose: 3 ml Furosemide (Lasix) 40 mg IVP ONCE ONE Stop: 11/26/17 18:46 Last Admin: 11/26/17 20:00 Dose: 40 mg MAR Blood Pressure Document 11/26/17 20:00 [email or web address] (Rec: 11/26/17 20:00 CAST [id number]) Blood Pressure Blood Pressure (100/60-150/90) 100/59 IVP Administration Document 11/26/17 20:00 [email or web address] (Rec: 11/26/17 20:00 [email or web address] [id number]) Charges for Administration # of IVP Administrations 1 Methylprednisolone (Solu-Medrol) 125 mg IVP STAT STA Stop: 11/26/17 18:27 Last Admin: 11/26/17 20:00 Dose: 125 mg IVP Administration Document 11/26/17 20:00 [email or web address] (Rec: 11/26/17 20:00 [email or web address] [id number]) Charges for Administration # of IVP Administrations 1 Sodium Polystyrene Sulfonate (Kayexalate Susp) 15 gm PO STAT STA Stop: 11/26/17 18:49 Last Admin: 11/26/17 20:00 Dose: 15 gm - Scribe Statement The provider has reviewed the documentation as recorded by the Stacey Harrison. All medical record entries made by the Stacey were at my direction and personally dictated by me. I have reviewed the chart and agree that the record accurately reflects my personal performance of the history, physical exam, medical decision making, and the department course for this patient. I have also personally directed, reviewed, and agree with the discharge instructions and disposition. Disposition/Present on Arrival - Present on Arrival Any Indicators Present on Arrival: Yes History of DVT/PE: No History of Uncontrolled Diabetes: Yes Urinary Catheter: No History of Decub. Ulcer: No History Surgical Site Infection Following: None - Disposition Have Diagnosis and Disposition been Completed?: Yes Diagnosis: Respiratory distress, COPD (chronic obstructive pulmonary disease), CHF ( congestive heart failure), Hyperkalemia, Renal insufficiency, Edema, Atrial flutter Disposition: HOSPITALIZED Disposition Time: 22:38 Patient Plan: Admission, ICU Patient Problems: Current Active Problems Problem Status Onset Respiratory distress Acute COPD (chronic obstructive pulmonary disease) Acute CHF (congestive heart failure) Acute Hyperkalemia Acute Renal insufficiency Acute Edema Acute Atrial flutter Acute Condition: CRITICAL
[2017-11-26 17:14] LABS: ARTERIAL BLOOD GAS HCO3 28.2 mmol/L (21-28); ARTERIAL BLOOD GAS O2 SAT 85.9 % (95-98); ARTERIAL BLOOD GAS PCO2 60 mm/Hg (35-45); ARTERIAL BLOOD GAS PH 7.28 (7.35-7.45)
[2017-11-26] MEDS: Albuterol-Ipratrop 3 mg / 0.5 (3 ml) UD IH SCH ×3 (17:37→21:27)
[2017-11-26 17:48] LABS: VENOUS BLOOD GAS BASE EXCESS 0.8 mmol/L (0.0-2.0); VENOUS BLOOD GAS PO2 118 mm/Hg (30-55); VENOUS BLOOD PH 7.26 (7.32-7.43)
[2017-11-26 17:59] LABS: BASO # 0.03 K/mm3 (0.0-2.0); BASO % 0.3 % (0.0-3.0); EOS # 0.1 (0.0-0.7); GRAN # 7.87 (1.4-6.5); GRAN % 75.5 % (50.0-68.0); HEMOGLOBIN 14.8 g/dL (14.0-18.0); LYMPH # 1.5 (1.2-3.4); LYMPH % 14.6 % (22.0-35.0); MEAN CORPUSCULAR HEMOGLOBIN 29.6 pg (25.0-35.0); MEAN CORPUSCULAR HGB CONC 31.5 g/dl (31.0-37.0); MEAN PLATELET VOLUME 10.5 fl (7.0-11.0); MONO # 0.9 (0.1-0.6); MONO % 8.6 % (1.0-6.0); RED CELL DISTRIBUTION WIDTH 17.1 % (11.5-14.5); WHITE BLOOD COUNT 10.4 10^3/ul (4.5-11.0)
[2017-11-26 18:04] LABS: INR 1.56 (0.93-1.08); PARTIAL THROMBOPLASTIN TIME 32.7 Seconds (25.1-36.5); PROTHROMBIN TIME 17.9 SECONDS (9.4-12.5)
[2017-11-26 18:20] LABS: ALB/GLOB RATIO 0.9 (1.1-1.8); ALBUMIN 3.6 g/dL (3.0-4.8); ALT/SGPT 36 U/L (7-56); AST/SGOT 36 U/L (17-59); BLOOD UREA NITROGEN 44 mg/dL (7-21); CALCIUM 8.6 mg/dL (8.4-10.5); GFR AFRICAN-AMERICAN 30; GFR NON-AFRICAN AMERICAN 25
[2017-11-26 18:22] LABS: B-TYPE NATRIURETIC PEPTIDE 3280 pg/mL (0-450); TROPONIN I < 0.01 ng/mL
[2017-11-26] MEDS ORDERED: Sod Polystyrene Sulf 15 gm/60 ml Susp PO STA (18:48)
--- NOTE | 2017-11-26 18:50 | CP.PCM.CON ---
<Bobby Mora - Last Filed: 11/26/17 18:52> History of Present Illness - History of Present Illness History of Present Illness: Bobby Abby PGY1 ICU Consult for Dr. Smiley Mr. Rosas is a 52yo deaf mute M with a PMH of morbid obesity, DM2, HTN, chronic low back, hypothyroidism, COPD and LE cellulitis who presents with shortness of breath on exertion and b/l LE and abdominal swelling. The patient' s sister is bedside and provides history. The patient works as a delivery of shopping news and has been short of breath for a few days. She states that the patient has a BiPAP machine at home but it's broken and he has not been able to use it. He's also on home O2. Denies fevers/chills, chest pain, headaches, dizziness. 12 -pt ROS was reviewed and is otherwise unremarkable. In ED, patient on BiPAP and his respiratory status improved. He was given duoneb , Lasix 40mg IVP and Solu-medrol 125mg IVP. PMD: Emerson PMH: as above SHx: former smoker, denies ETOH or drug use. on home O2 Meds: as per MAR allergies: NKDA Review of Systems - Review of Systems All systems: reviewed and no additional remarkable complaints except (as per HPi ) Past Patient History - Tetanus Immunizations Tetanus Immunization: Unknown - Past Medical History & Family History Past Medical History?: Yes - Past Social History Smoking Status: Former Smoker Alcohol: None Drugs: Denies Home Situation {Lives}: Alone - CARDIAC Hx Hypertension: Yes - PULMONARY Hx Chronic Obstructive Pulmonary Disease (COPD): Yes - NEUROLOGICAL Hx Neurological Disorder: No - HEENT Hx Deafness: Yes - RENAL Hx Chronic Kidney Disease: No - ENDOCRINE/METABOLIC Hx Diabetes Mellitus Type 2: Yes - HEMATOLOGICAL/ONCOLOGICAL Hx Blood Disorders: No - INTEGUMENTARY Hx Dermatological Problems: No - MUSCULOSKELETAL/RHEUMATOLOGICAL Hx Falls: No - GASTROINTESTINAL Hx Gastrointestinal Disorders: Yes - GENITOURINARY/GYNECOLOGICAL Hx Genitourinary Disorders: No Hx Reproductive Disorders: No - PSYCHIATRIC Hx Psychophysiologic Disorder: No Hx Depression: No Hx Emotional Abuse: No Hx Physical Abuse: No Hx Substance Use: No - SURGICAL HISTORY Hx Appendectomy: Yes Hx Cholecystectomy: Yes Hx Tonsillectomy: Yes Meds Allergies/Adverse Reactions: Allergies Allergy/AdvReac Type Severity Reaction Status Date / Time No Known Allergies Allergy Verified 10/06/17 20:08 - Medications Medications: Current Medications Furosemide (Lasix) 60 mg IVP Q12 SHA Methylprednisolone (Solu-Medrol) 60 mg IVP Q8 SHA Physical Exam - Constitutional Appears: Well, Non-toxic, No Acute Distress - Head Exam Head Exam: NORMAL INSPECTION - Eye Exam Eye Exam: Normal appearance - ENT Exam ENT Exam: Mucous Membranes Moist - Neck Exam Neck exam: Positive for: Normal Inspection - Respiratory Exam Respiratory Exam: Decreased Breath Sounds, Rales (b/l bases), Wheezes. absent: Respiratory Distress Additional comments: on BiPAP - Cardiovascular Exam Cardiovascular Exam: RRR, +S1, +S2 - GI/Abdominal Exam GI & Abdominal Exam: Distended (diffuse), Soft. absent: Firm, Guarding, Tenderness - Extremities Exam Extremities exam: Positive for: pedal edema (3+), tenderness - Back Exam Back exam: NORMAL INSPECTION - Neurological Exam Neurological exam: Alert, Oriented x3 - Psychiatric Exam Psychiatric exam: Normal Mood - Skin Skin Exam: Normal Color Additional comments: b/l LE swelling, redness and skin tightness/weeping wounds Results - Vital Signs Recent Vital Signs: Last Vital Signs Temp 97.4 F L 11/26/17 16:14 Pulse 69 11/26/17 16:14 Resp 17 11/26/17 16:14 BP 136/87 11/26/17 16:12 Pulse Ox 88 L 11/26/17 16:12 - Labs Result Diagrams: 11/26/17 17:00 11/26/17 17:00 Labs: Laboratory Results - last 24 hr 11/26/17 11/26/17 11/26/17 17:00 17:00 17:00 WBC RBC Hgb Hct MCV MCH MCHC RDW Plt Count MPV Gran % Lymph % (Auto) Rich % (Auto) Eos % (Auto) Baso % (Auto) Gran # Lymph # (Auto) Rich # (Auto) Eos # (Auto) Baso # (Auto) PT INR APTT pCO2 60 H pO2 49.0 L 118 H HCO3 28.2 H ABG pH 7.28 L ABG Total CO2 30.0 H ABG O2 Saturation 85.9 L ABG Base Excess 0.1 ABG Potassium 5.3 H VBG pH 7.26 L VBG pCO2 64.0 H VBG HCO3 29.6 H VBG Total CO2 31.6 H VBG O2 Sat (Calc) 99.3 H VBG Base Excess 0.8 VBG Potassium 6.3 H* Sodium 132.0 130.0 L 135 Chloride 97.0 L 96.0 L 95 L Glucose 115 H 116 H Lactate 1.2 1.7 FiO2 21.0 21.0 Potassium 5.7 H* Carbon Dioxide 28 Anion Gap 18 BUN 44 H Creatinine 2.7 H Est GFR ( Amer) 30 Est GFR (Non-Af Amer) 25 Random Glucose 114 H Calcium 8.6 Magnesium 1.9 Total Bilirubin 0.9 AST 36 ALT 36 Alkaline Phosphatase 231 H Lactate Dehydrogenase 434 Total Creatine Kinase 35 Troponin I < 0.01 D NT-Pro-B Natriuret Pep 3280 H Total Protein 7.6 Albumin 3.6 Globulin 4.0 Albumin/Globulin Ratio 0.9 L Arterial Blood Potassium 5.3 H Venous Blood Potassium 6.3 H* 11/26/17 11/26/17 17:00 17:00 WBC 10.4 D RBC 5.00 Hgb 14.8 Hct 47.0 MCV 94.0 MCH 29.6 MCHC 31.5 RDW 17.1 H Plt Count 286 MPV 10.5 Gran % 75.5 H Lymph % (Auto) 14.6 L Rich % (Auto) 8.6 H Eos % (Auto) 1.0 L Baso % (Auto) 0.3 Gran # 7.87 H Lymph # (Auto) 1.5 Rich # (Auto) 0.9 H Eos # (Auto) 0.1 Baso # (Auto) 0.03 PT 17.9 H INR 1.56 H APTT 32.7 pCO2 pO2 HCO3 ABG pH ABG Total CO2 ABG O2 Saturation ABG Base Excess ABG Potassium VBG pH VBG pCO2 VBG HCO3 VBG Total CO2 VBG O2 Sat (Calc) VBG Base Excess VBG Potassium Sodium Chloride Glucose Lactate FiO2 Potassium Carbon Dioxide Anion Gap BUN Creatinine Est GFR ( Amer) Est GFR (Non-Af Amer) Random Glucose Calcium Magnesium Total Bilirubin AST ALT Alkaline Phosphatase Lactate Dehydrogenase Total Creatine Kinase Troponin I NT-Pro-B Natriuret Pep Total Protein Albumin Globulin Albumin/Globulin Ratio Arterial Blood Potassium Venous Blood Potassium Assessment & Plan - Assessment and Plan (Free Text) Assessment: 52yo deaf mute M with a PMH of morbid obesity, DM2, HTN, chronic low back, hypothyroidism, COPD and LE cellulitis who presents with shortness of breath on exertion and b/l LE and abdominal swelling. Found to be in CHF exacerbation and COPD exacerbation and CRUZITO with hyperkalemia. Plan: Lasix 60mg IVP q12 Solu-medrol 60mg IVP q8 cont BiPAP kayexelate ordered A1C ordered urine osm and lytes ordered nephrology consulted, recs appreciated blood and urine cultures ordered CXR reviewed Accuchecks ACHs Case was reviewed and discussed with attending, Dr. Smiley <Randolph Smiley - Last Filed: 11/26/17 19:07> Meds - Medications Medications: Current Medications Furosemide (Lasix) 60 mg IVP Q12 SHA Methylprednisolone (Solu-Medrol) 60 mg IVP Q8 SHA Results - Vital Signs Recent Vital Signs: Last Vital Signs Temp 97.4 F L 11/26/17 16:14 Pulse 69 11/26/17 16:14 Resp 17 11/26/17 16:14 BP 136/87 11/26/17 16:12 Pulse Ox 88 L 11/26/17 16:12 - Labs Result Diagrams: 11/26/17 17:00 11/26/17 17:00 Labs: Laboratory Results - last 24 hr 11/26/17 11/26/17 11/26/17 17:00 17:00 17:00 WBC RBC Hgb Hct MCV MCH MCHC RDW Plt Count MPV Gran % Lymph % (Auto) Rich % (Auto) Eos % (Auto) Baso % (Auto) Gran # Lymph # (Auto) Rich # (Auto) Eos # (Auto) Baso # (Auto) PT INR APTT pCO2 60 H pO2 49.0 L 118 H HCO3 28.2 H ABG pH 7.28 L ABG Total CO2 30.0 H ABG O2 Saturation 85.9 L ABG Base Excess 0.1 ABG Potassium 5.3 H VBG pH 7.26 L VBG pCO2 64.0 H VBG HCO3 29.6 H VBG Total CO2 31.6 H VBG O2 Sat (Calc) 99.3 H VBG Base Excess 0.8 VBG Potassium 6.3 H* Sodium 132.0 130.0 L 135 Chloride 97.0 L 96.0 L 95 L Glucose 115 H 116 H Lactate 1.2 1.7 FiO2 21.0 21.0 Potassium 5.7 H* Carbon Dioxide 28 Anion Gap 18 BUN 44 H Creatinine 2.7 H Est GFR ( Amer) 30 Est GFR (Non-Af Amer) 25 Random Glucose 114 H Calcium 8.6 Magnesium 1.9 Total Bilirubin 0.9 AST 36 ALT 36 Alkaline Phosphatase 231 H Lactate Dehydrogenase 434 Total Creatine Kinase 35 Troponin I < 0.01 D NT-Pro-B Natriuret Pep 3280 H Total Protein 7.6 Albumin 3.6 Globulin 4.0 Albumin/Globulin Ratio 0.9 L Arterial Blood Potassium 5.3 H Venous Blood Potassium 6.3 H* 11/26/17 11/26/17 17:00 17:00 WBC 10.4 D RBC 5.00 Hgb 14.8 Hct 47.0 MCV 94.0 MCH 29.6 MCHC 31.5 RDW 17.1 H Plt Count 286 MPV 10.5 Gran % 75.5 H Lymph % (Auto) 14.6 L Rich % (Auto) 8.6 H Eos % (Auto) 1.0 L Baso % (Auto) 0.3 Gran # 7.87 H Lymph # (Auto) 1.5 Rich # (Auto) 0.9 H Eos # (Auto) 0.1 Baso # (Auto) 0.03 PT 17.9 H INR 1.56 H APTT 32.7 pCO2 pO2 HCO3 ABG pH ABG Total CO2 ABG O2 Saturation ABG Base Excess ABG Potassium VBG pH VBG pCO2 VBG HCO3 VBG Total CO2 VBG O2 Sat (Calc) VBG Base Excess VBG Potassium Sodium Chloride Glucose Lactate FiO2 Potassium Carbon Dioxide Anion Gap BUN Creatinine Est GFR ( Amer) Est GFR (Non-Af Amer) Random Glucose Calcium Magnesium Total Bilirubin AST ALT Alkaline Phosphatase Lactate Dehydrogenase Total Creatine Kinase Troponin I NT-Pro-B Natriuret Pep Total Protein Albumin Globulin Albumin/Globulin Ratio Arterial Blood Potassium Venous Blood Potassium Assessment & Plan - Assessment and Plan (Free Text) Plan: Patient seen and examined on rounds with resident, agree with note with following additions/exceptions: Patient is 52yo male w/PMH of morbid obesity, DM2, HTN, chronic low back, hypothyroidism, COPD and LE cellulitis who presents with shortness of breath on exertion and b/l LE and abdominal swelling. Patient was found to have mild hypercapnia, placed on BIPAP, in acute renal failure, reports poor po intake. On exam clinically volume overloaded, has end exp wheezing, likely combination of COPD exacerbation and CHF exacerbation. CXR with pulm edema. COPD exacerbation CHF exacerbation Acute renal failure Hyperkalemia Obesity DM HTN Recommend: - cont with BIPAP as tolerated 14/6/40%, repeat ABG, duonebs PRN - NO ID issues - Solumedrol 60mg IV q8hr - Lasix 60mg IV bid - UA, Ulytes - Renal eval - Renal U/S - LE duplex - Kayex 30g x 1, repeat BMP - BP control - GI ppx - DVT ppx - Admit to CCU Critical care time 35 minutes
--- NOTE | 2017-11-26 19:30 | CARD ---
APPROVED REPORT Date of service: 11/26/2017 EKG Measurement Heart [id number] ID [id number] <Conclusion> Atrial flutter with variable AV block Right axis deviation Low voltage QRS ST & T wave abnormality, consider anterior ischemia Abnormal ECG
[2017-11-26 22:43] VITALS: BMI 48.9
[2017-11-26] MEDS ORDERED: oxyCODONE 30 mg Immediate Release Tab PO ONE (23:37)
[2017-11-27 03:01] LABS: URINE BILIRUBIN SMALL (NEGATIVE); URINE BLOOD NEGATIVE (NEGATIVE); URINE GLUCOSE (UA) NEGATIVE (NEGATIVE); URINE LEUKOCYTE ESTERASE NEGATIVE Leu/uL (NEGATIVE); URINE PROTEIN 30 mg/dL (<30 mg/dL)
[2017-11-27 03:03] LABS: URINE APPEARANCE SL CLOUDY (CLEAR); URINE COLOR DARK YELLOW (YELLOW)
[2017-11-27 03:33] LABS: URINE AMORPHOUS SEDIMENT FEW; URINE BACTERIA FEW (NEG); URINE EPITHELIAL CELLS 0 - 2 /hpf (0-5); URINE RBC 0 - 2 /hpf (0-2)
[2017-11-27] MEDS: Levothyroxine 50 MCG TAB PO SCH (05:47)
[2017-11-27 06:37] LABS: ARTERIAL BLOOD GAS HCO3 28.6 mmol/L (21-28); ARTERIAL BLOOD GAS O2 SAT 95.8 % (95-98); ARTERIAL BLOOD GAS TCO2 30.9 mmol.L (22-28)
[2017-11-27 06:38] LABS: HEMOGLOBIN 14.5 g/dL (14.0-18.0); MEAN CELL VOLUME 94.5 fl (80.0-105.0); MEAN CORPUSCULAR HEMOGLOBIN 29.3 pg (25.0-35.0); MEAN PLATELET VOLUME 10.7 fl (7.0-11.0); RBC 4.95 10^6/uL (3.5-6.1); RED CELL DISTRIBUTION WIDTH 17.1 % (11.5-14.5); WHITE BLOOD COUNT 7.4 10^3/ul (4.5-11.0)
[2017-11-27 06:43] LABS: ARTERIAL BLOOD GAS PCO2 75 mm/Hg (35-45); ARTERIAL BLOOD GAS PH 7.19 (7.35-7.45)
[2017-11-27] MEDS ORDERED: Midazolam 2 MG/2 ML VIAL ONE ×2 (06:54→06:57)
[2017-11-27 06:56] LABS: TROPONIN I 0.01 ng/mL
[2017-11-27] MEDS ORDERED: Etomidate 20 mg/10ml Inj IV ONE (06:56)
[2017-11-27 07:07] LABS: ALB/GLOB RATIO 0.9 (1.1-1.8); ALBUMIN 3.6 g/dL (3.0-4.8); CALCIUM 8.6 mg/dL (8.4-10.5)
[2017-11-27] MEDS ORDERED: Dextrose 50% SYRINGE Inj (50 ml) IVP ONE ×2 (07:13→22:13)
[2017-11-27] MEDS ORDERED: Sod Polystyrene Sulf 15 gm/60 ml Susp PR ONE (07:13)
[2017-11-27] MEDS ORDERED: Insulin Regular 1 UNITS/0.01 ML ML SC ONE (07:14)
[2017-11-27] MEDS: Albuterol-Ipratrop 3 mg / 0.5 (3 ml) UD IH PRN (07:36)
[2017-11-27] MEDS ORDERED: Sodium Chloride 0.9% 1,000 ML IV SCH (08:15)
--- NOTE | 2017-11-27 08:37 | RAD ---
Date of service: 11/26/2017 HISTORY: sob COMPARISON: 09/23/2017 FINDINGS: LUNGS: There is vascular congestion with an infiltrate and effusion at the right lung base PLEURA: No significant pleural effusion identified, no pneumothorax apparent. CARDIOVASCULAR: Moderate cardiomegaly OSSEOUS STRUCTURES: No significant abnormalities. VISUALIZED UPPER ABDOMEN: Normal. OTHER FINDINGS: None. IMPRESSION: There is vascular congestion with an infiltrate and effusion at the right lung base
--- NOTE | 2017-11-27 09:06 | US ---
HISTORY: Leg pain and swelling. Evaluate for DVT PHYSICIAN(S): Gilberto Gutierrez MD. TECHNIQUE: Duplex sonography and color-flow Doppler with graded compression were used to evaluate the deep venous systems of both lower extremities. The exam is extremely limited by body habitus, edema, and inability to position. The lower femoral veins and tibial veins are not adequately seen. FINDINGS: The visualized deep venous systems of both lower extremities are sonographically normal and compressible. Normal wave forms and augmentation are seen. There is no sonographic evidence for deep venous thrombosis in the visualized segments of both lower extremities. IMPRESSION: No sonographic evidence for deep venous thrombosis in the visualized segments of both lower extremities. Very limited study
[2017-11-27] MEDS ORDERED: Verapamil 240 mg ER Tab PO SCH (10:00)
--- NOTE | 2017-11-27 10:01 | CARD ---
APPROVED REPORT Date of service: 11/27/2017 EKG Measurement Heart [id number] <Conclusion> Atrial flutter with variable AV block Anterolateral infarct, age undetermined Abnormal ECG
--- NOTE | 2017-11-27 10:11 | CP.CCUPN ---
<KimberleeRandolph - Last Filed: 11/27/17 12:08> CCU Subjective - Physician Review Subjective (Free Text): Randolph Mohan DO PGY-1 ICU Progress note for Dr. Smiley Pt seen and examined at bedside. Interview was conducted with the use of civil division deputy sheriff (ID#[id number]), as pt is deaf and mute. ABG just prior to interview showed an worsening respiratory acidosis. BPAP settings adjusted (19/6 50% 23 RR , SpO2=90%), from (14/6 50%). This morning pt was noted to be hyperkalemic at 6.5. Pt was given Calcium gluconate, D50, Insulin IVP. Kayexalate PO/PRwas not given due to pt on BPAP/body habitus. Pt placed on NS at 80 mL/hr. Pt has no complaints at this time. He reports that his last bowel movement was yesterday, and was normal. He reports that he is passing gas. Pt denies fever, headache, dizziness, lightheadedness, weakness, visual changes, chest pain, palpitations, SOB, abdominal pain, n/v/d, paresthesias. A 12-point ROS was reviewed and is unremarkable except as above. CCU Objective - Vital Signs / Intake & Output Vital Signs (Last 4 hours): Vital Signs Pulse 11/27/17 07:15 87 Intake and Output (Last 8hrs): Intake & Output 11/26/17 11/27/17 11/27/17 22:59 06:59 14:59 Intake Total 100 Output Total 200 Balance -100 Weight 154.675 kg Intake: Oral 100 Output: Urine 200 Urethral (Anthony) 200 Other: Voiding Method Urinal - Physical Exam Narrative Physical Exam (Free Text): physical exam conducted with translation via civil division deputy sheriff ([id number]) Head: Positive for: Atraumatic, Normocephalic Pupils: Positive for: PERRL Extroacular Muscles: Positive for: EOMI Conjunctiva: Positive for: Normal Mouth: Positive for: Moist Mucous Membranes Neck: Positive for: Normal Range of Motion Respiratory/Chest: Positive for: Wheezes (diffuse wheezes), Tachypneic, Other ( on BPAP (19/6 50% 23RR), tidal volume in the 400s). Negative for: Accessory Muscle Use Cardiovascular: Positive for: Murmurs (2/6 blowing early systolic murmur loudest over cardiac apex), Irregular Rhythm (Afib), Other (+s3) Abdomen: Positive for: Distention, Other (morbid obesity). Negative for: Tenderness, Normal Bowel Sounds (hypoactive bowel sounds), Rebound, Guarding Upper Extremity: Positive for: Normal Inspection Lower Extremity: Positive for: Swelling, Erythema ((+) erythema, swelling, warmth in bilateral lower extremities (from knee to ankle). (+) poor pedal hygiene), Temperature Abnormalties. Negative for: Tenderness Neurological: Positive for: GCS=15 Skin: Positive for: Warm, Dry, Normal Color Psychiatric: Positive for: Alert, Oriented x 3, Normal Insight, Other ( communication via gear design engineer) - Medications Active Medications: Active Medications Generic Name Dose Route Start Last Admin Trade Name Freq PRN Reason Stop Dose Admin Albuterol/Ipratropium 3 ml 11/26/17 19:08 11/27/17 07:36 Duoneb 3 Mg/0.5 Mg (3 Ml) Ud IH 3 ml [id number] PRN Administration Shortness of Breath Apixaban 2.5 mg 11/27/17 10:00 Eliquis PO BID [facility] Protocol Atenolol 25 mg 11/27/17 10:00 Tenormin PO DAILY [facility] Sodium Chloride 1,000 mls @ 80 mls/hr 11/27/17 08:15 11/27/17 08:21 Sodium Chloride 0.9% IV 80 mls/hr .[id number] SHA Administration Insulin Human Lispro 0 units 11/27/17 11:30 Humalog Med SC ACHS [facility] Protocol Levothyroxine Sodium 50 mcg 11/27/17 06:00 11/27/17 05:47 Synthroid PO 50 mcg 0600 SHA Administration Methylprednisolone 60 mg 11/26/17 22:00 11/27/17 05:47 Solu-Medrol IVP 60 mg Q8 SHA Administration Verapamil HCl 240 mg 11/27/17 10:00 Calan Sr Tab PO DAILY SHA - Patient Studies Lab Studies: Lab Studies 11/27/17 11/27/17 11/27/17 Range/Units 06:32 06:00 06:00 WBC 7.4 D (4.5-11.0) 10^3/ul RBC 4.95 (3.5-6.1) 10^6/uL Hgb 14.5 (14.0-18.0) g/dL Hct 46.8 (42.0-52.0) % MCV 94.5 (80.0-105.0) fl MCH 29.3 (25.0-35.0) pg MCHC 31.0 (31.0-37.0) g/dl RDW 17.1 H (11.5-14.5) % Plt Count 236 (120.0-450.0) 10^3/uL MPV 10.7 (7.0-11.0) fl pCO2 75 H* (35-45) mm/Hg pO2 76.0 L (80-100) mm/Hg HCO3 28.6 H (21-28) mmol/L ABG pH 7.19 L* (7.35-7.45) ABG Total CO2 30.9 H (22-28) mmol.L ABG O2 Saturation 95.8 (95-98) % ABG Base Excess -1.5 (-2.0-3.0) mmol/L ABG Potassium 6.2 H* (3.6-5.2) mmol/L Glucose 180 H (75-110) mg/dl Lactate 1.3 (0.7-2.1) mmol/L FiO2 40.0 % Pressure Support 8 Inspiratory BiPAP 14 Sodium 132.0 135 (132-148) mmol/L Potassium 6.5 H* (3.6-5.0) mmol/L Chloride 96.0 L 94 L (98-107) mmol/L Carbon Dioxide 27 (21-33) mmol/L Anion Gap 20 (10-20) BUN 52 H (7-21) mg/dL Creatinine 2.9 H (0.8-1.5) mg/dl Est GFR ( Amer) 28 Est GFR (Non-Af Amer) 23 POC Glucose (mg/dL) (65-110) mg/dL Random Glucose 183 H (70-110) mg/dL Calcium 8.6 (8.4-10.5) mg/dL Total Bilirubin 0.9 (0.2-1.3) mg/dL AST 32 (17-59) U/L ALT 28 (7-56) U/L Alkaline Phosphatase 237 H (38-126) U/L Lactate Dehydrogenase 341 (333-699) U/L Total Creatine Kinase 27 L (35-230) U/L Troponin I 0.01 ng/mL Total Protein 7.5 (5.8-8.3) g/dL Albumin 3.6 (3.0-4.8) g/dL Globulin 3.9 gm/dL Albumin/Globulin Ratio 0.9 L (1.1-1.8) Arterial Blood Potassium 6.2 H* (3.6-5.2) mmol/L Urine Color (YELLOW) Urine Appearance (CLEAR) Urine pH (4.7-8.0) Ur Specific Bradshaw (1.005-1.035) Urine Protein (<30 mg/dL) mg/dL Urine Glucose (UA) (NEGATIVE) mg/dL Urine Ketones (NEGATIVE) mg/dL Urine Blood (NEGATIVE) Urine Nitrate (NEGATIVE) Urine Bilirubin (NEGATIVE) Urine Urobilinogen (<1 E.U./dL) E.U./dL Ur Leukocyte Esterase (NEGATIVE) Mikala/uL Urine RBC (0-2) /hpf Urine WBC (0-6) /hpf Ur Epithelial Cells (0-5) /hpf Amorphous Sediment Urine Bacteria (NEG) Urine Osmolality (300-1000) mosm/kg Ur Random Creatinine mg/dL Ur Random Sodium meq/L Ur Random Potassium meq/L Ur Random Urea Nitrogn mg/dL 11/27/17 11/27/17 11/27/17 Range/Units 02:45 02:45 02:45 WBC (4.5-11.0) 10^3/ul RBC (3.5-6.1) 10^6/uL Hgb (14.0-18.0) g/dL Hct (42.0-52.0) % MCV (80.0-105.0) fl MCH (25.0-35.0) pg MCHC (31.0-37.0) g/dl RDW (11.5-14.5) % Plt Count (120.0-450.0) 10^3/uL MPV (7.0-11.0) fl pCO2 (35-45) mm/Hg pO2 (80-100) mm/Hg HCO3 (21-28) mmol/L ABG pH (7.35-7.45) ABG Total CO2 (22-28) mmol.L ABG O2 Saturation (95-98) % ABG Base Excess (-2.0-3.0) mmol/L ABG Potassium (3.6-5.2) mmol/L Glucose (75-110) mg/dl Lactate (0.7-2.1) mmol/L FiO2 % Pressure Support Inspiratory BiPAP Sodium (132-148) mmol/L Potassium (3.6-5.0) mmol/L Chloride (98-107) mmol/L Carbon Dioxide (21-33) mmol/L Anion Gap (10-20) BUN (7-21) mg/dL Creatinine (0.8-1.5) mg/dl Est GFR ( Amer) Est GFR (Non-Af Amer) POC Glucose (mg/dL) (65-110) mg/dL Random Glucose (70-110) mg/dL Calcium (8.4-10.5) mg/dL Total Bilirubin (0.2-1.3) mg/dL AST (17-59) U/L ALT (7-56) U/L Alkaline Phosphatase (38-126) U/L Lactate Dehydrogenase (333-699) U/L Total Creatine Kinase (35-230) U/L Troponin I ng/mL Total Protein (5.8-8.3) g/dL Albumin (3.0-4.8) g/dL Globulin gm/dL Albumin/Globulin Ratio (1.1-1.8) Arterial Blood Potassium (3.6-5.2) mmol/L Urine Color Dark yellow (YELLOW) Urine Appearance Sl cloudy (CLEAR) Urine pH 5.0 (4.7-8.0) Ur Specific Bradshaw >= 1.030 (1.005-1.035) Urine Protein 30 H (<30 mg/dL) mg/dL Urine Glucose (UA) Negative (NEGATIVE) mg/dL Urine Ketones Negative (NEGATIVE) mg/dL Urine Blood Negative (NEGATIVE) Urine Nitrate Negative (NEGATIVE) Urine Bilirubin Small H (NEGATIVE) Urine Urobilinogen 2.0 H (<1 E.U./dL) E.U./dL Ur Leukocyte Esterase Negative (NEGATIVE) Mikala/uL Urine RBC 0 - 2 (0-2) /hpf Urine WBC 1 - 3 (0-6) /hpf Ur Epithelial Cells 0 - 2 (0-5) /hpf Amorphous Sediment Few Urine Bacteria Few (NEG) Urine Osmolality 341 (300-1000) mosm/kg Ur Random Creatinine 315 mg/dL Ur Random Sodium 6 meq/L Ur Random Potassium 55.0 meq/L Ur Random Urea Nitrogn 219 mg/dL 11/26/17 11/26/17 Range/Units 23:05 23:02 WBC (4.5-11.0) 10^3/ul RBC (3.5-6.1) 10^6/uL Hgb (14.0-18.0) g/dL Hct (42.0-52.0) % MCV (80.0-105.0) fl MCH (25.0-35.0) pg MCHC (31.0-37.0) g/dl RDW (11.5-14.5) % Plt Count (120.0-450.0) 10^3/uL MPV (7.0-11.0) fl pCO2 (35-45) mm/Hg pO2 (80-100) mm/Hg HCO3 (21-28) mmol/L ABG pH (7.35-7.45) ABG Total CO2 (22-28) mmol.L ABG O2 Saturation (95-98) % ABG Base Excess (-2.0-3.0) mmol/L ABG Potassium (3.6-5.2) mmol/L Glucose (75-110) mg/dl Lactate (0.7-2.1) mmol/L FiO2 % Pressure Support Inspiratory BiPAP Sodium (132-148) mmol/L Potassium (3.6-5.0) mmol/L Chloride (98-107) mmol/L Carbon Dioxide (21-33) mmol/L Anion Gap (10-20) BUN (7-21) mg/dL Creatinine (0.8-1.5) mg/dl Est GFR ( Amer) Est GFR (Non-Af Amer) POC Glucose (mg/dL) 158 H 155 H (65-110) mg/dL Random Glucose (70-110) mg/dL Calcium (8.4-10.5) mg/dL Total Bilirubin (0.2-1.3) mg/dL AST (17-59) U/L ALT (7-56) U/L Alkaline Phosphatase (38-126) U/L Lactate Dehydrogenase (333-699) U/L Total Creatine Kinase (35-230) U/L Troponin I ng/mL Total Protein (5.8-8.3) g/dL Albumin (3.0-4.8) g/dL Globulin gm/dL Albumin/Globulin Ratio (1.1-1.8) Arterial Blood Potassium (3.6-5.2) mmol/L Urine Color (YELLOW) Urine Appearance (CLEAR) Urine pH (4.7-8.0) Ur Specific Bradshaw (1.005-1.035) Urine Protein (<30 mg/dL) mg/dL Urine Glucose (UA) (NEGATIVE) mg/dL Urine Ketones (NEGATIVE) mg/dL Urine Blood (NEGATIVE) Urine Nitrate (NEGATIVE) Urine Bilirubin (NEGATIVE) Urine Urobilinogen (<1 E.U./dL) E.U./dL Ur Leukocyte Esterase (NEGATIVE) Mikala/uL Urine RBC (0-2) /hpf Urine WBC (0-6) /hpf Ur Epithelial Cells (0-5) /hpf Amorphous Sediment Urine Bacteria (NEG) Urine Osmolality (300-1000) mosm/kg Ur Random Creatinine mg/dL Ur Random Sodium meq/L Ur Random Potassium meq/L Ur Random Urea Nitrogn mg/dL Laboratory Results - last 24 hr 11/26/17 11/26/17 11/27/17 23:02 23:05 02:45 WBC RBC Hgb Hct MCV MCH MCHC RDW Plt Count MPV pCO2 pO2 HCO3 ABG pH ABG Total CO2 ABG O2 Saturation ABG Base Excess ABG Potassium Glucose Lactate FiO2 Pressure Support Inspiratory BiPAP Sodium Potassium Chloride Carbon Dioxide Anion Gap BUN Creatinine Est GFR ( Amer) Est GFR (Non-Af Amer) POC Glucose (mg/dL) 155 H 158 H Random Glucose Calcium Total Bilirubin AST ALT Alkaline Phosphatase Lactate Dehydrogenase Total Creatine Kinase Troponin I Total Protein Albumin Globulin Albumin/Globulin Ratio Arterial Blood Potassium Urine Color Dark yellow Urine Appearance Sl cloudy Urine pH 5.0 Ur Specific Bradshaw >= 1.030 Urine Protein 30 H Urine Glucose (UA) Negative Urine Ketones Negative Urine Blood Negative Urine Nitrate Negative Urine Bilirubin Small H Urine Urobilinogen 2.0 H Ur Leukocyte Esterase Negative Urine RBC 0 - 2 Urine WBC 1 - 3 Ur Epithelial Cells 0 - 2 Amorphous Sediment Few Urine Bacteria Few Urine Osmolality Ur Random Creatinine Ur Random Sodium Ur Random Potassium Ur Random Urea Nitrogn 11/27/17 11/27/17 11/27/17 02:45 02:45 06:00 WBC RBC Hgb Hct MCV MCH MCHC RDW Plt Count MPV pCO2 pO2 HCO3 ABG pH ABG Total CO2 ABG O2 Saturation ABG Base Excess ABG Potassium Glucose Lactate FiO2 Pressure Support Inspiratory BiPAP Sodium 135 Potassium 6.5 H* Chloride 94 L Carbon Dioxide 27 Anion Gap 20 BUN 52 H Creatinine 2.9 H Est GFR ( Amer) 28 Est GFR (Non-Af Amer) 23 POC Glucose (mg/dL) Random Glucose 183 H Calcium 8.6 Total Bilirubin 0.9 AST 32 ALT 28 Alkaline Phosphatase 237 H Lactate Dehydrogenase 341 Total Creatine Kinase 27 L Troponin I 0.01 Total Protein 7.5 Albumin 3.6 Globulin 3.9 Albumin/Globulin Ratio 0.9 L Arterial Blood Potassium Urine Color Urine Appearance Urine pH Ur Specific Bradshaw Urine Protein Urine Glucose (UA) Urine Ketones Urine Blood Urine Nitrate Urine Bilirubin Urine Urobilinogen Ur Leukocyte Esterase Urine RBC Urine WBC Ur Epithelial Cells Amorphous Sediment Urine Bacteria Urine Osmolality 341 Ur Random Creatinine 315 Ur Random Sodium 6 Ur Random Potassium 55.0 Ur Random Urea Nitrogn 219 11/27/17 11/27/17 06:00 06:32 WBC 7.4 D RBC 4.95 Hgb 14.5 Hct 46.8 MCV 94.5 MCH 29.3 MCHC 31.0 RDW 17.1 H Plt Count 236 MPV 10.7 pCO2 75 H* pO2 76.0 L HCO3 28.6 H ABG pH 7.19 L* ABG Total CO2 30.9 H ABG O2 Saturation 95.8 ABG Base Excess -1.5 ABG Potassium 6.2 H* Glucose 180 H Lactate 1.3 FiO2 40.0 Pressure Support 8 Inspiratory BiPAP 14 Sodium 132.0 Potassium Chloride 96.0 L Carbon Dioxide Anion Gap BUN Creatinine Est GFR ( Amer) Est GFR (Non-Af Amer) POC Glucose (mg/dL) Random Glucose Calcium Total Bilirubin AST ALT Alkaline Phosphatase Lactate Dehydrogenase Total Creatine Kinase Troponin I Total Protein Albumin Globulin Albumin/Globulin Ratio Arterial Blood Potassium 6.2 H* Urine Color Urine Appearance Urine pH Ur Specific Bradshaw Urine Protein Urine Glucose (UA) Urine Ketones Urine Blood Urine Nitrate Urine Bilirubin Urine Urobilinogen Ur Leukocyte Esterase Urine RBC Urine WBC Ur Epithelial Cells Amorphous Sediment Urine Bacteria Urine Osmolality Ur Random Creatinine Ur Random Sodium Ur Random Potassium Ur Random Urea Nitrogn EKG/Cardiology Studies: Cardiology / EKG Studies 11/27/17 07:13 EKG [ELECTROCARDIOGRAM] Stat Comment: Reason For Exam: hyperkalemia Fingerstick Blood Sugar Results: 158 Review of Systems - Review of Systems All systems: reviewed and no additional remarkable complaints except (as per HPI ) Critical Care Progress Note - Nutrition Nutrition: Nutrition Category Date Time Status NPO Diet [DIET] Diets 11/27/17 Breakfast Ordered Assessment/Plan - Assessment and Plan (Free Text) Assessment: 52 year old male with PMHx of morbid obesity, AFlutter, Afib w/ RVR, DM2, HTN, chronic low back, hypothyroidism, COPD and LE cellulitis who presented to the ED on 11/26 complaining of SOB on exertion, and bilateral lower extremity swelling with abdominal swelling worsening over the past 2 days. Pt is on BPAP with improvement of respiratory status. Pt placed into ICU for respiratory distress and cardiovascular monitoring. On 11/27 noted to be acidotic on ABG, and IPAP was increased. Pt noted to be hyperkalemic at 6.5, and given calcium gluconate 1g IV, 1 amp d50, insulin reg 10 units IV and NS IVF. 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 Mild concentric LVH. RV is severely dilated. RV systolic function is moderately to severely reduced. Trade AR. Trace MR. Moderate TR (RVSP=51mmHg). Poor sonic window due to obese body habitus. - CXR (11/26) shows vascular congestion w/ infiltrate and pleural effusion in the right lung base. - Continue home Verapamil, Atenolol - Apixiban dosage decreased to 2.5 mg PO BID due to nephrotoxicity - BNP (11/26) is 3280 - Due to right ventricular failure, pt will be diuresed - Cardio consulted, recs appreciated Pulm: - ABG earlier today showed respiratory acidosis; likely acute on chronic pCO2 retention due to COPD - f/u ABG - Continue BPAP - Maintain SpO2 between 88 and 92% - Pulm consulted, recs appreciated GI: - HHD - PPI withheld as pt is in CRUZITO, and increased risk for CKD Renal: - Calculated FeNa is 0.04%, consistent with pre-renal CRUZITO likely due to cardiorenal syndrome - Hyperkalemia likely secondary to cardiorenal syndrome - As per nephro, pt will be diuresed to improve pre-renal CRUZITO and resolve hyperkalemia; Lasix 80 mg IVP, Metolazone 5 mg PO, discontinue fluids. - Potential for dialysis later today if no improvement; pt was consented by Dr. Robertson. - Avoid nephrotoxic drugs - Renal US to r/o renal pathology - Renal recs appreciated Endo: - Maintain euglycemia - Insulin regular ISS - FSBS ACHS Heme: - H/h stable - Bilateral lower extremity US (11/26) shows no signs of DVT. ID: - No signs of infectious etiology; lower extremity changes are likely due to venous congestion secondary to cardiorenal syndrome PPX: Continue home Apixiban for hx of afib Dispo: Continue to diurese pt; possibility for dialysis; PMD is aware of plan. Case reviewed and discussed with attending physician, Dr. Smiley. <Randolph Smiley - Last Filed: 11/27/17 12:41> CCU Objective - Vital Signs / Intake & Output Vital Signs (Last 4 hours): Vital Signs Temp Pulse BP Pulse Ox 11/27/17 12:26 97.4 F L 11/27/17 11:41 90 93 L 11/27/17 11:40 95 H 91 L 11/27/17 11:39 91 H 93 L 11/27/17 11:38 91 H 90 L 11/27/17 11:37 92 H 93 L 11/27/17 11:36 87 93 L 11/27/17 11:35 91 H 91 L 11/27/17 11:34 90 93 L 11/27/17 11:33 91 H 92 L 11/27/17 11:32 95 H 93 L 11/27/17 11:31 95 H 94 L 11/27/17 11:30 95 H 94 L 11/27/17 11:29 95 H 82 L 11/27/17 11:28 96 H 83 L 11/27/17 11:27 100 H 86 L 11/27/17 11:26 96 H 95 11/27/17 11:25 95 H 90 L 11/27/17 11:24 91 H 92 L 11/27/17 11:23 91 H 92 L 07/13/18 11:22 90 91 L 07/13/18 11:21 91 H 91 L 07/13/18 11:20 95 H 92 L 07/13/18 11:19 95 H 117/74 94 L 07/13/18 11:18 100 H 93 L 07/13/18 11:17 95 H 91 L 07/13/18 11:16 95 H 92 L 07/13/18 11:15 95 H 91 L 07/13/18 11:14 92 H 90 L 07/13/18 11:13 94 H 89 L 07/13/18 11:12 95 H 86 L 07/13/18 11:11 95 H 89 L 07/13/18 11:10 91 H 87 L 07//18 11:09 100 H 88 L 07//18 11:08 97 H 89 L 07//18 11:07 95 H 89 L 07//18 11:06 96 H 90 L 07//18 11:05 96 H 93 L 07//18 11:04 95 H 94 L 07//18 11:03 91 H 92 L 07//18 11:02 96 H 86 L 07//18 11:01 96 H 92 L 07/13/18 11:00 117/74 07//18 10:59 96 H 90 L 07//18 10:58 114 H 87 L 07/13/18 10:57 107 H 95 07//18 10:56 113 H 94 L 07/13/18 10:55 107 H 91 L 07//18 10:54 114 H 92 L 07//18 10:53 101 H 93 L 07/13/18 10:52 113 H 95 07/13/18 10:49 94 H 07/13/18 10:21 93 H 114/49 L 07/13/18 10:14 91 H 07/13/18 10:03 97.2 F L 07//18 10:01 91 H 89 L 07/13/18 10:00 114/49 L 07/13/18 09:59 92 H 89 L 07/13/18 09:58 92 H 89 L 07/13/18 09:57 96 H 90 L 07/13/18 09:56 88 91 L 07/13/18 09:55 96 H 90 L 07/13/18 09:54 92 H 91 L 18 09:53 97 H 94 L 18 09:52 98 H 94 L 11/27/17 09:51 97 H 93 L 18 09:50 102 H 91 L 18 09:49 103 H 91 L 18 09:48 101 H 92 L 18 09:47 108 H 93 L 11/27/17 09:46 114 H 93 L 11/27/17 09:45 114 H 92 L 18 09:44 99 H 07 09:42 114 H 94 L 18 09:41 114 H 92 L 11/27/17 09:40 108 H 92 L 11/27/17 09:39 114 H 93 L 11/27/17 09:38 107 H 92 L 18 09:37 113 H 90 L 18 09:36 106 H 93 L 11/27/17 09:35 102 H 93 L 11/27/17 09:34 102 H 94 L 11/27/17 09:33 107 H 18 09:32 100 H 93 L 18 09:31 95 H 0718 09:30 91 H 91 L 11/27/17 09:29 101 H 91 L 11/27/17 09:28 96 H 92 L 18 09:27 91 H 91 L 18 09:26 92 H 88 L 18 09:25 84 91 L 18 09:24 87 91 L 18 09:23 88 92 L 18 09:22 87 90 L 18 09:21 87 90 L 18 09:20 95 H 90 L 18 09:19 92 H 91 L 18 09:18 91 H 92 L 18 09:17 83 92 L 18 09:16 84 91 L 18 09:15 87 91 L 18 09:14 88 91 L 18 09:13 87 90 L 18 09:12 84 89 L 18 09:11 87 88 L Intake and Output (Last 8hrs): Intake & Output 11/26/17 11/27/17 11/27/17 22:59 06:59 14:59 Intake Total 100 Output Total 200 Balance -100 Weight 341 lb Intake: Oral 100 Output: Urine 200 Urethral (Anthony) 200 Other: Voiding Method Urinal - Medications Active Medications: Active Medications Generic Name Dose Route Start Last Admin Trade Name Freq PRN Reason Stop Dose Admin Albuterol/Ipratropium 3 ml 11/26/17 19:08 11/27/17 07:36 Duoneb 3 Mg/0.5 Mg (3 Ml) Ud IH 3 ml [id number] PRN Administration Shortness of Breath Atenolol 25 mg 11/27/17 10:00 11/27/17 10:21 Tenormin PO 25 mg DAILY SHA Administration Insulin Human Lispro 0 units 11/27/17 11:30 Humalog Med SC ACHS SHA Protocol Levothyroxine Sodium 50 mcg 11/27/17 06:00 11/27/17 05:47 Synthroid PO 50 mcg 0600 SHA Administration Methylprednisolone 60 mg 11/26/17 22:00 11/27/17 05:47 Solu-Medrol IVP 60 mg Q8 SHA Administration Verapamil HCl 240 mg 11/27/17 10:00 11/27/17 10:21 Calan Sr Tab PO 240 mg DAILY SHA Administration - Patient Studies Lab Studies: Lab Studies 11/27/17 11/27/17 11/27/17 Range/Units 11:33 10:30 06:32 WBC (4.5-11.0) 10^3/ul RBC (3.5-6.1) 10^6/uL Hgb (14.0-18.0) g/dL Hct (42.0-52.0) % MCV (80.0-105.0) fl MCH (25.0-35.0) pg MCHC (31.0-37.0) g/dl RDW (11.5-14.5) % Plt Count (120.0-450.0) 10^3/uL MPV (7.0-11.0) fl pCO2 75 H* (35-45) mm/Hg pO2 76.0 L (80-100) mm/Hg HCO3 28.6 H (21-28) mmol/L ABG pH 7.19 L* (7.35-7.45) ABG Total CO2 30.9 H (22-28) mmol.L ABG O2 Saturation 95.8 (95-98) % ABG Base Excess -1.5 (-2.0-3.0) mmol/L ABG Potassium 6.2 H* (3.6-5.2) mmol/L Glucose 180 H (75-110) mg/dl Lactate 1.3 (0.7-2.1) mmol/L FiO2 40.0 % Pressure Support 8 Inspiratory BiPAP 14 Sodium 136 132.0 (132-148) mmol/L Potassium 5.9 H* (3.6-5.0) mmol/L Chloride 93 L 96.0 L (98-107) mmol/L Carbon Dioxide 27 (21-33) mmol/L Anion Gap 22 H (10-20) BUN 57 H (7-21) mg/dL Creatinine 2.7 H (0.8-1.5) mg/dl Est GFR ( Amer) 30 Est GFR (Non-Af Amer) 25 POC Glucose (mg/dL) 164 H (65-110) mg/dL Random Glucose 166 H (70-110) mg/dL Calcium 8.8 (8.4-10.5) mg/dL Total Bilirubin (0.2-1.3) mg/dL AST (17-59) U/L ALT (7-56) U/L Alkaline Phosphatase (38-126) U/L Lactate Dehydrogenase (333-699) U/L Total Creatine Kinase (35-230) U/L Troponin I ng/mL Total Protein (5.8-8.3) g/dL Albumin (3.0-4.8) g/dL Globulin gm/dL Albumin/Globulin Ratio (1.1-1.8) Arterial Blood Potassium 6.2 H* (3.6-5.2) mmol/L Urine Color (YELLOW) Urine Appearance (CLEAR) Urine pH (4.7-8.0) Ur Specific Bradshaw (1.005-1.035) Urine Protein (<30 mg/dL) mg/dL Urine Glucose (UA) (NEGATIVE) mg/dL Urine Ketones (NEGATIVE) mg/dL Urine Blood (NEGATIVE) Urine Nitrate (NEGATIVE) Urine Bilirubin (NEGATIVE) Urine Urobilinogen (<1 E.U./dL) E.U./dL Ur Leukocyte Esterase (NEGATIVE) Mikala/uL Urine RBC (0-2) /hpf Urine WBC (0-6) /hpf Ur Epithelial Cells (0-5) /hpf Amorphous Sediment Urine Bacteria (NEG) Urine Osmolality (300-1000) mosm/kg Ur Random Creatinine mg/dL Ur Random Sodium meq/L Ur Random Potassium meq/L Ur Random Urea Nitrogn mg/dL 11/27/17 11/27/17 11/27/17 Range/Units 06:00 06:00 02:45 WBC 7.4 D (4.5-11.0) 10^3/ul RBC 4.95 (3.5-6.1) 10^6/uL Hgb 14.5 (14.0-18.0) g/dL Hct 46.8 (42.0-52.0) % MCV 94.5 (80.0-105.0) fl MCH 29.3 (25.0-35.0) pg MCHC 31.0 (31.0-37.0) g/dl RDW 17.1 H (11.5-14.5) % Plt Count 236 (120.0-450.0) 10^3/uL MPV 10.7 (7.0-11.0) fl pCO2 (35-45) mm/Hg pO2 (80-100) mm/Hg HCO3 (21-28) mmol/L ABG pH (7.35-7.45) ABG Total CO2 (22-28) mmol.L ABG O2 Saturation (95-98) % ABG Base Excess (-2.0-3.0) mmol/L ABG Potassium (3.6-5.2) mmol/L Glucose (75-110) mg/dl Lactate (0.7-2.1) mmol/L FiO2 % Pressure Support Inspiratory BiPAP Sodium 135 (132-148) mmol/L Potassium 6.5 H* (3.6-5.0) mmol/L Chloride 94 L (98-107) mmol/L Carbon Dioxide 27 (21-33) mmol/L Anion Gap 20 (10-20) BUN 52 H (7-21) mg/dL Creatinine 2.9 H (0.8-1.5) mg/dl Est GFR ( Amer) 28 Est GFR (Non-Af Amer) 23 POC Glucose (mg/dL) (65-110) mg/dL Random Glucose 183 H (70-110) mg/dL Calcium 8.6 (8.4-10.5) mg/dL Total Bilirubin 0.9 (0.2-1.3) mg/dL AST 32 (17-59) U/L ALT 28 (7-56) U/L Alkaline Phosphatase 237 H (38-126) U/L Lactate Dehydrogenase 341 (333-699) U/L Total Creatine Kinase 27 L (35-230) U/L Troponin I 0.01 ng/mL Total Protein 7.5 (5.8-8.3) g/dL Albumin 3.6 (3.0-4.8) g/dL Globulin 3.9 gm/dL Albumin/Globulin Ratio 0.9 L (1.1-1.8) Arterial Blood Potassium (3.6-5.2) mmol/L Urine Color (YELLOW) Urine Appearance (CLEAR) Urine pH (4.7-8.0) Ur Specific Bradshaw (1.005-1.035) Urine Protein (<30 mg/dL) mg/dL Urine Glucose (UA) (NEGATIVE) mg/dL Urine Ketones (NEGATIVE) mg/dL Urine Blood (NEGATIVE) Urine Nitrate (NEGATIVE) Urine Bilirubin (NEGATIVE) Urine Urobilinogen (<1 E.U./dL) E.U./dL Ur Leukocyte Esterase (NEGATIVE) Mikala/uL Urine RBC (0-2) /hpf Urine WBC (0-6) /hpf Ur Epithelial Cells (0-5) /hpf Amorphous Sediment Urine Bacteria (NEG) Urine Osmolality (300-1000) mosm/kg Ur Random Creatinine 315 mg/dL Ur Random Sodium meq/L Ur Random Potassium meq/L Ur Random Urea Nitrogn mg/dL 11/27/17 11/27/17 11/26/17 Range/Units 02:45 02:45 23:05 WBC (4.5-11.0) 10^3/ul RBC (3.5-6.1) 10^6/uL Hgb (14.0-18.0) g/dL Hct (42.0-52.0) % MCV (80.0-105.0) fl MCH (25.0-35.0) pg MCHC (31.0-37.0) g/dl RDW (11.5-14.5) % Plt Count (120.0-450.0) 10^3/uL MPV (7.0-11.0) fl pCO2 (35-45) mm/Hg pO2 (80-100) mm/Hg HCO3 (21-28) mmol/L ABG pH (7.35-7.45) ABG Total CO2 (22-28) mmol.L ABG O2 Saturation (95-98) % ABG Base Excess (-2.0-3.0) mmol/L ABG Potassium (3.6-5.2) mmol/L Glucose (75-110) mg/dl Lactate (0.7-2.1) mmol/L FiO2 % Pressure Support Inspiratory BiPAP Sodium (132-148) mmol/L Potassium (3.6-5.0) mmol/L Chloride (98-107) mmol/L Carbon Dioxide (21-33) mmol/L Anion Gap (10-20) BUN (7-21) mg/dL Creatinine (0.8-1.5) mg/dl Est GFR ( Amer) Est GFR (Non-Af Amer) POC Glucose (mg/dL) 158 H (65-110) mg/dL Random Glucose (70-110) mg/dL Calcium (8.4-10.5) mg/dL Total Bilirubin (0.2-1.3) mg/dL AST (17-59) U/L ALT (7-56) U/L Alkaline Phosphatase (38-126) U/L Lactate Dehydrogenase (333-699) U/L Total Creatine Kinase (35-230) U/L Troponin I ng/mL Total Protein (5.8-8.3) g/dL Albumin (3.0-4.8) g/dL Globulin gm/dL Albumin/Globulin Ratio (1.1-1.8) Arterial Blood Potassium (3.6-5.2) mmol/L Urine Color Dark yellow (YELLOW) Urine Appearance Sl cloudy (CLEAR) Urine pH 5.0 (4.7-8.0) Ur Specific [place] >= 1.030 (1.005-1.035) Urine Protein 30 H (<30 mg/dL) mg/dL Urine Glucose (UA) Negative (NEGATIVE) mg/dL Urine Ketones Negative (NEGATIVE) mg/dL Urine Blood Negative (NEGATIVE) Urine Nitrate Negative (NEGATIVE) Urine Bilirubin Small H (NEGATIVE) Urine Urobilinogen 2.0 H (<1 E.U./dL) E.U./dL Ur Leukocyte Esterase Negative (NEGATIVE) Mikala/uL Urine RBC 0 - 2 (0-2) /hpf Urine WBC 1 - 3 (0-6) /hpf Ur Epithelial Cells 0 - 2 (0-5) /hpf Amorphous Sediment Few Urine Bacteria Few (NEG) Urine Osmolality 341 (300-1000) mosm/kg Ur Random Creatinine mg/dL Ur Random Sodium 6 meq/L Ur Random Potassium 55.0 meq/L Ur Random Urea Nitrogn 219 mg/dL 11/26/17 Range/Units 23:02 WBC (4.5-11.0) 10^3/ul RBC (3.5-6.1) 10^6/uL Hgb (14.0-18.0) g/dL Hct (42.0-52.0) % MCV (80.0-105.0) fl MCH (25.0-35.0) pg MCHC (31.0-37.0) g/dl RDW (11.5-14.5) % Plt Count (120.0-450.0) 10^3/uL MPV (7.0-11.0) fl pCO2 (35-45) mm/Hg pO2 (80-100) mm/Hg HCO3 (21-28) mmol/L ABG pH (7.35-7.45) ABG Total CO2 (22-28) mmol.L ABG O2 Saturation (95-98) % ABG Base Excess (-2.0-3.0) mmol/L ABG Potassium (3.6-5.2) mmol/L Glucose (75-110) mg/dl Lactate (0.7-2.1) mmol/L FiO2 % Pressure Support Inspiratory BiPAP Sodium (132-148) mmol/L Potassium (3.6-5.0) mmol/L Chloride (98-107) mmol/L Carbon Dioxide (21-33) mmol/L Anion Gap (10-20) BUN (7-21) mg/dL Creatinine (0.8-1.5) mg/dl Est GFR ( Amer) Est GFR (Non-Af Amer) POC Glucose (mg/dL) 155 H (65-110) mg/dL Random Glucose (70-110) mg/dL Calcium (8.4-10.5) mg/dL Total Bilirubin (0.2-1.3) mg/dL AST (17-59) U/L ALT (7-56) U/L Alkaline Phosphatase (38-126) U/L Lactate Dehydrogenase (333-699) U/L Total Creatine Kinase (35-230) U/L Troponin I ng/mL Total Protein (5.8-8.3) g/dL Albumin (3.0-4.8) g/dL Globulin gm/dL Albumin/Globulin Ratio (1.1-1.8) Arterial Blood Potassium (3.6-5.2) mmol/L Urine Color (YELLOW) Urine Appearance (CLEAR) Urine pH (4.7-8.0) Ur Specific [place] (1.005-1.035) Urine Protein (<30 mg/dL) mg/dL Urine Glucose (UA) (NEGATIVE) mg/dL Urine Ketones (NEGATIVE) mg/dL Urine Blood (NEGATIVE) Urine Nitrate (NEGATIVE) Urine Bilirubin (NEGATIVE) Urine Urobilinogen (<1 E.U./dL) E.U./dL Ur Leukocyte Esterase (NEGATIVE) Mikala/uL Urine RBC (0-2) /hpf Urine WBC (0-6) /hpf Ur Epithelial Cells (0-5) /hpf Amorphous Sediment Urine Bacteria (NEG) Urine Osmolality (300-1000) mosm/kg Ur Random Creatinine mg/dL Ur Random Sodium meq/L Ur Random Potassium meq/L Ur Random Urea Nitrogn mg/dL Laboratory Results - last 24 hr 11/26/17 11/26/17 11/27/17 23:02 23:05 02:45 WBC RBC Hgb Hct MCV MCH MCHC RDW Plt Count MPV pCO2 pO2 HCO3 ABG pH ABG Total CO2 ABG O2 Saturation ABG Base Excess ABG Potassium Glucose Lactate FiO2 Pressure Support Inspiratory BiPAP Sodium Potassium Chloride Carbon Dioxide Anion Gap BUN Creatinine Est GFR ( Amer) Est GFR (Non-Af Amer) POC Glucose (mg/dL) 155 H 158 H Random Glucose Calcium Total Bilirubin AST ALT Alkaline Phosphatase Lactate Dehydrogenase Total Creatine Kinase Troponin I Total Protein Albumin Globulin Albumin/Globulin Ratio Arterial Blood Potassium Urine Color Dark yellow Urine Appearance Sl cloudy Urine pH 5.0 Ur Specific [place] >= 1.030 Urine Protein 30 H Urine Glucose (UA) Negative Urine Ketones Negative Urine Blood Negative Urine Nitrate Negative Urine Bilirubin Small H Urine Urobilinogen 2.0 H Ur Leukocyte Esterase Negative Urine RBC 0 - 2 Urine WBC 1 - 3 Ur Epithelial Cells 0 - 2 Amorphous Sediment Few Urine Bacteria Few Urine Osmolality Ur Random Creatinine Ur Random Sodium Ur Random Potassium Ur Random Urea Nitrogn 11/27/17 11/27/17 11/27/17 02:45 02:45 06:00 WBC RBC Hgb Hct MCV MCH MCHC RDW Plt Count MPV pCO2 pO2 HCO3 ABG pH ABG Total CO2 ABG O2 Saturation ABG Base Excess ABG Potassium Glucose Lactate FiO2 Pressure Support Inspiratory BiPAP Sodium 135 Potassium 6.5 H* Chloride 94 L Carbon Dioxide 27 Anion Gap 20 BUN 52 H Creatinine 2.9 H Est GFR ( Amer) 28 Est GFR (Non-Af Amer) 23 POC Glucose (mg/dL) Random Glucose 183 H Calcium 8.6 Total Bilirubin 0.9 AST 32 ALT 28 Alkaline Phosphatase 237 H Lactate Dehydrogenase 341 Total Creatine Kinase 27 L Troponin I 0.01 Total Protein 7.5 Albumin 3.6 Globulin 3.9 Albumin/Globulin Ratio 0.9 L Arterial Blood Potassium Urine Color Urine Appearance Urine pH Ur Specific [place] Urine Protein Urine Glucose (UA) Urine Ketones Urine Blood Urine Nitrate Urine Bilirubin Urine Urobilinogen Ur Leukocyte Esterase Urine RBC Urine WBC Ur Epithelial Cells Amorphous Sediment Urine Bacteria Urine Osmolality 341 Ur Random Creatinine 315 Ur Random Sodium 6 Ur Random Potassium 55.0 Ur Random Urea Nitrogn 219 11/27/17 11/27/17 11/27/17 06:00 06:32 10:30 WBC 7.4 D RBC 4.95 Hgb 14.5 Hct 46.8 MCV 94.5 MCH 29.3 MCHC 31.0 RDW 17.1 H Plt Count 236 MPV 10.7 pCO2 75 H* pO2 76.0 L HCO3 28.6 H ABG pH 7.19 L* ABG Total CO2 30.9 H ABG O2 Saturation 95.8 ABG Base Excess -1.5 ABG Potassium 6.2 H* Glucose 180 H Lactate 1.3 FiO2 40.0 Pressure Support 8 Inspiratory BiPAP 14 Sodium 132.0 136 Potassium 5.9 H* Chloride 96.0 L 93 L Carbon Dioxide 27 Anion Gap 22 H BUN 57 H Creatinine 2.7 H Est GFR ( Amer) 30 Est GFR (Non-Af Amer) 25 POC Glucose (mg/dL) Random Glucose 166 H Calcium 8.8 Total Bilirubin AST ALT Alkaline Phosphatase Lactate Dehydrogenase Total Creatine Kinase Troponin I Total Protein Albumin Globulin Albumin/Globulin Ratio Arterial Blood Potassium 6.2 H* Urine Color Urine Appearance Urine pH Ur Specific [place] Urine Protein Urine Glucose (UA) Urine Ketones Urine Blood Urine Nitrate Urine Bilirubin Urine Urobilinogen Ur Leukocyte Esterase Urine RBC Urine WBC Ur Epithelial Cells Amorphous Sediment Urine Bacteria Urine Osmolality Ur Random Creatinine Ur Random Sodium Ur Random Potassium Ur Random Urea Nitrogn 11/27/17 11:33 WBC RBC Hgb Hct MCV MCH MCHC RDW Plt Count MPV pCO2 pO2 HCO3 ABG pH ABG Total CO2 ABG O2 Saturation ABG Base Excess ABG Potassium Glucose Lactate FiO2 Pressure Support Inspiratory BiPAP Sodium Potassium Chloride Carbon Dioxide Anion Gap BUN Creatinine Est GFR ( Amer) Est GFR (Non-Af Amer) POC Glucose (mg/dL) 164 H Random Glucose Calcium Total Bilirubin AST ALT Alkaline Phosphatase Lactate Dehydrogenase Total Creatine Kinase Troponin I Total Protein Albumin Globulin Albumin/Globulin Ratio Arterial Blood Potassium Urine Color Urine Appearance Urine pH Ur Specific [place] Urine Protein Urine Glucose (UA) Urine Ketones Urine Blood Urine Nitrate Urine Bilirubin Urine Urobilinogen Ur Leukocyte Esterase Urine RBC Urine WBC Ur Epithelial Cells Amorphous Sediment Urine Bacteria Urine Osmolality Ur Random Creatinine Ur Random Sodium Ur Random Potassium Ur Random Urea Nitrogn EKG/Cardiology Studies: Cardiology / EKG Studies 11/27/17 07:13 EKG [ELECTROCARDIOGRAM] Stat Comment: Reason For Exam: hyperkalemia Critical Care Progress Note - Nutrition Nutrition: Nutrition Category Date Time Status Heart Healthy Diet [DIET] Diets 11/27/17 Lunch Active Assessment/Plan - Assessment and Plan (Free Text) Plan: Patient seen and examined on rounds with resident, agree with note with following additions/exceptions: Patient is 52yo male w/PMH of morbid obesity, DM2, HTN, chronic low back, hypothyroidism, COPD and LE cellulitis who presented with shortness of breath on exertion and b/l LE and abdominal swelling. Patient was found to have mild hypercapnia, placed on BIPAP, in acute renal failure, reports poor po intake. On exam clinically volume overloaded, CXR with pulm edema. Renal consulted, likely has volume overload from cardio-renal syndrome, on Lasix IV diuresis, OUP ~200/12hr Will be placed on Lasix drip as per renal, Metalazone 5mg BID ABG with worsening hypercapnia, BIPAP settings adjusted accordingly Currently afebrile, BP stable, comfortable in NAD, AAOx3, protecting airway LE duplex neg for DVT (limited study) COPD exacerbation CHF exacerbation Acute renal failure Hyperkalemia Obesity DM HTN r/o Cardio-renal syndrome Recommend: - cont with BIPAP as tolerated 84/6/40%, repeat ABG, duonebs PRN - NO ID issues - Solumedrol 60mg IV q8hr - Lasix drip 10mg/hr - follow up nephro - Renal U/S - Kayex 30g x 1, repeat BMP - BP control - GI ppx - DVT ppx - monitor in CCU Critical care time 35 minutes
[2017-11-27] MEDS ORDERED: metOLazone 5 MG TAB PO ONE (10:52)
[2017-11-27 11:14] LABS: CALCIUM 8.8 mg/dL (8.4-10.5)
[2017-11-27] MEDS: Furosemide 100 MG in Dextrose 5% In Water 90 ML IV SCH ×2 (13:10→22:23)
--- NOTE | 2017-11-27 15:10 | CP.PCM.CON ---
History of Present Illness - History of Present Illness History of Present Illness: Nephrology Consultation Note Assessment: critical oligouric CRUZITO likely due to cardio-renal syndrome Hyperkalemia likely due to CRUZITO and acidemia resulting in transcellular shifts CKD stage 3 with baseline cr 1.1-1.4 mg/dL fluid overload, COPD/CHF exacerbation ? pneumonia acute on chronic hypercapnic respi failure deafness, DM, HTN, A flutter, morbid obesity, ex smoker, Rt heart failure with cor-pulmonale, pulmonary HTN, chronic leg edema, ascites Plan suggests to stop IVF and trial of diuretics as lasix 80 mg IVP followed by lasix drip @ 10 mg/hr with metolazone 5 mg bid. If unable to diurese or K remains elevated, will need dialysis initiation. In that case, pt will need transfer to [facility]. renal replacement therapy initiation d/w patient, he is agreeable, he consented to start HD when needed maintain hemodynamics stable. avoid hypotension. no RAAS brent due to CRUZITO and hyperkalemia monitor I/O daily weights and renal function with BMP continue with respi support with BiPAP to lower pCO2 and improve pH medical management of hyperkalemia in meantime renal sono pending Dose meds/antibiotics for reduced GFR. Avoid fleets enema/magnesium based laxatives. Avoid nephrotoxins/NSAIDs/ iodinated contrast (unless needed emergently) Glycemic control, oral fluid/salt restriction Further work up for as per primary team. Thanks for allowing me to participate in care of your patient. will follow with you. Please call if any Qs. had d/w team and family Dr Reuben Robertson Office: [phone] CC: shortness of breath, leg swelling reason for consult: CRUZITO, hyperkalemia HPI: Pt is a 52 y/o M with hx of deafness, DM, HTN, A flutter, morbid obesity, ex smoker, Rt heart failure with cor-pulmonale, pulmonary HTN, chronic leg edema , ascites came with worsening SOB and being managed for COPD/CHF exacerbation. renal consult for CRUZITO management. pt not aware about kidney disease in past says not making much urine. has ibarra catheter no known OTC/nsaids/herbal meds no recent contrast exposure. no episode of low BP noted baseline cr 1.1-1.4 last month. USED [facility] for sign and language interpretation. ROS: he denies chest pain/nausea/vomiting. reports chronic leg swelling. SOB + but better since came with. rest all other neg except as mentioned in HPI Physical Examination: family bedside General Appearance: Comfortable, co-operative. ill appearing, on BiPAP, morbidly obese Vitals reviewed and noted as below Head; Atraumatic, normocephalic ENT: unable as pt on BiPAP. he has hearing impairment EYES: Pupils are equal, round and reactive to light accommodation. Eye muscles and extraocular movement intact. Sclera is icteric. Neck; supple no lymphadenopathy, no thyromegaly or bruit Lungs: Increased respiratory rate/effort. Breath sounds b/l with basal crackles Heart: Normal rate. s1s2 normal. No rub or gallop. Extremities: 3+ edema. No varicose veins. has chronic venous stasis changes in legs with erythema/skin thickening Neurological: Patient is alert, awake, oriented x 3 follows commands, no focal deficit. Skin: dry and warm. Normal turgor. No rash. Palpitation: Normal elasticity for age. grossly yellow Abdomen: Abdomen is soft non tender no apparent organomegaly however exam limited as grossly distended Psych: normal insight. has normal affect and mood MSK: no specific joint tenderness or swelling. Digits and nails normal, no deformity : kidney not palpable. bladder not distended . has ibarra Labs/imaging/EKG reviewed. Past medical history, past surgical history, social history, allergy reviewed and noted as below Family hx; no known hx of CKD> rest non contributory work up: UA SG >1.030 urine Na 6 Fena 0.4% echo: severe RV dilation and dysfunction, elevated RVSP. preserved LVEF renal imaging in past unremarkable Past Patient History - Tetanus Immunizations Tetanus Immunization: Unknown - Past Medical History & Family History Past Medical History?: Yes - Past Social History Smoking Status: Former Smoker - CARDIAC Hx Hypertension: Yes - PULMONARY Hx Chronic Obstructive Pulmonary Disease (COPD): Yes - NEUROLOGICAL Hx Neurological Disorder: No - HEENT Hx Deafness: Yes - RENAL Hx Chronic Kidney Disease: No - ENDOCRINE/METABOLIC Hx Diabetes Mellitus Type 2: Yes - HEMATOLOGICAL/ONCOLOGICAL Hx Blood Disorders: No - INTEGUMENTARY Hx Dermatological Problems: No - MUSCULOSKELETAL/RHEUMATOLOGICAL Hx Falls: No - GASTROINTESTINAL Hx Gastrointestinal Disorders: Yes - GENITOURINARY/GYNECOLOGICAL Hx Genitourinary Disorders: No Hx Reproductive Disorders: No - PSYCHIATRIC Hx Psychophysiologic Disorder: No Hx Depression: No Hx Emotional Abuse: No Hx Physical Abuse: No Hx Substance Use: No - SURGICAL HISTORY Hx Appendectomy: Yes Hx Cholecystectomy: Yes Hx Tonsillectomy: Yes Meds Allergies/Adverse Reactions: Allergies Allergy/AdvReac Type Severity Reaction Status Date / Time No Known Allergies Allergy Verified 10/06/17 20:08 - Medications Medications: Current Medications Albuterol/Ipratropium (Duoneb 3 Mg/0.5 Mg (3 Ml) Ud) 3 ml IH [id number] PRN PRN Reason: Shortness of Breath Last Admin: 11/27/17 07:36 Dose: 3 ml Atenolol (Tenormin) 25 mg PO DAILY SHA Last Admin: 11/27/17 10:21 Dose: 25 mg Furosemide 100 mg/ Dextrose 100 mls @ 10 mls/hr IV .Q10H SHA; 10 MG/HR PRN Reason: Protocol Last Admin: 11/27/17 13:10 Dose: 10 mls/hr Insulin Human Lispro (Humalog Med) 0 units SC ACHS SHA PRN Reason: Protocol Levothyroxine Sodium (Synthroid) 50 mcg PO 0600 SHA Last Admin: 11/27/17 05:47 Dose: 50 mcg Methylprednisolone (Solu-Medrol) 60 mg IVP Q8 SHA Last Admin: 11/27/17 05:47 Dose: 60 mg Metolazone (Zaroxolyn) 5 mg PO BID SHA Verapamil HCl (Calan Sr Tab) 240 mg PO DAILY SHA Last Admin: 11/27/17 10:21 Dose: 240 mg Results - Vital Signs Recent Vital Signs: Last Vital Signs Temp 97.4 F L 11/27/17 12:26 Pulse 78 11/27/17 14:04 Resp 21 11/26/17 21:45 BP 95/47 L 11/27/17 14:02 Pulse Ox 92 L 11/27/17 14:04 - Labs Result Diagrams: 11/27/17 06:00 11/27/17 10:30 Labs: Laboratory Results - last 24 hr 11/26/17 11/26/17 11/27/17 23:02 23:05 02:45 WBC RBC Hgb Hct MCV MCH MCHC RDW Plt Count MPV pCO2 pO2 HCO3 ABG pH ABG Total CO2 ABG O2 Saturation ABG Base Excess ABG Potassium Glucose Lactate FiO2 Pressure Support Inspiratory BiPAP Sodium Potassium Chloride Carbon Dioxide Anion Gap BUN Creatinine Est GFR ( Amer) Est GFR (Non-Af Amer) POC Glucose (mg/dL) 155 H 158 H Random Glucose Calcium Total Bilirubin AST ALT Alkaline Phosphatase Lactate Dehydrogenase Total Creatine Kinase Troponin I Total Protein Albumin Globulin Albumin/Globulin Ratio Arterial Blood Potassium Urine Color Dark yellow Urine Appearance Sl cloudy Urine pH 5.0 Ur Specific [place] >= 1.030 Urine Protein 30 H Urine Glucose (UA) Negative Urine Ketones Negative Urine Blood Negative Urine Nitrate Negative Urine Bilirubin Small H Urine Urobilinogen 2.0 H Ur Leukocyte Esterase Negative Urine RBC 0 - 2 Urine WBC 1 - 3 Ur Epithelial Cells 0 - 2 Amorphous Sediment Few Urine Bacteria Few Urine Osmolality Ur Random Creatinine Ur Random Sodium Ur Random Potassium Ur Random Urea Nitrogn 11/27/17 11/27/17 11/27/17 02:45 02:45 06:00 WBC RBC Hgb Hct MCV MCH MCHC RDW Plt Count MPV pCO2 pO2 HCO3 ABG pH ABG Total CO2 ABG O2 Saturation ABG Base Excess ABG Potassium Glucose Lactate FiO2 Pressure Support Inspiratory BiPAP Sodium 135 Potassium 6.5 H* Chloride 94 L Carbon Dioxide 27 Anion Gap 20 BUN 52 H Creatinine 2.9 H Est GFR ( Amer) 28 Est GFR (Non-Af Amer) 23 POC Glucose (mg/dL) Random Glucose 183 H Calcium 8.6 Total Bilirubin 0.9 AST 32 ALT 28 Alkaline Phosphatase 237 H Lactate Dehydrogenase 341 Total Creatine Kinase 27 L Troponin I 0.01 Total Protein 7.5 Albumin 3.6 Globulin 3.9 Albumin/Globulin Ratio 0.9 L Arterial Blood Potassium Urine Color Urine Appearance Urine pH Ur Specific [place] Urine Protein Urine Glucose (UA) Urine Ketones Urine Blood Urine Nitrate Urine Bilirubin Urine Urobilinogen Ur Leukocyte Esterase Urine RBC Urine WBC Ur Epithelial Cells Amorphous Sediment Urine Bacteria Urine Osmolality 341 Ur Random Creatinine 315 Ur Random Sodium 6 Ur Random Potassium 55.0 Ur Random Urea Nitrogn 219 11/27/17 11/27/17 11/27/17 06:00 06:32 10:30 WBC 7.4 D RBC 4.95 Hgb 14.5 Hct 46.8 MCV 94.5 MCH 29.3 MCHC 31.0 RDW 17.1 H Plt Count 236 MPV 10.7 pCO2 75 H* pO2 76.0 L HCO3 28.6 H ABG pH 7.19 L* ABG Total CO2 30.9 H ABG O2 Saturation 95.8 ABG Base Excess -1.5 ABG Potassium 6.2 H* Glucose 180 H Lactate 1.3 FiO2 40.0 Pressure Support 8 Inspiratory BiPAP 14 Sodium 132.0 136 Potassium 5.9 H* Chloride 96.0 L 93 L Carbon Dioxide 27 Anion Gap 22 H BUN 57 H Creatinine 2.7 H Est GFR ( Amer) 30 Est GFR (Non-Af Amer) 25 POC Glucose (mg/dL) Random Glucose 166 H Calcium 8.8 Total Bilirubin AST ALT Alkaline Phosphatase Lactate Dehydrogenase Total Creatine Kinase Troponin I Total Protein Albumin Globulin Albumin/Globulin Ratio Arterial Blood Potassium 6.2 H* Urine Color Urine Appearance Urine pH Ur Specific [place] Urine Protein Urine Glucose (UA) Urine Ketones Urine Blood Urine Nitrate Urine Bilirubin Urine Urobilinogen Ur Leukocyte Esterase Urine RBC Urine WBC Ur Epithelial Cells Amorphous Sediment Urine Bacteria Urine Osmolality Ur Random Creatinine Ur Random Sodium Ur Random Potassium Ur Random Urea Nitrogn 11/27/17 11:33 WBC RBC Hgb Hct MCV MCH MCHC RDW Plt Count MPV pCO2 pO2 HCO3 ABG pH ABG Total CO2 ABG O2 Saturation ABG Base Excess ABG Potassium Glucose Lactate FiO2 Pressure Support Inspiratory BiPAP Sodium Potassium Chloride Carbon Dioxide Anion Gap BUN Creatinine Est GFR ( Amer) Est GFR (Non-Af Amer) POC Glucose (mg/dL) 164 H Random Glucose Calcium Total Bilirubin AST ALT Alkaline Phosphatase Lactate Dehydrogenase Total Creatine Kinase Troponin I Total Protein Albumin Globulin Albumin/Globulin Ratio Arterial Blood Potassium Urine Color Urine Appearance Urine pH Ur Specific [place] Urine Protein Urine Glucose (UA) Urine Ketones Urine Blood Urine Nitrate Urine Bilirubin Urine Urobilinogen Ur Leukocyte Esterase Urine RBC Urine WBC Ur Epithelial Cells Amorphous Sediment Urine Bacteria Urine Osmolality Ur Random Creatinine Ur Random Sodium Ur Random Potassium Ur Random Urea Nitrogn
[2017-11-27] MEDS: Insulin Lispro (humaLOG) MEDIUM Coverage SC SCH ×2 (17:41→22:29)
[2017-11-27] MEDS: metOLazone 5 MG TAB PO SCH (17:44)
[2017-11-27] MEDS ORDERED: Milrinone 20mg/100ml D5W 100 ML IV PRN (18:19)
[2017-11-27] MEDS: Milrinone 20mg/100ml D5W 100 ML IV PRN ×2 (18:46→23:15)
[2017-11-27 21:55] LABS: CALCIUM 8.6 mg/dL (8.4-10.5)
[2017-11-27] MEDS ORDERED: Insulin Regular 1 UNITS/0.01 ML ML IV STA (22:13)
[2017-11-28] MEDS ORDERED: Sod Polystyrene Sulf 15 gm/60 ml Susp PO STA ×2 (00:53→06:36)
[2017-11-28] MEDS: Albuterol-Ipratrop 3 mg / 0.5 (3 ml) UD IH PRN (01:57)
[2017-11-28] MEDS: Levothyroxine 50 MCG TAB PO SCH (05:29)
[2017-11-28] MEDS: Milrinone 20mg/100ml D5W 100 ML IV PRN ×2 (05:44→10:46)
[2017-11-28 06:15] LABS: HEMOGLOBIN 13.5 g/dL (14.0-18.0); MEAN CELL VOLUME 91.5 fl (80.0-105.0); MEAN CORPUSCULAR HEMOGLOBIN 29.5 pg (25.0-35.0); MEAN CORPUSCULAR HGB CONC 32.2 g/dl (31.0-37.0); MEAN PLATELET VOLUME 10.7 fl (7.0-11.0); RBC 4.58 10^6/uL (3.5-6.1); RED CELL DISTRIBUTION WIDTH 16.4 % (11.5-14.5); WHITE BLOOD COUNT 13.1 10^3/ul (4.5-11.0)
[2017-11-28 06:18] LABS: ALBUMIN 3.8 g/dL (3.0-4.8); CALCIUM 8.5 mg/dL (8.4-10.5); URIC ACID 10.8 mg/dL (3.5-8.5)
[2017-11-28 07:07] LABS: ARTERIAL BLOOD GAS HCO3 24.1 mmol/L (21-28); ARTERIAL BLOOD GAS O2 SAT 90.5 % (95-98); ARTERIAL BLOOD GAS PCO2 55 mm/Hg (35-45); ARTERIAL BLOOD GAS PH 7.25 (7.35-7.45); ARTERIAL BLOOD GAS TCO2 25.8 mmol.L (22-28)
[2017-11-28] MEDS ORDERED: Vancomycin 1gm in NS 250ml 1 GM/250 ML BAG IVPB STA (07:26)
[2017-11-28] MEDS ORDERED: Cefepime 1gm in NS 100ml 1 GM/100 ML BAG IVPB SCH (07:30)
[2017-11-28] MEDS ORDERED: Albuterol-Ipratrop 3 mg / 0.5 (3 ml) UD IH SCH (07:30)
[2017-11-28] MEDS: Furosemide 100 MG in Dextrose 5% In Water 90 ML IV SCH (08:17)
[2017-11-28] MEDS: metOLazone 5 MG TAB PO SCH (08:19)
--- NOTE | 2017-11-28 08:37 | RAD ---
Date of service: 11/28/2017 HISTORY: chf COMPARISON: 11/26/2017 FINDINGS: LUNGS: There is a right lower lobe infiltrate. PLEURA: No significant pleural effusion identified, no pneumothorax apparent. CARDIOVASCULAR: Moderate cardiomegaly OSSEOUS STRUCTURES: No significant abnormalities. VISUALIZED UPPER ABDOMEN: Normal. OTHER FINDINGS: None. IMPRESSION: Cardiomegaly. Right lower lobe infiltrate. Mild vascular congestion
[2017-11-28] MEDS: Insulin Lispro (humaLOG) MEDIUM Coverage SC SCH (09:43)
[2017-11-28 10:02] VITALS: RESP 20; O2SAT 86
[2017-11-28 10:04] VITALS: TEMP 97.8
[2017-11-28 11:09] VITALS: BP 112/42; PULSE 120
--- NOTE | 2017-11-28 12:59 | PN ---
DATE: 11/28/2017 SUBJECTIVE: The patient seen and examined at bedside. He is comfortable. He is watching TV, he is on BiPAP 19/6 with FiO2 of 45%, he is pulling 500 to 700 mL of tidal volume. PHYSICAL EXAMINATION: VITAL SIGNS: He has respiratory rate of 24, oxygen saturation 92%, blood pressure 111/51, heart rate 105. He is not using accessory muscles to breathe. ENT: Head and neck atraumatic. HEART: Regular rhythm and rate. S1, S2 normal. LUNGS: A few rales bilaterally. ABDOMEN: Soft, nontender, nondistended. MUSCULOSKELETAL: 2+ bilateral ankle and pedal edema with signs of [id number] cellulitis. SKIN: Moist and erythematous. PSYCHIATRIC: The patient used to be alert, awake and following commands (the patient is deaf; however, able to read lips). LABORATORY DATA: WBC is 15.1, hemoglobin 15.5, platelet count 267,000. Sodium 132, potassium 6, chloride 91, carbon dioxide 28, BUN 74, creatinine 0.4, glucose 211, AST 46, ALT 31. INR of 1.56 as of two days ago (patient is on Eliquis at home; however, it was withheld while in the hospital). Blood cultures are negative. ABG: The pH 7.25, pCO2 of 55 (pH up from 7.19 and pCO2 down from 70s), potassium 4.6. MEDICATIONS: DuoNeb every 4 hours p.r.n., regular insulin sliding scale medium protocol, Synthroid 50 mcg p.o. every 6 hours, Solu-Medrol 60 mg IV every 6 hours, Zaroxolyn 5 mg p.o. two times a day, milrinone. ASSESSMENT AND PLAN: This is a 52-year-old gentleman who presented with congestive heart failure and chronic obstructive pulmonary disease exacerbation, treated with steroids taper, bronchodilators and aggressive diuresis; however, his respiratory status as well as acute kidney injury have progressed. With BiPAP, his acid-base disorder is somewhat improved; however, he still remains in combined respiratory and metabolic acidosis. His potassium fluctuates and he remains fluid overloaded despite Lasix drip with urine output overnight of 100 mL only. Decision by Nephrology service was made to proceed with hemodialysis, for which the patient will be transferred to [facility]. We will continue to target euvolemia, euglycemia, normothermia and oxygen saturation more than 100%. We will continue with DVT and GI prophylaxis. I will start the patient on antibiotics as his white cell count is rising and he has signs of acute cellulitis. I will order procalcitonin; however, it may be falsely elevated. Nevertheless, trending procalcitonin may help with assessment. I will hold anticoagulation in anticipation of hemodialysis catheter placement. ccm time 40 min Stas Mathews MD MTDD
--- NOTE | 2017-11-28 13:43 | US ---
Date of service: 11/28/2017 HISTORY: R/o ascites, kidneys COMPARISON: None. TECHNIQUE: Sonographic evaluation of the abdomen. FINDINGS: LIVER: Measures 20 x 11 cm. Increased echogenicity of the liver parenchyma. No mass. No intrahepatic bile duct dilatation. GALLBLADDER: Removed COMMON BILE DUCT: Measures between 4 and 8 mm. No stones. No dilatation. PANCREAS: Unremarkable as visualized. No mass. No ductal dilatation. RIGHT KIDNEY: Measures 9.4 x 5.1 by 5.9cm. Normal echogenicity. No calculus, mass, or hydronephrosis. LEFT KIDNEY: Measures 6.6 x 2.7 x 4.5cm. Normal echogenicity. No calculus, mass, or hydronephrosis. Left kidney difficult to visualize due to body habitus SPLEEN: Normal in size and contour. No mass. 10.68 x 7.01 AORTA: Not visualize IVC: Not visualized OTHER FINDINGS: Small pleural effusions IMPRESSION: Limited study due to body habitus. No acute findings
--- NOTE | 2017-11-29 11:15 | DS ---
HISTORY OF PRESENT ILLNESS: This is a 52-year-old man with morbid obesity, diabetes, COPD, congestive heart failure, pulmonary hypertension, and noncompliance with diet and medical regimen, who presented to [facility] after one week of worsening shortness of breath, he was found to be anasarcic and volume overloaded, treated aggressively with diuretics. His BUN and creatinine were rising. Renal consultation was called. With aggressive diuresis over the course of 24 to 48 hours, there was still no adequate diuresis and renal successfactors consultant recommended dialysis, ultrafiltration to reduce the anasarca load. Conversations were held with the patient's mother and sister at the bedside, both yesterday and today, Thursday, the date of discharge. Arrangements have been made for the patient to transfer to [facility] for dialysis. I spoke with the [facility] hand outside cutter about dialysis catheter placement and that would probably be best done at [facility] when he arrives there. The critical nature of the patient's illness and the severity of his illness and my concerns for short-term as well as long-term were discussed at great length with his mother and sister at the bedside and just outside the room in intensive care. Case was reviewed with his nurse and the hospital hand outside cutter. Labs and consultation notes were appreciated and will follow after discharge or return to home. FINAL DISCHARGE DIAGNOSES: 1. Congestive heart failure, anasarca, volume overload. 2. Anasarca. 3. Renal insufficiency, acute renal injury. 4. Chronic obstructive pulmonary disease. 5. Pulmonary hypertension. 6. Diabetes. 7. Obesity. 8. History of cellulitis of the lower extremities and abdomen. Justyn Norman MD [facility]
== END 2017-11-28 11:40 | disposition short-term general hospital (02) | DRG 291 ==
LOC: ED 16:02 → ERH 19:14 → CCU 21:14
PROVIDERS: ADMIT Internal Medicine; ATTEND Internal Medicine
PROC: 5A09357 Assistance with Respiratory Ventilation, Less than 24 Consecutive Hours, Continuous Positive Airway Pressure (ICD-10-PCS; principal; 2017-11-27)
DX: I13.0 Hypertensive heart and chronic kidney disease with heart failure and stage 1 through stage 4 chronic kidney disease, or unspecified chronic kidney disease (principal); J96.22 Acute and chronic respiratory failure with hypercapnia; N17.9 Acute kidney failure, unspecified; J44.1 Chronic obstructive pulmonary disease with (acute) exacerbation; Z68.42 Body mass index [BMI] 45.0-49.9, adult; E87.4 Mixed disorder of acid-base balance; E03.9 Hypothyroidism, unspecified; N18.3 Chronic kidney disease, stage 3 (moderate); Z91.11 Patient's noncompliance with dietary regimen; Z87.891 Personal history of nicotine dependence; Z99.81 Dependence on supplemental oxygen; E11.22 Type 2 diabetes mellitus with diabetic chronic kidney disease; E66.01 Morbid (severe) obesity due to excess calories; E87.5 Hyperkalemia; H91.3 Deaf nonspeaking, not elsewhere classified; I50.813 Acute on chronic right heart failure; I27.81 Cor pulmonale (chronic); I27.29 Other secondary pulmonary hypertension